=== PATIENT | male | born 1970 | race Caucasian/White ===

== ENCOUNTER → 2017-10-15 12:44 | Outpatient (CLI) | payer OTHER ==
[~2017-10-15 12:44] MED LIST: ASPIRIN81 MG PO; COREG 3.1253.125 MG PO; HYDROCODON-ACE1 EAC7 PO; NITROQUICK0.4 MG SL; PLAVIX75 MG PO
== END | disposition home or self-care (01) ==
LOC: D.US 12:30
DX: I80.292 Phlebitis and thrombophlebitis of other deep vessels of left lower extremity (principal); R60.0 Localized edema

== ENCOUNTER 2018-01-04 22:19 | Outpatient (CLI) | payer OTHER ==
--- NOTE | ~2018-01-04 | CN ---
PATIENT NAME:KRISTA MENEZES JR MEDICAL RECORD: [id number] : 66 LOCATION:[facility] ADMIT DATE: 01/05/18 ACCOUNT: [id number] CONSULTING PHYSICIAN: DUC MARTELL MD REFERRING PHYSICIAN: DUC MARTELL MD DATE OF CONSULTATION: 01/05/2018 Cardiology Consult DIAGNOSES: 1. Unstable angina. 2. Coronary artery disease. 3. Previous percutaneous transluminal coronary angioplasty stent multivessel. 4. Hypertension. HISTORY OF PRESENT ILLNESS: This is a gentleman known to us, previous multivessel PTCA stent, last being in October. He did well until 2 days ago. He began having increasing episodes of chest pain, chest discomfort just like that of his previous angina. It had totally resolved after the intervention in October. REVIEW OF SYSTEMS: The patient reports easy bruising but reports no swollen glands. The patient reports no fever, no night sweats, no significant weight gain, no significant weight loss. No significant exercise tolerance. The patient reports no dry eyes, no irritation, no vision change. Patient reports no difficulty hearing and no ear pain. Patient reports no frequent nose bleeds or nose and sinus problems. Patient reports on arm pain on exertion. No shortness of breath while lying down. No history of heart murmur. Patient reports no cough, no wheezing or coughing up blood. Patient reports no abdominal pain, no vomiting. Normal appetite. No diarrhea and not vomiting blood. No nausea and no constipation. Patient reports no incontinence. No difficulty urinating. No hematuria. No increased frequency. Patient reports no muscle aches. No weakness, no arthralgias, no back pain. No swelling of the extremities. Patient reports no abnormal mole, no jaundice, no rashes. Reports no loss of consciousness. No weakness and no numbness. No seizures, dizziness, or headaches. The patient reports no depression, no sleep disturbance, feeling safe in a relationship and no alcohol abuse. Patient reports on fatigue. Reports no runny nose or sinus pressure. No itching, no hives, and no frequent sneezing. PHYSICAL EXAMINATION: GENERAL APPEARANCE: Well-nourished, well-developed, appears stated age. Level of distress, comfortable. PSYCHIATRIC: Mental status, alert, normal affect. Orientation, oriented to time, place and person. EYES: Lids and conjunctiva, noninjected. No discharge, no pallor. ENT: Lips, teeth, gums, normal dentition. Oropharynx, no cyanosis, no pallor. NECK: Carotid arteries, bilateral normal upstroke, no bruits, no thrills. JUGULAR VEINS: No jugular venous pressure or distention. CERVICAL LYMPH NODES: Nontender, nonenlarged. THYROID: Not enlarged. Nontender. No nodules. LUNGS: Respiratory effort, unlabored. CHEST: Normal curvature. No thoracic deformity. No chest wall tenderness. Percussion, resonant. Auscultation, clear. No wheezes, no rales, no rhonchi. CARDIOVASCULAR: Precordial exam, nondisplaced. No heaves or pericardial CONSULT REPORT [id number] RIRI TORO,KRISTA EDDY thrills. Rate and rhythm, regular. Heart sounds, normal S1, normal S2. No S3, no gallop, no rub. Systolic murmur, not heard. Diastolic murmur, not heard. EXTREMITIES: No cyanosis, no edema. Peripheral pulses, full and equal in all extremities, except as noted. No bruits appreciated. ABDOMEN: Soft, nondistended. Normal aorta. No bruit. Nontender. No masses. Liver, nontender, no hepatomegaly. Spleen, nontender, no splenomegaly. MUSCULOSKELETAL: No joint tenderness. No joint swelling. No erythema. NEUROLOGICAL: Normal gait, normal strength, normal tone. SKIN: Warm and dry. OVERALL IMPRESSION: Angina increasing unstable fashion. We will proceed with coronary angiography. Further care depends upon the findings of the angiography. TRANSINT:[id number] Voice Confirmation ID: [id number] DOCUMENT ID: [id number] DUC MARTELL MD at 1630 CC: [id number] DICTATION DATE: 01/05/18 1029 CLOUD ADMINISTRATOR: 01/05/18 1143 ADM IN [facility] [address] [place] [address]
--- NOTE | ~2018-01-04 | OP ---
PATIENT NAME: KRISTA MENEZES JR MEDICAL RECORD: [id number] :66 LOCATION:[facility] ADMISSION DATE:01/05/18 SURGEON: DUC MARTELL MD DATE OF OPERATION: 01/05/2018 PROCEDURES: 1. PTCA stent left circumflex. 2. Intravascular ultrasound of the LAD. 3. Left heart catheterization. 4. Selective coronary angiography. 5. Left ventriculogram. INDICATION: Angina and coronary artery disease. PROCEDURE IN DETAIL: After informed consent was obtained and after a detailed description of risks, benefits as well as alternative therapies, the patient elected to proceed with angiogram and angioplasty. The right femoral area was prepped and draped in normal sterile fashion. Right femoral artery was cannulated via modified Seldinger technique with placement of 6-Yoruba sheath. All catheters exchanged through this sheath. FINDINGS: The left ventriculogram was performed in standard 30-degree GONSALEZ view reveals preserved cardiac wall motion, ejection fraction estimated at 50%. SELECTIVE CORONARY ANGIOGRAPHY: 1. Left main showed no significant angiographic disease. 2. Left anterior descending has previously placed stents, these are widely patent. Intravascular ultrasound reveals there is nothing greater than 50% stenosis proximal to these, definitely no flow-limiting stenosis. 3. The left circumflex has previously placed stents, these are patent; however, there is 75% stenosis at the ostium of the first obtuse marginal. 4. The right coronary artery has previously placed stents. These are widely patent with no significant restenosis. No disease elsewise at the RCA or its branches. PTCA STENT OF THE LEFT CIRCUMFLEX: The stent used was a 2.5 x 12 mm Esvin. Result was 0% residual stenosis. OVERALL IMPRESSION: Successful percutaneous transluminal coronary angioplasty stent of the left circumflex going from 75% initial stenosis to 0% residual stenosis. TRANSINT:[id number] Voice Confirmation ID: [id number] DOCUMENT ID: [id number] DUC MARTELL MD at 1630 CC: [id number] DICTATION DATE: 01/05/18 1100 TRANSMISSION SPECIALIST: 01/05/18 1206 ADM IN [place] [address] [place] [address]
--- NOTE | ~2018-01-04 | HEMODYNAMI ---
PATIENT:KRISTA MENEZES JR MEDICAL RECORD: [id number] : 66 [facility] ADMISSION DATE: 01/05/18 Generatedon:01/05/201811:04 Patient name: KRISTA MENEZES Patient #: [id number] SSN: DO B: 1970 Date of study: 01/05/2018 Page: Of Hemodynamic Procedure Report Patient Data Patient Demographics Procedure consent was obtained First Name: KRISTA Gender: Male Last Name: RIRI Suffix: Jr Rojo Initial: NUNU : 1970 Patient #: [id number] Age: 47 year(s) Race: Additional ID: [id number] Contact details [address]: [address] [place] [address] State: [place] City: [place] Zip code: [address] Past Medical History Allergies: No known allergies Admission Admission Data Admission Date: 01/05/2018 Admission Time: 0:02 Room #: D.E15 Procedure Procedure Types Cath Procedure Diagnostic Procedure [facility] w/Coronaries FFR/IVUS Intra-Coronary IVUS Initial PCI Procedure Coronary Stent Coronary Stent Initial Procedure Description Procedure Date Procedure Date: 01/05/2018 Procedure Start Time: 10:37 Procedure End Time: 11:02 Procedure Staff Name Function Khoa Yi MD Performing Physician Karl Jordan RT Monitor Garrett Lemons RN Nurse Ayesha Weinberg RT Scrub Procedure Data Cath Procedure Fluoroscopy Diagnostic fluoroscopy Total fluoroscopy Time: 6.3 time: 6.3 min min Diagnostic fluoroscopy Total fluoroscopy dose: dose: 580.78 mGy 580.78 mGy Contrast Material Contrast Material Type Amount (ml) Isovue 300 103 Entry Location Entry Primary Successful Side Size Upsize Upsize Entry Closure Succes sful Closure Location (Fr) 1 (Fr) 2 (Fr) Remarks Device Remarks Femoral Right 6 Fr Exoseal artery Short Estimated blood loss: 20 ml Diagnostic catheters Device Type Used For End Catheter Placement MULTIPACK Pigtail 5 Fr Procedure catheter MULTIPACK JL 4.0 5Fr Procedure catheter MULTIPACK 3DRC 5Fr Procedure catheter Procedure Medications Medication Administration Route Dosage Oxygen etCO2 Nasal cannula 2 l/min Heparin Flush Bag added to field 2 bags (1000units/500ml NS) 0.9% NaCl I.V. 100 ml/hr Radial Cocktail added to field 1 syringe (Verapomil 2mg/Nitro 400mcg/Heparin 1500units) Fentanyl I.V. 50 mcg Versed I.V. 1 mg Fentanyl I.V. 50 mcg Versed I.V. 1 mg Heparin Bolus I.V. 4000 units Hemodynamics Rest Heart Rate: 66 (bpm) Pressure Samples Time Site Value (mmHg) Purpose Heart Use Rate(bpm) 10:41 LV 116/26,30 Snapshot 85 Snapshots Pre Cath Intra NCS Post Cath Vital Signs Time Heart Resp SPO2 etCO2 NIBP (mmHg) Rhythm Pain Sedation Rate (ipm) (%) (mmHg) Status Level (bpm) 10:29:18 71 17 95 38.3 121/83(96) NSR 0 (11) 10(A) , No pain 10:33:24 81 16 95 44.4 121/85(107) NSR 0 (11) 10(A) , No pain 10:37:32 78 17 94 36.8 109/78(92) NSR 0 (11) 9(A) , No pain 10:42:27 78 17 96 35.3 125/89(113) NSR 0 (11) 9(A) , No pain 10:47:20 86 16 96 37.6 151/82(95) NSR 0 (11) 9(A) , No pain 10:51:36 89 17 95 45.8 143/90(108) NSR 0 (11) 9(A) , No pain 10:55:42 91 16 94 40.6 133/92(108) NSR 0 (11) 9(A) , No pain 10:59:43 95 17 87 42.1 139/88(107) NSR 0 (11) 9(A) , No pain 11:04:01 89 14 90 45.1 136/72(104) NSR 0 (11) 9(A) , No pain Medications Time Medication Route Dose Verified Delivered Reason Not es Effectiveness by by 10:24:25 Oxygen etCO2 2 l/min Khoa Tucker Per physician Nasal Kd Lemons RN cannula 10:24:33 Heparin Flush added 2 bags Khoa Tucker used for Bag to Kd Lemons RN procedure (1000units/500ml field NS) 10:24:43 0.9% NaCl I.V. 100 Khoa Tucker Per physician ml/hr Kd Lemons RN 10:24:51 Radial Cocktail added 1 Khoa Tucker used for (Verapomil to syringe Kd Lemons RN procedure 2mg/Nitro field 400mcg/Heparin 1500units) 10:34:11 Fentanyl I.V. 50 mcg Khoa Tucker for sedation Kd Lemons RN 10:34:17 Versed I.V. 1 mg Khoa Tucker for sedation Kd Lemons RN 10:38:34 Fentanyl I.V. 50 mcg Khoa Tucker for sedation Kd Lemons RN 10:38:38 Versed I.V. 1 mg Khoa Tucker for sedation Kd Lemons RN 10:45:53 Heparin Bolus I.V. 4000 Khoa Tucker for units Kd Lemons RN anticoagulation Procedure Log Time Note 10:03:21 Diagnostic Cath Status : Elective 10:04:09 Karl Jordan RT(R) (CV) sent for patient. Start room use. 10:04:10 Time tracking: Regular hours (M-F 7:00 - 5:00) 10:04:15 Plan of Care:Hemodynamics will remain stable., Cardiac rhythm will remain stable., Comfort level will be maintained., Respiratory function will remain adequate., Patient/ family verbilizes understanding of procedure., Procedure tolerated without complication., Recovers from procedure without complications.. 10:21:37 Patient received from ED to CCL 3 Alert and oriented. Tansferred to table in Supine position. 10:21:38 Warm blankets applied, and lynette hugger turned on for patient comfort. 10:21:38 Correct patient and procedure confirmed by team. 10:21:40 Signed procedure consent form obtained from patient. 10:21:41 ECG and BP/O2 sat monitors applied to patient. 10:23:53 Vital chart was started 10:24:25 Oxygen 2 l/min etCO2 Nasal cannula was administered by Garrett Lemons RN; Per physician; 10:24:33 Heparin Flush Bag (1000units/500ml NS) 2 bags added to field was administered by Garrett Lemons RN; used for procedure; 10:24:43 0.9% NaCl 100 ml/hr I.V. was administered by Garrett Lemons RN; Per physician; 10:24:51 Radial Cocktail (Verapomil 2mg/Nitro 400mcg/Heparin 1500units) 1 syringe added to field was administered by Garrett Lemons RN; used for procedure; 10:25:03 Baseline sample Acquired. 10:25:06 Rhythm: sinus rhythm 10:25:08 Full Disclosure recording started 10:25:11 H&P Date Dictated: 01/05/2018 New H&P dictated by physician.. 10:25:12 Pre-procedure instructions explained to patient. 10:25:13 Pre-op teaching completed and patient verbalized understanding. 10:25:18 Family unavailable. 10:25:19 Patient NPO since Midnight. 10:25:21 Is the patient allergic to Iodine/contrast media? No. 10:25:22 Was the patient premedicated? No 10:25:23 Is patient on blood thinner?Yes 10:25:25 ACC The patient was administered the following blood thiners within the last 24 hours: ACCPlavix 10:25:28 Patient diabetic? No. 10:25:31 Previous problem with sedation/anesthesia? No ? 10:25:32 Snore? Yes 10:25:33 Sleep apnea? Yes 10:25:34 Deviated septum? No 10:25:35 Opens mouth fully? Yes 10:25:36 Sticks out tongue? Yes 10:25:39 Airway obstruction? Yes copd 10:25:43 Dentures? Yes out 10:25:48 Pre procedure: right dorsailis pedis pulse 2+ Normal; easily identifiable; not easily obliterated 10:25:50 Pre procedure: left dorsailis pedis pulse 2+ Normal; easily identifiable; not easily obliterated 10:25:52 Patient pain scale 7/10 ?. 10:26:04 IV patent on arrival in left forearm with 0.9% NaCl at [facility]. 10:26:07 Lab results completed and on chart. 10:26:11 Right groin area was prepped with chlora-prep and draped in sterile fashion 10:26:12 Alarms reviewed by R. N. 10:26:12 Sharps counted by scrub and verified by R.N. 10:28:01 Vital chart was stopped 10:28:02 Vital chart was started 10:30:00 Use device set Radial Dx or PCI 10:30:02 ACIST Syringe (53700) opened to sterile field. 10:30:03 Medline Cath Pack ([id number]) opened to sterile field. 10:30:04 Bag Decanter (2002S) opened to sterile field. 10:30:04 DIAGNOSTIC WIRE .035 260cm J wire (161580) opened to sterile field. 10:30:05 ACIST Hand Control (94298) opened to sterile field. 10:30:06 ACIST Manifold (98290) opened to sterile field. 10:30:06 Tegaderm 4 x 4 (1626W) opened to sterile field. 10:30:27 SHEATH 6Fr Prelude ([id number]) opened to sterile field. 10:30:49 Use device set Femoral Dx 10:31:01 DIAGNOSTIC Multipack 5Fr catheter set (NA5895) opened to sterile field. 10:33:23 Physician arrived 10:33:24 --------ALL STOP TIME OUT------ 10:33:24 Final Timeout: patient, procedure, and site verified with staff and physician. All members of the team are in agreement. 10:33:26 Right groin site verified by team. 10:33:29 Physical assessment completed. ASA score P 2 - A patient with mild systemic disease as per Khoa Yi MD. 10:33:33 Sedation plan: IV Moderate Sedation Medication:Versed, Fentanyl 10:34:11 Fentanyl 50 mcg I.V. was administered by Garrett Lemons RN; for sedation; 10:34:17 Versed 1 mg I.V. was administered by Garrett Lemons RN; for sedation; 10:36:14 Zero performed for pressure channel P1 10:36:43 Zero performed for pressure channel P1 10:37:34 Zero performed for pressure channel P1 10:37:36 Zero performed for pressure channel P1 10:37:38 Zero performed for pressure channel P1 10:37:54 Procedure started. 10:37:58 Local anesthetic to right femoral artery with Lidocaine 2% by Khoa Yi MD.INITIAL ACCESS ONLY 10:38:34 Fentanyl 50 mcg I.V. was administered by Garrett Lemons RN; for sedation; 10:38:38 Versed 1 mg I.V. was administered by Garrett Lemons RN; for sedation; 10:40:19 A 6 Fr Short sheath was inserted into the Right Femoral artery 10:40:35 A MULTIPACK Pigtail 5 Fr catheter was advanced over the wire and used for Procedure. 10:41:29 LV hemodynamics recorded. 10:41:31 LV gram done using GONSALEZ 10:41:36 EF : 50 % 10:41:39 Catheter removed. 10:42:05 A MULTIPACK JL 4.0 5Fr catheter was advanced over the wire and used for Procedure. 10:42:25 LCA angiography performed. 10:43:27 Catheter removed. 10:43:36 A MULTIPACK 3DRC 5Fr catheter was advanced over the wire and used for Procedure. 10:44:16 RCA angiography performed. 10:44:34 Catheter removed. 10:44:36 Proceeding to intervention. 10:44:50 CHOICE PT Extra Support 182cm wire ([id number]) opened to sterile field. 10:44:51 INFLATOR Merit BasixCompak (BE8048) opened to sterile field. 10:44:59 GUIDE 6FR XBLAD 3.5 catheter ([id number]) opened to sterile field. 10:45:17 Grenola [employer] IVUS Catheter (89587W) opened to sterile field. 10:45:30 6 Fr XBLAD 3.5 guide catheter was inserted over the wire 10:45:53 Heparin Bolus 4000 units I.V. was administered by Garrett Lemons RN; for anticoagulation; 10:50:25 CHOICE wire advanced. 10:50:27 Wire advanced across lesion. 10:50:30 FFR/IVUS 10:50:31 IVUS catheter advanced over wire. 10:50:35 IVUS pass to LAD lesion performed. 10:50:37 IVUS catheter removed over wire. 10:50:52 IVUS 53% 10:51:03 Wire redirected to CIRC. 10:53:09 Inflate balloon Inflation number: 1 A EUPHORA 2.5 x 12 Balloon ([id number]) was prepped and advanced across the 1st Ob Mine, then inflated to 13 TIFFANY for 0:10 (min:sec). 10:53:26 Inflation number: 2 The EUPHORA 2.5 x 12 Balloon ([id number]) was reinflated across the 1st Ob Mine, to 17 TIFFANY for 0:12 (min:sec). 10:53:43 Inflation number: 3 The EUPHORA 2.5 x 12 Balloon ([id number]) was reinflated across the 1st Ob Mine, to 19 TIFFANY for 0:10 (min:sec). 10:53:58 Balloon removed over the wire. 10:56:04 Place stent Inflation Number: 4 A MERCEDEZ RX 2.5 x 12 stent ([id number]) was prepped and advanced across the 1st Ob Mine. The stent was deployed at 19 TIFFANY for 0:10 (min:sec). 10:56:30 Stent catheter was removed intact over wire. 10:56:32 Wire removed. 10:56:33 Guide catheter removed. 10:56:42 EXOSEAL 6Fr (EX600) opened to sterile field. 10:57:22 Procedure type changed to Cath procedure, Diagnostic procedure, LHC, LHC w/Coronaries, FFR/IVUS, Intra-Coronary IVUS Initial, PCI procedure, Coronary Stent, Coronary Stent Initial 10:58:22 Sheath removed intact; hemostasis achieved with Exoseal to the Right Femoral artery. 10:58:28 Procedure ended.(Physican Out) 10:58:42 Fluoroscopy time 06.30 minutes. 10:58:51 Flurop Dose total: 580.78 10:58:51 Fluoroscopy dose: 580.78 mGy 10:58:56 Contrast amount:Isovue 300 103ml. 10:59:03 Sharps counted by scrub and verified by R.N. 10:59:10 Insertion/operative site no bleeding no hematoma. 10:59:20 Post-procedure physical assessment completed. ASA score P 2 - A patient with mild systemic disease as per Khoa Yi MD. 10:59:25 Post procedure rhythm: sinus rhythm 10:59:28 Estimated blood loss: 20 ml 10:59:30 Post procedure instruction explained to patient.Patient verbalizes understanding. 10:59:31 Patient needs reinforcement of post procedure teaching. 10:59:32 Procedure and supply charges have been captured, reviewed, submitted and are correct. 11:02:18 Post-op/insertion site Right Femoral artery dressed using a 4 x 4 and Tegaderm. 11:02:35 Post right femoral artery:stable 11:02:41 See physician's report for complete and final results. 11:02:43 Report given to Pre/Post Procedure Room. 11:02:49 Patient transfered to Pre/Post Procedure Room with Stretcher. 11:02:53 Procedure ended. 11:02:53 Full Disclosure recording stopped 11:02:58 End room use (Document Last) 11:04:39 Vital chart was stopped Intervention Summary Intervention Notes Time ActionType Lesion and Equipment Used Action# Pressure Duration Attributes 10:53:09 Inflate 1st Ob Mine EUPHORA 2.5 x 1 13 00:10 balloon 12 Balloon ([id number]) 10:53:26 Reinflate 1st Ob Mine EUPHORA 2.5 x 2 17 00:12 balloon 12 Balloon ([id number]) 10:53:43 Reinflate 1st Ob Mine EUPHORA 2.5 x 3 19 00:10 balloon 12 Balloon ([id number]) 10:56:04 Place stent 1st Ob Mine MERCEDEZ RX 2.5 x 4 19 00:10 12 stent ([id number]) Device Usage Item Name Manufacture Quantity Catalog Number Hospital Part Current M inimal Lot# / Charge Number Stock Stock Serial# Code ACIST Syringe Acist 1 32900 105875 916899 534469 2 0 (13526) Medical Systems Inc Medline Cath Cardinal 1 [id number] 804735 39089 298538 5 Pack Health ([id number]) Bag Decanter Microtek 1 2001S 106455 29615 549589 5 () Medical Inc. DIAGNOSTIC St [place] 1 079524 218002 499582 822359 3 0 WIRE .035 260cm J wire (676479) ACIST Hand Acist 1 64857 897101 857414 974569 5 Control Medical (43811) Systems Inc ACIST Manifold Acist 1 90540 153596 053980 443185 5 (83240) Medical Systems Inc Tegaderm 4 x 4 3M 1 1626W 329310 632744 019107 5 (1626W) SHEATH 6Fr Merit 1 [id number] 877699 303270 538234 5 Prelude Medical ([id number]) DIAGNOSTIC Cardinal 1 AV3788 937649 77448 474317 3 0 Multipack 5Fr Health catheter set (AP9927) MULTIPACK Cardinal 1 924135 5 Pigtail 5 Fr Health catheter MULTIPACK JL Cardinal 1 594505 5 4.0 5Fr Health catheter MULTIPACK 3DRC Cardinal 1 902335 5 5Fr catheter Health CHOICE PT [place] 1 [id number] 055090 042242 760081 5 Extra Support Scientific 182cm wire ([id number]) INFLATOR Merit Merit 1 AG6724 260013 235984 082114 1 5 CanatuarSimparel (CK9562) GUIDE 6FR Cardinal 1 14004537 270236 884014 862807 1 0 XBLAD 3.5 Health catheter ([id number]) Grenola Grenola 1 08153O 462209 228064 378228 8 [employer] IVUS Catheter (49714L) EUPHORA 2.5 x Medtronic 1 [id number] 295008 519289 386200 5 12 Balloon ([id number]) MERCEDEZ RX 2.5 x Medtronic 1 [id number] 625313 7203878 402726 5 [id number] 12 stent ([id number]) EXOSEAL 6Fr Cardinal 1 EX600 725686 509095 608258 1 0 (EX600) Health Signature Audit [place] Stage Time Signature Unsigned Intra-Procedure 01/05/2018 Karl Jordan 11:04:35 AM RT(R) (CV) Signatures Monitor : Karl Jordan RT Signature : Date : Time : [facility] [address] [facility] [place] [address]
[2018-01-04 23:16] LABS: BASOPHILS 0.5 % (0-2); EOSINOPHILS 4.5 % (0-7); HEMATOCRIT 45.5 % (42.0-54.0); HEMOGLOBIN 15.9 g/dL (13.5-17.5); IMMATURE GRANULOCYTES 0.2 % (0-5); MCH 31.7 pg (26.0-34.0); MCHC 34.9 g/dL (31.0-37.0); MCV 90.6 fL (80.0-100.0); MONOCYTES 7.6 % (2-11); NEUTROPHILS 61.2 % (40-80); PLATELET COUNT 199 10x3/uL (130-400); RBC 5.02 10x6/uL (4.20-6.10); RDW 13.5 % (11.5-14.5); WBC 8.6 10x3/uL (4.8-10.8)
[2018-01-04 23:28] LABS: ALBUMIN 3.5 g/dL (3.4-5.0); ALKALINE PHOSPHATASE 73 U/L (46-116); ALT (SGPT) 30 U/L (10-68); CALC OSMOLALITY 279 mosm/kg (275-300); CALCIUM 9.4 mg/dL (8.5-10.1); CARBON DIOXIDE 24.8 mmol/L (21.0-32.0); CHLORIDE - SERUM 104 mmol/L (98-107); CREATININE - SERUM 1.1 mg/dL (0.6-1.3); GLUCOSE 115 mg/dL (74-106); POTASSIUM - SERUM 3.6 mmol/L (3.5-5.1); PROTEIN - SERUM 6.4 g/dL (6.4-8.2); SODIUM 140 mmol/L (136-145); UREA NITROGEN 12 mg/dL (7-18); eGFR NON AFRICAN AMERICAN 75 mL/min (90-120)
[2018-01-04 23:39] LABS: CHOL - HDL RATIO 8.6 ratio (2.3-4.9); CHOLESTEROL, TOTAL 223 mg/dL (0-200); CKMB 1.1 U/L (0.0-3.6); CREATINE KINASE 233 UL (21-232); HDL CHOLESTEROL 26 mg/dL (32-96); LDL CHOLESTEROL 123 mg/dL (0-100); LDL-HDL RATIO 4.7 ratio (1.5-3.5); PRO BNP 109 pg/mL (0-125); TRIGLYCERIDE 374 mg/dL (30-200); TROPONIN-I < 0.017 ng/mL (0.000-0.060)
[2018-01-05 08:50] LABS: BASOPHILS 0.3 % (0-2); HEMATOCRIT 44.6 % (42.0-54.0); IMMATURE GRANULOCYTES 0.2 % (0-5); LYMPHOCYTES 13.5 % (15-50); MCH 30.8 pg (26.0-34.0); MCHC 33.6 g/dL (31.0-37.0); MCV 91.6 fL (80.0-100.0); MEAN PLATELET VOLUME 10.8 fL (7.4-10.4); MONOCYTES 7.4 % (2-11); NEUTROPHILS 75.6 % (40-80); PLATELET COUNT 183 10x3/uL (130-400); RBC 4.87 10x6/uL (4.20-6.10); RDW 13.7 % (11.5-14.5)
[2018-01-05 08:55] LABS: CALC OSMOLALITY 283 mosm/kg (275-300); CALCIUM 8.9 mg/dL (8.5-10.1); CARBON DIOXIDE 29.1 mmol/L (21.0-32.0); CHLORIDE - SERUM 106 mmol/L (98-107); GLUCOSE 99 mg/dL (74-106); POTASSIUM - SERUM 4.1 mmol/L (3.5-5.1); SODIUM 142 mmol/L (136-145); UREA NITROGEN 14 mg/dL (7-18); eGFR NON AFRICAN AMERICAN 84 mL/min (90-120)
== END 2018-01-05 15:15 | disposition home or self-care (01) ==
LOC: OBSVTIME → D.ER 22:19 → D.OPS 22:19 → D.EDHOLD 01-05 00:02 → OBSVTIME 01-05 00:02 → D.EDHOLD 01-05 00:02 → D.ER 01-05 00:02 → EDSTATUS 01-05 10:00 → D.CLR 01-05 11:07 → D.EDHOLD 01-05 11:07 → D.CLR 01-05 15:15 → D.OPS 01-05 15:15 → D.CLR 01-05 15:15
PROVIDERS: Family Medicine; Internal Medicine Cardiovascular Disease
DX: I25.110 Atherosclerotic heart disease of native coronary artery with unstable angina pectoris (principal); Z95.5 Presence of coronary angioplasty implant and graft; I10 Essential (primary) hypertension

== ENCOUNTER 2018-03-09 21:44 | Observation (INO) | payer OTHER ==
[~2018-03-09] VITALS: Ht 185.4 cm; Wt 97.7 kg
--- NOTE | ~2018-03-09 | HEMODYNAMI ---
PATIENT:KRISTA MENEZES JR MEDICAL RECORD: [id number] : 66 [facility] ADMISSION DATE: 03/09/18 Generatedon:03/10/201815:01 Patient name: KRISTA MENEZES Patient #: [id number] SSN: DO B: 1970 Date of study: 03/10/2018 Page: Of Hemodynamic Procedure Report Patient Data Patient Demographics Procedure consent was obtained First Name: KRISTA Gender: Male Last Name: RIRI Suffix: Jr Rojo Initial: NUNU : 1970 Patient #: [id number] Age: 47 year(s) Race: Additional ID: [id number] Contact details [address]: [address] [place] [address] State: [place] City: [place] Zip code: [address] Past Medical History Allergies: No known allergies Admission Admission Data Admission Date: 03/09/2018 Admission Time: 22:48 Room #: D.CL02 Procedure Procedure Types Cath Procedure Diagnostic Procedure LHC LH w/Coronaries Sedation Charges Moderate Sedation up to 15 minutes Procedure Description Procedure Date Procedure Date: 03/10/2018 Procedure Start Time: 14:28 Procedure End Time: 14:55 Procedure Staff Name Function Damaso Larios MD Performing Physician Ayesha Weinberg RT Monitor Edward Edmondson RT Scrub Garrett Lemons RN Nurse Procedure Data Cath Procedure Fluoroscopy Diagnostic fluoroscopy Total fluoroscopy Time: 4.9 time: 4.9 min min Diagnostic fluoroscopy Total fluoroscopy dose: dose: 1209 mGy 1209 mGy Contrast Material Contrast Material Type Amount (ml) Isovue 300 117 Entry Location Entry Primary Successful Side Size Upsize Upsize Entry Closure Álvarez ccessful Closure Location (Fr) 1 (Fr) 2 (Fr) Remarks Device Remarks Radial Right 6 Fr Mechanical artery Short Compression Estimated blood loss: 5 ml Diagnostic catheters Device Type Used For End Catheter Placement DIAGNOSTIC Abdiel 110cm Multi-vessel 5Fr catheter ([id number]) Angiography DIAGNOSTIC Storden 110cm 5 Multi-vessel Fr catheter ([id number]) Angiography DIAGNOSTIC Storden 4.5 5Fr Left Coronary catheter (870479) Angiography Procedure Complications No complications Procedure Medications Medication Administration Route Dosage Oxygen etCO2 Nasal cannula 2 l/min Heparin Flush Bag added to field 2 bags (1000units/500ml NS) 0.9% NaCl I.V. 100 ml/hr Fentanyl I.V. 50 mcg Versed I.V. 1 mg Fentanyl I.V. 50 mcg Versed I.V. 1 mg Radial Cocktail added to field 1 syringe (Verapomil 2mg/Nitro 400mcg/Heparin 1500units) Radial Cocktail I.A. 1 syringe (Verapomil 2mg/Nitro 400mcg/Heparin 1500units) Plavix P.O. 75 mg Hemodynamics Rest Heart Rate: 67 (bpm) Pressure Samples Time Site Value (mmHg) Purpose Heart Use Rate(bpm) 14:31 LV 157/20,37 Snapshot 91 14:31 AO 126/86(100) Pullback 103 14:31 LV 169/0,57 Pullback 103 Gradients Valve Time Site 1 Site 2 Mean SEP/DFP Peak To Heart Use (mmHg) (sec/min) Peak Rate (mmHg) (bpm) Aortic 14:31 LV AO 15 8 43 103 169/0,57 126/86(100) Calculations Valve P-P Mean Valve Index Valve Source Name Gradient Area Flow (cm2) Aortic 43 15 43 15 Snapshots Pre Cath Intra NCS Post Cath Vital Signs Time Heart Resp SPO2 etCO2 NIBP (mmHg) Rhythm Pain Sedation Rate (ipm) (%) (mmHg) Status Level (bpm) 14:13:26 63 18 96 41.9 127/86(113) NSR 0 (11) 10(A) , No pain 14:17:36 73 17 92 24.7 120/79(96) NSR 0 (11) 10(A) , No pain 14:21:40 72 17 91 41.1 135/86(120) NSR 0 (11) 10(A) , No pain 14:25:47 80 17 88 18.7 137/103(123) NSR 0 (11) 10(A) , No pain 14:29:55 79 17 88 27.7 136/105(129) NSR 0 (11) 9(A) , No pain 14:33:55 85 16 85 37.4 132/94(125) NSR 0 (11) 9(A) , No pain 14:38:52 92 16 86 31.4 121/95(116) NSR 0 (11) 9(A) , No pain 14:43:00 89 16 88 32.9 135/83(115) NSR 0 (11) 9(A) , No pain 14:47:08 87 16 88 35.9 126/87(106) NSR 0 (11) 9(A) , No pain 14:51:15 83 16 89 34.4 126/83(110) NSR 0 (11) 10(A) , No pain 14:55:27 81 17 90 38.9 136/72(115) NSR 0 (11) 10(A) , No pain Medications Time Medication Route Dose Verified Delivered Reason Notes Effectiveness by by 14:12:42 Oxygen etCO2 2 l/min Damaso Garrett Per Nasal Ric Lemons RN physician cannula 14:12:51 Heparin Flush added 2 bags Damaso Garrett used for Bag to Ric Lemons RN procedure (1000units/500ml field NS) 14:13:01 0.9% NaCl I.V. 100 Damaso Garrett Per ml/hr Ric Lemons RN physician 14:22:36 Fentanyl I.V. 50 mcg Damaso Garrett for sedation Ric Lemons RN 14:22:42 Versed I.V. 1 mg Damaso Garrett for sedation Ric Lemons RN 14:28:07 Fentanyl I.V. 50 mcg Damaso Garrett for sedation Ric Lemons RN 14:28:10 Versed I.V. 1 mg Damaso Garrett for sedation Ric Lemons RN 14:28:24 Radial Cocktail added 1 Damaso Garrett used for (Verapomil to syringe Ric Lemons machine cementer and folder 2mg/Nitro field 400mcg/Heparin 1500units) 14:29:24 Radial Cocktail I.A. 1 Damaso Damaso for (Verapomil syringe Ric Larios MD vasodilation 2mg/Nitro 400mcg/Heparin 1500units) 14:59:04 Plavix P.O. 75 mg Damaso Damaso for Ric Larios MD antiplatelet therapy Procedure Log Time Note 13:50:26 Garrett Lemons RN sent for patient. Start room use. 13:55:27 Time tracking: Regular hours (M-F 7:00 - 5:00) 13:55:30 Plan of Care:Hemodynamics will remain stable., Cardiac rhythm will remain stable., Comfort level will be maintained., Respiratory function will remain adequate., Patient/ family verbilizes understanding of procedure., Procedure tolerated without complication., Recovers from procedure without complications.. 14:02:11 Patient received from ED to CCL 2 Alert and oriented. Tansferred to table in Supine position. 14:02:12 Warm blankets applied, and lynette hugger turned on for patient comfort. 14:02:12 Correct patient and procedure confirmed by team. 14:02:13 Signed procedure consent form obtained from patient. 14:02:14 ECG and BP/O2 sat monitors applied to patient. 14:12:21 Vital chart was started 14:12:42 Oxygen 2 l/min etCO2 Nasal cannula was administered by Garrett Lemons RN; Per physician; 14:12:51 Heparin Flush Bag (1000units/500ml NS) 2 bags added to field was administered by Garrett Lemons RN; used for procedure; 14:13:01 0.9% NaCl 100 ml/hr I.V. was administered by Garrett Lemons RN; Per physician; 14:13:19 Baseline sample Acquired. 14:13:26 Rhythm: sinus rhythm 14:13:27 Full Disclosure recording started 14:13:31 H&P Date Dictated: 03/10/2018 Within 30 days and on chart., H&P Addendum completed by physician on day of procedure. (MUST COMPLETE FOR ALL OUTPATIENTS). 14:13:32 Pre-procedure instructions explained to patient. 14:13:33 Pre-op teaching completed and patient verbalized understanding. 14:13:34 Family in waiting room. 14:13:35 Patient NPO since Midnight. 14:13:37 Is the patient allergic to Iodine/contrast media? No. 14:13:38 Was the patient premedicated? No 14:13:39 Is patient on blood thinner?Yes 14:13:41 ACC The patient was administered the following blood thiners within the last 24 hours: ACCPlavix 14:13:44 Patient diabetic? No. 14:13:47 Previous problem with sedation/anesthesia? No ? 14:13:52 Snore? Yes 14:13:53 Sleep apnea? No 14:13:55 Deviated septum? No 14:13:56 Opens mouth fully? Yes 14:13:56 Sticks out tongue? Yes 14:13:58 Airway obstruction? No ? 14:14:04 Dentures? Yes out 14:14:08 Pre procedure: right dorsailis pedis pulse 1+ Palpable, but thready & weak; easily obliterated 14:14:09 Pre procedure: left dorsailis pedis pulse 1+ Palpable, but thready & weak; easily obliterated 14:14:12 Patient pain scale 5/10 ?. 14:14:17 IV patent on arrival in left forearm with 0.9% NaCl at [facility]. 14:14:20 Lab results completed and on chart. 14:14:27 Right Radial & Right Groin area was prepped with chlora-prep and draped in sterile fashion 14:14:29 Alarms reviewed by R. N. 14:14:30 Sharps counted by scrub and verified by R.N. 14:14:43 Physician arrived 14:14:43 --------ALL STOP TIME OUT------ 14:14:43 Final Timeout: patient, procedure, and site verified with staff and physician. All members of the team are in agreement. 14:14:47 Right Radial & Right Groin site verified by team. 14:14:50 Physical assessment completed. ASA score P 2 - A patient with mild systemic disease as per Damaso Larios MD. 14:14:54 Sedation plan: IV Moderate Sedation Medication:Versed, Fentanyl 14:16:32 Use device set Radial Dx or PCI 14:16:33 ACIST Syringe (27425) opened to sterile field. 14:16:34 Medline Cath Pack ([id number]) opened to sterile field. 14:16:34 Bag Decanter () opened to sterile field. 14:16:35 DIAGNOSTIC WIRE .035 260cm J wire (575670) opened to sterile field. 14:16:35 ACIST Hand Control (64081) opened to sterile field. 14:16:36 ACIST Manifold (96074) opened to sterile field. 14:16:36 Tegaderm 4 x 4 (1626W) opened to sterile field. 14:16:37 MBrace Wrist Support ([id number]) opened to sterile field. 14:16:38 SHEATH 6Fr Prelude Radial ([id number]) opened to sterile field. 14:22:36 Fentanyl 50 mcg I.V. was administered by Garrett Lemons RN; for sedation; 14:22:42 Versed 1 mg I.V. was administered by Garrett Lemons RN; for sedation; 14:28:00 Procedure started. 14:28:07 Fentanyl 50 mcg I.V. was administered by Garrett Lemons RN; for sedation; 14:28:10 Versed 1 mg I.V. was administered by Garrett Lemons RN; for sedation; 14:28:11 Zero performed for pressure channel P1 14:28:24 Radial Cocktail (Verapomil 2mg/Nitro 400mcg/Heparin 1500units) 1 syringe added to field was administered by Garrett Lemons RN; used for procedure; 14:28:27 Local anesthetic to right radial artery with Lidocaine 2% by Damaso Larios MD.INITIAL ACCESS ONLY 14:28:37 A 6 Fr Short sheath was inserted into the Right Radial artery 14:29:24 Radial Cocktail (Verapomil 2mg/Nitro 400mcg/Heparin 1500units) 1 syringe I.A. was administered by Damaso Larios MD; for vasodilation; 14:29:59 A DIAGNOSTIC Abdiel 110cm 5Fr catheter (267216) was advanced over the wire and used for Multi-vessel Angiography. 14:31:15 LV hemodynamics recorded. 14:31:16 LV gram done using GONSALEZ 14:31:19 Injector settings: Ml/sec: 5, Volume: 15, 14:31:55 EF : 60 % 14:32:11 RCA angiography performed. 14:32:13 Injector settings: Ml/sec: 3, Volume: 6, 14:33:29 Catheter removed. 14:33:35 A DIAGNOSTIC Storden 110cm 5 Fr catheter (004383) was advanced over the wire and used for Multi-vessel Angiography. 14:36:33 LCA angiography performed. 14:36:36 Injector settings: Ml/sec: 3, Volume: 6, 14:41:04 Catheter removed. 14:41:17 A DIAGNOSTIC Storden 4.5 5Fr catheter (976250) was advanced over the wire and used for Left Coronary Angiography. 14:49:31 LCA angiography performed. 14:49:35 Injector settings: Ml/sec: 3, Volume: 6, 14:53:32 Catheter removed. 14:53:37 TR BAND Standard ([id number]) opened to sterile field. 14:53:55 Sheath removed intact; hemostasis achieved with Mechanical Compression to the Right Radial artery. 14:54:13 Procedure ended.(Physican Out) 14:54:16 Fluoroscopy time 04.90 minutes. 14:54:21 Flurop Dose total: 1209 14:54:21 Fluoroscopy dose: 1209 mGy 14:54:25 Contrast amount:Isovue 300 117ml. 14:54:27 Sharps counted by scrub and verified by R.N. 14:54:50 TR band inflated with 11cc of air. 14:54:52 Insertion/operative site no bleeding no hematoma. 14:54:56 Post right radial artery:stable 14:54:57 Post Procedure Pulses reassessed and unchanged 14:55:00 Post procedure rhythm: unchanged. 14:55:03 Estimated blood loss: 5 ml 14:55:04 Post procedure instruction explained to patient.Patient verbalizes understanding. 14:55:05 Patient needs reinforcement of post procedure teaching. 14:55:29 Procedure type changed to Cath procedure, Diagnostic procedure, LHC, LHC w/Coronaries, Sedation Charges, Moderate Sedation up to 15 minutes 14:55:30 Procedure and supply charges have been captured, reviewed, submitted and are correct. 14:55:35 Procedure Complication : No complications 14:55:44 Vital chart was stopped 14:55:44 See physician's report for complete and final results. 14:55:53 Report given to Pre/Post Procedure Room. 14:55:56 Patient transfered to Pre/Post Procedure Room with Stretcher. 14:55:58 Procedure ended. 14:55:58 Full Disclosure recording stopped 14:56:15 End room use (Document Last) 14:59:04 Plavix 75 mg P.O. was administered by Damaso Larios MD; for antiplatelet therapy; Device Usage Item Name Manufacture Quantity Catalog Number Hospital Part Current M inimal Lot# / Charge Number Stock Stock Serial# Code ACIST Syringe Acist 1 63657 842809 431483 857099 2 0 (94924) Autrement (HotelHotel) Medline Cath Cardinal 1 [id number] 083949 44542 784072 5 Pack [facility] ([id number]) Bag Decanter Microtek 1 2001S 052138 17155 759600 5 (2001S) [employer]. DIAGNOSTIC WIRE [facility] 1 511106 740273 982782 076049 3 0 .035 260cm J wire (027573) ACIST Hand Acist 1 43645 233378 897676 186520 5 Control (44807) Medical Systems Inc ACIST Manifold Acist 1 80295 291787 409226 427596 5 (09497) Medical Systems Inc Tegaderm 4 x 4 3M 1 1626W 364333 828753 872528 5 (1626W) MBrace Wrist Advanced 1 140-0250-00 752320 21408 095908 5 Support Vascular ([id number]) Dynamics SHEATH 6Fr Merit 1 [id number] 659370 913668 127923 5 Prelude Radial Medical ([id number]) DIAGNOSTIC Terumo 1 40-5023 356341 477869 985257 5 Abdiel 110cm 5Fr catheter (675721) DIAGNOSTIC Terumo 1 40-5013 067275 846799 583720 5 Storden 110cm 5 Fr catheter (231777) DIAGNOSTIC Terumo 1 40-5012 483643 334781 989104 5 Storden 4.5 5Fr catheter (484607) TR BAND Terumo 1 [id number] 224988 858338 696302 4 0 Standard ([id number]) Signature Audit [place] Stage Time Signature Unsigned Intra-Procedure 03/10/2018 Ayesha Weinberg 3:00:47 PM RT(R) Signatures Monitor : Ayesha Weinberg RT Signature : Date : Time : [facility] [address] [place] [address]
[~2018-03-09 21:44] MED LIST changes: -NITROQUICK0.4 MG SL
[2018-03-09] MEDS ORDERED: RANEXA500 MG PO (22:02)
[2018-03-09 23:30] VITALS: BP 121/79
[2018-03-09 23:37] LABS: HEMATOCRIT 46.3 % (42.0-54.0); HEMOGLOBIN 16.1 g/dL (13.5-17.5); MCH 31.4 pg (26.0-34.0); MCHC 34.8 g/dL (31.0-37.0); MCV 90.4 fL (80.0-100.0); MEAN PLATELET VOLUME 11.7 fL (7.4-10.4); NEUTROPHILS 76.1 % (40-80); PLATELET COUNT 201 10x3/uL (130-400); RBC 5.12 10x6/uL (4.20-6.10); WBC 10.3 10x3/uL (4.8-10.8)
[2018-03-10] VITALS (9 sets, daily range): BP systolic 115–143; BP diastolic 74–92; Ht 185.4 cm; Wt 97.7 kg
[2018-03-10 00:14] LABS: ALBUMIN 3.5 g/dL (3.4-5.0); ALKALINE PHOSPHATASE 66 U/L (46-116); ALT (SGPT) 36 U/L (10-68); BILIRUBIN - TOTAL 0.28 mg/dL (0.2-1.3); CALC OSMOLALITY 276 mosm/kg (275-300); CALCIUM 8.8 mg/dL (8.5-10.1); CHLORIDE - SERUM 105 mmol/L (98-107); CREATINE KINASE 119 UL (21-232); GLUCOSE 92 mg/dL (74-106); POTASSIUM - SERUM 3.7 mmol/L (3.5-5.1); PROTEIN - SERUM 6.6 g/dL (6.4-8.2); SODIUM 138 mmol/L (136-145); UREA NITROGEN 14 mg/dL (7-18); eGFR NON AFRICAN AMERICAN 84 mL/min (90-120)
[2018-03-10 00:17] LABS: TROPONIN-I < 0.017 ng/mL (0.000-0.060)
[2018-03-10 09:15] LABS: BASOPHILS 0.3 % (0-2); EOSINOPHILS 2.4 % (0-7); HEMATOCRIT 47.2 % (42.0-54.0); HEMOGLOBIN 16.2 g/dL (13.5-17.5); IMMATURE GRANULOCYTES 0.4 % (0-5); MCH 31.6 pg (26.0-34.0); MCHC 34.3 g/dL (31.0-37.0); MEAN PLATELET VOLUME 10.6 fL (7.4-10.4); MONOCYTES 8.3 % (2-11); NEUTROPHILS 71.6 % (40-80); PLATELET COUNT 189 10x3/uL (130-400); RBC 5.13 10x6/uL (4.20-6.10); WBC 10.5 10x3/uL (4.8-10.8)
[2018-03-10 09:24] LABS: CALC OSMOLALITY 275 mosm/kg (275-300); CALCIUM 8.8 mg/dL (8.5-10.1); CARBON DIOXIDE 29.7 mmol/L (21.0-32.0); CHLORIDE - SERUM 106 mmol/L (98-107); CREATININE - SERUM 0.8 mg/dL (0.6-1.3); GLUCOSE 90 mg/dL (74-106); POTASSIUM - SERUM 4.2 mmol/L (3.5-5.1); SODIUM 138 mmol/L (136-145); UREA NITROGEN 13 mg/dL (7-18); eGFR NON AFRICAN AMERICAN > 90 mL/min (90-120)
== END 2018-03-10 17:40 | disposition home or self-care (01) ==
LOC: D.ER 21:44 → D.EDHOLD 22:48 → OBSVTIME 22:48 → D.EDHOLD 22:48 → D.CLR 22:48
PROVIDERS: Emergency Medicine; Internal Medicine Cardiovascular Disease
DX: I25.10 Atherosclerotic heart disease of native coronary artery without angina pectoris (principal); Z95.5 Presence of coronary angioplasty implant and graft; I10 Essential (primary) hypertension; Z72.0 Tobacco use

== ENCOUNTER 2018-03-19 07:50 | Outpatient (CLI) | payer OTHER ==
[~2018-03-19] VITALS: Ht 185.4 cm; Wt 100.0 kg
--- NOTE | ~2018-03-19 | OP ---
PATIENT NAME: KRISTA MENEZES JR MEDICAL RECORD: [id number] :66 LOCATION:D.CAT ADMISSION DATE: SURGEON: DUC MARTELL MD DATE OF OPERATION: 03/19/2018 PROCEDURES: 1. PTCA stent left circumflex. 2. Intravascular ultrasound. 3. Left heart catheterization. 4. Selective coronary angiography. 5. Left ventriculogram. INDICATION: Angina and coronary artery disease. PROCEDURE IN DETAIL: After informed consent was obtained and after a detailed description of risks, benefits as well as alternative therapies, the patient elected to proceed with angiogram and angioplasty. The right femoral area was prepped and draped in normal sterile fashion. Right femoral artery was cannulated via modified Seldinger technique with placement of 6-Albanian sheath. All catheters exchanged through this sheath. FINDINGS: Left ventriculogram was performed in standard 30-degree GONSALEZ view, reveals good cardiac wall motion throughout all segments. Overall ejection fraction estimated 60%. SELECTIVE CORONARY ANGIOGRAPHY: 1. Left main is with no significant angiographic disease. 2. Left anterior descending had intravascular ultrasound performed of the proximal vessel. There is no greater than 60% stenosis throughout the proximal vessel. No flow-limiting stenosis. 3. The left circumflex has 80% stenosis in the first obtuse marginal. 4. Right coronary artery has moderate irregularities, but no flow-limiting stenosis. PTCA STENT OF THE LEFT CIRCUMFLEX: The stent used was a 2.5 x 15 mm Esvin. Result was 0% residual stenosis. OVERALL IMPRESSION: Successful percutaneous transluminal coronary angioplasty stent of the left circumflex going from 80% initial stenosis to 0% residual. TRANSINT:[id number] Voice Confirmation ID: [id number] DOCUMENT ID: [id number] DUC MARTELL MD at 1325 CC: [id number] DICTATION DATE: 03/19/18 1049 MANAGER RFID: 03/19/18 [id number] DEP CLI 03/19/[address] [address]
--- NOTE | ~2018-03-19 | HEMODYNAMI ---
PATIENT:KRISTA MENEZES JR MEDICAL RECORD: [id number] : 66 LOCATION:D.CAT ADMISSION DATE: 03/19/18 Generatedon:03/19/201810:53 Patient name: KRISTA MENEZES Patient #: [id number] SSN: DO B: 1970 Date of study: 03/19/2018 Page: Of Hemodynamic Procedure Report Patient Data Patient Demographics Procedure consent was obtained First Name: KRISTA Gender: Male Last Name: RIRI Suffix: [facility] Initial: Ruth : 1970 Patient #: [id number] Age: 47 year(s) Race: Additional ID: [id number] Contact details Address: [address] [place] [address] State: [facility] Zip code: [address] Past Medical History Allergies: No known allergies Admission Admission Data Admission Date: 03/19/2018 Admission Time: 7:50 Lab Results Lab Result Date: 03/19/2018 Lab Result Time: 0:00 Biochemistry Name Units Result Min Max BUN mg/dl 13 --(--*-)-- 7 18 Creatinine mg/dl 0.9 --(-*--)-- 0.6 1.3 CBC Name Units Result Min Max Hemoglobin g/dl 16 --(--*-)-- 13.5 17.5 Procedure Procedure Types Cath Procedure Diagnostic Procedure [facility] w/Coronaries FFR/IVUS Intra-Coronary IVUS Initial PCI Procedure Coronary Stent Coronary Stent Initial Procedure Description Procedure Date Procedure Date: 03/19/2018 Procedure Start Time: 10:26 Procedure End Time: 10:52 Procedure Staff Name Function Khoa Yi MD Performing Physician Nati Kyle RN Nurse Nathan Brink RT Scrub Karl Jordan RT Monitor Procedure Data Cath Procedure Fluoroscopy Diagnostic fluoroscopy Total fluoroscopy Time: 2.7 time: 2.7 min min Diagnostic fluoroscopy Total fluoroscopy dose: dose: 185.08 mGy 185.08 mGy Contrast Material Contrast Material Type Amount (ml) Isovue 300 89 Entry Location Entry Primary Successful Side Size Upsize Upsize Entry Closure Succes sful Closure Location (Fr) 1 (Fr) 2 (Fr) Remarks Device Remarks Femoral Right 6 Fr Exoseal artery Short Estimated blood loss: 20 ml Diagnostic catheters Device Type Used For End Catheter Placement MULTIPACK Pigtail 5 Fr Procedure catheter DIAGNOSTIC AR 1 MOD 5Fr Procedure catheter ([id number]) Procedure Medications Medication Administration Route Dosage Oxygen NC 2 l/min Lidocaine 2% added to field 20 0.9% NaCl I.V. 100 ml/hr Heparin Flush Bag added to field 2 bags (1000units/500ml NS) Versed 1 mg Fentanyl I.V. 50 mcg Versed 1 mg Fentanyl I.V. 50 mcg Versed I.V. 1 mg Fentanyl I.V. 50 mcg Versed I.V. 1 mg Fentanyl I.V. 50 mcg Heparin Bolus I.V. 4000 units Hemodynamics Rest HGB: 16 (g/dl) Heart Rate: 75 (bpm) Pressure Samples Time Site Value (mmHg) Purpose Heart Use Rate(bpm) 10:33 LV 117/32,41 Snapshot 82 Snapshots Pre Cath Intra NCS Post Cath Vital Signs Time Heart Resp SPO2 etCO2 NIBP (mmHg) Rhythm Pain Sedation Rate (ipm) (%) (mmHg) Status Level (bpm) 10:08:33 73 14 97 0 119/85(100) NSR 0 (11) 10(A) , No pain 10:12:47 79 15 97 35.1 121/86(100) NSR 0 (11) 10(A) , No pain 10:17:03 80 14 94 33.6 121/80(100) NSR 0 (11) 10(A) , No pain 10:21:17 78 16 9089 41.1 119/75(92) NSR 0 (11) 9(A) , No pain 10:25:35 74 15 90 40.3 120/73(94) NSR 0 (11) 9(A) , No pain 10:29:51 79 13 91 54.5 125/80(92) NSR 0 (11) 9(A) , No pain 10:34:09 77 13 89 49.3 110/82(107) NSR 0 (11) 9(A) , No pain 10:38:21 76 14 90 0 131/81(113) NSR 0 (11) 9(A) , No pain 10:42:33 70 13 90 0 123/79(102) NSR 0 (11) 9(A) , No pain 10:46:45 86 19 91 35.1 107/63(82) NSR 0 (11) 10(A) , No pain 10:50:59 83 19 92 13.4 113/71(94) NSR 0 (11) 10(A) , No pain Medications Time Medication Route Dose Verified Delivered Reason Notes E ffectiveness by by 10:06:49 Oxygen NC 2 Nati Nati used for l/min Saroj Saroj ammonia box tender RN 10:06:58 Lidocaine 2% added 20ml Nati Nati for local to vial Saroj Saroj anesthetic field RN RN 10:07:10 0.9% NaCl I.V. 100 Nati Nati used for ml/hr Saroj Saroj ammonia box tender RN 10:07:20 Heparin Flush added 2 Nati Nati used for Bag to bags Saroj Saroj procedure (1000units/500ml field RN RN NS) 10:19:11 Versed 1 mg Nati Nati for Saroj Saroj sedation RN RN 10:19:18 Fentanyl I.V. 50 Nati Nati for mcg Saroj Saroj sedation RN RN 10:24:44 Versed 1 mg Nati Nati for Saroj Saroj sedation RN RN 10:24:49 Fentanyl I.V. 50 Nati Nati for mcg Saroj Saroj sedation RN RN 10:29:00 Versed I.V. 1 mg Nati Nati for Saroj Saroj sedation RN RN 10:29:07 Fentanyl I.V. 50 Nati Nati for mcg Saroj Saroj sedation RN RN 10:34:34 Versed I.V. 1 mg Nati Nati for Saroj Saroj sedation RN RN 10:34:38 Fentanyl I.V. 50 Nati Nati for mcg Saroj Saroj sedation RN RN 10:39:53 Heparin Bolus I.V. 4000 Khoa Nati Per verified units Kd BOTELLO Saroj physician with dr. MARYAN yi Procedure Log Time Note 9:50:04 Nathan Brink RT(R) sent for patient. Start room use. 9:53:05 Time tracking: Regular hours (M-F 7:00 - 5:00) 9:53:09 Plan of Care:Hemodynamics will remain stable., Cardiac rhythm will remain stable., Comfort level will be maintained., Respiratory function will remain adequate., Patient/ family verbilizes understanding of procedure., Procedure tolerated without complication., Recovers from procedure without complications.. 9:56:36 H&P Date Dictated: 03/15/2018 Within 30 days and on chart., H&P Addendum completed by physician on day of procedure. (MUST COMPLETE FOR ALL OUTPATIENTS). 9:59:39 Patient received from Pre/Post Procedure Room to CCL 3 Alert and oriented. Tansferred to table in Supine position. 10:00:20 Warm blankets applied, and lynette hugger turned on for patient comfort. 10:00:20 Correct patient and procedure confirmed by team. 10:00:22 Signed procedure consent form obtained from patient. 10:00:24 ECG and BP/O2 sat monitors applied to patient. 10:00:30 Pre-procedure instructions explained to patient. 10:00:31 Pre-op teaching completed and patient verbalized understanding. 10:00:33 Family unavailable. 10:00:48 Patient NPO since Midnight. 10:00:57 Patient allergic to No known allergies 10:01:00 Is the patient allergic to Iodine/contrast media? No. 10:01:03 Is patient on blood thinner?Yes 10:01:13 ACC The patient was administered the following blood thiners within the last 24 hours: ACCPlavix 10:01:15 Patient diabetic? No. 10:01:18 ----Pre-sedation anethsthesia assessment.---- 10:01:23 Previous problem with sedation/anesthesia? No ? 10:01:25 Snore? Yes 10:01:26 Sleep apnea? Yes 10:01:30 Deviated septum? No 10:01:32 Opens mouth fully? Yes 10:01:33 Sticks out tongue? Yes 10:01:46 Airway obstruction? Yes ASTHMA 10:01:52 Dentures? Yes IN TIGHT 10:02:10 Pre procedure: right dorsailis pedis pulse 2+ Normal; easily identifiable; not easily obliterated 10:06:49 Oxygen 2 l/min NC was administered by Nati Kyle RN; used for procedure; 10:06:58 Lidocaine 2% 20ml vial added to field was administered by Nati Kyle RN; for local anesthetic; 10:07:10 0.9% NaCl 100 ml/hr I.V. was administered by Nati Kyle RN; used for procedure; 10:07:20 Heparin Flush Bag (1000units/500ml NS) 2 bags added to field was administered by Nati Kyle RN; used for procedure; 10:07:22 Vital chart was started 10:08:34 Baseline sample Acquired. 10:08:38 Rhythm: sinus rhythm 10:08:39 Full Disclosure recording started 10:10:11 IV patent on arrival in left antecubital with 0.9% NaCl at [facility]. 10:12:17 Lab Result : BUN 13 mg/dl 10:12:17 Lab Result : Hemoglobin 16 g/dl 10:12:17 Lab Result : Creatinine 0.9 mg/dl 10:12:21 Lab results completed and on chart. 10:12:26 Right Radial & Right Groin area was prepped with chlora-prep and draped in sterile fashion 10:12:27 Alarms reviewed by R. N. 10:12:28 Sharps counted by scrub and verified by R.N. 10:14:39 Use device set Radial Dx or PCI 10:14:41 ACIST Syringe (99935) opened to sterile field. 10:14:42 Medline Cath Pack ([id number]) opened to sterile field. 10:14:43 Bag Decanter () opened to sterile field. 10:14:45 DIAGNOSTIC WIRE .035 260cm J wire (501407) opened to sterile field. 10:14:45 ACIST Hand Control (18059) opened to sterile field. 10:14:46 ACIST Manifold (70540) opened to sterile field. 10:14:47 Tegaderm 4 x 4 (1626W) opened to sterile field. 10:14:48 MBrace Wrist Support ([id number]) opened to sterile field. 10:14:50 SHEATH 6Fr Prelude Radial ([id number]) opened to sterile field. 10:15:11 CHOICE PT Extra Support 182cm wire ([id number]) opened to sterile field. 10:15:14 INFLATOR Merit BasixCompak (EQ3226) opened to sterile field. 10:18:51 Physician arrived 10:18:52 --------ALL STOP TIME OUT------ 10:18:52 Final Timeout: patient, procedure, and site verified with staff and physician. All members of the team are in agreement. 10:18:55 Right Radial & Right Groin site verified by team. 10:18:59 Physical assessment completed. ASA score P 2 - A patient with mild systemic disease as per Khoa Yi MD. 10:19:03 Sedation plan: IV Moderate Sedation Medication:Versed, Fentanyl 10:19:11 Versed 1 mg was administered by Nati Kyle RN; for sedation; 10::18 Fentanyl 50 mcg I.V. was administered by Nati Kyle RN; for sedation; 10:23:01 Zero performed for pressure channel P1 10:23:26 Zero performed for pressure channel P1 10:24:44 Versed 1 mg was administered by Nati Kyle RN; for sedation; 10:24:49 Fentanyl 50 mcg I.V. was administered by Nati Kyle RN; for sedation; 10:26:24 Procedure started. 10:26:28 Local anesthetic to right femoral artery with Lidocaine 2% by Khoa Yi MD.INITIAL ACCESS ONLY 10:27:42 [place] IVUS Catheter (60379Z) opened to sterile field. 10:27:44 GUIDE 6FR XBLAD 3.5 catheter ([id number]) opened to sterile field. 10:29:00 Versed 1 mg I.V. was administered by Nati Kyle RN; for sedation; 10:29:07 Fentanyl 50 mcg I.V. was administered by Nati Kyle RN; for sedation; 10:30:27 SHEATH Prelude 6Fr 0.035 ([id number]-[id number]-[id number]) opened to sterile field. 10:31:24 UNABLE TO GAIN RADIAL ACCESS 10:31:29 Local anesthetic to right femoral artery with Lidocaine 2% by Khoa Yi MD.ADDITIONAL ACCESS 10:32:17 Procedure type changed to Cath procedure, Diagnostic procedure, LHC, LHC w/Coronaries, FFR/IVUS, Intra-Coronary IVUS Initial, PCI procedure, Coronary Stent, Coronary Stent Initial 10:32:30 Use device set Multipack Set 10:32:51 A 6 Fr Short sheath was inserted into the Right Femoral artery 10:33:21 DIAGNOSTIC Multipack 5Fr catheter set ([id number]) opened to sterile field. 10:33:27 A MULTIPACK Pigtail 5 Fr catheter was advanced over the wire and used for Procedure. 10:33:40 LV hemodynamics recorded. 10:33:46 EF : 55 % 10:33:49 LV gram done using GONSALEZ 10:33:53 Catheter removed. 10:34:14 A DIAGNOSTIC AR 1 MOD 5Fr catheter ([id number]) was advanced over the wire and used for Procedure. 10:34:25 RCA angiography performed. 10:34:34 Versed 1 mg I.V. was administered by Nati Kyle RN; for sedation; 10:34:38 Fentanyl 50 mcg I.V. was administered by Nati Kyle RN; for sedation; 10:34:42 Catheter removed. 10:34:57 6 Fr XBLAD 3.5 guide catheter was inserted over the wire 10:35:38 CHOICE wire advanced. 10:35:44 LAD 10:38:39 FFR/IVUS 10:38:39 IVUS catheter advanced over wire. 10:38:41 IVUS pass to LAD lesion performed. 10:38:42 IVUS catheter removed over wire. 10:39:53 Heparin Bolus 4000 units I.V. was administered by Nati Kyle RN; Per physician; verified with dr. yi 10:40:08 62.6% 10:40:28 Wire redirected to CIRCUMFLEX. 10:41:26 OM 10:42:52 Place stent Inflation Number: 1 A MERCEDEZ RX 2.5 x 15 stent ([id number]) was prepped and advanced across the 1st Ob Mine. The stent was deployed at 11 TIFFANY for 0:10 (min:sec). 10:43:07 Stent catheter was removed intact over wire. 10:43:08 Wire removed. 10:43:09 Guide catheter removed. 10:44:12 EXOSEAL 6Fr (EX600) opened to sterile field. 10:45:56 Sheath removed intact; hemostasis achieved with Exoseal to the Right Femoral artery. 10:46:00 Procedure ended.(Physican Out) 10:46:14 Fluoroscopy time 02.70 minutes. 10:46:21 Flurop Dose total: 185.08 10:46:21 Fluoroscopy dose: 185.08 mGy 10:46:27 Contrast amount:Isovue 300 89ml. 10:46:30 Sharps counted by scrub and verified by R.N. 10:46:50 Insertion/operative site no bleeding no hematoma. 10:46:53 Post-op/insertion site Right Femoral artery dressed using a 4 x 4 and Tegaderm. 10:46:58 Post right femoral artery:stable 10:47:10 Post Procedure Pulses reassessed and unchanged 10:47:18 Post-procedure physical assessment completed. ASA score P 2 - A patient with mild systemic disease as per Khoa Yi MD. 10:47:22 Post procedure rhythm: sinus rhythm 10:47:25 Estimated blood loss: 20 ml 10:47:27 Post procedure instruction explained to patient.Patient verbalizes understanding. 10:47:28 Patient needs reinforcement of post procedure teaching. 10:48:06 Procedure and supply charges have been captured, reviewed, submitted and are correct. 10:52:18 Vital chart was stopped 10:52:20 See physician's report for complete and final results. 10:52:22 Report given to Pre/Post Procedure Room. 10:52:26 Patient transfered to Pre/Post Procedure Room with Stretcher. 10:52:29 Procedure ended. 10:52:29 Full Disclosure recording stopped 10:52:33 End room use (Document Last) Intervention Summary Intervention Notes Time ActionType Lesion and Equipment Used Action# Pressure Duration Attributes 10:42:52 Place stent 1st Ob Mine MERCEDEZ RX 2.5 x 1 11 00:10 15 stent ([id number]) Device Usage Item Name Manufacture Quantity Catalog Number Hospital Part Current Minimal Lot# / Charge Number Stock Stock Serial# Code ACIST Syringe Acist 1 69578 415920 649981 256398 20 (32056) Medical Systems Inc Medline Cath Cardinal 1 [id number] 252618 56734 137122 5 Pack Health ([id number]) Bag Decanter Microtek 1 730469 46312 426385 5 () Medical Inc. DIAGNOSTIC WIRE [place] 1 552383 717435 403572 196421 30 .035 260cm J wire (212977) ACIST Hand Acist 1 01924 769691 809504 748770 5 Control (12037) [employer] Inc ACIST Manifold Acist 1 05972 445629 231090 720382 5 (36885) [employer] Systems Inc Tegaderm 4 x 4 3M 1 1626W 529921 859016 662785 5 (1626W) MBrace Wrist Advanced 1 140-0250-00 158938 41273 391477 5 Support Vascular ([id number]) Dynamics SHEATH 6Fr Merit 1 [id number] 084690 988371 134745 5 Prelude Radial Medical ([id number]) CHOICE PT Extra Claude 1 [id number] 296980 419649 583219 5 Support 182cm Scientific wire ([id number]) INFLATOR Merit Merit 1 CQ2580 228649 977952 532154 15 BasixLiv[employer] Medical (PK4052) [place] 1 25179H 718028 519108 708364 8 [place] IVUS Catheter (27849I) GUIDE 6FR XBLAD Cardinal 1 [id number] 392854 030135 161248 10 3.5 catheter Health (44751154) SHEATH Prelude Merit 1 [id number] 063207 4110638 010391 5 6Fr 0.035 Medical (ZII-3H-58-035) DIAGNOSTIC Cardinal 1 HC3057 214583 35824 972696 30 Multipack 5Fr Health catheter set ([id number]) MULTIPACK Cardinal 1 457748 5 Pigtail 5 Fr Health catheter DIAGNOSTIC [place] 1 Cardinal 1 [id number] 260383 547313 732014 15 MOD 5Fr Health catheter (207731Y) MERCEDEZ RX 2.5 x Medtronic 1 [id number] 258607 2393877 642341 5 [id number] 15 stent ([id number]) EXOSEAL 6Fr Cardinal 1 EX600 054092 759580 338815 10 (EX600) Health Signature Audit [place] Stage Time Signature Unsigned Intra-Procedure 03/19/2018 Karl Jordan 10:52:56 AM RT(R) (CV) Signatures Monitor : Karl Jordan RT Signature : Date : Time : [place] [address] [place] [address]
[~2018-03-19 07:50] MED LIST changes: +RANEXA500 MG PO
[2018-03-19] MEDS ORDERED: BREO ELLIPTA 11 EACH INH (08:11)
[2018-03-19] MEDS ORDERED: SPIRIVA RESPIMAT4 G1 INH (08:12)
[2018-03-19] MEDS ORDERED: LEXAPRO10 MG PO (08:14)
[2018-03-19] MEDS ORDERED: NITROQUICK0.4 MG SL (08:14)
[2018-03-19 08:20] VITALS: BP 121/78; Ht 185.4 cm; Wt 100.0 kg
[2018-03-19 08:27] LABS: BASOPHILS 0.5 % (0-2); EOSINOPHILS 3.1 % (0-7); HEMATOCRIT 46.4 % (42.0-54.0); LYMPHOCYTES 17.2 % (15-50); MCH 31.5 pg (26.0-34.0); MCHC 34.5 g/dL (31.0-37.0); MCV 91.3 fL (80.0-100.0); MEAN PLATELET VOLUME 10.6 fL (7.4-10.4); MONOCYTES 8.1 % (2-11); NEUTROPHILS 71.1 % (40-80); PLATELET COUNT 199 10x3/uL (130-400); RBC 5.08 10x6/uL (4.20-6.10); RDW 13.8 % (11.5-14.5); WBC 7.4 10x3/uL (4.8-10.8)
[2018-03-19 08:44] LABS: CALC OSMOLALITY 280 mosm/kg (275-300); CARBON DIOXIDE 27.8 mmol/L (21.0-32.0); CHLORIDE - SERUM 106 mmol/L (98-107); CREATININE - SERUM 0.9 mg/dL (0.6-1.3); GLUCOSE 99 mg/dL (74-106); POTASSIUM - SERUM 4.2 mmol/L (3.5-5.1); SODIUM 141 mmol/L (136-145); UREA NITROGEN 13 mg/dL (7-18); eGFR NON AFRICAN AMERICAN > 90 mL/min (90-120)
== END 2018-03-19 15:00 | disposition home or self-care (01) ==
LOC: D.CATH 07:50
PROVIDERS: Internal Medicine Interventional Cardiology
DX: I25.119 Atherosclerotic heart disease of native coronary artery with unspecified angina pectoris (principal); Z72.0 Tobacco use

== ENCOUNTER 2018-05-06 10:05 | Outpatient (CLI) | payer OTHER ==
[~2018-05-06] VITALS: Ht 185.4 cm; Wt 100.0 kg
--- NOTE | ~2018-05-06 | HEMODYNAMI ---
PATIENT:KRISTA MENEZES JR MEDICAL RECORD: [id number] : 66 LOC[id number] ADMISSION DATE: 05/06/18 Generatedon:05/06/201817:31 Patient name: KRISTA MENEZES Patient #: [id number] SSN: DO B: 1970 Date of study: 05/06/2018 Page: Of Hemodynamic Procedure Report Patient Data Patient Demographics Procedure consent was obtained First Name: KRISTA Gender: Male Last Name: RIRI Suffix: Jr Rojo Initial: Ruth : 1970 Patient #: [id number] Age: 48 year(s) Race: Additional ID: [id number] Contact details Address: [address] [place] [address] State: [place] City: [place] Zip code: [address] Past Medical History Allergies: No known allergies Admission Admission Data Admission Date: 05/06/2018 Admission Time: 10:05 Room #: 2128 Procedure Procedure Types Cath Procedure Diagnostic Procedure C [facility] w/Coronaries Sedation Charges Moderate Sedation up to 15 minutes PCI Procedure PTCA PTCA Initial Procedure Description Procedure Date Procedure Date: 05/06/2018 Procedure Start Time: 17:04 Procedure End Time: 17:30 Procedure Staff Name Function Khoa Yi MD Performing Physician Chelsea Wolf RT Monitor Piper Parikh RN Nurse Federica Cortez RT Scrub Nathan Brink RT Thinner Sprayer Procedure Data Cath Procedure Fluoroscopy Diagnostic fluoroscopy Total fluoroscopy Time: 2.7 time: 2.7 min min Diagnostic fluoroscopy Total fluoroscopy dose: 967 dose: 967 mGy mGy Contrast Material Contrast Material Type Amount (ml) Isovue 300 97 Entry Location Entry Primary Successful Side Size Upsize Upsize Entry Closure Álvarez ccessful Closure Location (Fr) 1 (Fr) 2 (Fr) Remarks Device Remarks Radial Right 6 Fr Unsuccessful artery Short puncture. Femoral Right 5 Fr 6 Fr Exoseal artery Short Estimated blood loss: 10 ml Diagnostic catheters Device Type Used For End Catheter Placement MULTIPACK Pigtail 5 Fr LV Angiography catheter MULTIPACK JL 4.0 5Fr Left Coronary catheter Angiography MULTIPACK 3DRC 5Fr Right Coronary catheter Angiography Procedure Complications No complications Procedure Medications Medication Administration Route Dosage Oxygen etCO2 Nasal cannula 2 l/min Lidocaine 2% added to field 20 Heparin Flush Bag added to field 2 bags (1000units/500ml NS) 0.9% NaCl I.V. 100 ml/hr Radial Cocktail I.A. 1 syringe (Verapomil 2mg/Nitro 400mcg/Heparin 1500units) Versed I.V. 2 mg Fentanyl I.V. 100 mcg Versed I.V. 1 mg Fentanyl I.V. 50 mcg Versed I.V. 1 mg Fentanyl I.V. 50 mcg Heparin Bolus I.V. 4000 units Hemodynamics Rest Heart Rate: 64 (bpm) Snapshots Pre Cath Intra NCS Post Cath Vital Signs Time Heart Resp SPO2 etCO2 NIBP (mmHg) Rhythm Pain Sedation Rate (ipm) (%) (mmHg) Status Level (bpm) 16:53:38 53 13 97 38.9 120/83(102) NSR 0 (11) 10(A) , No pain 16:58:18 69 13 98 32.9 117/70(94) NSR 0 (11) 10(A) , No pain 17:02:59 66 11 94 40.4 113/81(102) NSR 0 (11) 10(A) , No pain 17:07:37 73 12 94 29.9 120/83(103) NSR 0 (11) 9(A) , No pain 17:12:16 76 11 93 16.4 126/97(117) NSR 0 (11) 9(A) , No pain 17:16:58 76 11 94 25.4 137/84(110) NSR 0 (11) 9(A) , No pain 17:21:43 84 11 92 28.4 135/76(103) NSR 0 (11) 9(A) , No pain 17:26:30 87 11 88 17.9 125/83(102) NSR 0 (11) 9(A) , No pain Medications Time Medication Route Dose Verified Delivered Reason Not es Effectiveness by by 16:55:46 Oxygen etCO2 2 l/min Khoa Saldaña used for Nasal Kd Parikh commercial credit officer cannula 16:55:53 Lidocaine 2% added 20ml Khoa Couch for local to vial Kd Yi MD anesthetic field 16:56:00 Heparin Flush added 2 bags Khoa Couch used for Bag to Kd Yi MD procedure (1000units/500ml field NS) 16:56:09 0.9% NaCl I.V. 100 Khoa Saldaña Per physician ml/hr Kd Parikh RN 17:01:10 Radial Cocktail I.A. 1 Khoa Couch for was walter, (Verapomil syringe Kd Yi MD vasodilation unable 2mg/Nitro to 400mcg/Heparin obtain 1500units) radial access. 17:01:16 Versed I.V. 2 mg Khoa Buffie for sedation Kd Parikh RN 17:01:22 Fentanyl I.V. 100 mcg Khoa Buffie for sedation Kd Parikh RN 17:05:32 Versed I.V. 1 mg Khoa Buffie for sedation Kd Parikh RN 17:05:35 Fentanyl I.V. 50 mcg Khoa Buffie for sedation Kd Parikh RN 17:13:59 Versed I.V. 1 mg Khoa Buffie for sedation Kd Parikh RN 17:14:03 Fentanyl I.V. 50 mcg Khoa Buffie for sedation Kd Parikh RN 17:20:36 Heparin Bolus I.V. 4000 Khoa Buffie for issac ified units Kd Parikh RN anticoagulation with dr yi Procedure Log Time Note 16:36:47 Time tracking: Regular hours (M-F 7:00 - 5:00) 16:36:50 Plan of Care:Hemodynamics will remain stable., Cardiac rhythm will remain stable., Comfort level will be maintained., Respiratory function will remain adequate., Patient/ family verbilizes understanding of procedure., Procedure tolerated without complication., Recovers from procedure without complications.. 16:37:10 Federica Cortez RT(R) sent for patient. Start room use. 16:40:09 Patient received from PCU to CCL 1 Alert and oriented. Tansferred to table in Supine position. 16:40:15 Warm blankets applied, and lynette hugger turned on for patient comfort. 16:40:15 Correct patient and procedure confirmed by team. 16:40:19 Signed procedure consent form obtained from patient. 16:40:21 ECG and BP/O2 sat monitors applied to patient. 16:40:21 Full Disclosure recording started 16:52:47 Vital chart was started 16:52:49 Rhythm: sinus bradycardia 16:53:04 H&P Date Dictated: 05/06/2018 Within 30 days and on chart., ER History on chart.. 16:53:05 Pre-procedure instructions explained to patient. 16:53:06 Pre-op teaching completed and patient verbalized understanding. 16:53:09 Family unavailable. 16:53:11 Patient NPO since Midnight. 16:53:34 Is the patient allergic to Iodine/contrast media? No. 16:53:35 Is patient on blood thinner?Yes 16:53:39 ACC The patient was administered the following blood thiners within the last 24 hours: ACCPlavix 16:53:41 Patient diabetic? No. 16:54:14 Previous problem with sedation/anesthesia? No ? 16:54:15 Snore? Yes 16:54:15 Sleep apnea? Yes 16:54:17 Deviated septum? No 16:54:17 Opens mouth fully? Yes 16:54:18 Sticks out tongue? Yes 16:54:22 Airway obstruction? Yes Asthma 16:54:32 Dentures? Yes REMOVED IN DIABETES SOLUTIONS SPECIALIST 16:54:37 Pre procedure: right dorsailis pedis pulse 2+ Normal; easily identifiable; not easily obliterated 16:54:40 Modified Usama's test Ulnar < 7 seconds 16:54:43 Patient pain scale 0/10 ?. 16:54:51 IV patent on arrival in left forearm with 0.9% NaCl at [facility]. 16:54:54 Lab results completed and on chart. 16:54:58 Right Radial & Right Groin area was prepped with chlora-prep and draped in sterile fashion 16:54:59 Alarms reviewed by R. N. 16:54:59 Sharps counted by scrub and verified by R.N. 16:55:03 Zero performed for pressure channel P1 16:55:03 Zero performed for pressure channel P1 16:55:08 Zero performed for pressure channel P1 16:55:12 Zero performed for pressure channel P1 16:55:21 ACIST Syringe (11493) opened to sterile field. 16:55:21 Medline Cath Pack ([id number]) opened to sterile field. 16:55:22 Bag Decanter (2002S) opened to sterile field. 16:55:23 DIAGNOSTIC WIRE .035 260cm J wire (351314) opened to sterile field. 16:55:23 ACIST Hand Control (76705) opened to sterile field. 16:55:24 ACIST Manifold (77843) opened to sterile field. 16:55:24 Tegaderm 4 x 4 (1626W) opened to sterile field. 16:55:25 MBrace Wrist Support ([id number]) opened to sterile field. 16:55:26 SHEATH 6Fr Prelude Radial ([id number]) opened to sterile field. 16:55:31 Baseline sample Acquired. 16:55:46 Oxygen 2 l/min etCO2 Nasal cannula was administered by Piper Parikh RN; used for procedure; 16:55:53 Lidocaine 2% 20ml vial added to field was administered by Khoa Yi MD; for local anesthetic; 16:56:00 Heparin Flush Bag (1000units/500ml NS) 2 bags added to field was administered by Khoa Yi MD; used for procedure; 16:56:09 0.9% NaCl 100 ml/hr I.V. was administered by Piper Parikh RN; Per physician; 16:57:55 Final Timeout: patient, procedure, and site verified with staff and physician. All members of the team are in agreement. 16:57:58 Right Radial & Right Groin site verified by team. 16:58:01 Physical assessment completed. ASA score P 2 - A patient with mild systemic disease as per Khoa Yi MD. 16:58:03 Sedation plan: IV Moderate Sedation Medication:Versed, Fentanyl 16:58:57 IV Extension Set opened to sterile field. 17:01:10 Radial Cocktail (Verapomil 2mg/Nitro 400mcg/Heparin 1500units) 1 syringe I.A. was administered by Khoa Yi MD; for vasodilation; wasted, unable to obtain radial access. 17:01:16 Versed 2 mg I.V. was administered by Piper Parikh RN; for sedation; 17:01:22 Fentanyl 100 mcg I.V. was administered by Piper Parikh RN; for sedation; 17:04:22 Procedure started. 17:04:53 Local anesthetic to right radial artery with Lidocaine 2% by Khoa Yi MD.INITIAL ACCESS ONLY 17:05:32 Versed 1 mg I.V. was administered by Piper Parikh RN; for sedation; 17:05:35 Fentanyl 50 mcg I.V. was administered by Piper Parikh RN; for sedation; 17:12:26 A 6 Fr Short sheath was inserted into the Right Radial artery Unsuccessful puncture. 17:12:39 Use device set Multipack Set 17:12:41 DIAGNOSTIC Multipack 5Fr catheter set ([id number]) opened to sterile field. 17:13:44 Local anesthetic to right femoral artery with Lidocaine 2% by Khoa Yi MD.ADDITIONAL ACCESS 17:13:59 Versed 1 mg I.V. was administered by Piper Parikh RN; for sedation; 17:14:03 Fentanyl 50 mcg I.V. was administered by Piper Parikh RN; for sedation; 17:15:03 A 5 Fr sheath was inserted into the Right Femoral artery 17:16:00 A MULTIPACK Pigtail 5 Fr catheter was advanced over the wire and used for LV Angiography. 17:16:28 LV gram done using GONSALEZ 17:16:32 Injector settings: Ml/sec: 10, Volume: 20, 17:16:36 Catheter removed. 17:17:06 A MULTIPACK JL 4.0 5Fr catheter was advanced over the wire and used for Left Coronary Angiography. 17:18:31 Use device set KD PCI 17:18:34 SHEATH Prelude 6Fr 0.035 (TFQ-1G-27-035) opened to sterile field. 17:18:39 INFLATOR Merit BasixCompak ([id number]) opened to sterile field. 17:18:47 CHOICE PT Extra Support 182cm wire ([id number]) opened to sterile field. 17:19:09 A MULTIPACK 3DRC 5Fr catheter was advanced over the wire and used for Right Coronary Angiography. 17:20:09 Catheter removed. 17:20:17 Sheath upsized to a 6 Fr Short. 17:20:36 Heparin Bolus 4000 units I.V. was administered by Piper Parikh RN; for anticoagulation; verified with dr yi 17:21:14 6 Fr ? guide catheter was inserted over the wire 17:21:32 Guide Catheter removed. unable to cannulate vessel. 17:22:10 6 Fr XB 4 guide catheter was inserted over the wire 17:22:26 GUIDE 6FR XB 4.0 catheter ([id number]) opened to sterile field. 17:22:43 CHOICE PT ES wire advanced. 17:24:24 Inflate balloon Inflation number: 1 A EUPHORA 2.5 x 20 Balloon ([id number]) was prepped and advanced across the Mid CX, then inflated to 21 TIFFANY for 0:10 (min:sec). 17:24:32 Inflation number: 2 The EUPHORA 2.5 x 20 Balloon ([id number]) was reinflated across the Mid CX, to 21 TIFFANY for 0:04 (min:sec). 17:24:44 Inflation number: 3 The EUPHORA 2.5 x 20 Balloon ([id number]) was reinflated across the Mid CX, to 21 TIFFANY for 0:04 (min:sec). 17:25:10 EXOSEAL 6Fr (EX600) opened to sterile field. 17:25:21 Balloon removed over the wire. 17:25:22 Wire removed. 17:25:22 Guide catheter removed. 17:25:33 Sheath removed intact; hemostasis achieved with Exoseal to the Right Femoral artery. 17:25:34 Procedure ended.(Physican Out) 17:25:44 Fluoroscopy time 02.70 minutes. 17:25:48 Fluoroscopy dose: 967 mGy 17:25:48 Flurop Dose total: 967 17:25:58 Contrast amount:Isovue 300 97ml. 17:26:00 Sharps counted by scrub and verified by R.N. 17:26:02 Insertion/operative site no bleeding no hematoma. 17:26:05 Post-op/insertion site Right Femoral artery dressed using a 4 x 4 and Tegaderm. 17:26:08 Post right femoral artery:stable, clean and dry 17:26:09 Post Procedure Pulses reassessed and unchanged 17:26:11 Post-procedure physical assessment completed. ASA score P 2 - A patient with mild systemic disease as per Khoa Yi MD. 17:26:13 Post procedure rhythm: unchanged. 17:26:16 Estimated blood loss: 10 ml 17:26:17 Post procedure instruction explained to patient.Patient verbalizes understanding. 17:26:17 Patient needs reinforcement of post procedure teaching. 17:26:35 Procedure type changed to Cath procedure, Diagnostic procedure, LHC, LHC w/Coronaries, Sedation Charges, Moderate Sedation up to 15 minutes, PCI procedure, PTCA, PTCA Initial 17:26:40 Procedure Complication : No complications 17:26:43 See physician's report for complete and final results. 17:28:17 SHEATH Prelude 5Fr 0.035 (OSY-2G-97-035) opened to sterile field. 17:29:02 GUIDE 6FR EBU 3.5 catheter ([id number]) opened to sterile field. 17:29:20 Procedure and supply charges have been captured, reviewed, submitted and are correct. 17:29:24 Report given to PCU. 17:29:28 Patient transfered to PCU with Bed. 17:30:46 Vital chart was stopped 17:30:48 Procedure ended. 17:30:48 Full Disclosure recording stopped 17:30:52 End room use (Document Last) Intervention Summary Intervention Notes Time ActionType Lesion and Equipment Action# Pressure Duration Attributes Used 17:24:24 Inflate Mid CX EUPHORA 1 21 00:10 balloon 2.5 x 20 Balloon ([id number]) 17:24:32 Reinflate Mid CX EUPHORA 2 21 00:04 balloon 2.5 x 20 Balloon ([id number]) 17:24:44 Reinflate Mid CX EUPHORA 3 21 00:04 balloon 2.5 x 20 Balloon ([id number]) Device Usage Item Name Manufacture Quantity Catalog Number Hospital Part Current Minimal Lot# / Charge Number Stock Stock Serial# Code ACIST Syringe Acist 1 70905 797341 921942 158980 20 (56336) Medical Systems Inc Medline Cath Cardinal 1 [id number] 576857 65771 178350 5 Pack [facility] ([id number]) Bag Decanter Microtek 1 793792 20394 092511 5 () Medical Inc. DIAGNOSTIC WIRE [facility] 1 909374 400629 437767 129101 30 .035 260cm J wire (492381) ACIST Hand Acist 1 59369 363637 077218 691882 5 Control (05836) [employer] Inc ACIST Manifold Acist 1 12603 625261 428266 431323 5 (24733) Medical Systems Inc Tegaderm 4 x 4 3M 1 1626W 895163 510310 159625 5 (1626W) MBrace Wrist Advanced 1 140-0250-00 346627 23048 421151 5 Support Vascular ([id number]) Dynamics SHEATH 6Fr Merit 1 [id number] 311127 830559 052120 5 Prelude Radial Medical ([id number]) IV Extension Hospira 1 95409-55 964814 62720 047781 5 Set DIAGNOSTIC Cardinal 1 [id number] 445239 30149 995352 30 Multipack 5Fr Health catheter set (SV1192) MULTIPACK Cardinal 1 054208 5 Pigtail 5 Fr Health catheter MULTIPACK JL Cardinal 1 945148 5 4.0 5Fr Health catheter SHEATH Prelude Merit 1 KRV-2L-99-35 580282 3421680 952873 5 6Fr 0.035 Medical (SAG-3W-09-035) INFLATOR Merit Merit 1 CM1954 688999 891470 489191 15 ADR Software Medical (KX8259) CHOICE PT Extra [place]wood 1 [id number] 665715 786817 585188 5 Support 182cm Scientific wire ([id number]) MULTIPACK 3DRC Cardinal 1 554170 5 5Fr catheter Health GUIDE 6FR XB Cardinal 1 [id number] 292368 635523 413405 2 4.0 catheter Health (28597147) EUPHORA 2.5 x Medtronic 1 [id number] 568528 297362 183047 5 [id number] 20 Balloon ([id number]) EXOSEAL 6Fr Cardinal 1 EX600 113968 738436 748404 10 (EX600) Health SHEATH Prelude Merit 1 IUD-2G-87-035 930768 269600 277858 5 5Fr 0.035 Medical (WOV-6C-42-035) GUIDE 6FR EBU Medtronic 1 [id number] 448649 65292 382264 3 3.5 catheter (VB0PXH77) Signature Audit Olla Stage Time Signature Unsigned Intra-Procedure 05/06/2018 Chelsea 5:31:11 PM Counts RT(R) Signatures Monitor : Chelsea Signature : Counts RT Date : Time : [id number] [place] [address]
--- NOTE | ~2018-05-06 | OP ---
PATIENT NAME: KRISTA MENEZES JR MEDICAL RECORD: [id number] :66 LOCATION:D.M2 D.2128 ADMISSION DATE:05/06/18 SURGEON: DUC MARTELL MD DATE OF OPERATION: 05/06/2018 PROCEDURES: 1. High pressure PTCA left circumflex for in-stent restenosis. 2. Left heart catheterization. 3. Selective coronary angiography. 4. Left ventriculogram. INDICATION: Angina and coronary artery disease. PROCEDURE IN DETAIL: After informed consent was obtained and after a detailed description of the risks, benefits as well as alternative therapies, the patient elected to proceed with angiogram and angioplasty. The right femoral area was prepped and draped in normal sterile fashion. Right femoral artery was cannulated via modified Seldinger technique with placement of 6-Swedish sheath. All catheters exchanged through this sheath. FINDINGS: The left ventriculogram was performed in a standard 30-degree GONSALEZ view, reveals good cardiac wall motion throughout all segments. Overall ejection fraction estimated 60%. SELECTIVE CORONARY ANGIOGRAPHY: 1. Left main is with no significant angiographic disease. 2. Left anterior descending has previously placed stents, these are widely patent with no significant restenosis. No disease elsewise. 3. The left circumflex has previously placed stents, these have up to 80% in-stent restenosis. 4. The right coronary has previously placed stents, these are widely patent with no significant restenosis. No disease elsewise. PTCA STENT OF THE LEFT CIRCUMFLEX: The balloon used was a 2.5 x 20 mm balloon. Multiple inflations were made at high pressure up to 21 atmospheres. Result was 0% residual stenosis. OVERALL IMPRESSION: Successful percutaneous transluminal coronary angioplasty for in-stent restenosis of the left circumflex going from 80% initial stenosis times 2 to 0% residual. TRANSINT:[id number] Voice Confirmation ID: [id number] DOCUMENT ID: [id number] DUC MARTELL MD at 1950 CC: [id number] DICTATION DATE: 05/06/18 [address] [employer] M[employer]: 05/06/18 1754 DIS IN 05/07/18 [address] [place] [address]
--- NOTE | ~2018-05-06 | HP ---
PATIENT: KRISTA TITUS JR MEDICAL RECORD: [id number] ACCOUNT: [id number] LOCATION:[address] : 66 ADMISSION DATE: 05/06/18 PCP: ARCENIO ALVARENGA HISTORY AND PHYSICAL EXAMINATION DIAGNOSES: 1. Unstable angina. 2. Coronary artery disease. 3. Previous multivessel PTCA stent. 4. Hypertension. 5. COPD. 6. Smoking history. HISTORY OF PRESENT ILLNESS: Mr. Titus presents with unstable anginal symptomatology at greater than 8 nitro overnight. He was set for cardiac catheterization tomorrow. His EKG is with nonspecific ST-T abnormalities, but no acute ST-T abnormalities. CURRENT MEDICATIONS: Ranexa, Imdur, Coreg. PHYSICAL EXAMINATION: GENERAL APPEARANCE: Well-nourished, well-developed, appears stated age. Level of distress, comfortable. PSYCHIATRIC: Mental status, alert, normal affect. Orientation, oriented to time, place and person. EYES: Lids and conjunctiva, noninjected. No discharge, no pallor. ENT: Lips, teeth, gums, normal dentition. Oropharynx, no cyanosis, no pallor. NECK: Carotid arteries, bilateral normal upstroke, no bruits, no thrills. JUGULAR VEINS: No jugular venous pressure or distention. CERVICAL LYMPH NODES: Nontender, nonenlarged. THYROID: Not enlarged. Nontender. No nodules. LUNGS: Respiratory effort, unlabored. CHEST: Normal curvature. No thoracic deformity. No chest wall tenderness. Percussion, resonant. Auscultation, clear. No wheezes, no rales, no rhonchi. CARDIOVASCULAR: Precordial exam, nondisplaced. No heaves or pericardial thrills. Rate and rhythm, regular. Heart sounds, normal S1, normal S2. No S3, no gallop, no rub. Systolic murmur, not heard. Diastolic murmur, not heard. EXTREMITIES: No cyanosis, no edema. Peripheral pulses, full and equal in all extremities, except as noted. No bruits appreciated. ABDOMEN: Soft, nondistended. Normal aorta. No bruit. Nontender. No masses. Liver, nontender, no hepatomegaly. Spleen, nontender, no splenomegaly. MUSCULOSKELETAL: No joint tenderness. No joint swelling. No erythema. NEUROLOGICAL: Normal gait, normal strength, normal tone. SKIN: Warm and dry. OVERALL IMPRESSION: Unstable angina. We will admit proceed with coronary angiography today. Further care depends upon findings of the angiography. TRANSINT:[id number] Voice Confirmation ID: [id number] DOCUMENT ID: [id number] HISTORY AND PHYSICAL [id number] KRISTA TITUS JR, JEFFREY MD at 1733 CC: [id number] DICTATION DATE: 05/06/18 1033 SENIOR ORACLE APPLICATIONS DEVELOPER: 05/06/[address] [facility] [address] [id number]
--- NOTE | ~2018-05-06 | DS ---
PATIENT:KRISTA TITUS JR :66 MEDICAL RECORD: [id number] DISCHARGE SUMMARY ADMISSION DATE: 05/06/18 DISCHARGE DATE: 05/07/18 DIAGNOSES: 1. Angina. 2. Coronary artery disease. 3. PTCA of the left circumflex this admission. HOSPITAL COURSE: Mr. Titus presents with anginal symptomatology, found to have significant disease of circumflex. Underwent successful PTCA for in-stent restenosis of circumflex. Discharged home with no change in his medications as he is already on aspirin and Plavix. Follow up with [facility] in 1 month. TRANSINT:[id number] Voice Confirmation ID: [id number] DOCUMENT ID: [id number] DUC MARTELL MD at 1729 CC: [id number] DICTATION DATE: 05/07/1836 TANK FILLER: 05/07/18 0922 DEP CLI 05/07/[address] [address]
[2018-05-06 08:37] LABS: BASOPHILS 0.5 % (0-2); EOSINOPHILS 3.9 % (0-7); HEMATOCRIT 46.5 % (42.0-54.0); HEMOGLOBIN 16.2 g/dL (13.5-17.5); IMMATURE GRANULOCYTES 0.3 % (0-5); LYMPHOCYTES 21.6 % (15-50); MCH 32.1 pg (26.0-34.0); MCHC 34.8 g/dL (31.0-37.0); MCV 92.1 fL (80.0-100.0); MEAN PLATELET VOLUME 10.9 fL (7.4-10.4); MONOCYTES 9.4 % (2-11); NEUTROPHILS 64.3 % (40-80); PLATELET COUNT 187 10x3/uL (130-400); RBC 5.05 10x6/uL (4.20-6.10); RDW 13.7 % (11.5-14.5); WBC 7.7 10x3/uL (4.8-10.8)
[2018-05-06 09:00] VITALS: BP 132/94
[2018-05-06 09:07] LABS: ALBUMIN 3.5 g/dL (3.4-5.0); ALKALINE PHOSPHATASE 61 U/L (46-116); ALT (SGPT) 30 U/L (10-68); BILIRUBIN - TOTAL 0.34 mg/dL (0.2-1.3); CALC OSMOLALITY 275 mosm/kg (275-300); CALCIUM 8.5 mg/dL (8.5-10.1); CARBON DIOXIDE 28.1 mmol/L (21.0-32.0); CHLORIDE - SERUM 107 mmol/L (98-107); GLUCOSE 113 mg/dL (74-106); POTASSIUM - SERUM 4.1 mmol/L (3.5-5.1); PROTEIN - SERUM 6.4 g/dL (6.4-8.2); SODIUM 138 mmol/L (136-145); UREA NITROGEN 9 mg/dL (7-18); eGFR NON AFRICAN AMERICAN 84 mL/min (90-120)
[2018-05-06 09:10] LABS: CKMB 1.1 U/L (0.0-3.6); CREATINE KINASE 92 UL (21-232); PRO BNP 133 pg/mL (0-125); TROPONIN-I < 0.017 ng/mL (0.000-0.060)
[2018-05-06 10:00] VITALS: BP 137/87
[~2018-05-06 10:05] MED LIST changes: +BREO ELLIPTA 11 EACH INH; +LEXAPRO10 MG PO; +NITROQUICK0.4 MG SL; +SPIRIVA RESPIMAT4 G1 INH
[2018-05-06 11:00] VITALS: BP 114/71
[2018-05-06 12:00] VITALS: BP 103/70
[2018-05-06 13:28] VITALS: Ht 185.4 cm; Wt 100.0 kg
[2018-05-06 14:12] LABS: APPEARANCE CLEAR (CLEAR); BILIRUBIN NEGATIVE (NEGATIVE); COLOR YELLOW (YELLOW); GLUCOSE NEGATIVE (NEGATIVE); KETONE NEGATIVE (NEGATIVE); NITRITE NEGATIVE (NEGATIVE); PROTEIN NEGATIVE (NEGATIVE); UROBILINOGEN NORMAL (NORMAL)
[2018-05-06 15:13] VITALS: BP 121/80
[2018-05-06 16:44] LABS: CKMB 1.2 U/L (0.0-3.6); CREATINE KINASE 74 UL (21-232)
[2018-05-06 16:57] LABS: TROPONIN-I < 0.017 ng/mL (0.000-0.060)
[2018-05-06 20:41] VITALS: BP 111/71
[2018-05-07 03:24] LABS: CKMB 1.1 U/L (0.0-3.6); CREATINE KINASE 78 UL (21-232)
[2018-05-07 03:25] LABS: TROPONIN-I < 0.017 ng/mL (0.000-0.060)
[2018-05-07 04:54] VITALS: BP 117/65
[2018-05-07 09:23] VITALS: BP 99/68
== END 2018-05-07 10:25 | disposition home or self-care (01) ==
LOC: OBSVTIME → D.ER 10:05 → D.M2 10:05 → D.CATH 10:05 → D.EDHOLD 10:05 → OBSVTIME 10:05 → D.M2 12:55 → D.EDHOLD 12:55 → EDSTATUS 16:10 → D.CATH 05-07 10:25 → D.M2 05-07 10:25
PROVIDERS: Family Medicine
DX: T82.855A Stenosis of coronary artery stent, initial encounter (principal); Y84.0 Cardiac catheterization as the cause of abnormal reaction of the patient, or of later complication, without mention of misadventure at the time of the procedure; I25.110 Atherosclerotic heart disease of native coronary artery with unstable angina pectoris; I10 Essential (primary) hypertension; J44.9 Chronic obstructive pulmonary disease, unspecified; Z87.891 Personal history of nicotine dependence

== ENCOUNTER 2018-06-18 07:30 | Outpatient (CLI) | payer OTHER ==
[~2018-06-18] VITALS: Ht 182.9 cm; Wt 101.8 kg
--- NOTE | ~2018-06-18 | OP ---
PATIENT NAME: KRISTA MENEZES JR MEDICAL RECORD: [id number] :66 LOCATION:D.CAT ADMISSION DATE: SURGEON: DUC MARTELL MD DATE OF OPERATION: 06/18/2018 PROCEDURES: 1. PTCA stent RCA. 2. Left heart catheterization. 3. Selective coronary angiography. 4. Left ventriculogram. INDICATION: Unstable angina and coronary artery disease. PROCEDURE IN DETAIL: After informed consent was obtained and after detailed description of risks, benefits as well as alternative therapies, the patient elected to proceed with angiogram and angioplasty. The right femoral area was prepped and draped in normal sterile fashion. Right femoral artery was cannulated via modified Seldinger technique with placement of 6-Maltese sheath. All catheters exchanged through this sheath. FINDINGS: The left ventriculogram was performed in standard 30-degree GONSALEZ view, reveals good cardiac wall motion throughout all segments. Overall ejection fraction estimated 60%. SELECTIVE CORONARY ANGIOGRAPHY: 1. Left main is with no significant angiographic disease. 2. Left anterior descending has previously placed stents, these are widely patent with no significant restenosis. No disease elsewise throughout the LAD or its branches. 3. Left circumflex has previously placed stents, these are widely patent with no significant restenosis. No disease elsewise throughout the LAD or its branches. 4. The right coronary has previously placed stents. In the PDA, there is 90% to 95% in-stent restenosis. PTCA OF THE RCA PDA. We used a 2.0 balloon up to 17 atmospheres. Result was 0% residual stenosis. OVERALL IMPRESSION: Successful PTCA for in-stent restenosis of the RCA PDA going from 90% to 95% initial stenosis to 0% residual. TRANSINT:[id number] Voice Confirmation ID: [id number] DOCUMENT ID: [id number] DUC MARTELL MD at 1913 CC: [id number] DICTATION DATE: 06/18/18 1021 BAND SPLICER: 06/18/18 1045 DEP CLI 06/18/18 [facility] [address] [place] [address]
--- NOTE | ~2018-06-18 | HEMODYNAMI ---
PATIENT:KRISTA MENEZES JR MEDICAL RECORD: [id number] : 66 LOCATION:[facility] ADMISSION DATE: 06/18/18 Generatedon:06/18/201810:20 Patient name: KRISTA MENEZES Patient #: [id number] SSN: DO B: 1970 Date of study: 06/18/2018 Page: Of Hemodynamic Procedure Report Patient Data Patient Demographics Procedure consent was obtained First Name: KRISTA Gender: Male Last Name: RIRI Suffix: [facility] Initial: Ruth : 1970 Patient #: [id number] Age: 48 year(s) Race: Additional ID: [id number] Contact details Address: [address] [place] [address] State: [facility] Zip code: [address] Past Medical History Allergies: No known allergies Admission Admission Data Admission Date: 06/18/2018 Admission Time: 7:30 Lab Results Lab Result Date: 06/18/2018 Lab Result Time: 8:00 Biochemistry Name Units Result Min Max BUN mg/dl 10 --(-*--)-- 7 18 Creatinine mg/dl 0.8 --(-*--)-- 0.6 1.3 CBC Name Units Result Min Max Hematocrit % 45.8 --(-*--)-- 42 54 Hemoglobin g/dl 15.8 --(--*-)-- 13.5 17.5 Procedure Procedure Types Cath Procedure Diagnostic Procedure C [facility] w/Coronaries Sedation Charges Moderate Sedation up to 15 minutes PCI Procedure PTCA PTCA Initial Procedure Description Procedure Date Procedure Date: 06/18/2018 Procedure Start Time: 10:05 Procedure End Time: 10:19 Procedure Staff Name Function Khoa Yi MD Performing Physician Garrett Lemons RN Nurse Chelsea Wolf RT Scrub Edward Edmondson RT Monitor Procedure Data Cath Procedure Fluoroscopy Diagnostic fluoroscopy Total fluoroscopy Time: 2.6 time: 2.6 min min Diagnostic fluoroscopy Total fluoroscopy dose: dose: 456.72 mGy 456.72 mGy Contrast Material Contrast Material Type Amount (ml) Isovue 300 95 Entry Location Entry Primary Successful Side Size Upsize Upsize Entry Closure Succes sful Closure Location (Fr) 1 (Fr) 2 (Fr) Remarks Device Remarks Femoral Right 5 Fr 6 Fr Exoseal artery Short Estimated blood loss: 10 ml Diagnostic catheters Device Type Used For End Catheter Placement MULTIPACK Pigtail 5 Fr Procedure catheter MULTIPACK JL 4.0 5Fr Procedure catheter MULTIPACK 3DRC 5Fr Procedure catheter Procedure Complications No complications Procedure Medications Medication Administration Route Dosage Oxygen etCO2 Nasal cannula 2 l/min Heparin Flush Bag added to field 2 bags (1000units/500ml NS) 0.9% NaCl I.V. 100 ml/hr Fentanyl I.V. 100 mcg Versed I.V. 2 mg Fentanyl I.V. 100 mcg Versed I.V. 2 mg Heparin Bolus I.V. 4000 units Hemodynamics Rest HGB: 15.8 (g/dl) Heart Rate: 70 (bpm) Snapshots Pre Cath Intra NCS Post Cath Vital Signs Time Heart Resp SPO2 etCO2 NIBP (mmHg) Rhythm Pain Sedation Rate (ipm) (%) (mmHg) Status Level (bpm) 9:35:16 71 16 97 0 134/91(103) NSR 0 (11) 10(A) , No pain 9:39:32 66 16 98 36.3 139/95(115) NSR 0 (11) 10(A) , No pain 9:43:46 66 17 99 39.3 139/93(110) NSR 0 (11) 10(A) , No pain 9:48:04 72 16 99 40.8 120/89(104) NSR 0 (11) 10(A) , No pain 9:52:16 78 16 97 38.5 132/87(99) NSR 0 (11) 10(A) , No pain 9:56:28 77 16 96 21.9 120/91(106) NSR 0 (11) 10(A) , No pain 10:00:42 76 16 96 37 129/85(98) NSR 0 (11) 10(A) , No pain 10:04:52 81 16 95 12.8 129/91(122) NSR 0 (11) 10(A) , No pain 10:09:57 78 16 96 9 152/110(129) NSR 0 (11) 10(A) , No pain 10:14:15 86 16 91 15.8 150/102(134) NSR 0 (11) 9(A) , No pain 10:18:33 89 17 91 21.1 138/105(124) NSR 0 (11) 9(A) , No pain Medications Time Medication Route Dose Verified Delivered Reason Notes Effectiveness by by 9:39:20 Oxygen etCO2 2 Khoa Tucker Per physician Nasal l/min Kd Lemons RN cannula 9:39:28 Heparin Flush added 2 Khoa Tucker used for Bag to bags Kd Lemons RN procedure (1000units/500ml field NS) 9:39:38 0.9% NaCl I.V. 100 Khoa Tucker Per physician ml/hr Kd Lemons RN 10:01:18 Fentanyl I.V. 100 Khoa Tucker for sedation mcg Kd Lemons RN 10:01:25 Versed I.V. 2 mg Khoa Tucker for sedation Kd Lemons RN 10:13:54 Fentanyl I.V. 100 Khoa Tucker for sedation mcg Kd Lemons RN 10:13:59 Versed I.V. 2 mg Khoa Tucker for sedation Kd Lemons RN 10:14:12 Heparin Bolus I.V. 4000 Khoa Tucker for units Kd Lemons RN anticoagulation Procedure Log Time Note 9:15:12 Garrett Lemons RN sent for patient. Start room use. 9:31:18 Time tracking: Regular hours (M-F 7:00 - 5:00) 9:31:21 Plan of Care:Hemodynamics will remain stable., Cardiac rhythm will remain stable., Comfort level will be maintained., Respiratory function will remain adequate., Patient/ family verbilizes understanding of procedure., Procedure tolerated without complication., Recovers from procedure without complications.. 9:31:25 Patient received from Pre/Post Procedure Room to CCL 3 Alert and oriented. Tansferred to table in Supine position. 9:31:26 Warm blankets applied, and lynette hugger turned on for patient comfort. 9:31:27 Correct patient and procedure confirmed by team. 9:31:28 Signed procedure consent form obtained from patient. 9:31:34 Full Disclosure recording started 9:34:10 ECG and BP/O2 sat monitors applied to patient. 9:34:12 Vital chart was started 9:34:18 Rhythm: sinus rhythm 9:39:20 Oxygen 2 l/min etCO2 Nasal cannula was administered by Garrett Lemons RN; Per physician; 9:39:28 Heparin Flush Bag (1000units/500ml NS) 2 bags added to field was administered by Garrett Lemons RN; used for procedure; 9:39:38 0.9% NaCl 100 ml/hr I.V. was administered by Garrett Lemons RN; Per physician; 9:40:42 Baseline sample Acquired. 9:40:55 H&P Date Dictated: 06/15/2018 Within 30 days and on chart., H&P Addendum completed by physician on day of procedure. (MUST COMPLETE FOR ALL OUTPATIENTS). 9:40:56 Pre-procedure instructions explained to patient. 9:40:56 Pre-op teaching completed and patient verbalized understanding. 9:40:58 Family unavailable. 9:40:59 Patient NPO since Midnight. 9:41:53 Patient allergic to No known allergies 9:41:55 Is the patient allergic to Iodine/contrast media? No. 9:41:56 Is patient on blood thinner?Yes 9:41:58 ACC The patient was administered the following blood thiners within the last 24 hours: ACCPlavix 9:42:03 Patient diabetic? No. 9:42:05 Previous problem with sedation/anesthesia? No ? 9:42:07 Snore? Yes 9:42:07 Sleep apnea? Yes 9:42:08 Deviated septum? No 9:42:09 Opens mouth fully? Yes 9:42:16 Sticks out tongue? Yes 9:42:21 Airway obstruction? Yes ASTHMA 9:42:24 Dentures? Yes OUT 9:42:34 Pre procedure: right dorsailis pedis pulse 2+ Normal; easily identifiable; not easily obliterated 9:42:36 Patient pain scale 0/10 ?. 9:42:40 IV patent on arrival in left forearm with 0.9% NaCl at O. 9:44:38 Lab Result : BUN 10 mg/dl :44:38 Lab Result : Creatinine 0.8 mg/dl :44:38 Lab Result : Hemoglobin 15.8 g/dl :44:38 Lab Result : Hematocrit 45.8 % 9:44:41 Lab results completed and on chart. 9:44:44 Right groin area was prepped with chlora-prep and draped in sterile fashion 9:44:45 Alarms reviewed by R. N. 9:44:45 Sharps counted by scrub and verified by R.N. 9:44:48 Use device set Femoral Dx 9:44:48 ACIST Syringe (72586) opened to sterile field. 9:44:49 Bag Decanter (2002S) opened to sterile field. 9:44:49 Medline Cath Pack ([id number]) opened to sterile field. 9:44:50 ACIST Hand Control (52755) opened to sterile field. 9:44:51 ACIST Manifold (78550) opened to sterile field. 9:44:51 Tegaderm 4 x 4 (1626W) opened to sterile field. 9:44:53 SHEATH Prelude 5Fr 0.035 (BRB-2F-17-035) opened to sterile field. 9:44:54 DIAGNOSTIC WIRE .035 260cm J wire (271938) opened to sterile field. 9:44:56 DIAGNOSTIC Multipack 5Fr catheter set ([id number]) opened to sterile field. 9:47:03 Zero performed for pressure channel P1 9:57:08 Physician paged 10:00:38 Physician arrived 10:00:38 --------ALL STOP TIME OUT------ 10:00:39 Final Timeout: patient, procedure, and site verified with staff and physician. All members of the team are in agreement. 10:00:40 Right groin site verified by team. 10:00:43 Physical assessment completed. ASA score P 2 - A patient with mild systemic disease as per Khoa Yi MD. 10:00:45 Sedation plan: IV Moderate Sedation Medication:Versed, Fentanyl 10:01:18 Fentanyl 100 mcg I.V. was administered by Garrett Lemons RN; for sedation; 10:01:25 Versed 2 mg I.V. was administered by Garrett Lemons RN; for sedation; 10:05:29 Procedure started. 10:05:31 Local anesthetic to right femoral artery with Lidocaine 2% by Khoa Yi MD.INITIAL ACCESS ONLY 10:05:41 A 5 Fr sheath was inserted into the Right Femoral artery 10:07:40 A MULTIPACK Pigtail 5 Fr catheter was advanced over the wire and used for Procedure. 10:07:52 LV angiography performed. 10:07:54 LV gram done using GONSALEZ 10:07:56 Injector settings: Ml/sec: 10, Volume: 20, 10:08:05 EF : 60 % 10:08:08 Catheter exchanged over wire. 10:08:11 A MULTIPACK JL 4.0 5Fr catheter was advanced over the wire and used for Procedure. 10:08:31 LCA angiography performed. 10:09:58 Catheter exchanged over wire. 10:10:02 A MULTIPACK 3DRC 5Fr catheter was advanced over the wire and used for Procedure. 10:10:39 RCA angiography performed. 10:10:44 Catheter removed. 10:11:47 SHEATH Prelude 6Fr 0.035 (VQV-7A-64-035) opened to sterile field. 10:11:47 CHOICE PT Extra Support 182cm wire ([id number]) opened to sterile field. 10:11:48 INFLATOR Merit BasixCompak (RK6142) opened to sterile field. 10:13:11 GUIDE 6FR AR 2.0 catheter ([id number]) opened to sterile field. 10:13:18 Sheath upsized to a 6 Fr Short. 10:13:25 6 Fr AR 2 guide catheter was inserted over the wire 10:13:29 CHOICE PT ES wire advanced. 10:13:30 Wire advanced across lesion. 10:13:54 Fentanyl 100 mcg I.V. was administered by Garrett Lemons RN; for sedation; 10:13:59 Versed 2 mg I.V. was administered by Garrett Lemons RN; for sedation; 10:14:12 Heparin Bolus 4000 units I.V. was administered by Garrett Lemons RN; for anticoagulation; 10:15:19 Inflate balloon Inflation number: 1 A EUPHORA 2.5 x 12 Balloon ([id number]) was prepped and advanced across the R PDA, then inflated to 15 TIFFANY for 0:10 (min:sec). 10:15:40 Inflation number: 2 The EUPHORA 2.5 x 12 Balloon ([id number]) was reinflated across the R PDA, to 13 TIFFANY for 0:10 (min:sec). 10:15:59 Inflation number: 3 The EUPHORA 2.5 x 12 Balloon ([id number]) was reinflated across the R PDA, to 15 TIFFANY for 0:10 (min:sec). 10:16:21 Balloon removed over the wire. 10:16:22 Wire removed. 10:16:23 Guide catheter removed. 10:16:29 EXOSEAL 6Fr (EX600) opened to sterile field. 10:16:40 Sheath removed intact; hemostasis achieved with Exoseal to the Right Femoral artery. 10:16:41 Procedure ended.(Physican Out) 10:16:51 Fluoroscopy time 02.60 minutes. 10:16:58 Fluoroscopy dose: 456.72 mGy 10:16:58 Flurop Dose total: 456.72 10:17:55 Contrast amount:Isovue 300 95ml. 10:17:56 Sharps counted by scrub and verified by R.N. 10:17:58 Insertion/operative site no bleeding no hematoma. 10:18:00 Post-op/insertion site Right Femoral artery dressed using a 4 x 4 and Tegaderm. 10:18:02 Post right femoral artery:stable, soft, clean and dry 10:18:04 Post Procedure Pulses reassessed and unchanged 10:18:06 Post-procedure physical assessment completed. ASA score P 2 - A patient with mild systemic disease as per Khoa Yi MD. 10:18:08 Post procedure rhythm: unchanged. 10:18:10 Estimated blood loss: 10 ml 10:18:11 Post procedure instruction explained to patient.Patient verbalizes understanding. 10:18:12 Patient needs reinforcement of post procedure teaching. 10:18:31 Procedure type changed to Cath procedure, Diagnostic procedure, LHC, LHC w/Coronaries, Sedation Charges, Moderate Sedation up to 15 minutes, PCI procedure, PTCA, PTCA Initial 10:19:36 Procedure and supply charges have been captured, reviewed, submitted and are correct. 10:19:39 Procedure Complication : No complications 10:19:41 Vital chart was stopped 10:19:41 See physician's report for complete and final results. 10:19:43 Report given to Pre/Post Procedure Room. 10:19:45 Patient transfered to Pre/Post Procedure Room with Stretcher. 10:19:47 Procedure ended. 10:19:47 Full Disclosure recording stopped 10:19:51 End room use (Document Last) Intervention Summary Intervention Notes Time ActionType Lesion and Equipment Action# Pressure Duration Attributes Used 10:15:19 Inflate R PDA EUPHORA 1 15 00:10 balloon 2.5 x 12 Balloon ([id number]) 10:15:40 Reinflate R PDA EUPHORA 2 13 00:10 balloon 2.5 x 12 Balloon ([id number]) 10:15:59 Reinflate R PDA EUPHORA 3 15 00:10 balloon 2.5 x 12 Balloon ([id number]) Device Usage Item Name Manufacture Quantity Catalog Number Hospital Part Current Minimal Lot# / Charge Number Stock Stock Serial# Code ACIST Syringe Acist 1 57746 444135 [id number] 20 (66868) Medical Systems Ykone Bag Decanter Microtek 1 2001S 034980 50985 283250 5 () Medical Inc. Medline Cath Medline 1 [id number] 550384 14152 620728 5 Pack ([id number]) ACIST Hand Acist 1 29124 603391 777595 984852 5 Control (82349) Medical Systems Inc ACIST Manifold Acist 1 34313 382097 981001 623537 5 (75355) Medical Systems Inc Tegaderm 4 x 4 3M 1 1626W 246141 580328 791233 5 (1626W) SHEATH Prelude Merit 1 BSA-3R-09-035 132951 926001 593109 5 5Fr 0.035 Medical (OKL-1N-40-035) DIAGNOSTIC WIRE [facility] 1 845407 298591 268328 481303 30 .035 260cm J wire (882621) DIAGNOSTIC Cardinal 1 EQ0775 413432 43369 713870 30 Multipack 5Fr Health catheter set ([id number]) MULTIPACK Cardinal 1 647302 5 Pigtail 5 Fr Health catheter MULTIPACK JL Cardinal 1 399180 5 4.0 5Fr Health catheter MULTIPACK 3DRC Cardinal 1 [id number] 5 5Fr catheter Health SHEATH Prelude Merit 1 SZW-2H-05-35 976888 6233826 351824 5 6Fr 0.035 Medical (ITL-6P-59-035) CHOICE PT Extra [place] 1 [id number] 766921 681248 059335 5 Support 182cm Scientific wire ([id number]) INFLATOR Merit Merit 1 HH0624 761308 774286 308894 15 ESP Systems[employer]Stylus Media (MZ4232) GUIDE 6FR AR Medtronic 1 [id number] 907399 91142 847979 1 2.0 catheter ([id number]) EUPHORA 2.5 x Medtronic 1 [id number] 044102 313758 060513 5 [id number] 12 Balloon ([id number]) EXOSEAL 6Fr Cardinal 1 EX600 324345 816562 500461 10 (EX600) Health Signature Audit [place] Stage Time Signature Unsigned Intra-Procedure 06/18/2018 Edward Edmondson 10:20:35 AM RT(R) Signatures Monitor : Edward Edmondson RT Signature : Date : Time : [id number] [place] [address]
[2018-06-18 08:01] VITALS: Ht 182.9 cm; Wt 101.8 kg
[2018-06-18 08:13] LABS: BASOPHILS 0.6 % (0-2); EOSINOPHILS 3.3 % (0-7); HEMATOCRIT 45.8 % (42.0-54.0); HEMOGLOBIN 15.8 g/dL (13.5-17.5); IMMATURE GRANULOCYTES 0.3 % (0-5); LYMPHOCYTES 18.8 % (15-50); MCH 32.1 pg (26.0-34.0); MCHC 34.5 g/dL (31.0-37.0); MCV 93.1 fL (80.0-100.0); MEAN PLATELET VOLUME 10.9 fL (7.4-10.4); MONOCYTES 8.4 % (2-11); NEUTROPHILS 68.6 % (40-80); PLATELET COUNT 201 10x3/uL (130-400); RBC 4.92 10x6/uL (4.20-6.10); RDW 13.5 % (11.5-14.5); WBC 6.6 10x3/uL (4.8-10.8)
[2018-06-18 08:34] LABS: CALC OSMOLALITY 279 mosm/kg (275-300); CALCIUM 9.1 mg/dL (8.5-10.1); CARBON DIOXIDE 28.2 mmol/L (21.0-32.0); CHLORIDE - SERUM 107 mmol/L (98-107); CREATININE - SERUM 0.8 mg/dL (0.6-1.3); GLUCOSE 105 mg/dL (74-106); POTASSIUM - SERUM 4.3 mmol/L (3.5-5.1); SODIUM 141 mmol/L (136-145); UREA NITROGEN 10 mg/dL (7-18); eGFR NON AFRICAN AMERICAN > 90 mL/min (90-120)
== END 2018-06-18 14:50 | disposition home or self-care (01) ==
LOC: D.CATH 07:30
PROVIDERS: Internal Medicine Interventional Cardiology
DX: I25.110 Atherosclerotic heart disease of native coronary artery with unstable angina pectoris (principal); T82.855A Stenosis of coronary artery stent, initial encounter

== ENCOUNTER 2018-08-27 20:15 | Observation (INO) | payer OTHER ==
[~2018-08-27] VITALS: Ht 182.9 cm; Wt 103.2 kg
--- NOTE | ~2018-08-27 | HEMODYNAMI ---
PATIENT:KRISTA MENEZES JR MEDICAL RECORD: [id number] : 66 LOCATION:[address] [facility]# [id number] ADMISSION DATE: 08/28/18 Generatedon:08/28/201813:09 Patient name: KRISTA MENEZES Patient #: [id number] SSN: DO B: 1970 Date of study: 08/28/2018 Page: Of Hemodynamic Procedure Report Patient Data Patient Demographics Procedure consent was obtained First Name: KRISTA Gender: Male Last Name: RIRI Suffix: Jr Rojo Initial: Ruth : 1970 Patient #: [id number] Age: 48 year(s) Race: Additional ID: [id number] Contact details Address: [address] [place] [address] State: [place] City: [place] Zip code: [address] Past Medical History Allergies: No known allergies Admission Admission Data Admission Date: 08/28/2018 Admission Time: 0:42 Room #: D.2124 Lab Results Lab Result Date: 08/28/2018 Lab Result Time: 0:00 Biochemistry Name Units Result Min Max BUN mg/dl 12 --(-*--)-- 7 18 Creatinine mg/dl 1 --(--*-)-- 0.6 1.3 CBC Name Units Result Min Max Hemoglobin g/dl 15.9 --(--*-)-- 13.5 17.5 Procedure Procedure Types Cath Procedure Diagnostic Procedure [facility] w/Coronaries FFR/IVUS Intra-Coronary IVUS Initial Sedation Charges Moderate Sedation up to 15 minutes PCI Procedure Coronary Stent Coronary Stent Initial Procedure Description Procedure Date Procedure Date: 08/28/2018 Procedure Start Time: 12:48 Procedure End Time: 13:04 Procedure Staff Name Function Khoa Yi MD Performing Physician Federica Cortez RT Monitor Piper Parikh RN Nurse Nathan Brink RT Scrub Procedure Data Cath Procedure Fluoroscopy Diagnostic fluoroscopy Total fluoroscopy Time: 3.5 time: 3.5 min min Diagnostic fluoroscopy Total fluoroscopy dose: dose: 1091 mGy 1091 mGy Contrast Material Contrast Material Type Amount (ml) Isovue 300 117 Entry Location Entry Primary Successful Side Size Upsize Upsize Entry Closure Succes sful Closure Location (Fr) 1 (Fr) 2 (Fr) Remarks Device Remarks Femoral Right 6 Fr Exoseal artery Short Estimated blood loss: 10 ml Diagnostic catheters Device Type Used For End Catheter Placement MULTIPACK Pigtail 5 Fr Procedure catheter MULTIPACK JL 4.0 5Fr Procedure catheter MULTIPACK 3DRC 5Fr Procedure catheter Procedure Complications No complications Procedure Medications Medication Administration Route Dosage Oxygen etCO2 Nasal cannula 2 l/min Lidocaine 2% added to field 20 Heparin Flush Bag added to field 2 bags (1000units/500ml NS) 0.9% NaCl I.V. 100 ml/hr Fentanyl I.V. 100 mcg Versed I.V. 2 mg Versed I.V. 1 mg Fentanyl I.V. 50 mcg Heparin Bolus I.V. 4000 units Lopressor I.V. 5 mg Hemodynamics Rest HGB: 15.9 (g/dl) Heart Rate: 62 (bpm) Snapshots Pre Cath Intra NCS Post Cath Vital Signs Time Heart Resp SPO2 etCO2 NIBP (mmHg) Rhythm Pain Sedation Rate (ipm) (%) (mmHg) Status Level (bpm) 12:38:36 67 18 95 0 137/79(111) NSR 0 (11) 10(A) , No pain 12:42:50 76 17 94 27.2 132/82(88) NSR 0 (11) 10(A) , No pain 12:47:02 81 26 94 20.4 138/101(117) NSR 0 (11) 10(A) , No pain 12:51:16 82 16 94 33.2 148/108(121) NSR 0 (11) 9(A) , No pain 12:55:26 92 14 95 21.9 135/100(119) NSR 0 (11) 9(A) , No pain 12:59:40 84 14 94 37.7 146/104(125) NSR 0 (11) 9(A) , No pain 13:03:54 96 14 94 16.6 132/95(112) NSR 0 (11) 9(A) , No pain 13:06:54 95 25 93 18.9 135/98(117) NSR 0 (11) 10(A) , No pain Medications Time Medication Route Dose Verified Delivered Reason Notes Effectiveness by by 12:42:11 Oxygen etCO2 2 Khoa Schaeferie used for Nasal l/min Kd Parikh RN procedure cannula 12:42:17 Lidocaine 2% added 20ml Khoa Khoa for local to vial Kd Yi MD anesthetic field 12:42:24 Heparin Flush added 2 Khoa Khoa used for Bag to bags Kd Yi MD procedure (1000units/500ml field NS) 12:42:27 Versed I.V. 2 mg Khoa Schaeferie for sedation Kd Parikh RN 12:42:33 0.9% NaCl I.V. 100 Khoatimmy Schaeferie Per physician ml/hr Kd Parikh RN 12:42:56 Fentanyl I.V. 100 Khoa Buffie for sedation mcg Kd Parikh RN 12:49:41 Versed I.V. 1 mg Khoa Buffie for sedation Kd Parikh RN 12:49:46 Fentanyl I.V. 50 Khoa Oliveie for sedation mcg Kd Parikh RN 12:53:27 Heparin Bolus I.V. 4000 Khoatimmy Schaeferie for verif ied units Kd Parikh RN anticoagulation with dr yi 13:00:59 Lopressor I.V. 5 mg Khoa Schaeferie Per physician Kd Parikh RN Procedure Log Time Note 12:07:28 Nathan Brink RT(R) sent for patient. Start room use. 12:07:30 Time tracking: Call back (After hours or weekends) 12:07:34 Plan of Care:Hemodynamics will remain stable., Cardiac rhythm will remain stable., Comfort level will be maintained., Respiratory function will remain adequate., Patient/ family verbilizes understanding of procedure., Procedure tolerated without complication., Recovers from procedure without complications.. 12:17:10 Signed procedure consent form obtained from patient. 12:17:12 Diagnostic Cath status Elective 12:17:30 Patient allergic to No known allergies 12:18:04 Lab Result : BUN 12 mg/dl 12:18:04 Lab Result : Creatinine 1 mg/dl 12:18:04 Lab Result : Hemoglobin 15.9 g/dl 12:29:54 Patient received from Med II to CCL 1 Alert and oriented. Tansferred to table in Supine position. 12:29:55 Warm blankets applied, and lynette hugger turned on for patient comfort. 12:29:56 Correct patient and procedure confirmed by team. 12:29:57 ECG and BP/O2 sat monitors applied to patient. 12:37:28 Vital chart was started 12:38:27 Baseline sample Acquired. 12:38:33 Rhythm: sinus rhythm 12:38:34 Full Disclosure recording started 12:38:35 Pre-procedure instructions explained to patient. 12:38:38 Pre-op teaching completed and patient verbalized understanding. 12:38:41 Family in patients room. 12:38:44 Patient NPO since Midnight. 12:38:46 Is patient on blood thinner?Yes 12:38:49 ACC The patient was administered the following blood thiners within the last 24 hours: ACCPlavix 12:38:54 Patient diabetic? No. 12:38:56 Previous problem with sedation/anesthesia? No ? 12:38:57 Snore? Yes 12:38:58 Sleep apnea? No 12:39:01 Deviated septum? No 12:39:02 Opens mouth fully? Yes 12:39:07 Airway obstruction? Yes COPD 12:39:10 Dentures? Yes OUT 12:39:13 Pre procedure: right dorsailis pedis pulse 2+ Normal; easily identifiable; not easily obliterated 12:39:16 Patient pain scale 6/10 ?. 12:39:20 IV patent on arrival in right antecubital with 0.9% NaCl at O. 12:39:22 Lab results completed and on chart. 12:39:29 Right Radial area was prepped with chlora-prep and draped in sterile fashion 12:39:30 Alarms reviewed by R. N. 12:39:30 Sharps counted by scrub and verified by R.N. 12:39:32 --------ALL STOP TIME OUT------ 12:39:32 Final Timeout: patient, procedure, and site verified with staff and physician. All members of the team are in agreement. 12:39:35 Right groin site verified by team. 12:39:38 Physical assessment completed. ASA score P 2 - A patient with mild systemic disease as per Khoa Yi MD. 12:39:41 Sedation plan: IV Moderate Sedation Medication:Versed, Fentanyl 12:39:45 Use device set Femoral Dx 12:39:46 ACIST Syringe (89253) opened to sterile field. 12:39:46 Bag Decanter (2001S) opened to sterile field. 12:39:47 ACIST Hand Control (20452) opened to sterile field. 12:39:47 ACIST Manifold (27045) opened to sterile field. 12:39:48 Tegaderm 4 x 4 (1626W) opened to sterile field. 12:39:50 Medline Cath Pack ([id number]) opened to sterile field. 12:39:50 DIAGNOSTIC WIRE .035 260cm J wire (264819) opened to sterile field. 12:39:51 DIAGNOSTIC Multipack 5Fr catheter set (VN2237) opened to sterile field. 12:40:15 CHOICE PT Extra Support 182cm wire ([id number]) opened to sterile field. 12:40:16 INFLATOR Merit BasixCompak (KT4948) opened to sterile field. 12:40:16 SHEATH 6FR Clinton (TSE861) opened to sterile field. 12:42:11 Oxygen 2 l/min etCO2 Nasal cannula was administered by Piper Parikh RN; used for procedure; 12:42:17 Lidocaine 2% 20ml vial added to field was administered by Khoa Yi MD; for local anesthetic; 12:42:24 Heparin Flush Bag (1000units/500ml NS) 2 bags added to field was administered by Khoa Yi MD; used for procedure; 12:42:27 Versed 2 mg I.V. was administered by Piper Parikh RN; for sedation; 12:42:33 0.9% NaCl 100 ml/hr I.V. was administered by Piper Parikh RN; Per physician; 12:42:56 Fentanyl 100 mcg I.V. was administered by Piper Parikh RN; for sedation; 12:47:59 Zero performed for pressure channel P1 12:48:04 Procedure started. 12:48:17 Zero performed for pressure channel P1 12:48:20 Local anesthetic to right femoral artery with Lidocaine 2% by Khoa Yi MD.INITIAL ACCESS ONLY 12:48:52 A 6 Fr Short sheath was inserted into the Right Femoral artery 12:49:01 A MULTIPACK Pigtail 5 Fr catheter was advanced over the wire and used for Procedure. 12:49:15 LV gram done using GONSALEZ 12:49:18 Injector settings: Ml/sec: 10, Volume: 20, 12:49:41 Versed 1 mg I.V. was administered by Piper Parikh RN; for sedation; 12:49:44 EF : 50 % 12:49:46 Fentanyl 50 mcg I.V. was administered by Piper Parikh RN; for sedation; 12:49:47 Catheter removed. 12:49:52 A MULTIPACK JL 4.0 5Fr catheter was advanced over the wire and used for Procedure. 12:51:10 LCA angiography performed. 12:51:14 Catheter removed. 12:51:21 [place] IVUS Catheter (46082O) opened to sterile field. 12:51:25 GUIDE 6FR XBLAD 4.0 catheter ([id number]) opened to sterile field. 12:51:31 A MULTIPACK 3DRC 5Fr catheter was advanced over the wire and used for Procedure. 12:51:56 RCA angiography performed. 12:51:58 Catheter removed. 12:52:40 6 Fr XBLAD 4 guide catheter was inserted over the wire 12:53:18 CHOICE ES 182 wire advanced. 12:53:27 Heparin Bolus 4000 units I.V. was administered by Piper Parikh RN; for anticoagulation; verified with dr yi 12:53:40 Wire advanced across lesion. 12:55:13 IVUS catheter advanced over wire. 12:55:14 IVUS pass to LAD lesion performed. 12:55:15 IVUS catheter removed over wire. 12:55:28 Wire redirected to CIRC. 12:56:43 Wire advanced across lesion. 12:59:59 Place stent Inflation Number: 1 A MERCEDEZ RX 2.75 x 34 stent ([id number]) was prepped and advanced across the Mid CX. The stent was deployed at 13 TIFFANY for 0:10 (min:sec). 13:00:09 Inflation number: 2 The stent balloon was then re-inflated across the Mid CX to 19 TIFFANY for 0:10 (min:sec). 13:00:33 Stent catheter was removed intact over wire. 13:00:34 Wire removed. 13:00:35 Guide catheter removed. 13:00:41 EXOSEAL 6Fr (EX600) opened to sterile field. 13:00:59 Lopressor 5 mg I.V. was administered by Piper Parikh RN; Per physician; 13:01:24 Sheath removed intact; hemostasis achieved with Exoseal to the Right Femoral artery. 13:01:57 Procedure ended.(Physican Out) 13:03:18 Fluoroscopy time 03.50 minutes. 13:03:22 Fluoroscopy dose: 1091 mGy 13:03:22 Flurop Dose total: 1091 13:03:26 Contrast amount:Isovue 300 117ml. 13:03:28 Sharps counted by scrub and verified by R.N. 13:03:31 Post-op/insertion site Right Femoral artery dressed using a 4 x 4 and Tegaderm. 13:03:35 Post right femoral artery:stable, soft, clean and dry 13:03:37 Post-procedure physical assessment completed. ASA score P 2 - A patient with mild systemic disease as per Khoa Yi MD. 13:03:41 Post procedure rhythm: sinus rhythm 13:03:44 Estimated blood loss: 10 ml 13:03:45 Post procedure instruction explained to patient.Patient verbalizes understanding. 13:03:46 Patient needs reinforcement of post procedure teaching. 13:04:15 Procedure type changed to Cath procedure, Diagnostic procedure, LHC, LHC w/Coronaries, FFR/IVUS, Intra-Coronary IVUS Initial, Sedation Charges, Moderate Sedation up to 15 minutes, PCI procedure, Coronary Stent, Coronary Stent Initial 13:04:44 Procedure and supply charges have been captured, reviewed, submitted and are correct. 13:04:47 Procedure Complication : No complications 13:04:49 Vital chart was stopped 13:04:49 See physician's report for complete and final results. 13:04:51 Report given to PCU. 13:04:53 Patient transfered to PCU with Bed. 13:04:55 Procedure ended. 13:04:55 Full Disclosure recording stopped 13:04:59 End room use (Document Last) Intervention Summary Intervention Notes Time ActionType Lesion and Equipment Used Action# Pressure Duration Attributes 12:59:59 Place stent Mid CX MERCEDEZ RX 2.75 x 1 13 00:10 34 stent ([id number]) 13:00:09 Reinflate Mid CX MERCEDEZ RX 2.75 x 2 19 00:10 stent 34 stent balloon ([id number]) Device Usage Item Name Manufacture Quantity Catalog Number Hospital Part Current M inimal Lot# / Charge Number Stock Stock Serial# Code ACIST Syringe Acist 1 09253 181232 969705 831443 2 0 (78259) Medical Systems Inc Bag Decanter Microtek 1 2001S 415047 14230 546299 5 (2001S) Medical Inc. ACIST Hand Acist 1 74865 217971 175288 656069 5 Control Medical (11054) Systems Inc ACIST Manifold Acist 1 85405 503441 860671 663124 5 (05196) Medical Systems Inc Tegaderm 4 x 4 3M 1 1626W 879424 142203 546860 5 (1626W) Medline Cath Medline 1 [id number] 689979 95928 649847 5 Pack ([id number]) DIAGNOSTIC [facility] [place] 1 551348 444383 224597 373938 3 0 WIRE .035 260cm J wire (086485) DIAGNOSTIC Cardinal 1 UK6044 793905 41974 490350 3 0 Multipack 5Fr Health catheter set (UL5833) CHOICE PT [place] 1 [id number] 792549 426225 274148 5 Extra Support Scientific 182cm wire ([id number]) INFLATOR Merit Merit 1 PQ4194 678917 702898 878938 1 5 CourseWeaver Medical (XZ9309) SHEATH 6FR Terumo 1 GRD097 901898 560868 355897 4 0 Clinton (DKO295) MULTIPACK Cardinal 1 700154 5 Pigtail 5 Fr Health catheter MULTIPACK JL Cardinal 1 897246 5 4.0 5Fr Health catheter Sontag Sontag 1 85743G 962078 748932 448186 8 [place]ag[place] IVUS Catheter (37446L) GUIDE 6FR Cardinal 1 [id number] 729899 221103 771449 3 XBLAD 4.0 Health catheter ([id number]) MULTIPACK 3DRC Cardinal 1 764801 5 5Fr catheter Health MERCEDEZ RX 2.75 x Medtronic 1 [id number] 967564 7342315 769407 5 [id number] 34 stent ([id number]) EXOSEAL 6Fr Cardinal 1 EX600 026211 022754 712253 1 0 (EX600) Health Signature Audit [place] Stage Time Signature Unsigned Intra-Procedure 08/28/2018 Federica Cortez 1:09:12 PM RT(R) Signatures Monitor : Federica Cortez Signature : RT Date : Time : [address] [place] [address]
[2018-08-27 20:49] LABS: BASOPHILS 0.4 % (0-2); EOSINOPHILS 5.7 % (0-7); HEMATOCRIT 46.1 % (42.0-54.0); HEMOGLOBIN 15.9 g/dL (13.5-17.5); IMMATURE GRANULOCYTES 0.2 % (0-5); LYMPHOCYTES 21.3 % (15-50); MCH 31.4 pg (26.0-34.0); MCHC 34.5 g/dL (31.0-37.0); MCV 90.9 fL (80.0-100.0); MEAN PLATELET VOLUME 10.9 fL (7.4-10.4); MONOCYTES 9.3 % (2-11); NEUTROPHILS 63.1 % (40-80); PLATELET COUNT 196 10x3/uL (130-400); RBC 5.07 10x6/uL (4.20-6.10); RDW 13.6 % (11.5-14.5); WBC 8.1 10x3/uL (4.8-10.8)
[2018-08-27] MEDS ORDERED: ISOSORBIDE MONO30 M1 PO (20:50)
[2018-08-27 20:54] VITALS: BP 118/85
[2018-08-27 21:01] LABS: INR 0.94 (0.85-1.17); PROTIME 12.1 SECONDS (11.6-15.0)
[2018-08-27 21:02] LABS: APTT 29.4 SECONDS (22.8-39.4)
[2018-08-27 21:09] LABS: ALBUMIN 3.3 g/dL (3.4-5.0); ALKALINE PHOSPHATASE 66 U/L (46-116); ALT (SGPT) 32 U/L (10-68); BILIRUBIN - TOTAL 0.24 mg/dL (0.2-1.3); CALC OSMOLALITY 279 mosm/kg (275-300); CARBON DIOXIDE 26.1 mmol/L (21.0-32.0); CHLORIDE - SERUM 106 mmol/L (98-107); GLUCOSE 134 mg/dL (74-106); POTASSIUM - SERUM 3.7 mmol/L (3.5-5.1); PROTEIN - SERUM 6.1 g/dL (6.4-8.2); SODIUM 139 mmol/L (136-145); UREA NITROGEN 12 mg/dL (7-18); eGFR NON AFRICAN AMERICAN 84 mL/min (90-120)
[2018-08-27 21:20] LABS: CKMB 1.2 U/L (0.0-3.6); CREATINE KINASE 111 UL (21-232); MAGNESIUM - SERUM 2.1 mg/dL (1.8-2.4)
[2018-08-27 21:21] LABS: TROPONIN-I < 0.017 ng/mL (0.000-0.060)
[2018-08-27 22:14] VITALS: BP 105/70
[2018-08-27 22:26] VITALS: BP 120/71
[2018-08-27 22:29] VITALS: BP 115/65
[2018-08-27 23:30] VITALS: BP 124/78
[2018-08-28 00:41] VITALS: BP 108/68
[2018-08-28 01:19] LABS: CKMB 0.8 U/L (0.0-3.6); CREATINE KINASE 106 UL (21-232)
[2018-08-28 01:21] LABS: TROPONIN-I < 0.017 ng/mL (0.000-0.060)
[2018-08-28 02:24] VITALS: BP 111/67; Ht 182.9 cm; Wt 103.2 kg
[2018-08-28] MEDS ORDERED: CATAPRES0.1 MG PO (02:59)
[2018-08-28] MEDS ORDERED: BREO ELLIPTA 21 EACH (03:00)
[2018-08-28] MEDS ORDERED: REMERON30 MG (03:01)
[2018-08-28] MEDS ORDERED: BUSPAR 15 MG TA15 MG PO (03:01)
[2018-08-28 06:14] VITALS: BP 112/64
[2018-08-28 08:21] VITALS: BP 111/72
[2018-08-28 08:50] LABS: CKMB 1.3 U/L (0.0-3.6); CREATINE KINASE 106 UL (21-232); TROPONIN-I < 0.017 ng/mL (0.000-0.060)
[2018-08-28 12:41] VITALS: BP 105/56
[2018-08-28 16:51] VITALS: BP 111/82
--- NOTE | 2018-08-30 10:47 | MORECARE ---
CASE MANAGEMENT DISCHARGE SUMMARY PATIENT: KRISTA MENEZES JR UNIT: [id number] ADM DATE: 08/28/18 AGE: 48 : [birth year] SEX: M ROOM/BED: D.2124 AUTHOR: DOMINIQUE CARPIO PHYSICIAN: REFERRING PHYSICIAN: DUC MARTELL MD DATE OF SERVICE: 08/30/18 Discharge Plan Patient Name: KRISTA [facility]ENEZES [facility] [facility] 1970 Planned Disposition: Home Anticipated Discharge Date: 08/28/18 Discharge Date: 08/28/2018 Expected LOS: 1 Initial Reviewer: [email or web address] Initial Review Date: 08/30/2018 Generated: 08/30/18 11:47 am Patient Name: KRISTA MENEZES Page [id number] at 1047 All edits/amendments must be made on the electronic document DICTATION DATE: 08/30/18 1047 SUPERVISOR GATE SERVICES: LEANNE 08/30/18 1047 RPT#: [id number] DC DATE:08/28/18 STATUS: DIS IN [facility] [address] [place] [address] END OF REPORT
--- NOTE | 2018-08-30 14:36 | HP ---
PATIENT: KRISTA TITUS JR MEDICAL RECORD: [id number] ACCOUNT: [id number] LOCATION:[address] : [birth year] ADMISSION DATE: 08/28/18 PCP: ARCENIO ALVARENGA HISTORY AND PHYSICAL EXAMINATION DIAGNOSES: 1. Unstable angina. 2. Coronary artery disease. 3. Previous multivessel percutaneous transluminal coronary angioplasty and stent. 4. Hypertension. 5. Hyperlipidemia. 6. Chronic obstructive pulmonary disease. 7. Smoking history. HISTORY OF PRESENT ILLNESS: Mr. Titus presents with unstable angina. His last cardiac intervention was a number of months ago. He did well until yesterday, it hit him yesterday with multiple episodes of chest pain, has continued to have multiple episodes of chest pain today, it is just like that of his previous angina. PHYSICAL EXAMINATION: GENERAL APPEARANCE: Well nourished, well developed, appears stated age. Level of distress, comfortable. PSYCHIATRIC: Mental status, alert, normal affect. Orientation, oriented to time, place and person. EYES: Lids and conjunctivae noninjected. No discharge, no pallor. ENT: Lips, teeth, gums, normal dentition. Oropharynx, no cyanosis, no pallor. NECK: Carotid arteries, bilateral normal upstroke, no bruits, no thrills. JUGULAR VEINS: No jugular venous pressure or distention. CERVICAL LYMPH NODES: Nontender, nonenlarged. THYROID: Not enlarged. Nontender. No nodules. LUNGS: Respiratory effort, unlabored. CHEST: Normal curvature. No thoracic deformity. No chest wall tenderness. Percussion, resonant. Auscultation, clear. No wheezes, no rales, no rhonchi. CARDIOVASCULAR: Precordial exam, nondisplaced. No heaves or pericardial thrills. Rate and rhythm, regular. Heart sounds, normal S1, normal S2. No S3, no gallop, no rub. Systolic murmur, not heard. Diastolic murmur, not heard. EXTREMITIES: No cyanosis, no edema. Peripheral pulses, full and equal in all extremities, except as noted. No bruits appreciated. ABDOMEN: Soft, nondistended. Normal aorta. No bruit. Nontender. No masses. Liver, nontender, no hepatomegaly. Spleen, nontender, no splenomegaly. MUSCULOSKELETAL: No joint tenderness. No joint swelling. No erythema. NEUROLOGICAL: Normal gait, normal strength, normal tone. SKIN: Warm and dry. OVERALL IMPRESSION: Unstable angina with a past history of multivessel percutaneous transluminal coronary angioplasty and stent. We will proceed with coronary angiography. Further care depends upon findings of the angiography. TRANSINT:[id number] Voice Confirmation ID: [id number] DOCUMENT ID: [id number] HISTORY AND PHYSICAL [id number] KRISTA TITUS JR, JEFFREY MD at 1436 CC: [id number] DICTATION DATE: 08/28/18 1032 SMALL LOT OPERATOR: 08/28/18 1123 DIS IN 08/28/18 [facility] [address] [place] [address]
--- NOTE | 2018-08-30 14:36 | OP ---
PATIENT NAME: KRISTA MENEZES JR MEDICAL RECORD: [id number] :66 LOCATION:D.M2 D.2124 ADMISSION DATE:08/28/18 SURGEON: DUC MARTELL MD DATE OF OPERATION: 08/28/2018 PROCEDURES: 1. PTCA and stent to the left circumflex. 2. Left heart catheterization. 3. Selective coronary angiography. 4. Left ventriculogram. 5. Intravascular ultrasound of the LAD. INDICATIONS: Unstable angina and coronary artery disease. PROCEDURE IN DETAIL: After informed consent was obtained and after a detailed description of the risks, benefits as well as alternative therapies, the patient elected to proceed with angiogram and angioplasty. The right femoral area was prepped and draped in normal sterile fashion. Right femoral artery was cannulated via modified Seldinger technique with placement of 6-Ukrainian sheath. All catheters exchanged through this sheath. FINDINGS: Left ventriculogram was performed in standard 30-degree GONSALEZ view, reveals good cardiac wall motion throughout all segments. Overall ejection fraction estimated at 50%. SELECTIVE CORONARY ANGIOGRAPHY: 1. Left main is with no significant angiographic disease. 2. Left anterior descending has previously placed stents. There is a questionable area of stenosis; however, intravascular ultrasound reveals that this is no greater than 50%. 3. The left circumflex has previously placed stents. There is greater than 80% in-stent restenosis in the mid vessel. 4. The right coronary has previously placed stents, these are widely patent with no significant restenosis. No disease elsewise throughout the RCA or its branches. PTCA STENT OF THE LEFT CIRCUMFLEX: The in-stent restenosis was addressed with Esvin stent 2.75 x 34. Result was 0% residual stenosis. OVERALL IMPRESSION: Successful percutaneous transluminal coronary angioplasty and stent of the left circumflex going from 80% in-stent restenosis to 0% residual stenosis. TRANSINT:[id number] Voice Confirmation ID: [id number] DOCUMENT ID: [id number] DUC MARTELL MD at 1436 CC: [id number] DICTATION DATE: 08/28/18 1306 LOGISTICS SERVICE REPRESENTATIVE: 08/28/18 1939 DIS IN 08/28/18 [facility] [address] [place] [address]
== END 2018-08-28 17:10 | disposition home or self-care (01) ==
LOC: D.ER 20:15 → OBSVTIME 08-28 00:42 → D.M2 08-28 00:42
PROVIDERS: Family Medicine; ADMIT Internal Medicine Interventional Cardiology
DX: I25.110 Atherosclerotic heart disease of native coronary artery with unstable angina pectoris (principal); T82.855A Stenosis of coronary artery stent, initial encounter; Y83.8 Other surgical procedures as the cause of abnormal reaction of the patient, or of later complication, without mention of misadventure at the time of the procedure; I10 Essential (primary) hypertension; E78.5 Hyperlipidemia, unspecified; J44.9 Chronic obstructive pulmonary disease, unspecified

== ENCOUNTER → 2018-10-12 14:04 | Outpatient (CLI) | payer OTHER ==
[2018-08-28 02:24] VITALS: BMI 30.8
[~2018-10-12 14:04] MED LIST changes: +BREO ELLIPTA 21 EACH; +BUSPAR 15 MG TA15 MG PO; +CATAPRES0.1 MG PO; +EFFIENT10 MG PO; +ISOSORBIDE MONO30 M1 PO; +LEXAPRO20 MG PO; +RANEXA1000 MG PO; +REMERON30 MG
[2018-10-12 15:01] LABS: PLT FUNCT.(P2Y12) PLAVIX 212 PRU (194-418)
== END | disposition home or self-care (01) ==
LOC: D.LAB 14:04
PROVIDERS: Internal Medicine Cardiovascular Disease
DX: Z51.81 Encounter for therapeutic drug level monitoring (principal); Z79.899 Other long term (current) drug therapy

== ENCOUNTER 2018-10-20 07:50 | Outpatient (CLI) | payer OTHER ==
[~2018-10-20] VITALS: Ht 182.9 cm; Wt 103.6 kg
--- NOTE | ~2018-10-20 | HEMODYNAMI ---
PATIENT:KRISTA MENEZES JR MEDICAL RECORD: [id number] : 66 LOCATION:[facility] ADMISSION DATE: 10/20/18 Generatedon:10/20/20189:24 Patient name: KRISTA MENEZES Patient #: [id number] SSN: DO B: 1970 Date of study: 10/20/2018 Page: Of Hemodynamic Procedure Report Patient Data Patient Demographics Procedure consent was obtained First Name: KRISTA Gender: Male Last Name: RIRI Suffix: [facility] Initial: Ruth : 1970 Patient #: [id number] Age: 48 year(s) Race: Additional ID: [id number] Contact details Address: [address] [place] [address] State: [facility] Zip code: [address] Past Medical History Allergies Allergen Reaction Date Comments Reported Other allergy 10/20/2018 Plavix non responder Admission Admission Data Admission Date: 10/20/2018 Admission Time: 7:50 Lab Results Lab Result Date: 10/20/2018 Lab Result Time: 0:00 Biochemistry Name Units Result Min Max BUN mg/dl 13 --(--*-)-- 7 18 Creatinine mg/dl 1.1 --(--*-)-- 0.6 1.3 CBC Name Units Result Min Max Hematocrit % 47.9 --(-*--)-- 42 54 Hemoglobin g/dl 16.8 --(---*)-- 13.5 17.5 Procedure Procedure Types Cath Procedure Diagnostic Procedure [facility] w/Coronaries Sedation Charges Moderate Sedation up to 15 minutes PCI Procedure Coronary Stent Coronary Stent Initial Peripheral Cath Diagnostic Procedure Transportation Supervisor Peripheral Procedures Four Vessel Arteriogram Procedure Description Procedure Date Procedure Date: 10/20/2018 Procedure Start Time: 9:08 Procedure End Time: 9:21 Procedure Staff Name Function Khoa Yi MD Performing Physician Edward Edmondson RT Monitor Piper Parikh RN Nurse Nathan Brink RT Scrub Garrett Lemons RN Chief Dispatcher Service Procedure Data Cath Procedure Fluoroscopy Diagnostic fluoroscopy Total fluoroscopy Time: 2.8 time: 2.8 min min Diagnostic fluoroscopy Total fluoroscopy dose: 731 dose: 731 mGy mGy Contrast Material Contrast Material Type Amount (ml) Isovue 300 134 Entry Location Entry Primary Successful Side Size Upsize Upsize Entry Closure Succes sful Closure Location (Fr) 1 (Fr) 2 (Fr) Remarks Device Remarks Femoral Right 5 Fr 6 Fr Exoseal artery Short Estimated blood loss: 10 ml Diagnostic catheters Device Type Used For End Catheter Placement MULTIPACK JL 4.0 5Fr Procedure catheter MULTIPACK Pigtail 5 Fr catheter MULTIPACK 3DRC 5Fr Procedure catheter Procedure Complications No complications Procedure Medications Medication Administration Route Dosage Oxygen etCO2 Nasal cannula 2 l/min Lidocaine 2% added to field 20 Heparin Flush Bag added to field 2 bags (1000units/500ml NS) 0.9% NaCl I.V. 100 ml/hr Versed I.V. 2 mg Fentanyl I.V. 100 mcg Heparin Bolus I.V. 4000 units Versed I.V. 2 mg Fentanyl I.V. 100 mcg Versed I.V. 0.5 mg Fentanyl I.V. 25 mcg Hemodynamics Rest HGB: 16.8 (g/dl) Heart Rate: 78 (bpm) Snapshots Pre Cath Intra NCS Post Cath Vital Signs Time Heart Resp SPO2 etCO2 NIBP (mmHg) Rhythm Pain Sedation Rate (ipm) (%) (mmHg) Status Level (bpm) 8:50:23 70 10 98 38.8 139/95(107) NSR 0 (11) 10(A) , No pain 8:54:33 81 18 98 32.8 143/98(115) NSR 0 (11) 10(A) , No pain 8:58:51 80 16 96 44.1 123/85(98) NSR 0 (11) 10(A) , No pain 9:03:03 79 17 96 33.6 126/83(106) NSR 0 (11) 10(A) , No pain 9:07:15 78 20 93 31.3 130/88(108) NSR 0 (11) 10(A) , No pain 9:11:23 76 23 92 30.6 140/100(119) NSR 0 (11) 9(A) , No pain 9:15:38 84 18 92 26.9 132/106(129) NSR 0 (11) 9(A) , No pain 9:19:51 85 14 95 34.3 146/103(128) NSR 0 (11) 9(A) , No pain 9:23:44 87 18 94 31 135/77(102) NSR 0 (11) 10(A) , No pain Medications Time Medication Route Dose Verified Delivered Reason Notes Effectiveness by by 8:53:45 Oxygen etCO2 2 Khoa Saldaña used for Nasal l/min Kd Parikh RN procedure cannula 8:53:52 Lidocaine 2% added 20ml Khoa Khoa for local to vial Kd Yi MD anesthetic field 8:53:57 Heparin Flush added 2 Khoa Khoa used for Bag to bags Kd Yi MD procedure (1000units/500ml field NS) 8:54:10 0.9% NaCl I.V. 100 Khoa Buffie Per physician ml/hr Kd Parikh RN 9:04:02 Versed I.V. 2 mg Khoa Saldaña for sedation Kd Parikh RN 9:04:08 Fentanyl I.V. 100 Khoa Buffie for sedation mcg Kd Parikh RN 9:09:24 Versed I.V. 2 mg Khoa Buffie for sedation Kd Parikh RN 9:09:28 Fentanyl I.V. 100 Khoa Buffie for sedation mcg Kd Parikh RN 9:12:51 Versed I.V. 0.5 Khoa Buffie for sedation mg Kd Parikh RN 9:12:57 Fentanyl I.V. 25 Khoa Buffie for sedation mcg Kd Parkih RN 9:16:21 Heparin Bolus I.V. 4000 Khoa Buffie for verifi ed units Kd Parikh RN anticoagulation with dr yi Procedure Log Time Note 8:35:30 Garrett Lemons RN sent for patient. Start room use. 8:35:31 Time tracking: Regular hours (M-F 7:00 - 5:00) 8:35:35 Plan of Care:Hemodynamics will remain stable., Cardiac rhythm will remain stable., Comfort level will be maintained., Respiratory function will remain adequate., Patient/ family verbilizes understanding of procedure., Procedure tolerated without complication., Recovers from procedure without complications.. 8:45:17 Patient received from Pre/Post Procedure Room to CCL 1 Alert and oriented. Tansferred to table in Supine position. 8:45:18 Warm blankets applied, and lynette hugger turned on for patient comfort. 8:45:19 Correct patient and procedure confirmed by team. 8:45:20 Signed procedure consent form obtained from patient. 8:45:25 ECG and BP/O2 sat monitors applied to patient. 8:45:33 H&P Date Dictated: 10/13/2018 Within 30 days and on chart., H&P Addendum completed by physician on day of procedure. (MUST COMPLETE FOR ALL OUTPATIENTS). 8:45:34 Pre-procedure instructions explained to patient. 8:45:34 Pre-op teaching completed and patient verbalized understanding. 8:52:21 Baseline sample Acquired. 8:52:25 Rhythm: sinus rhythm 8:52:27 Full Disclosure recording started 8:52:31 Family in waiting room. 8:52:32 Patient NPO since Midnight. 8:52:50 Patient allergic to Other allergyPlavix non responder 8:52:51 Is the patient allergic to Iodine/contrast media? No. 8:52:53 Is patient on blood thinner?Yes 8:52:55 ACC The patient was administered the following blood thiners within the last 24 hours: ACCEffient 8:52:57 Patient diabetic? No. 8:53:00 Previous problem with sedation/anesthesia? No ? 8:53:01 Snore? Yes 8:53:01 Sleep apnea? Yes 8:53:02 Deviated septum? No 8:53:03 Opens mouth fully? Yes 8:53:04 Sticks out tongue? Yes 8:53:07 Airway obstruction? Yes copd 8:53:10 Dentures? Yes in tight 8:53:14 Pre procedure: right posterior tibial pulse 2+ Normal; easily identifiable; not easily obliterated 8:53:19 Patient pain scale 3/10 chest pain. 8:53:25 IV patent on arrival in left forearm with 0.9% NaCl at [facility]. 8:53:45 Oxygen 2 l/min etCO2 Nasal cannula was administered by Piper Parikh RN; used for procedure; 8:53:52 Lidocaine 2% 20ml vial added to field was administered by Khoa Yi MD; for local anesthetic; 8:53:57 Heparin Flush Bag (1000units/500ml NS) 2 bags added to field was administered by Khoa Yi MD; used for procedure; 8:54:10 0.9% NaCl 100 ml/hr I.V. was administered by Piper Parikh RN; Per physician; 8:58:22 Lab Result : BUN 13 mg/dl 8:58:22 Lab Result : Creatinine 1.1 mg/dl 8:58:22 Lab Result : Hemoglobin 16.8 g/dl 8:58:22 Lab Result : Hematocrit 47.9 % 8:58:26 Lab results completed and on chart. 8:58:32 Right groin area was prepped with chlora-prep and draped in sterile fashion 8:58:33 Alarms reviewed by R. N. 8:58:33 Sharps counted by scrub and verified by R.N. 8:58:35 Use device set Femoral Dx 8:58:36 ACIST Syringe (21872) opened to sterile field. 8:58:36 Bag Decanter (2002S) opened to sterile field. 8:58:36 Medline Cath Pack ([id number]) opened to sterile field. 8:58:37 ACIST Hand Control (94544) opened to sterile field. 8:58:38 ACIST Manifold (03526) opened to sterile field. 8:58:38 DIAGNOSTIC Multipack 5Fr catheter set (AP4408) opened to sterile field. 8:58:39 Tegaderm 4 x 4 (1626W) opened to sterile field. 8:58:40 SHEATH 5FR [place] (IGX939) opened to sterile field. 8:58:41 DIAGNOSTIC WIRE .035 260cm J wire (351996) opened to sterile field. 9:03:12 Physician arrived 9:03:13 --------ALL STOP TIME OUT------ 9:03:13 Final Timeout: patient, procedure, and site verified with staff and physician. All members of the team are in agreement. 9:03:17 Right groin site verified by team. 9:03:20 Fire Safety Assessment: A--An alcohol-based skin anteseptic being used preoperatively., C--Open oxygen or nitrous oxide is being used., D--An ESU, laser, or fiber-optic light is being used. 9:03:24 Physical assessment completed. ASA score P 2 - A patient with mild systemic disease as per Khoa Yi MD. 9:03:26 Sedation plan: IV Moderate Sedation Medication:Versed, Fentanyl 9:04:02 Versed 2 mg I.V. was administered by Piper Parikh RN; for sedation; 9:04:08 Fentanyl 100 mcg I.V. was administered by Piper Parikh RN; for sedation; 9:05:23 Zero performed for pressure channel P1 9:08:53 Procedure started. 9:08:57 Local anesthetic to right femoral artery with Lidocaine 2% by Khoa Yi MD.INITIAL ACCESS ONLY 9::23 A 5 Fr sheath was inserted into the Right Femoral artery 9::24 Versed 2 mg I.V. was administered by Piper Parikh RN; for sedation; 9::28 Fentanyl 100 mcg I.V. was administered by Piper Parikh RN; for sedation; 9:10:20 A MULTIPACK Pigtail 5 Fr catheter was advanced over the wire and used for . 9:10:34 LV gram done using GONSALEZ 9:10:39 Injector settings: Ml/sec: 10, Volume: 20, 9:10:58 LV hemodynamics recorded. 9:11:03 EF : 60 % 9:11:09 Catheter exchanged over wire. 9:11:32 A MULTIPACK JL 4.0 5Fr catheter was advanced over the wire and used for Procedure. 9:11:37 LCA angiography performed. 9:12:06 Catheter exchanged over wire. 9:12:10 A MULTIPACK 3DRC 5Fr catheter was advanced over the wire and used for Procedure. 9:12:51 Versed 0.5 mg I.V. was administered by Piper Parikh RN; for sedation; 9:12:57 Fentanyl 25 mcg I.V. was administered by Piper Parikh RN; for sedation; 9:13:16 RCA angiography performed. 9:13:56 Left carotid angiography performed. 9:14:09 Right subclavian angiography performed 9:14:10 Right carotid angiography performed. 9:14:49 Catheter removed. 9:14:56 SHEATH 6FR [place] (BUI028) opened to sterile field. 9:15:08 INFLATOR Merit BasixCompak (UM4970) opened to sterile field. 9:15:20 GUIDE 6FR XBLAD 3.5 catheter ([id number]) opened to sterile field. 9:15:31 CHOICE PT Extra Support 182cm wire ([id number]) opened to sterile field. 9:15:36 EXOSEAL 6Fr (EX600) opened to sterile field. 9:16:13 Sheath upsized to a 6 Fr Short. 9:16:19 6 Fr xblad 3.5 guide catheter was inserted over the wire 9:16:21 Heparin Bolus 4000 units I.V. was administered by Piper Parikh RN; for anticoagulation; verified with dr yi 9:16:38 choice pt es wire advanced. 9:16:43 Wire advanced across lesion. 9:17:52 Place stent Inflation Number: 1 A MERCEDEZ RX 2.5 x 12 stent ([id number]) was prepped and advanced across the 1st Ob Mine. The stent was deployed at 11 TIFFANY for 0:10 (min:sec). 9:18:11 Inflation number: 2 The stent balloon was then re-inflated across the 1st Ob Mine to 15 TIFFANY for 0:10 (min:sec). 9:18:36 Stent catheter was removed intact over wire. 9:18:37 Wire removed. 9:18:38 Guide catheter removed. 9:18:45 Sheath removed intact; hemostasis achieved with Exoseal to the Right Femoral artery. 9:18:46 Procedure ended.(Physican Out) 9:19:47 Fluoroscopy time 02.80 minutes. 9:19:50 Flurop Dose total: 731 9:19:50 Fluoroscopy dose: 731 mGy 9:19:55 Contrast amount:Isovue 300 134ml. 9:19:57 Sharps counted by scrub and verified by R.N. 9:20:08 Insertion/operative site no bleeding no hematoma. 9:20:12 Post-op/insertion site Right Femoral artery dressed using a 4 x 4 and Tegaderm. 9:20:15 Post right femoral artery:stable, soft, clean and dry 9:20:16 Post Procedure Pulses reassessed and unchanged 9:20:19 Post-procedure physical assessment completed. ASA score P 2 - A patient with mild systemic disease as per Khoa Yi MD. 9:20:21 Post procedure rhythm: unchanged. 9:20:23 Estimated blood loss: 10 ml 9:20:24 Post procedure instruction explained to patient.Patient verbalizes understanding. 9:20:25 Patient needs reinforcement of post procedure teaching. 9:21:01 Procedure type changed to Cath procedure, Diagnostic procedure, LHC, LHC w/Coronaries, Sedation Charges, Moderate Sedation up to 15 minutes, PCI procedure, Coronary Stent, Coronary Stent Initial, Peripheral Cath Diagnostic Procedure, Transportation Supervisor Peripheral Procedures, Four Vessel Arteriogram 9:21:01 Procedure and supply charges have been captured, reviewed, submitted and are correct. 9:21:03 Procedure Complication : No complications 9:21:05 Vital chart was stopped 9:21:06 See physician's report for complete and final results. 9:21:07 Report given to Pre/Post Procedure Room. 9:21:10 Patient transfered to Pre/Post Procedure Room with Stretcher. 9:21:13 Procedure ended. 9:21:13 Full Disclosure recording stopped 9:21:18 End room use (Document Last) Intervention Summary Intervention Notes Time ActionType Lesion and Equipment Used Action# Pressure Duration Attributes 9:17:52 Place stent 1st Ob Mine MERCEDEZ RX 2.5 x 1 11 00:10 12 stent ([id number]) 9:18:11 Reinflate 1st Ob Mine MERCEDEZ RX 2.5 x 2 15 00:10 stent 12 stent balloon ([id number]) Device Usage Item Name Manufacture Quantity Catalog Number Hospital Part Current M inimal Lot# / Charge Number Stock Stock Serial# Code ACIST Syringe Acist 1 88860 751037 423177 237641 2 0 (10818) Medical Systems Inc Bag Decanter Microtek 1 2001S 664181 11629 116775 5 () Medical Inc. Medline Cath Medline 1 [id number] 667553 52133 435996 5 Pack ([id number]) ACIST Hand Acist 1 54045 706269 392710 913287 5 Control Medical (58704) Systems Inc ACIST Manifold Acist 1 26781 835035 128117 480041 5 (18311) Medical Systems Inc DIAGNOSTIC Cardinal 1 ZY0148 666641 65945 809074 3 0 Multipack 5Fr Health catheter set (LY5999) Tegaderm 4 x 4 3M 1 1626W 667697 992071 204143 5 (1626W) SHEATH 5FR Terumo 1 VPH573 458583 425511 724557 5 [place] (EPL460) DIAGNOSTIC [place] 1 464266 818544 458625 792698 3 0 WIRE .035 260cm J wire (109943) MULTIPACK JL Cardinal 1 719224 5 4.0 5Fr Health catheter MULTIPACK Cardinal 1 787418 5 Pigtail 5 Fr Health catheter MULTIPACK 3DRC Cardinal 1 804122 5 5Fr catheter Health SHEATH 6FR Terumo 1 ZNI644 850469 953613 044954 4 0 [place] (WJS464) INFLATOR Merit Merit 1 XG9936 878275 199221 323250 1 5 [facility] (IX0637) GUIDE 6FR Cardinal 1 [id number] 732841 098594 419855 1 0 XBLAD 3.5 Health catheter ([id number]) CHOICE PT [place] 1 [id number] 076153 616932 590364 5 Extra Support Scientific 182cm wire ([id number]) EXOSEAL 6Fr Cardinal 1 EX600 958325 855564 219417 1 0 (EX600) Health MERCEDEZ RX 2.5 x Medtronic 1 [id number] 025190 9260008 495135 5 [id number] 12 stent ([id number]) Signature Audit [place] Stage Time Signature Unsigned Intra-Procedure 10/20/2018 Edward Edmondson 9:24:43 AM RT(R) Signatures Monitor : Edward Edmondson RT Signature : Date : Time : [place] [id number] [place] [address]
[~2018-10-20 07:50] MED LIST changes: -EFFIENT10 MG PO; -LEXAPRO20 MG PO; -RANEXA1000 MG PO
[2018-10-20] MEDS ORDERED: EFFIENT10 MG PO (08:22)
[2018-10-20 08:27] VITALS: BP 126/87; Ht 182.9 cm; Wt 103.6 kg
[2018-10-20 08:35] LABS: BASOPHILS 0.4 % (0-2); EOSINOPHILS 4.1 % (0-7); HEMATOCRIT 47.9 % (42.0-54.0); HEMOGLOBIN 16.8 g/dL (13.5-17.5); IMMATURE GRANULOCYTES 0.1 % (0-5); LYMPHOCYTES 21.4 % (15-50); MCHC 35.1 g/dL (31.0-37.0); MCV 91.2 fL (80.0-100.0); MEAN PLATELET VOLUME 10.7 fL (7.4-10.4); MONOCYTES 7.9 % (2-11); NEUTROPHILS 66.1 % (40-80); PLATELET COUNT 215 10x3/uL (130-400); RBC 5.25 10x6/uL (4.20-6.10); RDW 13.5 % (11.5-14.5); WBC 6.8 10x3/uL (4.8-10.8)
[2018-10-20 08:42] LABS: CALC OSMOLALITY 282 mosm/kg (275-300); CARBON DIOXIDE 29.1 mmol/L (21.0-32.0); CHLORIDE - SERUM 107 mmol/L (98-107); CREATININE - SERUM 1.1 mg/dL (0.6-1.3); GLUCOSE 98 mg/dL (74-106); POTASSIUM - SERUM 4.1 mmol/L (3.5-5.1); SODIUM 142 mmol/L (136-145); UREA NITROGEN 13 mg/dL (7-18); eGFR NON AFRICAN AMERICAN 75 mL/min (90-120)
--- NOTE | 2018-10-20 09:45 | NUR ---
2L NC, NO RESP DISTRESS. RIGHT GROIN 6F EXOSEAL CDI, NO BLEEDING OR HEMATOMA NOTED. NO C/O PAIN OR NAUSEA. VSS. FAMILY AT BEDSIDE, CALL LIGHT WITHIN REACH.
--- NOTE | 2018-10-20 10:15 | NUR ---
RESTING QUIETLY WITH EYES CLOSED. RIGHT GROIN 6F EXOSEAL CDI, NO BLEEDING OR HEMATOMA NOTED. DENIES ANY NEEDS. VSS. WILL CONTINUE TO MONITOR.
--- NOTE | 2018-10-20 10:30 | NUR ---
CONTINUES TO REST QUIETLY WITH NO C/O. RIGHT GROIN 6F EXOSEAL CDI, NO BLEEDING OR HEMATOMA NOTED. NO NEEDS VOICED. VSS. CALL LIGHT WITHIN REACH.
--- NOTE | 2018-10-20 11:30 | NUR ---
RIGHT GROIN 6F EXOSEAL CDI, NO BLEEDING OR HEMATOMA NOTED. NO C/O PAIN OR NAUSEA. VSS. CALL LIGHT WITHIN REACH.
--- NOTE | 2018-10-20 12:20 | NUR ---
HOB ELEVATED 30 DEGREES. RIGHT GROIN 6F EXOSEAL CDI, NO BLEEDING OR HEMATOMA NOTED. SIPING ON DRINK AND EATING SANDWICH WITH NO C/O NAUSEA. VSS. WILL CONTINUE TO MONITOR CLOSELY.
--- NOTE | 2018-10-20 13:00 | NUR ---
LEFT PIV D/C'D WITH CATHETER INTACT, BAND AID TO SITE. UP TO BEDSIDE TO GET DRESSED. AMBULATED TO RESTROOM.
--- NOTE | 2018-10-20 13:05 | NUR ---
DISCHARGE INSTRUCTIONS GIVEN, VERBALIZED UNDERSTANDING.
--- NOTE | 2018-10-20 13:15 | NUR ---
TAKEN OUT VIA WHEELCHAIR BY CATH ADJUSTER [employer]LECT[employer] CONTACTS. LEFT FACILITY WITH FAMILY AND ALL PERSONAL BELONGINGS.
[2018-10-21] MEDS ORDERED: LEXAPRO20 MG PO (19:30)
[2018-10-21] MEDS ORDERED: RANEXA1000 MG PO (19:31)
--- NOTE | 2018-10-22 09:18 | OP ---
PATIENT NAME: KRISTA MENEZES JR MEDICAL RECORD: [id number] :66 LOCATION:D.CAT ADMISSION DATE: SURGEON: DUC MARTELL MD DATE OF OPERATION: 10/20/2018 PROCEDURES: 1. PTCA stent left circumflex. 2. Left heart catheterization. 3. Selective coronary angiography. 4. Left ventriculogram. 5. Four-vessel carotid and vertebral angiography. INDICATION: Dizziness, angina, and coronary artery disease. PROCEDURE PERFORMED: After informed consent was obtained and after detailed description of risks, benefits as well as alternative therapies, the patient elected to proceed with angiogram and angioplasty. The right femoral area was prepped and draped in normal sterile fashion. Right femoral artery was cannulated via modified Seldinger technique with placement of 6-Hebrew sheath. All catheters exchanged through this sheath. FINDINGS: There was subselection of each subclavian as well as the left carotid. RIGHT SIDE: Common internal and external carotids have mild plaquing, none greater than 10% to 20%, no flow-limiting stenosis. Vertebral artery has no significant disease. LEFT SYSTEM: The common internal and external carotids have mild plaquing, none greater than 10% to 20%. No flow-limiting stenosis. Vertebral artery has no significant disease. Left ventriculogram was performed in standard 30-degree GONSALEZ view, reveals good cardiac wall motion throughout all segments. Overall ejection fraction is 60%. SELECTIVE CORONARY ANGIOGRAPHY: 1. Left main is with no significant angiographic disease. 2. Left anterior descending has previously placed stents in the LAD and diagonal. These are widely patent with no significant restenosis. No disease elsewise throughout the LAD or its branches. 3. The left circumflex has previously placed stents, these are widely patent. There is 70% stenosis after the previously placed stents in the first obtuse marginal. 4. The right coronary has previously placed stents, these are widely patent with no significant restenosis. No disease elsewise throughout the RCA or its branches. PTCA STENT OF THE LEFT CIRCUMFLEX FIRST OBTUSE MARGINAL: The stent used was a 2.5 x 12 mm [place]. Result was 0% residual stenosis. OVERALL IMPRESSION: Successful PTCA stent of the left circumflex going from 70% initial stenosis to 0% residual. TRANSINT:[id number] Voice Confirmation ID: [id number] DOCUMENT ID: [id number] OPERATIVE REPORT [id number] KRISTA MENEZES JR, JEFFREY MD at 0918 CC: [id number] DICTATION DATE: 10/20/18921 PERSONNEL ADMINISTRATOR: 10/20/18 0934 DEP CLI 10/20/18 [address] [place] [address]
== END 2018-10-20 13:15 | disposition home or self-care (01) ==
LOC: D.CATH 07:50
PROVIDERS: Internal Medicine Interventional Cardiology
DX: I25.119 Atherosclerotic heart disease of native coronary artery with unspecified angina pectoris (principal); R42 Dizziness and giddiness; Z01.812 Encounter for preprocedural laboratory examination

== ENCOUNTER 2018-10-21 16:13 | Observation (INO) | payer OTHER ==
[~2018-10-21] VITALS: Ht 182.9 cm; Wt 105.5 kg
--- NOTE | ~2018-10-21 | HEMODYNAMI ---
PATIENT:KRISTA MENEZES JR MEDICAL RECORD: [id number] : 66 [address] [id number] ADMISSION DATE: 10/21/18 Generatedon:10/22/20189:17 Patient name: KRISTA MENEZES Patient #: [id number] SSN: DO B: 1970 Date of study: 10/22/2018 Page: Of Hemodynamic Procedure Report Patient Data Patient Demographics Procedure consent was obtained First Name: KRISTA Gender: Male Last Name: RIRI Suffix: Jr Rojo Initial: Ruth : 1970 Patient #: [id number] Age: 48 year(s) Race: Additional ID: [id number] Contact details Address: [address] [place] [address] State: [place] City: [place] Zip code: [address] Past Medical History Allergies Allergen Reaction Date Comments Reported Other allergy 10/20/2018 Plavix non responder Admission Admission Data Admission Date: 10/21/2018 Admission Time: 18:15 Room #: D.2120 Lab Results Lab Result Date: 10/20/2018 Lab Result Time: 0:00 Biochemistry Name Units Result Min Max BUN mg/dl 13 --(--*-)-- 7 18 Creatinine mg/dl 1.1 --(--*-)-- 0.6 1.3 CBC Name Units Result Min Max Hematocrit % 47.9 --(-*--)-- 42 54 Hemoglobin g/dl 16.8 --(---*)-- 13.5 17.5 Procedure Procedure Types Cath Procedure Diagnostic Procedure LHC LHC w/Coronaries Sedation Charges Moderate Sedation up to 15 minutes PCI Procedure Coronary Stent Coronary Stent Initial Procedure Description Procedure Date Procedure Date: 10/22/2018 Procedure Start Time: 8:54 Procedure End Time: 9:13 Procedure Staff Name Function Khoa Yi MD Performing Physician Chelsea Wolf RT Monitor Ayesha Weinberg RT Scrub Randi Hayes RT Scrub Luis Self RN Nurse Procedure Data Cath Procedure Fluoroscopy Diagnostic fluoroscopy Total fluoroscopy Time: 6 time: 6 min min Diagnostic fluoroscopy Total fluoroscopy dose: dose: 1065 mGy 1065 mGy Contrast Material Contrast Material Type Amount (ml) Isovue 300 76 Entry Location Entry Primary Successful Side Size Upsize Upsize Entry Closure Succes sful Closure Location (Fr) 1 (Fr) 2 (Fr) Remarks Device Remarks Femoral Right 6 Fr Exoseal artery Short Estimated blood loss: 10 ml Diagnostic catheters Device Type Used For End Catheter Placement MULTIPACK Pigtail 5 Fr LV Angiography catheter MULTIPACK JL 4.0 5Fr Left Coronary catheter Angiography MULTIPACK 3DRC 5Fr Right Coronary catheter Angiography Procedure Complications No complications Procedure Medications Medication Administration Route Dosage 0.9% NaCl I.V. 100 ml/hr Oxygen etCO2 Nasal cannula 2 l/min Heparin Flush Bag added to field 2 bags (1000units/500ml NS) Lidocaine 2% added to field 20 Benadryl I.V. 50 mg Versed I.V. 2 mg Fentanyl I.V. 100 mcg Heparin Bolus I.V. 5000 units Integrilin (Bolus I.V. 9.5 ml 2mg/ml) Integrilin (Bolus wasted 0.5 ml 2mg/ml) Effient P.O. 10 mg Hemodynamics Rest HGB: 16.8 (g/dl) Heart Rate: 88 (bpm) Snapshots Pre Cath Intra NCS Post Cath Vital Signs Time Heart Resp SPO2 etCO2 NIBP (mmHg) Rhythm Pain Status Sedation Rate (ipm) (%) (mmHg) Level (bpm) 8:27:29 83 19 94 0 142/97(114) NSR 5 (11) , 10(A) Very distressing 8:31:35 82 15 86 0 152/112(129) NSR 5 (11) , 10(A) Very distressing 8:35:44 81 19 92 0 145/100(120) NSR 5 (11) , 10(A) Very distressing 8:39:53 81 14 94 0 161/110(125) NSR 5 (11) , 10(A) Very distressing 8:44:06 84 14 94 18.1 143/104(121) NSR 5 (11) , 10(A) Very distressing 8:48:14 85 11 95 22.6 150/106(133) NSR 5 (11) , 10(A) Very distressing 8:52:24 88 11 93 17.3 146/105(126) NSR 0 (11) , No 9(A) pain 8:56:28 88 14 92 34.6 146/99(125) NSR 0 (11) , No 9(A) pain 9:00:25 93 16 92 36.1 133/111(126) NSR 0 (11) , No 9(A) pain 9:04:31 92 10 92 38.3 151/105(126) NSR 0 (11) , No 9(A) pain 9:08:41 83 15 93 30.1 142/105(132) NSR 0 (11) , No 10(A) pain 9:13:30 92 16 96 40.6 141/96(127) NSR 0 (11) , No 10(A) pain Medications Time Medication Route Dose Verified Delivered Reason Notes Effectiveness by by 8:33:32 0.9% NaCl I.V. 100 Luis Luis Per physician ml/hr Aramis Self RN RN 8:33:41 Oxygen etCO2 2 Luis Luis for low 02 sats Nasal l/min Aramis Self cannula RN RN 8:33:54 Heparin Flush added 2 Luis Luis used for Bag to bags Aramis Self procedure (1000units/500ml RN RN NS) 8:34:06 Lidocaine 2% added 20ml Luis Luis for local to vial Aramis Self anesthetic RN RN 8:34:21 Benadryl I.V. 50 mg Luis Luis Per physician Aramis Self RN RN 8:49:13 Versed I.V. 2 mg Luis Luis for sedation Aramis Self RN RN 8:49:21 Fentanyl I.V. 100 Luis Luis for sedation mcg Aramis Self RN RN 9:00:54 Heparin Bolus I.V. 5000 Luis Luis for units Aramis Self anticoagulation RN RN 9:01:58 Integrilin I.V. 9.5 Luis Luis for (Bolus 2mg/ml) ml Aramis Self antiplatelet RN RN therapy 9:02:10 Integrilin wasted 0.5 Luis Luis to sharp's (Bolus 2mg/ml) ml Aramis Self RN RN 9:14:28 Effient P.O. 10 mg Luis Luis for Loralisha Self antiplatelet RN RN therapy Procedure Log Time Note 8:11:05 Diagnostic Cath Status : Elective 8:12:52 Luis Self RN sent for patient. Start room use. 8:12:53 Time tracking: Regular hours (M-F 7:00 - 5:00) 8:12:57 Plan of Care:Hemodynamics will remain stable., Cardiac rhythm will remain stable., Comfort level will be maintained., Respiratory function will remain adequate., Patient/ family verbilizes understanding of procedure., Procedure tolerated without complication., Recovers from procedure without complications.. 8:22:57 Patient received from PCU to CCL 2 Alert and oriented. Tansferred to table in Supine position. 8:22:59 Warm blankets applied, and lynette hugger turned on for patient comfort. 8:22:59 Correct patient and procedure confirmed by team. 8:23:00 Signed procedure consent form obtained from patient. 8:23:01 ECG and BP/O2 sat monitors applied to patient. 8:23:02 Full Disclosure recording started 8:26:31 Vital chart was started 8:26:36 Rhythm: sinus rhythm 8:26:46 H&P Date Dictated: 10/21/2018 Within 30 days and on chart.. 8:26:47 Pre-procedure instructions explained to patient. 8:26:47 Pre-op teaching completed and patient verbalized understanding. 8:26:49 Family unavailable. 8:26:50 Patient NPO since Midnight. 8:28:37 Is the patient allergic to Iodine/contrast media? No. 8:28:39 Is patient on blood thinner?Yes 8:28:41 ACC The patient was administered the following blood thiners within the last 24 hours: ACCEffient 8:28:43 Patient diabetic? No. 8:29:18 Previous problem with sedation/anesthesia? No ? 8:29:18 Snore? Yes 8:29:19 Sleep apnea? Yes 8:29:20 Deviated septum? No 8:29:21 Opens mouth fully? Yes 8:29:22 Sticks out tongue? Yes 8:29:27 Airway obstruction? Yes COPD 8:29:33 Dentures? Yes IN 8:29:37 Pre procedure: right dorsailis pedis pulse 2+ Normal; easily identifiable; not easily obliterated 8:29:40 Patient pain scale 0/10 ?. 8:29:56 IV patent on arrival in left forearm with 0.9% NaCl at [facility]. 8:29:58 Lab results completed and on chart. 8:30:04 Right groin area was prepped with chlora-prep and draped in sterile fashion 8:30:05 Alarms reviewed by R. N. 8:30:05 Sharps counted by scrub and verified by R.N. 8:30:08 Use device set Femoral Dx 8:30:09 ACIST Syringe (45584) opened to sterile field. 8:30:10 Bag Decanter (2002S) opened to sterile field. 8:30:10 Medline Cath Pack ([id number]) opened to sterile field. 8:30:11 DIAGNOSTIC WIRE .035 260cm J wire (663802) opened to sterile field. 8:30:12 ACIST Hand Control (53465) opened to sterile field. 8:30:12 ACIST Manifold (42136) opened to sterile field. 8:30:13 DIAGNOSTIC Multipack 5Fr catheter set (FC1436) opened to sterile field. 8:30:14 Tegaderm 4 x 4 (1626W) opened to sterile field. 8:33:23 Baseline sample Acquired. 8:33:32 0.9% NaCl 100 ml/hr I.V. was administered by Luis Self RN; Per physician; 8:33:41 Oxygen 2 l/min etCO2 Nasal cannula was administered by Luis Self RN; for low 02 sats; 8:33:54 Heparin Flush Bag (1000units/500ml NS) 2 bags added to field was administered by Luis Self RN; used for procedure; 8:34:06 Lidocaine 2% 20ml vial added to field was administered by Luis Self RN; for local anesthetic; 8:34:21 Benadryl 50 mg I.V. was administered by Luis Self RN; Per physician; 8:44:20 Physician paged 8:45:56 Zero performed for pressure channel P1 8:48:39 Final Timeout: patient, procedure, and site verified with staff and physician. All members of the team are in agreement. 8:48:41 Right groin site verified by team. 8:48:44 Fire Safety Assessment: A--An alcohol-based skin anteseptic being used preoperatively., C--Open oxygen or nitrous oxide is being used., D--An ESU, laser, or fiber-optic light is being used. 8:48:48 Physical assessment completed. ASA score P 2 - A patient with mild systemic disease as per Khoa Yi MD. 8:48:51 Sedation plan: IV Moderate Sedation Medication:Versed, Fentanyl 8:49:13 Versed 2 mg I.V. was administered by Luis Self RN; for sedation; 8:49:21 Fentanyl 100 mcg I.V. was administered by Luis Self RN; for sedation; 8:54:16 Procedure started. 8:54:19 Local anesthetic to right femoral artery with Lidocaine 2% by Khoa Yi MD.INITIAL ACCESS ONLY 8:54:50 A 6 Fr Short sheath was inserted into the Right Femoral artery 8:55:01 Use device set PillPack PCI 8:55:02 SHEATH 6FR [place] (MTG379) opened to sterile field. 8:55:10 CHOICE PT Extra Support 182cm wire ([id number]) opened to sterile field. 8:55:13 INFLATOR Merit BasixCompak (DJ1808) opened to sterile field. 8:55:28 A MULTIPACK Pigtail 5 Fr catheter was advanced over the wire and used for LV Angiography. 8:55:46 LV gram done using GONSALEZ 8:55:51 EF : 60 % 8:55:56 Injector settings: Ml/sec: 10, Volume: 20, 8:55:57 Catheter removed. 8:56:04 A MULTIPACK JL 4.0 5Fr catheter was advanced over the wire and used for Left Coronary Angiography. 8:57:12 Catheter removed. 8:57:28 GUIDE 6FR XB 4.0 catheter ([id number]) opened to sterile field. 8:57:42 A MULTIPACK 3DRC 5Fr catheter was advanced over the wire and used for Right Coronary Angiography. 8:58:15 Catheter removed. 8:58:40 6 Fr XB 4.0 guide catheter was inserted over the wire 8:59:16 CHOICE PT ES wire advanced. 9:00:54 Heparin Bolus 5000 units I.V. was administered by Luis Self RN; for anticoagulation; 9:01:03 Wire removed. damaged. 9:01:32 GRAPHIX wire advanced. 9:01:43 GRAPHIX 182cm guide wire ([id number]) opened to sterile field. 9:01:58 Integrilin (Bolus 2mg/ml) 9.5 ml I.V. was administered by Luis Self RN; for antiplatelet therapy; 9:02:10 Integrilin (Bolus 2mg/ml) 0.5 ml wasted was administered by Luis Self RN; to sharp's; 9:04:12 Inflate balloon Inflation number: 1 A EUPHORA 2.5 x 15 Balloon ([id number]) was prepped and advanced across the 1st Ob Mine, then inflated to 9 TIFFANY for 0:04 (min:sec). 9:04:24 Inflation number: 2 The EUPHORA 2.5 x 15 Balloon ([id number]) was reinflated across the 1st Ob Mine, to 9 TIFFANY for 0:07 (min:sec). 9:04:36 Inflation number: 3 The EUPHORA 2.5 x 15 Balloon ([id number]) was reinflated across the 1st Ob Mine, to 9 TIFFANY for 0:06 (min:sec). 9:05:09 Inflation number: 4 The EUPHORA 2.5 x 15 Balloon ([id number]) was reinflated across the 1st Ob Mine, to 15 TIFFANY for 0:06 (min:sec). 9:05:24 Inflation number: 5 The EUPHORA 2.5 x 15 Balloon ([id number]) was reinflated across the 1st Ob Mine, to 15 TIFFANY for 0:10 (min:sec). 9:06:21 Balloon removed over the wire. 9:08:13 Place stent Inflation Number: 6 A INTEGRITY RX 2.75 x 18 stent ([id number]) was prepped and advanced across the 1st Ob Mine. The stent was deployed at 13 TIFFANY for 0:07 (min:sec). 9:08:28 Inflation number: 7 The stent balloon was then re-inflated across the 1st Ob Mine to 17 TIFFANY for 0:10 (min:sec). 9:08:45 Stent catheter was removed intact over wire. 9:08:46 Wire removed. 9:08:46 Guide catheter removed. 9:08:54 Sheath removed intact; hemostasis achieved with Exoseal to the Right Femoral artery. 9:08:56 Procedure ended.(Physican Out) 9:09:05 EXOSEAL 6Fr (EX600) opened to sterile field. 9:09:12 Fluoroscopy time 06.00 minutes. 9:09:17 Flurop Dose total: 1065 9::17 Fluoroscopy dose: 1065 mGy 9:09:24 Contrast amount:Isovue 300 76ml. 9:09:25 Sharps counted by scrub and verified by R.N. 9:09:27 Insertion/operative site no bleeding no hematoma. 9:09:34 Post-op/insertion site Right Femoral artery dressed using a 4 x 4 and Tegaderm. 9:09:38 Post right femoral artery:stable, clean and dry 9::39 Post Procedure Pulses reassessed and unchanged 9::42 Post-procedure physical assessment completed. ASA score P 2 - A patient with mild systemic disease as per Khoa Yi MD. 9:09:44 Post procedure rhythm: unchanged. 9:09:56 Estimated blood loss: 10 ml 9::58 Post procedure instruction explained to patient.Patient verbalizes understanding. 9::58 Patient needs reinforcement of post procedure teaching. 9:10:06 Procedure type changed to Cath procedure, Diagnostic procedure, LHC, LHC w/Coronaries, Sedation Charges, Moderate Sedation up to 15 minutes, PCI procedure, Coronary Stent, Coronary Stent Initial 9:10:32 Procedure Complication : No complications 9:10:34 See physician's report for complete and final results. 9:11:52 Procedure and supply charges have been captured, reviewed, submitted and are correct. 9:13:32 Vital chart was stopped 9:13:34 Report given to Pre/Post Procedure Room. 9:13:38 Patient transfered to Pre/Post Procedure Room with Stretcher. 9:13:45 Procedure ended. 9:13:45 Full Disclosure recording stopped 9:13:49 End room use (Document Last) 9:14:28 Effient 10 mg P.O. was administered by Luis Self RN; for antiplatelet therapy; Intervention Summary Intervention Notes Time ActionType Lesion and Equipment Action# Pressure Duration Attributes Used 9:04:12 Inflate 1st Ob Mine EUPHORA 2.5 1 9 00:04 balloon x 15 Balloon ([id number]) 9:04:24 Reinflate 1st Ob Mine EUPHORA 2.5 2 9 00:07 balloon x 15 Balloon ([id number]) 9:04:36 Reinflate 1st Ob Mine EUPHORA 2.5 3 9 00:06 balloon x 15 Balloon ([id number]) 9:05:09 Reinflate 1st Ob Mine EUPHORA 2.5 4 15 00:06 balloon x 15 Balloon ([id number]) 9:05:24 Reinflate 1st Ob Mine EUPHORA 2.5 5 15 00:10 balloon x 15 Balloon ([id number]) 9:08:13 Place stent 1st Ob Mine INTEGRITY RX 6 13 00:07 2.75 x 18 stent ([id number]) 9:08:28 Reinflate 1st Ob Mine INTEGRITY RX 7 17 00:10 stent 2.75 x 18 balloon stent ([id number]) Device Usage Item Name Manufacture Quantity Catalog Number Hospital Part Current Mini mal Lot# / Charge Number Stock Stock Serial# Code ACIST Acist 1 71733 124549 196688 354339 20 Syringe Medical (94313) Systems Inc Bag Decanter Microtek 1 172639 61082 197656 5 () Medical Inc. Medline Cath Medline 1 [id number] 452883 75610 913056 5 Pack ([id number]) DIAGNOSTIC St Luiz 1 009064 904705 112940 067614 30 WIRE .035 260cm J wire (525244) ACIST Hand Acist 1 33350 833491 604113 435270 5 Control Medical (60344) Systems Inc ACIST Acist 1 01065 806671 313879 790295 5 Manifold Medical (20975) Systems Inc DIAGNOSTIC Cardinal 1 HA0663 432744 33447 745560 30 MultipForward Talent 5Fr catheter set (GU1846) Tegaderm 4 x 3M 1 1626W 413553 849800 742169 5 4 (1626W) SHEATH 6FR Terumo 1 ZXD855 021379 103762 341916 40 Tunbridge (YQB007) CHOICE PT Marine 1 [id number] 377247 788430 410348 5 Extra Scientific Support 182cm wire ([id number]) INFLATOR Merit 1 TP3870 752636 080202 240918 15 [facility] Medical BasixCompak (OX3728) MULTIPACK Cardinal 1 385067 5 Pigtail 5 Fr Health catheter MULTIPACK JL Cardinal 1 204963 5 4.0 5Fr Health catheter GUIDE 6FR XB Cardinal 1 [id number] 554625 109323 777999 2 4.0 catheter Health ([id number]) MULTIPACK Cardinal 1 371795 5 3DRC 5Fr Health catheter GRAPHIX Marine 1 [id number] 048276 622210 806206 5 182cm guide Scientific wire ([id number]) EUPHORA 2.5 Medtronic 1 [id number] 805227 984420 128100 5 [id number] x 15 Balloon ([id number]) INTEGRITY RX Medtronic 1 [id number] 004332 321360 733813 5 [id number] 2.75 x 18 stent ([id number]) EXOSEAL 6Fr Cardinal 1 EX600 186443 051775 826068 10 (EX600) Health Signature Audit Dixie Stage Time Signature Unsigned Intra-Procedure 10/22/2018 Chelsea 9:16:59 AM Counts RT(R) Signatures Monitor : Chelsea Signature : Counts RT Date : Time : [address] [id number] [place] [address]
[~2018-10-21 16:13] MED LIST changes: +EFFIENT10 MG PO
[2018-10-21 17:02] LABS: BASOPHILS 0.5 % (0-2); EOSINOPHILS 4.8 % (0-7); HEMATOCRIT 46.1 % (42.0-54.0); IMMATURE GRANULOCYTES 0.2 % (0-5); LYMPHOCYTES 34.4 % (15-50); MCH 31.8 pg (26.0-34.0); MCHC 34.7 g/dL (31.0-37.0); MCV 91.7 fL (80.0-100.0); MEAN PLATELET VOLUME 11.5 fL (7.4-10.4); NEUTROPHILS 50.1 % (40-80); PLATELET COUNT 234 10x3/uL (130-400); RBC 5.03 10x6/uL (4.20-6.10); RDW 13.3 % (11.5-14.5)
[2018-10-21 17:05] LABS: WBC 9.5 10x3/uL (4.8-10.8)
[2018-10-21 17:37] LABS: ALBUMIN 3.6 g/dL (3.4-5.0); ALKALINE PHOSPHATASE 76 U/L (46-116); ALT (SGPT) 22 U/L (10-68); BILIRUBIN - TOTAL 0.25 mg/dL (0.2-1.3); CALC OSMOLALITY 282 mosm/kg (275-300); CALCIUM 8.8 mg/dL (8.5-10.1); CARBON DIOXIDE 27.7 mmol/L (21.0-32.0); CHLORIDE - SERUM 103 mmol/L (98-107); CKMB 2.6 U/L (0.0-3.6); CREATINE KINASE 104 UL (21-232); CREATININE - SERUM 1.2 mg/dL (0.6-1.3); GLUCOSE 125 mg/dL (74-106); POTASSIUM - SERUM 3.8 mmol/L (3.5-5.1); PROTEIN - SERUM 6.9 g/dL (6.4-8.2); SODIUM 141 mmol/L (136-145); UREA NITROGEN 14 mg/dL (7-18); eGFR NON AFRICAN AMERICAN 68 mL/min (90-120)
[2018-10-21 17:39] LABS: TROPONIN-I 0.239 ng/mL (0.000-0.060)
[2018-10-21] MEDS ORDERED: LEXAPRO20 MG PO (19:30)
[2018-10-21] MEDS ORDERED: RANEXA1000 MG PO (19:31)
[2018-10-21 20:00] VITALS: BP 101/65
--- NOTE | 2018-10-21 20:04 | NUR ---
PATIENT ARRIVED VIA WHEELCHAIR FROM ER. PATIENT IS ALERT AND ORIENTED. RESPIRATIONS ARE EVEN AND UNLABORED. NO S/S OF DISTRESS. PATIENT PAIN LEVEL AT THIS TIME IS 8.5. PATIENT DECLINED PAIN MEDS, BUT ASKED FOR ZOFRAN WHICH WAS ADMINISTERED. ALL NEEDS MET. CALL LIGHT WITHIN REACH. WILL CPOC.
--- NOTE | 2018-10-21 22:00 | NUR ---
PATIENT REQUESTING PAIN MEDICATION FOR CHEST PAIN. PATIENT STATED THE CHEST HASN'T GONE AWAY. PATIENT GIVEN MORPHINE. EKG COMPLETED AND IN CHART. PATIENT REFUSED NITRO. PATIENT REMAINS ON 2L O2. PATIENT IS ALERT AND ORIENTED. RESPIRATIONS ARE EVEN AND UNLABORED.
[2018-10-21 22:20] VITALS: BP 101/65; Ht 182.9 cm; Wt 105.5 kg
[2018-10-21 23:17] LABS: CKMB 30.1 U/L (0.0-3.6); CREATINE KINASE 233 UL (21-232)
[2018-10-21 23:18] LABS: TROPONIN-I 1.247 ng/mL (0.000-0.060)
[2018-10-22 00:50] VITALS: BP 128/77
--- NOTE | 2018-10-22 01:15 | NUR ---
PATIENT REQUESTING PAIN AND NAUSEA MEDICATION. PATIENT STATED THAT HE WAS CONTINUING TO HAVE CHEST PAIN. PATIENT CONTINUES TO REFUSE NITRO. PATIENT GIVEN MORPHINE AND ZOFRAN. PATIENT REMAINS ON 2L O2. PATIENT IS ALERT AND ORIENTED. RESPIRATIONS ARE EVEN AND UNLABORED. I ASKED PATIENT IF THE PAIN HAS STAYED THE SAME OR CHANGED SINCE LEAVING THE ER. PATIENT STATED THAT IT IS STILL THE SAME.
[2018-10-22 05:35] VITALS: BP 119/67
[2018-10-22 05:52] LABS: CKMB 62.4 U/L (0.0-3.6)
[2018-10-22 05:53] LABS: CREATINE KINASE 568 UL (21-232); TROPONIN-I 3.659 ng/mL (0.000-0.060)
--- NOTE | 2018-10-22 06:36 | NUR ---
SPOKE WITH ANDREA STEINBERG ABOUT PATIENT ARRIVAL AND TROPONIN LEVELS.
[2018-10-22 08:17] VITALS: BP 119/71
--- NOTE | 2018-10-22 08:30 | NUR ---
LEAVING FOR NETSUITE DEVELOPER BY BED. WILL CONT. PLAN OF CARE.
[2018-10-22 08:49] LABS: BASOPHILS 0.3 % (0-2); CALC OSMOLALITY 284 mosm/kg (275-300); CALCIUM 8.6 mg/dL (8.5-10.1); CARBON DIOXIDE 27.7 mmol/L (21.0-32.0); CHLORIDE - SERUM 106 mmol/L (98-107); GLUCOSE 113 mg/dL (74-106); HEMATOCRIT 47.4 % (42.0-54.0); HEMOGLOBIN 15.9 g/dL (13.5-17.5); IMMATURE GRANULOCYTES 0.2 % (0-5); LYMPHOCYTES 10.6 % (15-50); MCHC 33.5 g/dL (31.0-37.0); MCV 92.4 fL (80.0-100.0); MEAN PLATELET VOLUME 11.3 fL (7.4-10.4); MONOCYTES 6.4 % (2-11); NEUTROPHILS 81.5 % (40-80); PLATELET COUNT 215 10x3/uL (130-400); RBC 5.13 10x6/uL (4.20-6.10); RDW 13.4 % (11.5-14.5); SODIUM 142 mmol/L (136-145); UREA NITROGEN 14 mg/dL (7-18); WBC 9.3 10x3/uL (4.8-10.8); eGFR NON AFRICAN AMERICAN 84 mL/min (90-120)
[2018-10-22 08:52] LABS: POTASSIUM - SERUM 4.7 mmol/L (3.5-5.1)
--- NOTE | 2018-10-22 09:45 | NUR ---
PATIENT RESTING, VSS ON 2L NC. PRESENT AT BEDSIDE. RIGHT GROIN DRESSING IS CDI, NO S/S OF BLEEDING OR HEMATOMA. NO C/O PAIN, NUMBNESS, OR TINGLING.
--- NOTE | 2018-10-22 10:00 | NUR ---
PATIENT RESTING, AT BEDSIDE. VSS ON 2L NC. RIGHT GROIN DRESSING IS CDI, NO S/S OF BLEEDING OR HEMATOMA. NO N/V.
--- NOTE | 2018-10-22 10:15 | NUR ---
PATIENT RESTING, VSS ON 2L NC. RIGHT GROIN DRESSING IS CDI, NO S/S OF BLEEDING OR HEMATOMA.
--- NOTE | 2018-10-22 10:45 | NUR ---
PATIENT RESTING, NO C/O PAIN, NUMBNESS, OR TINGLING. VSS ON 2L NC. RIGHT GROIN DRESSING IS CDI, NO S/S OF BLEEDING OR HEMATOMA.
--- NOTE | 2018-10-22 11:15 | NUR ---
PATIENT RESTING, VSS ON 2L NC. RIGHT GROIN DRESSING IS CDI, NO S/S OF BLEEDING OR HEMATOMA. NO C/O PAIN, NUMNBESS, OR TINGLING. NO N/V.
--- NOTE | 2018-10-22 11:45 | NUR ---
PATIENT RESTING, VSS ON 2L NC. RIGHT GROIN DRESSING IS CDI, NO S/S OF BLEEDING OR HEMATOMA.
--- NOTE | 2018-10-22 12:15 | NUR ---
PATIENT AWAKE, HEAD OF BED ELEVATED TO 30 DEGREES. RIGHT GROIN DRESSING IS CDI, NO S/S OF BLEEDING OR HEMATOMA. PATIENT EATING TURKEY SANDWICH, NO N/V. PHYSICIAN AT BEDSIDE TO UPDATE PATIENT AND SPOUSE.
--- NOTE | 2018-10-22 12:45 | NUR ---
PATIENT TRANSPORTED VIA WHEELCHAIR TO BATHROOM, VOIDED WITHOUT DIFFICULTY. TRANSPORTED TO CAR WITH SPOUSE DRIVING, ALL BELONGINGS WITH PATIENT.
--- NOTE | 2018-10-26 11:18 | OP ---
PATIENT NAME: KRISTA MENEZES JR MEDICAL RECORD: [id number] :66 [facility]ATION:[facility] ADMISSION DATE:10/21/18 SURGEON: DUC MARTELL MD DATE OF OPERATION: 10/22/2018 PROCEDURES: 1. PTCA stent left circumflex. 2. Left heart catheterization. 3. Selective coronary angiography. 4. Left ventriculogram. INDICATION: Unstable angina, acute coronary syndrome, coronary artery disease. PROCEDURE IN DETAIL: After informed consent was obtained and after detailed description of risks, benefits as well as alternative therapies, the patient elected to proceed with angiogram and angioplasty. The right femoral area was prepped and draped in normal sterile fashion. Right femoral artery was cannulated via modified Seldinger technique with placement of 6-Djiboutian sheath. All catheters exchanged through this sheath. FINDINGS: The left ventriculogram was performed in a standard 30-degree GONSALEZ view, reveals good cardiac wall motion, ejection fraction is 60%. SELECTIVE CORONARY ANGIOGRAPHY: 1. Left main is with no significant angiographic disease. 2. Left anterior descending has previously placed stents, these are widely patent with no significant restenosis, no thrombosis, no disease elsewise throughout the LAD or its branches. 3. The right coronary has previously placed stents, these are widely patent with no significant restenosis. No disease elsewise throughout the RCA or its branches. 4. The left circumflex has previously placed stents. There is a significant clot burden in the first obtuse marginal, where he was previously stented earlier in the week. PTCA STENT OF THE LEFT CIRCUMFLEX. We ballooned this with a 2.5 balloon and stented with a 2.75 x 18 mm Integrity stent. Result was 0% residual stenosis, MANDY 3 flow. OVERALL IMPRESSION: Successful PTCA stent of the left circumflex going from 100% initial stenosis with thrombosis to 0% residual. TRANSINT:[id number] Voice Confirmation ID: [id number] DOCUMENT ID: [id number] DUC MARTELL MD at 1118 CC: [id number] DICTATION DATE: 10/22/18916 CATEGORY MANAGER: 10/22/1847 DIS IN 10/22/18 [place] [address]
--- NOTE | 2018-10-26 11:18 | DS ---
PATIENT:KRISTA TITUS JR :66 MEDICAL RECORD: [id number] DISCHARGE SUMMARY ADMISSION DATE: 10/21/18 DISCHARGE DATE: 10/22/18 DISCHARGE DIAGNOSES: 1. Percutaneous transluminal coronary angioplasty stent of left circumflex. 2. Acute stent thrombosis of left circumflex. 3. Coronary artery disease. 4. Hypertension. 5. Hyperlipidemia. HOSPITAL COURSE: Mr. Titus presents with acute thrombosis of the previously placed stent in the circumflex earlier in the week. He has a history of early acute thrombosis. He was previously on Plavix. He is now on Effient. He continues to be on Effient, underwent cardiac catheterization revealing thrombus burden in the previously placed stent of the circumflex, underwent PTCA stent of this with excellent result, MANDY 3 flow. No further thrombus. Discharged home to continue his Effient. Follow up in 1 month. TRANSINT:[id number] Voice Confirmation ID: [id number] DOCUMENT ID: [id number] DUC MARTELL MD at 1118 CC: [id number] DICTATION DATE: 10/22/18914 MILK BOTTLER: 10/22/18 2331 DIS IN 10/22/18 [facility] [address] [place] [address]
--- NOTE | 2018-10-26 11:18 | HP ---
PATIENT: KRISTA MENEZES JR MEDICAL RECORD: [id number] ACCOUNT: [id number] LOCATION:[facility] : 66 ADMISSION DATE: 10/21/18 PCP: ARCENIO ALVARENGA HISTORY AND PHYSICAL EXAMINATION DIAGNOSES: 1. Unstable angina. 2. Coronary artery disease. 3. Hypertension. 4. Hyperlipidemia. 5. Status post previous multivessel PTCA stent. HISTORY OF PRESENT ILLNESS: Mr. Menezes underwent PTCA stent of his left circumflex this week, had acute onset of chest discomfort. Troponin is mildly elevated. He has had a history of early stent thrombosis. PHYSICAL EXAMINATION: GENERAL APPEARANCE: Well-nourished, well-developed, appears stated age. Level of distress, comfortable. PSYCHIATRIC: Mental status, alert, normal affect. Orientation, oriented to time, place and person. EYES: Lids and conjunctiva, noninjected. No discharge, no pallor. ENT: Lips, teeth, gums, normal dentition. Oropharynx, no cyanosis, no pallor. NECK: Carotid arteries, bilateral normal upstroke, no bruits, no thrills. JUGULAR VEINS: No jugular venous pressure or distention. CERVICAL LYMPH NODES: Nontender, nonenlarged. THYROID: Not enlarged. Nontender. No nodules. LUNGS: Respiratory effort, unlabored. CHEST: Normal curvature. No thoracic deformity. No chest wall tenderness. Percussion, resonant. Auscultation, clear. No wheezes, no rales, no rhonchi. CARDIOVASCULAR: Precordial exam, nondisplaced. No heaves or pericardial thrills. Rate and rhythm, regular. Heart sounds, normal S1, normal S2. No S3, no gallop, no rub. Systolic murmur, not heard. Diastolic murmur, not heard. EXTREMITIES: No cyanosis, no edema. Peripheral pulses, full and equal in all extremities, except as noted. No bruits appreciated. ABDOMEN: Soft, nondistended. Normal aorta. No bruit. Nontender. No masses. Liver, nontender, no hepatomegaly. Spleen, nontender, no splenomegaly. MUSCULOSKELETAL: No joint tenderness. No joint swelling. No erythema. NEUROLOGICAL: Normal gait, normal strength, normal tone. SKIN: Warm and dry. OVERALL IMPRESSION: Chest pain and no EKG changes, but with his history of early stent thrombosis. We will proceed with coronary angiography. Further care depends upon findings of the angiography. TRANSINT:[id number] Voice Confirmation ID: [id number] DOCUMENT ID: [id number] HISTORY AND PHYSICAL [id number] KRISTA MENEZES JR, JEFFREY MD at 1118 CC: [id number] DICTATION DATE: 10/22/18913 CONTRACT ADMINISTRATION COORDINATOR: 10/22/1839 DIS IN 10/22/18 [place] [id number]
== END 2018-10-22 12:45 | disposition home or self-care (01) ==
LOC: D.ER 16:13 → D.M2 18:15 → D.EDHOLD 18:15 → D.M2 18:15 → D.CLR 18:15 → OBSVTIME 18:16 → D.M2 18:32 → D.CLR 10-22 09:30
PROVIDERS: Emergency Medicine; ADMIT Internal Medicine Interventional Cardiology
DX: T82.855A Stenosis of coronary artery stent, initial encounter (principal); Y83.8 Other surgical procedures as the cause of abnormal reaction of the patient, or of later complication, without mention of misadventure at the time of the procedure; I25.110 Atherosclerotic heart disease of native coronary artery with unstable angina pectoris; I10 Essential (primary) hypertension; E78.5 Hyperlipidemia, unspecified

== ENCOUNTER 2018-11-26 08:15 | Outpatient (CLI) | payer OTHER ==
[~2018-11-26] VITALS: Ht 182.9 cm; Wt 103.6 kg
--- NOTE | ~2018-11-26 | HEMODYNAMI ---
PATIENT:KRISTA MENEZES JR MEDICAL RECORD: [id number] : 66 LOCATION:[facility]UEL ADMISSION DATE: 11/26/18 Generatedon:11/26/201811:17 Patient name: KRISTA MENEZES Patient #: [id number] SSN: DO B: 1970 Date of study: 11/26/2018 Page: Of Hemodynamic Procedure Report Patient Data Patient Demographics Procedure consent was obtained First Name: KRISTA Gender: Male Last Name: RIRI Suffix: [facility] Initial: Ruth : 1970 Patient #: [id number] Age: 48 year(s) Race: Additional ID: [id number] Contact details Address: [address] [place] [address] State: [facility] Zip code: [address] Past Medical History Allergies Allergen Reaction Date Comments Reported Other allergy 10/20/2018 Plavix non responder Admission Admission Data Admission Date: 11/26/2018 Admission Time: 8:15 Weight (lbs.): 229.28 Weight (kg.): 104 Lab Results Lab Result Date: 11/26/2018 Lab Result Time: 0:00 Biochemistry Name Units Result Min Max BUN mg/dl 13 --(--*-)-- 7 18 Creatinine mg/dl 0.9 --(-*--)-- 0.6 1.3 CBC Name Units Result Min Max Hemoglobin g/dl 16.2 --(--*-)-- 13.5 17.5 Procedure Procedure Types Cath Procedure Diagnostic Procedure C [facility] w/Coronaries PCI Procedure Coronary Stent Coronary Stent Initial Procedure Description Procedure Date Procedure Date: 11/26/2018 Procedure Start Time: 11:01 Procedure End Time: 11:15 Procedure Staff Name Function Khoa Yi MD Performing Physician Nathan Brink RT Monitor Garrett Lemons RN Nurse Ayesha Weinberg RT Scrub Procedure Data Cath Procedure Fluoroscopy Diagnostic fluoroscopy Total fluoroscopy Time: 2.4 time: 2.4 min min Diagnostic fluoroscopy Total fluoroscopy dose: 294 dose: 294 mGy mGy Contrast Material Contrast Material Type Amount (ml) Isovue 300 69 Entry Location Entry Primary Successful Side Size Upsize Upsize Entry Closure Succes sful Closure Location (Fr) 1 (Fr) 2 (Fr) Remarks Device Remarks Femoral Right 5 Fr 6 Fr Exoseal artery Short Estimated blood loss: 10 ml Diagnostic catheters Device Type Used For End Catheter Placement MULTIPACK Pigtail 5 Fr Procedure catheter MULTIPACK JL 4.0 5Fr Procedure catheter MULTIPACK 3DRC 5Fr Procedure catheter Procedure Complications No complications Procedure Medications Medication Administration Route Dosage Oxygen NRB 2 l/min Heparin Flush Bag added to field 2 bags (1000units/500ml NS) 0.9% NaCl I.V. 100 ml/hr Lidocaine 2% added to field 20 Fentanyl I.V. 50 mcg Versed I.V. 1 mg Fentanyl I.V. 50 mcg Versed I.V. 1 mg Fentanyl I.V. 50 mcg Versed I.V. 1 mg Fentanyl I.V. 50 mcg Heparin Bolus I.V. 4000 units Hemodynamics Rest HGB: 16.2 (g/dl) Heart Rate: 78 (bpm) Snapshots Pre Cath Intra NCS Post Cath Vital Signs Time Heart Resp SPO2 etCO2 NIBP (mmHg) Rhythm Pain Sedation Rate (ipm) (%) (mmHg) Status Level (bpm) 10:55:02 71 18 95 0 119/76(98) NSR 0 (11) 10(A) , No pain 10:58:48 70 17 96 0 117/75(104) NSR 0 (11) 10(A) , No pain 11:03:02 73 18 96 0 116/70(90) NSR 0 (11) 10(A) , No pain 11:07:13 74 16 94 0 129/73(91) NSR 0 (11) 9(A) , No pain 11:11:27 73 17 95 0 144/85(108) NSR 0 (11) 9(A) , No pain 11:14:32 80 17 94 0 135/88(123) NSR 0 (11) 9(A) , No pain Medications Time Medication Route Dose Verified Delivered Reason Notes Effectiveness by by 10:58:08 Oxygen NRB 2 Khoa Tucker Per physician l/min Kd Lemons RN 10:58:18 Heparin Flush added 2 Khoa Tucker used for Bag to bags Kd Lemons RN procedure (1000units/500ml field NS) 10:58:26 0.9% NaCl I.V. 100 Khoa Garrett Per physician ml/hr Kd Lemons RN 10:58:37 Lidocaine 2% added 20ml Khoa Garrett used for to vial Kd Lemons RN procedure field 10:59:33 Fentanyl I.V. 50 Khoa Garrett for sedation mcg Kd Lemons RN 10:59:39 Versed I.V. 1 mg Khoa Garrett for sedation Kd Lemons RN 11:01:28 Fentanyl I.V. 50 Khoa Garrett for sedation mcg Kd Lemons RN 11:01:33 Versed I.V. 1 mg Khoa Garrett for sedation Kd Lemons RN 11:03:22 Fentanyl I.V. 50 Khoa Garrett for sedation mcg Kd Lemons RN 11:03:28 Versed I.V. 1 mg Khoa Garrett for sedation Kd Lemons RN 11:06:04 Fentanyl I.V. 50 Khoa Garrett for sedation mcg Kd Lemons RN 11:10:48 Heparin Bolus I.V. 4000 Khoa Garrett for units Kd Lemons RN anticoagulation Procedure Log Time Note 10:25:24 Ayesha Weinberg RT(R) sent for patient. Start room use. 10:46:31 Time tracking: Regular hours (M-F 7:00 - 5:00) 10:46:35 Plan of Care:Hemodynamics will remain stable., Cardiac rhythm will remain stable., Comfort level will be maintained., Respiratory function will remain adequate., Patient/ family verbilizes understanding of procedure., Procedure tolerated without complication., Recovers from procedure without complications.. 10:47:10 Patient received from Pre/Post Procedure Room to CCL 3 Alert and oriented. Tansferred to table in Supine position. 10:47:11 Warm blankets applied, and lynette hugger turned on for patient comfort. 10:47:11 Correct patient and procedure confirmed by team. 10:47:12 Signed procedure consent form obtained from patient. 10:47:13 ECG and BP/O2 sat monitors applied to patient. 10:53:58 Vital chart was started 10:53:59 Baseline sample Acquired. 10:54:04 Rhythm: sinus rhythm 10:54:05 Full Disclosure recording started 10:54:12 H&P Date Dictated: 11/26/2018 New H&P dictated by physician.. 10:54:13 Pre-procedure instructions explained to patient. 10:54:14 Pre-op teaching completed and patient verbalized understanding. 10:54:17 Family in patients room. 10:54:18 Patient NPO since Midnight. 10:54:20 Is the patient allergic to Iodine/contrast media? No. 10:54:22 Is patient on blood thinner?Yes 10:54:25 ACC The patient was administered the following blood thiners within the last 24 hours: ACCEffient 10:54:30 Patient diabetic? No. 10:54:34 Previous problem with sedation/anesthesia? No ? 10:54:36 Snore? Yes 10:54:38 Sleep apnea? Yes 10:54:39 Deviated septum? No 10:54:40 Opens mouth fully? Yes 10:54:41 Sticks out tongue? Yes 10:54:51 Airway obstruction? Yes COPD, Asthma 10:55:25 Dentures? Yes OUT 10:55:28 Pre procedure: right dorsailis pedis pulse 1+ Palpable, but thready & weak; easily obliterated 10:55:30 Patient pain scale 0/10 ?. 10:55:36 IV patent on arrival in left forearm with 0.9% NaCl at [facility]. 10:55:39 Lab results completed and on chart. 10:55:42 Right groin area was prepped with chlora-prep and draped in sterile fashion 10:55:44 Alarms reviewed by R. N. 10:55:45 Sharps counted by scrub and verified by R.N. 10:55:50 Use device set Femoral Dx 10:55:52 Tegaderm 4 x 4 (1626W) opened to sterile field. 10:55:53 ACIST Manifold (56422) opened to sterile field. 10:55:54 ACIST Hand Control (07628) opened to sterile field. 10:55:55 ACIST Syringe (00837) opened to sterile field. 10:55:55 Bag Decanter (2002S) opened to sterile field. 10:55:56 Medline Cath Pack ([id number]) opened to sterile field. 10:55:56 DIAGNOSTIC WIRE .035 260cm J wire (293928) opened to sterile field. 10:55:57 DIAGNOSTIC Multipack 5Fr catheter set (GA3840) opened to sterile field. 10:55:58 SHEATH 5FR [place] (KGL611) opened to sterile field. 10:56:36 --------ALL STOP TIME OUT------ 10:56:36 Final Timeout: patient, procedure, and site verified with staff and physician. All members of the team are in agreement. 10:56:39 Right groin site verified by team. 10:56:46 Maximum allowable Isovue 300 dose 300ml. Physician notified. (300ml for normal creatinines. For patients with creatinine of 1.7 or higher multiply weight(kg) x 5 divided by creatinine.) 10:56:50 Fire Safety Assessment: A--An alcohol-based skin anteseptic being used preoperatively., C--Open oxygen or nitrous oxide is being used., D--An ESU, laser, or fiber-optic light is being used. 10:56:54 Physical assessment completed. ASA score P 2 - A patient with mild systemic disease as per Khoa Yi MD. 10:56:57 Sedation plan: IV Moderate Sedation Medication:Versed, Fentanyl 10:58:08 Oxygen 2 l/min NRB was administered by Garrett Lemons RN; Per physician; 10:58:18 Heparin Flush Bag (1000units/500ml NS) 2 bags added to field was administered by Garrett Lemons RN; used for procedure; 10:58:26 0.9% NaCl 100 ml/hr I.V. was administered by Garrett Lemons RN; Per physician; 10:58:37 Lidocaine 2% 20ml vial added to field was administered by Garrett Lemons RN; used for procedure; 10:59:33 Fentanyl 50 mcg I.V. was administered by Garrett Lemons RN; for sedation; 10:59:39 Versed 1 mg I.V. was administered by Garrett Lemons RN; for sedation; 11:01:28 Fentanyl 50 mcg I.V. was administered by Garrett Lemons RN; for sedation; 11:01:33 Versed 1 mg I.V. was administered by Garrett Lemons RN; for sedation; 11:01:51 Procedure started. 11:01:54 Local anesthetic to right femoral artery with Lidocaine 2% by Khoa Yi MD.INITIAL ACCESS ONLY 11:: Lab Result : BUN 13 mg/dl : Lab Result : Hemoglobin 16.2 g/dl : Lab Result : Creatinine 0.9 mg/dl 11:: Fentanyl 50 mcg I.V. was administered by Garrett Lemons RN; for sedation; ::25 Patient Weight : 229.28 lbs 11:: Versed 1 mg I.V. was administered by Garrett Lemons RN; for sedation; : A 5 Fr sheath was inserted into the Right Femoral artery 11::37 A MULTIPACK Pigtail 5 Fr catheter was advanced over the wire and used for Procedure. 11:06:04 Fentanyl 50 mcg I.V. was administered by Garrett Lemons RN; for sedation; 11:: LV angiography performed. 11:06:09 LV gram done using GONSALEZ 11::16 EF : 30 % 11::21 Injector settings: Ml/sec: 7, Volume: 15, 11::22 Catheter removed. 11:06:27 A MULTIPACK JL 4.0 5Fr catheter was advanced over the wire and used for Procedure. 11:06:48 LCA angiography performed. 11:07:32 Catheter removed. 11:08:12 A MULTIPACK 3DRC 5Fr catheter was advanced over the wire and used for Procedure. 11:09:45 RCA angiography performed. 11:09:47 Catheter removed. 11:09:50 Use device set [facility] PCI 11:09:52 SHEATH 6FR [place] (KWZ125) opened to sterile field. 11:10:01 GUIDE 6FR EBU 3.5 catheter ([id number]) opened to sterile field. 11:10:03 CHOICE PT Extra Support 182cm wire ([id number]) opened to sterile field. 11:10:06 INFLATOR Merit BasixCompak (BZ1619) opened to sterile field. 11:10:19 Sheath upsized to a 6 Fr Short. 11:10:27 6 Fr EBU 3.5 guide catheter was inserted over the wire 11:10:48 Heparin Bolus 4000 units I.V. was administered by Garrett Lemons RN; for anticoagulation; 11:10:54 CPTXS wire advanced. 11:11:07 Wire advanced across lesion. 11:11:32 Place stent Inflation Number: 1 A MERCEDEZ RX 2.0 x 8 stent ([id number]) was prepped and advanced across the Dist CX. The stent was deployed at 21 TIFFANY for 0:10 (min:sec). 11:12:45 Stent catheter was removed intact over wire. 11:12:46 Wire removed. 11:12:47 Guide catheter removed. 11:12:50 EXOSEAL 6Fr (EX600) opened to sterile field. 11:12:58 Sheath removed intact; hemostasis achieved with Exoseal to the Right Femoral artery. 11:13:00 Procedure ended.(Physican Out) 11:13:12 Fluoroscopy time 02.40 minutes. 11:13:17 Fluoroscopy dose: 294 mGy 11:13:17 Flurop Dose total: 294 11:13:21 Contrast amount:Isovue 300 69ml. 11:14:25 Sharps counted by scrub and verified by R.N. 11:14:39 Insertion/operative site no bleeding no hematoma. 11:14:44 Post-op/insertion site Right Femoral artery dressed using a 4 x 4 and Tegaderm. 11:14:45 Post Procedure Pulses reassessed and unchanged 11:14:48 Post-procedure physical assessment completed. ASA score P 2 - A patient with mild systemic disease as per Khoa Yi MD. 11:14:50 Post procedure rhythm: unchanged. 11:14:53 Estimated blood loss: 10 ml 11:14:54 Post procedure instruction explained to patient.Patient verbalizes understanding. 11:14:54 Patient needs reinforcement of post procedure teaching. 11:14:58 Procedure type changed to Cath procedure, Diagnostic procedure, LHC, LHC w/Coronaries, PCI procedure, Coronary Stent, Coronary Stent Initial 11:14:59 Procedure and supply charges have been captured, reviewed, submitted and are correct. 11:15:01 Procedure Complication : No complications 11:15:29 Vital chart was stopped 11:15:30 See physician's report for complete and final results. 11:15:33 Report given to Pre/Post Procedure Room. 11:15:36 Patient transfered to Pre/Post Procedure Room with Stretcher. 11:15:38 Procedure ended. 11:15:38 Full Disclosure recording stopped 11:17:15 End room use (Document Last) Intervention Summary Intervention Notes Time ActionType Lesion and Equipment Used Action# Pressure Duration Attributes 11:11:32 Place stent Dist CX MERCEDEZ RX 2.0 x 1 21 00:10 8 stent ([id number]) Device Usage Item Name Manufacture Quantity Catalog Number Hospital Part Current M inimal Lot# / Charge Number Stock Stock Serial# Code Tegaderm 4 x 4 3M 1 [id number] 399283 224616 5 (1626W) ACIST Manifold Acist 1 58681 086236 724032 349826 5 (26787) Medical Systems Inc ACIST Hand Acist 1 22444 479042 938477 293207 5 Control Medical (25434) Systems Inc ACIST Syringe Acist 1 36873 816004 126063 703544 2 0 (49486) Medical Systems Inc Bag Decanter Microtek 1 2001S 658287 85707 248983 5 (2001S) Medical Inc. Medline Cath Medline 1 [id number] 072168 33378 153210 5 Pack ([id number]) DIAGNOSTIC [facility] Luiz 1 493583 711429 397906 382365 3 0 WIRE .035 260cm J wire (834510) DIAGNOSTIC Cardinal 1 JS6870 483176 73001 700589 3 0 Multipack 5Fr Health catheter set (IH1224) SHEATH 5FR Terumo 1 PBS580 542803 803067 619150 5 [place] (HBI362) MULTIPACK Cardinal 1 529828 5 Pigtail 5 Fr Health catheter MULTIPACK JL Cardinal 1 705505 5 4.0 5Fr Health catheter MULTIPACK 3DRC Cardinal 1 330395 5 5Fr catheter Health SHEATH 6FR Terumo 1 TYQ277 935381 213033 620355 4 0 [place] (KXN054) GUIDE 6FR EBU Medtronic 1 [id number] 249354 80054 603219 3 3.5 catheter ([id number]) CHOICE PT [place] 1 [id number] 645182 695109 305068 5 Extra Support Scientific 182cm wire ([id number]) INFLATOR Merit Merit 1 ME5651 305271 914888 197167 1 5 Business Insider ([id number]) MERCEDEZ RX 2.0 x Medtronic 1 [id number] 987258 1662744 941058 5 [id number] 8 stent ([id number]) EXOSEAL 6Fr Cardinal 1 EX600 935828 197442 555671 1 0 (EX600) Health Signature Audit [place] Stage Time Signature Unsigned Intra-Procedure 11/26/2018 Nathan Brink 11:17:29 AM RT(R) Signatures Monitor : Nathan Brink RT Signature : Date : Time : [place] [id number] [place] [address]
[~2018-11-26 08:15] MED LIST changes: +LEXAPRO20 MG PO; +RANEXA1000 MG PO
[2018-11-26] MEDS ORDERED: LIPITOR40 MG PO (08:37)
[2018-11-26] MEDS ORDERED: ISOSORBIDE MONO30 M1 PO (08:37)
[2018-11-26 08:41] VITALS: BP 105/69; Ht 182.9 cm; Wt 103.6 kg
[2018-11-26 08:59] LABS: CALC OSMOLALITY 280 mosm/kg (275-300); CALCIUM 8.9 mg/dL (8.5-10.1); CARBON DIOXIDE 26.7 mmol/L (21.0-32.0); CHLORIDE - SERUM 106 mmol/L (98-107); CREATININE - SERUM 0.9 mg/dL (0.6-1.3); GLUCOSE 103 mg/dL (74-106); POTASSIUM - SERUM 4.4 mmol/L (3.5-5.1); SODIUM 141 mmol/L (136-145); UREA NITROGEN 13 mg/dL (7-18); eGFR NON AFRICAN AMERICAN > 90 mL/min (90-120)
[2018-11-26 10:25] LABS: BASOPHILS 0.5 % (0-2); EOSINOPHILS 4.6 % (0-7); HEMATOCRIT 47.3 % (42.0-54.0); HEMOGLOBIN 16.2 g/dL (13.5-17.5); IMMATURE GRANULOCYTES 0.3 % (0-5); LYMPHOCYTES 20.4 % (15-50); MCH 31.3 pg (26.0-34.0); MCHC 34.2 g/dL (31.0-37.0); MCV 91.3 fL (80.0-100.0); MEAN PLATELET VOLUME 11.3 fL (7.4-10.4); MONOCYTES 7.4 % (2-11); NEUTROPHILS 66.8 % (40-80); PLATELET COUNT 216 10x3/uL (130-400); RBC 5.18 10x6/uL (4.20-6.10); RDW 13.6 % (11.5-14.5); WBC 7.4 10x3/uL (4.8-10.8)
--- NOTE | 2018-11-26 11:33 | NUR ---
RECIEVED TO ROOM VIA STRETCHER FROM PIN FEATHER MACHINE OPERATOR WITH 6 FR EXOSEAL R/GROIN IS CDI NO BLEEDING OR HEMATOMA NOTED. PATIENT CONNECTED TO MONITOR FOR OBSERVATION WITH HR 81 BP 107/71 CHEST PAIN IS DENIED.
--- NOTE | 2018-11-26 11:44 | NUR ---
PATIENT RESTING QUIETLY WITH NO DISTRESS. 6 FR EXOSEAL R/GROIN IS CDI AND FAMILY IS AT BEDSIDE
--- NOTE | 2018-11-26 12:11 | NUR ---
6 FR EXOSEAL R/GROIN IS CDI NO BLEEDING OR HEMATOMA. R/FOOT IS WARM TO TOUCH WITH CAP REFILL BRISK. CHEST PAIN IS DENIED
--- NOTE | 2018-11-26 12:47 | NUR ---
6 FR EXOSEAL TO R/GROIN IS CDI WITH AREA SOFT TO TOUCH. R/FOOT IS WARM WITH PULSES PALPABLE. FAMILY AT BEDSIDE
--- NOTE | 2018-11-26 13:04 | NUR ---
6 FR EXOSEAL R/GROIN IS CDI NO BLEEDING WITH AREA SOFT TO TOUCH. SANDWICH AND SODA TO BEDSIDE WITH NAUSEA DENIED.
--- NOTE | 2018-11-26 13:28 | NUR ---
VERBAL AND WRITTEN DISCHARGE GONE OVER WITH PATIENT AND BOTH VERBALIZED UNDERSTANDING. 6 FR EXOSEAL R/GROIN IS CDI PATIENT DENIED CHEST PAIN
--- NOTE | 2018-11-26 14:35 | NUR ---
1400 REPORT AND CARE FROM BHARATHI DUTTON RN. PT IS ALERT AND DENIES ANY C/O. VSS. DRESSING CDI TO RIGHT GROIN ,PEDAL PULSES PALPABLE. HOB IS FLAT, CALL LIGHT IN REACH. PT HAS TRUMAN SANDWICH AND PO FLUIDS WITH NO C/O NAUSEA.
--- NOTE | 2018-11-26 14:36 | NUR ---
1415 HOB ELEVATED 30 DEGREES, DRESSING CDI TO RIGHT GROIN. 1430 DRESSING CDI TO RIGHT GROIN, HOB FULLY ELEVATED. PEDAL PULSES PALPABLE. PT ALERT AND DENIES NEEDS AT THIS TIME.
--- NOTE | 2018-11-26 14:57 | NUR ---
IV DC'D WIT CATH INTACT AND PT DRESSING FOR DC TO HOME WITH ASSIST.
--- NOTE | 2018-11-26 15:03 | NUR ---
PT HAS DRESSED FOR DC TO [place], IS ALERT AND DENIES ANY C/O. DRESSING REMAINS CDI TO RIGHT GROIN. PT ESCORTED TO PRIVATE AUTO VIA WC BY NURSE WITH DRIVING HIM HOME. PT HAS ALL PERSONAL BELONGINGS AND DC INSTRUCTIONS AT TIME OF DISCHARGE.
--- NOTE | 2018-11-26 15:03 | OP ---
PATIENT NAME: KRISTA MENEZES JR MEDICAL RECORD: [id number] :66 LOCATION:D.CAT ADMISSION DATE: SURGEON: DUC MARTELL MD DATE OF OPERATION: 11/26/2018 PROCEDURES: 1. PTCA stent left circumflex. 2. Left heart catheterization. 3. Selective coronary angiography. 4. Left ventriculogram. INDICATION: Angina and coronary artery disease. PROCEDURE IN DETAIL: After informed consent was obtained and after a detailed description of the risks, benefits as well as alternative therapies, the patient elected to proceed with angiogram and angioplasty. The right femoral area was prepped and draped in normal sterile fashion. Right femoral artery was cannulated via modified Seldinger technique with placement of 6-Montserratian sheath. All catheters exchanged through this sheath. FINDINGS: The left ventriculogram was performed in standard 30-degree GONSALEZ view, reveals an ejection fraction in the 30% to 35% range. SELECTIVE CORONARY ANGIOGRAPHY: 1. Left main is with no significant angiographic disease. 2. Left anterior descending has previously placed stents, these are widely patent with no significant restenosis. No disease elsewise throughout the LAD or its branches. 3. The left circumflex has previously placed stents, these are patent. The obtuse marginal is totally occluded. This is a chronic total occlusion at this point. After the previously placed stents in the circumflex, there is 90% stenosis. 5. The right coronary artery has previously placed stents, these are widely patent with no significant restenosis. No disease elsewise throughout the RCA or its branches. PTCA STENT OF THE LEFT CIRCUMFLEX: The stent used was a 2.0 x 8 mm Esvin taken to 21 atmospheres. Result was 0% residual stenosis. OVERALL IMPRESSION: Successful percutaneous transluminal angioplasty stent of the circumflex going from 90% initial stenosis to 0% residual. TRANSINT:[id number] Voice Confirmation ID: [id number] DOCUMENT ID: [id number] DUC MARTELL MD at 1503 CC: [id number] DICTATION DATE: 11/26/18 1117 EMBEDDED SOFTWARE ARCHITECT: 11/26/18 1214 REG [facility] [address] [place] [address]
--- NOTE | 2018-11-26 15:03 | HP ---
PATIENT: KRISTA MENEZES JR MEDICAL RECORD: [id number] ACCOUNT: [id number] LOCATION:[facility] : 66 ADMISSION DATE: 11/26/18 PCP: ARCENIO ALVARENGA HISTORY AND PHYSICAL EXAMINATION ADMITTING DIAGNOSES: 1. Angina. 2. Coronary artery disease. 3. Status post multivessel percutaneous transluminal coronary angioplasty stent in the past. 4. Chronic obstructive pulmonary disease. 5. Smoking history. 6. Hyperlipidemia. 7. Hypertension. HISTORY OF PRESENT ILLNESS: Mr. Menezes presents with continued anginal symptomatology. Last cardiac catheterization, he was referred to Dr. Robles for bypass surgery. He was turned down secondary to poor targets. He continues to have anginal symptomatology. PHYSICAL EXAMINATION: GENERAL APPEARANCE: Well-nourished, well-developed, appears stated age. Level of distress, comfortable. PSYCHIATRIC: Mental status, alert, normal affect. Orientation, oriented to time, place and person. EYES: Lids and conjunctiva, noninjected. No discharge, no pallor. ENT: Lips, teeth, gums, normal dentition. Oropharynx, no cyanosis, no pallor. NECK: Carotid arteries, bilateral normal upstroke, no bruits, no thrills. JUGULAR VEINS: No jugular venous pressure or distention. CERVICAL LYMPH NODES: Nontender, nonenlarged. THYROID: Not enlarged. Nontender. No nodules. LUNGS: Respiratory effort, unlabored. CHEST: Normal curvature. No thoracic deformity. No chest wall tenderness. Percussion, resonant. Auscultation, clear. No wheezes, no rales, no rhonchi. CARDIOVASCULAR: Precordial exam, nondisplaced. No heaves or pericardial thrills. Rate and rhythm, regular. Heart sounds, normal S1, normal S2. No S3, no gallop, no rub. Systolic murmur, not heard. Diastolic murmur, not heard. EXTREMITIES: No cyanosis, no edema. Peripheral pulses, full and equal in all extremities, except as noted. No bruits appreciated. ABDOMEN: Soft, nondistended. Normal aorta. No bruit. Nontender. No masses. Liver, nontender, no hepatomegaly. Spleen, nontender, no splenomegaly. MUSCULOSKELETAL: No joint tenderness. No joint swelling. No erythema. NEUROLOGICAL: Normal gait, normal strength, normal tone. SKIN: Warm and dry. OVERALL IMPRESSION: Anginal symptomatology. Bypass surgery was a poor option secondary to extremely diffusely diseased distal vessels and poor targets. We will proceed with coronary angiography in hopes of transcatheter revascularization. TRANSINT:[id number] Voice Confirmation ID: [id number] DOCUMENT ID: [id number] HISTORY AND PHYSICAL [id number] KRISTA MENEZES JR, JEFFREY MD at 1503 CC: [id number] DICTATION DATE: 11/26/18 1057 FIELD CROP FARM WORKER: 11/26/18 1111 REG [facility] [address] [place] [address]
== END 2018-11-26 15:00 | disposition home or self-care (01) ==
LOC: D.CATH 08:15
PROVIDERS: ATTEND Internal Medicine Interventional Cardiology
DX: I25.119 Atherosclerotic heart disease of native coronary artery with unspecified angina pectoris (principal); Z01.812 Encounter for preprocedural laboratory examination

== ENCOUNTER 2018-12-02 10:15 | Outpatient (CLI) | payer OTHER ==
[~2018-12-02] VITALS: Ht 185.4 cm; Wt 102.7 kg
--- NOTE | ~2018-12-02 | HEMODYNAMI ---
PATIENT:KRISTA MENEZES JR MEDICAL RECORD: [id number] : 66 LOCATION:[facility] ADMISSION DATE: 12/02/18 Generatedon:12/02/201812:36 Patient name: KRISTA MENEZES Patient #: [id number] SSN: DO B: 1970 Date of study: 12/02/2018 Page: Of Hemodynamic Procedure Report Patient Data Patient Demographics Procedure consent was obtained First Name: KRISTA Gender: Male Last Name: RIRI Suffix: [facility] Initial: Ruth : 1970 Patient #: [id number] Age: 48 year(s) Race: Additional ID: [id number] Contact details [address]: [address] [place] [address] State: [facility] Zip code: [address] Past Medical History Allergies Allergen Reaction Date Comments Reported Other allergy 10/20/2018 Plavix non responder Admission Admission Data Admission Date: 12/02/2018 Admission Time: 10:15 Lab Results Lab Result Date: 11/26/2018 Lab Result Time: 0:00 Biochemistry Name Units Result Min Max BUN mg/dl 13 --(--*-)-- 7 18 Creatinine mg/dl 0.9 --(-*--)-- 0.6 1.3 CBC Name Units Result Min Max Hemoglobin g/dl 16.2 --(--*-)-- 13.5 17.5 Procedure Procedure Types Cath Procedure Diagnostic Procedure [facility] w/Coronaries FFR/IVUS Intra-Coronary IVUS Initial Sedation Charges Moderate Sedation up to 15 minutes PCI Procedure Coronary Stent Coronary Stent Initial x2 Procedure Description Procedure Date Procedure Date: 12/02/2018 Procedure Start Time: 12:13 Procedure End Time: 12:35 Procedure Staff Name Function Khoa Yi MD Performing Physician Chelsea Wolf RT Monitor Liana Vega RN Nurse Federica Cortez RT Scrub Procedure Data Cath Procedure Fluoroscopy Diagnostic fluoroscopy Total fluoroscopy Time: 4.5 time: 4.5 min min Diagnostic fluoroscopy Total fluoroscopy dose: 863 dose: 863 mGy mGy Contrast Material Contrast Material Type Amount (ml) Isovue 300 91 Entry Location Entry Primary Successful Side Size Upsize Upsize Entry Closure Succes sful Closure Location (Fr) 1 (Fr) 2 (Fr) Remarks Device Remarks Femoral Right 5 Fr 6 Fr Exoseal artery Short Estimated blood loss: 10 ml Diagnostic catheters Device Type Used For End Catheter Placement MULTIPACK Pigtail 5 Fr LV Angiography catheter MULTIPACK JL 4.0 5Fr Left Coronary catheter Angiography MULTIPACK 3DRC 5Fr Right Coronary catheter Angiography Procedure Complications No complications Procedure Medications Medication Administration Route Dosage 0.9% NaCl I.V. 100 ml/hr Oxygen etCO2 Nasal cannula 2 l/min Lidocaine 2% added to field 20 Heparin Flush Bag added to field 2 bags (1000units/500ml NS) Versed I.V. 2 mg Fentanyl I.V. 50 mcg Versed I.V. 2 mg Fentanyl I.V. 50 mcg Heparin Bolus I.V. 4000 units Versed I.V. 1 mg Fentanyl I.V. 50 mcg Hemodynamics Rest HGB: 16.2 (g/dl) Heart Rate: 70 (bpm) Snapshots Pre Cath Intra NCS Post Cath Vital Signs Time Heart Resp SPO2 etCO2 NIBP (mmHg) Rhythm Pain Sedation Rate (ipm) (%) (mmHg) Status Level (bpm) 11:54:37 70 10 100 36.7 134/97(112) NSR 0 (11) 10(A) , No pain 11:58:46 75 18 98 40.5 133/95(119) NSR 0 (11) 10(A) , No pain 12:02:58 77 19 96 33.7 132/91(107) NSR 0 (11) 10(A) , No pain 12:07:10 77 13 97 36.7 127/90(112) NSR 0 (11) 10(A) , No pain 12:11:24 69 17 98 41.2 134/78(106) NSR 0 (11) 10(A) , No pain 12:15:36 78 14 97 9.7 117/85(110) NSR 0 (11) 10(A) , No pain 12:19:48 76 16 97 22.4 124/72(120) NSR 0 (11) 10(A) , No pain 12:24:47 83 11 98 29.9 137/117(128) NSR 0 (11) 9(A) , No pain 12:28:59 77 15 97 39.7 124/82(113) NSR 0 (11) 10(A) , No pain 12:33:09 79 20 97 34.5 121/85(108) NSR 0 (11) 10(A) , No pain Medications Time Medication Route Dose Verified Delivered Reason Notes Effectiveness by by 11:56:48 0.9% NaCl I.V. 100 Khoa Liana used for ml/hr Kd Vega flat knitter 11:56:56 Oxygen etCO2 2 Khoa Liana used for Nasal l/min Kd Vega procedure cannula RN 11:57:03 Lidocaine 2% added 20ml Khoa Khoa for local to vial Kd Yi MD anesthetic field 11:57:08 Heparin Flush added 2 Khoa Khoa used for Bag to bags Kd Yi MD procedure (1000units/500ml field NS) 12:10:52 Fentanyl I.V. 50 Khoa Liana for sedation mcg Kd Vega RN 12:10:52 Versed I.V. 2 mg Khoa Liana for sedation Kd Vega RN 12:14:39 Versed I.V. 2 mg Khoa Liana for sedation Kd Vega RN 12:14:43 Fentanyl I.V. 50 Khoa Liana for sedation mcg Kd Vega RN 12:19:02 Fentanyl I.V. 50 Khoa Liana for sedation mcg Kd Vega RN 12:19:55 Versed I.V. 1 mg Khoa Liana for sedation Kd Vega RN 12:20:27 Heparin Bolus I.V. 4000 Khoa Liana for verif ied units Kd Vega anticoagulation with Dr. MARYAN Yi Procedure Log Time Note 11:35:59 Time tracking: Regular hours (M-F 7:00 - 5:00) 11:36:04 Plan of Care:Hemodynamics will remain stable., Cardiac rhythm will remain stable., Comfort level will be maintained., Respiratory function will remain adequate., Patient/ family verbilizes understanding of procedure., Procedure tolerated without complication., Recovers from procedure without complications.. 11:41:17 Liana Vega RN sent for patient. Start room use. 11:46:17 Patient received from Pre/Post Procedure Room to CCL 1 Alert and oriented. Tansferred to table in Supine position. 11:46:18 Warm blankets applied, and lynette hugger turned on for patient comfort. 11:46:18 Correct patient and procedure confirmed by team. 11:46:20 Signed procedure consent form obtained from patient. 11:46:21 ECG and BP/O2 sat monitors applied to patient. 11:46:22 Full Disclosure recording started 11:53:36 Vital chart was started 11:54:36 Baseline sample Acquired. 11:54:41 Rhythm: sinus rhythm 11:55:23 H&P Date Dictated: 12/01/2018 Within 30 days and on chart., H&P Addendum completed by physician on day of procedure. (MUST COMPLETE FOR ALL OUTPATIENTS). 11:55:25 Pre-procedure instructions explained to patient. 11:55:26 Pre-op teaching completed and patient verbalized understanding. 11:55:28 Family in patients room. 11:55:30 Patient NPO since Midnight. 11:55:47 Is the patient allergic to Iodine/contrast media? No. 11:55:49 Is patient on blood thinner?Yes 11:56:01 ACC The patient was administered the following blood thiners within the last 24 hours: ACCEffient 11:56:27 Patient diabetic? No. 11:56:48 0.9% NaCl 100 ml/hr I.V. was administered by Liana Vega RN; used for procedure; 11:56:53 Previous problem with sedation/anesthesia? No ? 11:56:54 Snore? Yes 11:56:55 Sleep apnea? Yes 11:56:56 Oxygen 2 l/min etCO2 Nasal cannula was administered by Liana Vega RN; used for procedure; 11:56:56 Deviated septum? No 11:56:56 Opens mouth fully? Yes 11:56:57 Sticks out tongue? Yes 11:57:01 Airway obstruction? Yes COPD 11:57:03 Lidocaine 2% 20ml vial added to field was administered by Khoa Yi MD; for local anesthetic; 11:57:08 Heparin Flush Bag (1000units/500ml NS) 2 bags added to field was administered by Khoa Yi MD; used for procedure; 11:57:57 Dentures? Yes in 11:58:01 Pre procedure: right dorsailis pedis pulse 2+ Normal; easily identifiable; not easily obliterated 11:58:03 Patient pain scale 0/10 ?. 11:58:13 IV patent on arrival in left forearm with 0.9% NaCl at [facility]. 11:58:22 Lab results completed and on chart. 11:58:26 Right groin area was prepped with chlora-prep and draped in sterile fashion 11:58:27 Alarms reviewed by R. N. 11:58:27 Sharps counted by scrub and verified by R.N. 11:58:34 Use device set Femoral Dx 11:58:35 ACIST Syringe (06808) opened to sterile field. 11:58:36 Bag Decanter (2002S) opened to sterile field. 11:58:36 Medline Cath Pack ([id number]) opened to sterile field. 11:58:37 DIAGNOSTIC WIRE .035 260cm J wire (711453) opened to sterile field. 11:58:38 ACIST Hand Control (42513) opened to sterile field. 11:58:38 ACIST Manifold (94734) opened to sterile field. 11:58:39 DIAGNOSTIC Multipack 5Fr catheter set (IS2839) opened to sterile field. 11:58:40 Tegaderm 4 x 4 (1626W) opened to sterile field. 11:58:41 SHEATH 5FR Iraan (BTW853) opened to sterile field. 12:03:07 Zero performed for pressure channel P1 12:04:11 Physician paged 12:09:47 Final Timeout: patient, procedure, and site verified with staff and physician. All members of the team are in agreement. 12:09:49 Right groin site verified by team. 12:09:52 Maximum allowable Isovue 300 dose 300ml. Physician notified. (300ml for normal creatinines. For patients with creatinine of 1.7 or higher multiply weight(kg) x 5 divided by creatinine.) 12:09:59 Fire Safety Assessment: A--An alcohol-based skin anteseptic being used preoperatively., C--Open oxygen or nitrous oxide is being used., D--An ESU, laser, or fiber-optic light is being used. 12:10:02 Physical assessment completed. ASA score P 2 - A patient with mild systemic disease as per Khoa Yi MD. 12:10:06 Sedation plan: IV Moderate Sedation Medication:Versed, Fentanyl 12::52 Versed 2 mg I.V. was administered by Liana Vega RN; for sedation; 12::52 Fentanyl 50 mcg I.V. was administered by Liana Vega RN; for sedation; 12:13:23 Procedure started. 12:13: Local anesthetic to right femoral artery with Lidocaine 2% by Khoa Yi MD.INITIAL ACCESS ONLY 12:13:44 A 5 Fr sheath was inserted into the Right Femoral artery 12:14:34 A MULTIPACK Pigtail 5 Fr catheter was advanced over the wire and used for LV Angiography. 12:14:39 Versed 2 mg I.V. was administered by Liana Vega RN; for sedation; 12:14:43 Fentanyl 50 mcg I.V. was administered by Liana Vega RN; for sedation; 12:15:08 LV gram done using GONSALEZ 12:15:13 EF : 40 % 12:15:20 Injector settings: Ml/sec: 10, Volume: 20, 12:15:21 Catheter removed. 12:15:45 A MULTIPACK JL 4.0 5Fr catheter was advanced over the wire and used for Left Coronary Angiography. 12:17:15 Catheter removed. 12:17:21 A MULTIPACK 3DRC 5Fr catheter was advanced over the wire and used for Right Coronary Angiography. 12:17:42 Catheter removed. 12:18:26 Sheath upsized to a 6 Fr Short. 12:18:50 Use device set TAU PCI 12:18:57 SHEATH 6FR Iraan (NFK455) opened to sterile field. 12:18:59 [place] Entriken Eagleye IVUS Catheter (63603O) opened to sterile field. 12:19:02 Fentanyl 50 mcg I.V. was administered by Liana Vega RN; for sedation; 12:19:10 INFLATOR Merit BasixCompak (QQ7945) opened to sterile field. 12:19:15 CHOICE PT Extra Support 182cm wire ([id number]) opened to sterile field. 12:19:19 GUIDE 6FR AR 2.0 catheter ([id number]) opened to sterile field. 12:19:55 Versed 1 mg I.V. was administered by Liana Gary RN; for sedation; 12::27 Heparin Bolus 4000 units I.V. was administered by Liana Vega RN; for anticoagulation; verified with Dr. Yi 12:23:04 6 Fr AR 2.0 guide catheter was inserted over the wire 12:23:36 CHOICE PT ES wire advanced. 12:24:07 IVUS catheter advanced over wire. 12:24:11 IVUS pass to RCA lesion performed. 12:26:15 IVUS catheter removed over wire. 12:28:07 Place stent Inflation Number: 1 A MERCEDEZ RX 4.0 x 15 stent ([id number]) was prepped and advanced across the Dist RCA. The stent was deployed at 13 TIFFANY for 0:10 (min:sec). 12:28:27 Stent catheter was removed intact over wire. 12::27 Wire removed. 12:28:29 Guide catheter removed. 12:29:50 6 Fr XBLAD 3.5 guide catheter was inserted over the wire 12:30:01 CHOICE PT ES wire advanced. 12:31:06 Place stent Inflation Number: 1 A MERCEDEZ RX 2.5 x 12 stent ([id number]) was prepped and advanced across the Mid LAD. The stent was deployed at 17 TIFFANY for 0:06 (min:sec). 12:31:22 Stent catheter was removed intact over wire. 12:31: Wire removed. 12:31:23 Guide catheter removed. 12:31:29 Sheath removed intact; hemostasis achieved with Exoseal to the Right Femoral artery. 12:31:32 Procedure ended.(Physican Out) 12:32:01 Fluoroscopy time 04.50 minutes. 12:32:05 Flurop Dose total: 863 12:32:05 Fluoroscopy dose: 863 mGy 12:32:09 Contrast amount:Isovue 300 91ml. 12:32:11 Sharps counted by scrub and verified by R.N. 12:32:12 Insertion/operative site no bleeding no hematoma. 12:32:15 Post-op/insertion site Right Femoral artery dressed using a 4 x 4 and Tegaderm. 12:32:18 Post right femoral artery:stable, clean and dry 12:32:20 Post Procedure Pulses reassessed and unchanged 12:32:22 Post-procedure physical assessment completed. ASA score P 2 - A patient with mild systemic disease as per Khoa Yi MD. 12:32:24 Post procedure rhythm: unchanged. 12:32:26 Estimated blood loss: 10 ml 12:32:28 Post procedure instruction explained to patient.Patient verbalizes understanding. 12:32:29 Patient needs reinforcement of post procedure teaching. 12:32:41 Procedure type changed to Cath procedure, Diagnostic procedure, LHC, LHC w/Coronaries, FFR/IVUS, Intra-Coronary IVUS Initial, Sedation Charges, Moderate Sedation up to 15 minutes, PCI procedure, Coronary Stent, Coronary Stent Initial x2 12:32:47 Procedure Complication : No complications 12:32:50 See physician's report for complete and final results. 12:35:22 EXOSEAL 6Fr (EX600) opened to sterile field. 12:35:33 Procedure and supply charges have been captured, reviewed, submitted and are correct. 12:35:34 Vital chart was stopped 12:35:36 Report given to Pre/Post Procedure Room. 12:35:38 Patient transfered to Pre/Post Procedure Room with Stretcher. 12:35:47 Procedure ended. 12:35:47 Full Disclosure recording stopped 12:35:50 End room use (Document Last) Intervention Summary Intervention Notes Time ActionType Lesion and Equipment Used Action# Pressure Duration Attributes 12:28:07 Place stent Dist RCA MERCEDEZ RX 4.0 x 1 13 00:10 15 stent ([id number]) 12:31:06 Place stent Mid LAD MERCEDEZ RX 2.5 x 1 17 00:06 12 stent ([id number]) Device Usage Item Name Manufacture Quantity Catalog Number Hospital Part Current M inimal Lot# / Charge Number Stock Stock Serial# Code ACIST Syringe Acist 1 82916 877981 430319 254119 2 0 (25939) Medical Systems Inc Bag Decanter Microtek 1 407005 65561 454321 5 () Medical Inc. Medline Cath Medline 1 [id number] 089977 41774 386579 5 Pack ([id number]) DIAGNOSTIC [place] 1 731142 260382 493433 172695 3 0 WIRE .035 260cm J wire (518420) ACIST Hand Acist 1 56157 241283 399725 812455 5 Control Medical (73416) Systems Inc ACIST Manifold Acist 1 26505 972844 154924 608080 5 (48970) Medical Systems Inc DIAGNOSTIC Cardinal 1 [id number] 898051 48067 107591 3 0 Multipack 5Fr Health catheter set (GC6603) Tegaderm 4 x 4 3M 1 1626W 712183 648236 354279 5 (1626W) SHEATH 5FR Terumo 1 CXV915 082957 788668 068515 5 Iraan (NYT350) MULTIPACK Cardinal 1 577851 5 Pigtail 5 Fr Health catheter MULTIPACK JL Cardinal 1 398134 5 4.0 5Fr Health catheter MULTIPACK 3DRC Cardinal 1 176964 5 5Fr catheter Health SHEATH 6FR Terumo 1 TGX808 165491 887315 122698 4 0 Iraan (BZH686) [place] 1 28243H 447417 909894 415895 8 Entriken Eagleye IVUS Catheter (74960E) INFLATOR Merit Merit 1 LT5270 085929 083396 284801 1 5 [facility] (ZU[facility] CHOICE PT [place] 1 [id number] 393523 916806 220489 5 Extra Support Scientific 182cm wire ([id number]) GUIDE 6FR AR Medtronic 1 [id number] 056003 31123 699696 1 2.0 catheter (AE2KK81) MERCEDEZ RX 4.0 x Medtronic 1 [id number] 907101 9736813 725793 5 [id number] 15 stent ([id number]) MERCEDEZ RX 2.5 x Medtronic 1 [id number] 736705 9704418 402606 5 [id number] 12 stent ([id number]) EXOSEAL 6Fr Cardinal 1 EX600 117247 513199 297290 1 0 (EX600) Health Signature Audit [place] Stage Time Signature Unsigned Intra-Procedure 12/02/2018 Chelsea 12:36:02 PM Counts RT(R) Signatures Monitor : Chelsea Signature : Counts RT Date : Time : [id number] [place] [address]
--- NOTE | ~2018-12-02 | OP ---
PATIENT NAME: KRISTA MENEZES JR MEDICAL RECORD: [id number] :66 LOCATION:D.CAT ADMISSION DATE: SURGEON: DUC MARTELL MD DATE OF OPERATION: 12/02/2018 DATE OF SERVICE: 12/02/2018 PROCEDURES: 1. PTCA stent RCA. 2. PTCA stent LAD. 3. Intravascular ultrasound. 4. Left heart catheterization. 5. Selective coronary angiography. 6. Left ventriculogram. INDICATION: Angina and coronary artery disease. PROCEDURE PERFORMED: After informed consent was obtained and after a detailed description of risks, benefits as well as alternative therapies, the patient elected to proceed with angiogram and angioplasty. The right femoral area was prepped and draped in normal sterile fashion. Right femoral artery was cannulated via modified Seldinger technique with placement of 6-Albanian sheath. All catheters exchanged through this sheath. FINDINGS: 1. The right coronary has previously placed stents, these are widely patent; however, there is 80% stenosis prior to the previously placed stents in the mid distal vessel confirmed by intravascular ultrasound. The left main has no significant angiographic disease. 2. Left anterior descending has previously placed stents with 80% in-stent restenosis in the mid vessel. 3. The left circumflex has moderate irregularities, but no flow-limiting stenosis. 4. The left ventriculogram was performed in standard 30-degree GONSALEZ view, reveals good cardiac wall motion throughout all segments. Overall ejection fraction estimated at 60%. PTCA STENT OF THE RCA: The stent used was a 4.0 x 15 mm Esvin. Result was 0% residual stenosis. PTCA STENT OF THE LAD: The stent used was a 2.5 x 12 mm Esvin. Result was 0% residual stenosis. OVERALL IMPRESSION: Successful percutaneous transluminal coronary angioplasty stent of the right coronary artery and left anterior descending, both going from 75% to 80% initial stenosis to 0% residual. TRANSINT:[id number] Voice Confirmation ID: [id number] DOCUMENT ID: [id number] OPERATIVE REPORT [id number] RIRIDUC OLIVAS JR, MD CC: [id number] DICTATION DATE: 12/02/18 1238 BLOCK CHOPPER HAND: 12/02/18 1320 REG [facility] [address] [place] [address]
[~2018-12-02 10:15] MED LIST changes: +LIPITOR40 MG PO
[2018-12-02 10:32] VITALS: BP 130/82; Ht 185.4 cm; Wt 102.7 kg
[2018-12-02 10:51] LABS: BASOPHILS 0.6 % (0-2); EOSINOPHILS 3.9 % (0-7); HEMATOCRIT 46.9 % (42.0-54.0); HEMOGLOBIN 16.3 g/dL (13.5-17.5); IMMATURE GRANULOCYTES 0.1 % (0-5); LYMPHOCYTES 21.9 % (15-50); MCH 31.6 pg (26.0-34.0); MCHC 34.8 g/dL (31.0-37.0); MCV 90.9 fL (80.0-100.0); MEAN PLATELET VOLUME 11.1 fL (7.4-10.4); MONOCYTES 6.7 % (2-11); NEUTROPHILS 66.8 % (40-80); PLATELET COUNT 209 10x3/uL (130-400); RBC 5.16 10x6/uL (4.20-6.10); RDW 13.5 % (11.5-14.5); WBC 6.7 10x3/uL (4.8-10.8)
[2018-12-02 10:58] LABS: CALC OSMOLALITY 284 mosm/kg (275-300); CALCIUM 8.8 mg/dL (8.5-10.1); CARBON DIOXIDE 30.6 mmol/L (21.0-32.0); CHLORIDE - SERUM 106 mmol/L (98-107); GLUCOSE 97 mg/dL (74-106); SODIUM 143 mmol/L (136-145); UREA NITROGEN 12 mg/dL (7-18); eGFR NON AFRICAN AMERICAN 84 mL/min (90-120)
--- NOTE | 2018-12-02 12:45 | NUR ---
PT RECEIVED VIA STRETCHER FROM VAT PACKER FOR RECOVERY. PT DROWSY BUT AWAKE. 6 FR EXOCELE TO R GROIN, DRESSING CDI NO BLEEDING OR HEMATOMA NOTED. R LEG WARM AND PINK, PEDAL PULSES PALPABLE. PT INSTRUCTED TO KEEP HEAD ON PILLOW AND R LEG STRAIGHT, HE VERBALIZED UNDERSTANDING. HR NSR, RATE 83, BP 124/92, O2 SAT 96 ON 2L.NC. PT DENIES PAIN OR DISCOMFORT. SIPS OF COLA GIVEN PER REQUEST. CALL LIGHT IN REACH.
--- NOTE | 2018-12-02 13:00 | NUR ---
PT RESTING COMFORTABLY, R GROIN SOFT, DRESSING CDI NO BLEEDING OR HEMATOMA NOTED. PEDAL PULSES PALPABLE. PT DENIES PAIN OR NEEDS. CALL LIGHT IN REACH
--- NOTE | 2018-12-02 13:30 | NUR ---
PT SLEEPING, VSS. GROIN SOFT, NO BLEEDING OR SWELLING NOTED. PEDAL PULSES PALPABLE. CALL LIGHT IN REACH.
--- NOTE | 2018-12-02 13:44 | NUR ---
PT RESTING COMFORTABLY, GROIN REMAINS SOFT NO BLEEDING OR SWELLING NOTED. PEDAL PULSES PALPABLE. CALL LIGHT IN REACH
--- NOTE | 2018-12-02 14:00 | NUR ---
PT RESTING QUIETLY, R GROIN DRESSING REMAINS CDI NO BLEEDING OR SWELLING NOTED. PEDAL PULSES REMAIN PALPABLE. PT REQUEST URINAL, GIVEN. CALL LIGHT IN REACH. DENIES PAIN OR ANY OTHER NEEDS AT THIS TIME.
--- NOTE | 2018-12-02 14:32 | NUR ---
PT AWAKE, GROIN DRESSING CDI NO BLEEDING OR HEMATOMA NOTED. AT BEDSIDE. PT DENIES PAIN OR NEEDS AT THIS TIME. CALL LIGHT IN REACH
--- NOTE | 2018-12-02 15:00 | NUR ---
PT CONTINUES TO REST COMFORTABLY. 300 CC CLEAR YELLOW URINE IN URINAL. R GROIN REMAINS SOFT, NO BLEEDING OR HEMATOMA NOTED. 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 PT DENIES PAIN OR NEEDS AT THIS TIME.
--- NOTE | 2018-12-02 15:39 | NUR ---
GROIN DRESSING REMAINS CDI NO BLEEDING OR SWELLING NOTED. HOB ELEVATED SLIGHTLY. SANDWICH GIVEN. VSS, DENIES OTHER NEEDS AT THIS TIME. AT BEDSIDE, CALL LIGHT IN REACH
--- NOTE | 2018-12-02 15:59 | NUR ---
PT SITTING UP IN BED, TOLERATED SANDWICH W/O NAUSEA. R GROIN REMAINS SOFT, DRESSING CDI NO BLEEDING OR SWELLING NOTED. CALL LIGHT IN REACH.
--- NOTE | 2018-12-02 16:10 | NUR ---
DISCHARGE INSTRUCTIONS REVIEWED W PT AND , BOTH VERBALIZED UNDERSTANDING. IV REMOVED W CATH INTACT, MONITORS REMOVED. PT UP TO DRESS FOR DISCHARGE.
--- NOTE | 2018-12-02 16:34 | NUR ---
PT DISCHARGED VIA WC TO PRIVATE VEHICLE
== END 2018-12-02 16:30 | disposition home or self-care (01) ==
LOC: D.CATH 10:15
PROVIDERS: ATTEND Internal Medicine Interventional Cardiology
DX: I25.119 Atherosclerotic heart disease of native coronary artery with unspecified angina pectoris (principal); T82.855A Stenosis of coronary artery stent, initial encounter; Z01.812 Encounter for preprocedural laboratory examination

== ENCOUNTER 2018-12-04 14:26 | Observation (INO) | payer OTHER ==
[~2018-12-04] VITALS: Ht 185.4 cm; Wt 102.7 kg
--- NOTE | ~2018-12-04 | HEMODYNAMI ---
PATIENT:KRISTA MENEZES JR MEDICAL RECORD: [id number] : 66 [facility] [id number] ADMISSION DATE: 12/04/18 Generatedon:12/05/201812:02 Patient name: KRISTA MENEZES Patient #: [id number] SSN: DO B: 1970 Date of study: 12/05/2018 Page: Of Hemodynamic Procedure Report Patient Data Patient Demographics Procedure consent was obtained First Name: KRISTA Gender: Male Last Name: RIRI Suffix: Jr Rojo Initial: Ruth : 1970 Patient #: [id number] Age: 48 year(s) Race: Additional ID: [id number] Contact details Address: [address] [place] [address] State: [place] City: [place] Zip code: [address] Past Medical History Allergies Allergen Reaction Date Comments Reported Other allergy 10/20/2018 Plavix non responder Other allergy 12/05/2018 PLAVIX Admission Admission Data Admission Date: 12/04/2018 Admission Time: 17:43 Room #: D.2116 Height (in.): 73 BSA: 2.27 (m2) Height (cm.): 185.42 BMI: 29.88 (kg/m2) Weight (lbs.): 226.46 Weight (kg.): 102.72 Lab Results Lab Result Date: 12/05/2018 Lab Result Time: 0:00 Biochemistry Name Units Result Min Max BUN mg/dl 10 --(-*--)-- 7 18 Creatinine mg/dl 1 --(--*-)-- 0.6 1.3 CBC Name Units Result Min Max Hematocrit % 47 --(-*--)-- 42 54 Hemoglobin g/dl 16.1 --(--*-)-- 13.5 17.5 Procedure Procedure Types Cath Procedure Diagnostic Procedure LHC LHC w/Coronaries Procedure Description Procedure Date Procedure Date: 12/05/2018 Procedure Start Time: 11:50 Procedure End Time: 12:00 Procedure Staff Name Function Matheus Edwards MD Performing Physician Federica Cortez RT Monitor Luis Self RN Nurse Chelsea Wolf RT Scrub Procedure Data Cath Procedure Fluoroscopy Diagnostic fluoroscopy Total fluoroscopy Time: 1 time: 1 min min Diagnostic fluoroscopy Total fluoroscopy dose: 352 dose: 352 mGy mGy Contrast Material Contrast Material Type Amount (ml) Isovue 300 47 Entry Location Entry Primary Successful Side Size Upsize Upsize Entry Closure Succes sful Closure Location (Fr) 1 (Fr) 2 (Fr) Remarks Device Remarks Femoral Left 5 Fr Exoseal artery Estimated blood loss: 10 ml Diagnostic catheters Device Type Used For End Catheter Placement MULTIPACK JL 4.0 5Fr Procedure catheter MULTIPACK 3DRC 5Fr Procedure catheter MULTIPACK Pigtail 5 Fr Procedure catheter Procedure Complications No complications Procedure Medications Medication Administration Route Dosage 0.9% NaCl I.V. 100 ml/hr Oxygen etCO2 Nasal cannula 2 l/min Heparin Flush Bag added to field 2 bags (1000units/500ml NS) Lidocaine 2% added to field 20 Versed I.V. 1 mg Fentanyl I.V. 50 mcg Versed I.V. 1 mg Fentanyl I.V. 50 mcg Hemodynamics Rest BSA: 2.27 (m2) HGB: 16.1 (g/dl) O2 Consumption: Estimated: 285.13 (ml/min) O2 Co nsumption indexed: Estimated:125.61 (ml/min/m) Heart Rate: 86 (bpm) Pressure Samples Time Site Value (mmHg) Purpose Heart Use Rate(bpm) 11:56 LV 139/10,31 EDP 90 11:56 AO 118/64(94) Pullback 90 11:56 LV 86/4,15 Pullback 90 Gradients Valve Time Site 1 Site 2 Mean SEP/DFP Peak To Heart Use (mmHg) (sec/min) Peak Rate (mmHg) (bpm) Aortic 11:56 LV AO 0 6 0 90 86/4,15 118/64(94) Calculations Valve P-P Mean Valve Index Valve Source Name Gradient Area Flow (cm2) Aortic 0 0 0 0 Snapshots Pre Cath Intra NCS Post Cath Vital Signs Time Heart Resp SPO2 etCO2 NIBP (mmHg) Rhythm Pain Sedation Rate (ipm) (%) (mmHg) Status Level (bpm) 11:40:23 77 12 95 0 137/88(108) NSR 0 (11) 10(A) , No pain 11:44:33 86 19 94 38.9 136/102(115) NSR 0 (11) 10(A) , No pain 11:48:46 81 18 93 35.9 129/89(104) NSR 0 (11) 10(A) , No pain 11:52:54 76 18 92 45.7 133/99(123) NSR 0 (11) 10(A) , No pain 11:56:58 87 17 92 48 122/96(118) NSR 0 (11) 9(A) , No pain Medications Time Medication Route Dose Verified Delivered Reason Notes Eff ectiveness by by 11:45:00 0.9% NaCl I.V. 100 Luis Luis Per ml/hr Aramis Self physician RN RN 11:45:09 Oxygen etCO2 2 Luis Luis for low 02 Nasal l/min Lorigan Lorigan sats cannula RN RN 11:45:20 Heparin Flush added 2 Luis Luis used for Bag to bags Lorigan Lorigan procedure (1000units/500ml field RN RN NS) 11:45:30 Lidocaine 2% added 20ml Luis Luis for local to vial Lorigan Lorigan anesthetic field RN RN 11:51:22 Versed I.V. 1 mg Luis Luis for Lorigan Lorigan sedation RN RN 11:51:30 Fentanyl I.V. 50 Luis Luis for mcg Lorigan Lorigan sedation RN RN 11:54:09 Versed I.V. 1 mg Luis Luis for Lorigan Lorigan sedation RN RN 11:54:15 Fentanyl I.V. 50 Luis Luis for mcg Lorigan Lorigan sedation RN saw superintendent Log Time Note 11:20:47 Luis Self RN sent for patient. Start room use. 11:26:54 Time tracking: Call back (After hours or weekends) 11:26:58 Signed procedure consent form obtained from patient. 11:27:03 Plan of Care:Hemodynamics will remain stable., Cardiac rhythm will remain stable., Comfort level will be maintained., Respiratory function will remain adequate., Patient/ family verbilizes understanding of procedure., Procedure tolerated without complication., Recovers from procedure without complications.. 11:32:50 Patient allergic to Other allergyPLAVIX 11:32:58 Patient Weight : 226.46 lbs 11:33:07 Patient Height : 73 inches 11:33:38 Lab Result : BUN 10 mg/dl 11:33:38 Lab Result : Hemoglobin 16.1 g/dl 11:33:38 Lab Result : Creatinine 1 mg/dl 11:33:38 Lab Result : Hematocrit 47 % 11:33:56 Patient received from Med II to CCL 1 Alert and oriented. Tansferred to table in Supine position. 11:33:57 Warm blankets applied, and lynette hugger turned on for patient comfort. 11:33:57 Correct patient and procedure confirmed by team. 11:33:58 ECG and BP/O2 sat monitors applied to patient. 11:39:22 Vital chart was started 11:39:22 Full Disclosure recording started 11:40:43 Rhythm: sinus rhythm 11:40:47 Baseline sample Acquired. 11:40:50 Pre-procedure instructions explained to patient. 11:40:51 Pre-op teaching completed and patient verbalized understanding. 11:40:53 Family in patients room. 11:40:54 Patient NPO since Midnight. 11:40:56 Is patient on blood thinner?Yes 11:40:59 ACC The patient was administered the following blood thiners within the last 24 hours: ACCEffient 11:41:00 Patient diabetic? No. 11:41:04 Previous problem with sedation/anesthesia? No ? 11:41:04 Snore? Yes 11:41:05 Sleep apnea? Yes 11:41:07 Deviated septum? No 11:41:08 Opens mouth fully? Yes 11:41:10 Sticks out tongue? Yes 11:41:16 Airway obstruction? Yes COPD, EMPHYSEMA 11:41:22 Dentures? Yes DENTURES OUT 11:41:25 Pre procedure: right dorsailis pedis pulse 1+ Palpable, but thready & weak; easily obliterated 11:41:29 Patient pain scale 6/10 ?. 11:41:37 IV patent on arrival in left antecubital with 0.9% NaCl at O. 11:41:39 Lab results completed and on chart. 11:41:41 Right groin area was prepped with chlora-prep and draped in sterile fashion 11:41:43 Alarms reviewed by R. N. 11:41:43 Sharps counted by scrub and verified by R.N. 11:41:45 Use device set Femoral Dx 11:41:46 ACIST Syringe (09955) opened to sterile field. 11:41:47 Bag Decanter (2002S) opened to sterile field. 11:41:47 ACIST Hand Control (03829) opened to sterile field. 11:41:48 ACIST Manifold (53410) opened to sterile field. 11:41:49 Tegaderm 4 x 4 (1626W) opened to sterile field. 11:41:51 Medline Cath Pack ([id number]) opened to sterile field. 11:41:51 DIAGNOSTIC WIRE .035 260cm J wire (880556) opened to sterile field. 11:41:52 DIAGNOSTIC Multipack 5Fr catheter set (EP2329) opened to sterile field. 11:41:53 SHEATH 5FR [place] (MOH962) opened to sterile field. 11:45:00 0.9% NaCl 100 ml/hr I.V. was administered by Luis Self RN; Per physician; 11:45:09 Oxygen 2 l/min etCO2 Nasal cannula was administered by Luis Self RN; for low 02 sats; 11:45:20 Heparin Flush Bag (1000units/500ml NS) 2 bags added to field was administered by Luis Self RN; used for procedure; 11:45:30 Lidocaine 2% 20ml vial added to field was administered by Luis Sefl RN; for local anesthetic; 11:46:41 --------ALL STOP TIME OUT------ 11:46:41 Final Timeout: patient, procedure, and site verified with staff and physician. All members of the team are in agreement. 11:46:44 Right groin site verified by team. 11:46:47 Maximum allowable Isovue 300 dose 300ml. Physician notified. (300ml for normal creatinines. For patients with creatinine of 1.7 or higher multiply weight(kg) x 5 divided by creatinine.) 11:46:50 Fire Safety Assessment: A--An alcohol-based skin anteseptic being used preoperatively., C--Open oxygen or nitrous oxide is being used., D--An ESU, laser, or fiber-optic light is being used. 11:46:54 Physical assessment completed. ASA score P 2 - A patient with mild systemic disease as per Matheus Edwards MD. 11:46:57 Sedation plan: IV Moderate Sedation Medication:Versed, Fentanyl 11:50:17 Procedure started. 11:50:19 Zero performed for pressure channel P1 11:50:32 Zero performed for pressure channel P1 11:50:38 Zero performed for pressure channel P1 11:50:44 Local anesthetic to right femoral artery with Lidocaine 2% by Matheus Edwards MD.INITIAL ACCESS ONLY 11:51:22 Versed 1 mg I.V. was administered by Luis Self RN; for sedation; 11:51:30 Fentanyl 50 mcg I.V. was administered by Luis Self RN; for sedation; 11:51:52 A 5 Fr sheath was inserted into the Left Femoral artery 11:52:19 A MULTIPACK JL 4.0 5Fr catheter was advanced over the wire and used for Procedure. 11:53:11 LCA angiography performed. 11:53:25 Catheter removed. 11:53:46 A MULTIPACK 3DRC 5Fr catheter was advanced over the wire and used for Procedure. 11:54:09 Versed 1 mg I.V. was administered by Luis Self RN; for sedation; 11:54:15 Fentanyl 50 mcg I.V. was administered by Luis Self RN; for sedation; 11:54:57 RCA angiography performed. 11:54:58 Catheter removed. 11:55:22 A MULTIPACK Pigtail 5 Fr catheter was advanced over the wire and used for Procedure. 11:55:27 LV gram done using GONSALEZ 11:55:58 Injector settings: Ml/sec: 10, Volume: 20, 11:56:10 LV hemodynamics recorded. 11:56:21 EF : 50 % 11:56:23 Catheter removed. 11:57:12 EXOSEAL 5Fr (EX500) opened to sterile field. 11:57:21 Sheath removed intact; hemostasis achieved with Exoseal to the Left Femoral artery. 11:57:23 Procedure ended.(Physican Out) 11:58:45 Fluoroscopy time 01.00 minutes. 11:58:49 Fluoroscopy dose: 352 mGy 11:58:49 Flurop Dose total: 352 11:59:03 Contrast amount:Isovue 300 47ml. 11:59:04 Sharps counted by scrub and verified by R.N. 11:59:07 Post-op/insertion site Left Femoral artery dressed using a 4 x 4 and Tegaderm. 11:59:20 Post-procedure physical assessment completed. ASA score P 2 - A patient with mild systemic disease as per Matheus Edwards MD. 11:59:23 Post procedure rhythm: sinus rhythm 11:59:26 Estimated blood loss: 10 ml 11:59:28 Post procedure instruction explained to patient.Patient verbalizes understanding. 11:59:28 Patient needs reinforcement of post procedure teaching. 12:00:12 Procedure and supply charges have been captured, reviewed, submitted and are correct. 12:00:14 Procedure Complication : No complications 12:00:15 Vital chart was stopped 12:00:16 See physician's report for complete and final results. 12:00:18 Report given to PCU. 12:00:21 Patient transfered to PCU with Bed. 12:00:23 Procedure ended. 12:00:23 Full Disclosure recording stopped 12:00:28 End room use (Document Last) Device Usage Item Name Manufacture Quantity Catalog Hospital Part Current Minimal L ot# / Number Charge Number Stock Stock Serial# Code ACIST Acist 1 34984 253860 735282 037898 20 Syringe Medical (77194) Systems Inc Bag Microtek 1 2001S 020774 78653 699361 5 Decanter Medical Inc. () ACIST Hand Acist 1 60953 283059 093324 824142 5 Control Medical (70121) Systems Inc ACIST Acist 1 23037 100103 910674 374479 5 Manifold Medical (82624) Systems Inc Tegaderm 4 3M 1 1626W 408080 659481 590448 5 x 4 (1626W) Medline Medline 1 [id number] 183877 41536 874242 5 Cath Pack ([id number]) DIAGNOSTIC [facility] Luiz 1 663587 900550 586210 815237 30 WIRE .035 260cm J wire (727174) DIAGNOSTIC Cardinal 1 PN1025 924167 44193 743841 30 Multipack Health 5Fr catheter set (KN9050) SHEATH 5FR Terumo 1 HQV275 396317 268329 824535 5 [place] (NDM814) MULTIPACK Cardinal 1 120288 5 JL 4.0 5Fr Health catheter MULTIPACK Cardinal 1 098061 5 3DRC 5Fr Health catheter MULTIPACK Cardinal 1 185339 5 Pigtail 5 Health Fr catheter EXOSEAL 5Fr Cardinal 1 EX500 847821 637611 021270 10 (EX500) Health Signature Audit [place] Stage Time Signature Unsigned Intra-Procedure 12/05/2018 Federica Cortez 12:02:22 PM RT(R) Signatures Monitor : Federica Cortez Signature : RT Date : Time : [address] [place] [address]
[2018-12-04 14:39] VITALS: BP 139/92
[2018-12-04 15:20] LABS: BASOPHILS 0.5 % (0-2); EOSINOPHILS 5.2 % (0-7); HEMATOCRIT 48.5 % (42.0-54.0); HEMOGLOBIN 16.8 g/dL (13.5-17.5); IMMATURE GRANULOCYTES 0.4 % (0-5); LYMPHOCYTES 23.4 % (15-50); MCH 31.6 pg (26.0-34.0); MCHC 34.6 g/dL (31.0-37.0); MCV 91.2 fL (80.0-100.0); MEAN PLATELET VOLUME 11.1 fL (7.4-10.4); MONOCYTES 10.3 % (2-11); NEUTROPHILS 60.2 % (40-80); PLATELET COUNT 212 10x3/uL (130-400); RBC 5.32 10x6/uL (4.20-6.10); RDW 13.5 % (11.5-14.5); WBC 8.1 10x3/uL (4.8-10.8)
[2018-12-04 15:43] LABS: ALBUMIN 3.7 g/dL (3.4-5.0); ALKALINE PHOSPHATASE 64 U/L (46-116); ALT (SGPT) 29 U/L (10-68); BILIRUBIN - TOTAL 0.24 mg/dL (0.2-1.3); CALC OSMOLALITY 277 mosm/kg (275-300); CALCIUM 9.4 mg/dL (8.5-10.1); CARBON DIOXIDE 31.5 mmol/L (21.0-32.0); CHLORIDE - SERUM 103 mmol/L (98-107); CREATININE - SERUM 0.9 mg/dL (0.6-1.3); GLUCOSE 95 mg/dL (74-106); POTASSIUM - SERUM 4.6 mmol/L (3.5-5.1); SODIUM 140 mmol/L (136-145); UREA NITROGEN 11 mg/dL (7-18); eGFR NON AFRICAN AMERICAN > 90 mL/min (90-120)
[2018-12-04 15:51] LABS: CKMB 1.5 U/L (0.0-3.6); CREATINE KINASE 74 UL (21-232); MAGNESIUM - SERUM 2.2 mg/dL (1.8-2.4); PRO BNP 385 pg/mL (0-125)
[2018-12-04 16:08] LABS: TROPONIN-I 0.093 ng/mL (0.000-0.060)
--- NOTE | 2018-12-04 16:09 | NUR ---
ERP INFORMED OF ELEVATED TROP 0.093
[2018-12-04 18:05] VITALS: BP 140/87
--- NOTE | 2018-12-04 20:08 | NUR ---
INITIAL ROUNDS COMPLETED. PT RESTING IN BED. ADMISSION HISTORY AND ASSESSMENT UPDATED/COMPLETED. PIV TO LEFT A/C. PT C/O BEING HUNGRY. WILL BRING HIM A SANDWICH TRAY. PT C/O MORPHINE NOT BEING STRONG ENOUGH DOSE FOR HIS PAIN. REVIEWED CURRENT ORDER FOR 6MG SIVP EVERY 4 HOURS AND HE SAID THAT THE DAY NURSE MUST HAVE SPOKE WITH DR BANG BECAUSE THAT WAS MORE THAN HE HAD RECIEVED IN ER. WILL PROVIDE A DOSE FOR HIS PAIN 06/09.
--- NOTE | 2018-12-04 20:44 | NUR ---
MORPHINE 6MG GIVEN FOR CHEST PRESSURE/PAIN 06/09. PT STATES NO RELIEF FROM ANY MEDS RECIEVED IN ER. PROVIDED SANDWICH TRAY. INSTRUCTED NPO AFTER MIDNIGHT UNTIL SEEN BY AUTOMATIC SILK SCREEN PRINTER IN AM. PT VOICED UNDERSTANDING. SIGN ON DOOR. OTHER PM MEDS DUE HAVE TO BE OBTAINED BY DOG HAIR CLIPPER. CALL LIGHT IN REACH.
--- NOTE | 2018-12-04 21:28 | NUR ---
REMAINING BEDTIME MEDS PULLED BY COMMUNITY LIAISON OFFICER AND GIVEN AT THIS TIME.
[2018-12-04 22:15] VITALS: BP 134/95; Ht 185.4 cm; Wt 102.7 kg
[2018-12-05 00:29] VITALS: BP 134/95
--- NOTE | 2018-12-05 00:45 | NUR ---
PT C/O CHEST PAIN 06/09. REQUESTED MORPHINE 6MG SIVP GIVEN. 88/SR PER TELEMETRY. MONITOR AND CPOC.
--- NOTE | 2018-12-05 01:52 | NUR ---
PT NOW RESTING WITH NO FURTHER C/O PAIN. MONITOR AND CPOC.
[2018-12-05 03:34] LABS: BASOPHILS 0.1 % (0-2); EOSINOPHILS 0 % (0-7); HEMATOCRIT 47.3 % (42.0-54.0); HEMOGLOBIN 16.1 g/dL (13.5-17.5); IMMATURE GRANULOCYTES 0.4 % (0-5); LYMPHOCYTES 8.6 % (15-50); MCH 30.9 pg (26.0-34.0); MCV 90.8 fL (80.0-100.0); MEAN PLATELET VOLUME 11.1 fL (7.4-10.4); MONOCYTES 0.8 % (2-11); NEUTROPHILS 90.1 % (40-80); PLATELET COUNT 192 10x3/uL (130-400); RBC 5.21 10x6/uL (4.20-6.10); WBC 8.4 10x3/uL (4.8-10.8)
[2018-12-05 04:07] LABS: CALCIUM 9.1 mg/dL (8.5-10.1); CARBON DIOXIDE 28.4 mmol/L (21.0-32.0); CHLORIDE - SERUM 103 mmol/L (98-107); CREATININE - SERUM 0.9 mg/dL (0.6-1.3); SODIUM 137 mmol/L (136-145); UREA NITROGEN 13 mg/dL (7-18); eGFR NON AFRICAN AMERICAN > 90 mL/min (90-120)
[2018-12-05 04:09] LABS: CALC OSMOLALITY 276 mosm/kg (275-300); GLUCOSE 146 mg/dL (74-106); POTASSIUM - SERUM 5.3 mmol/L (3.5-5.1); TROPONIN-I 0.073 ng/mL (0.000-0.060)
[2018-12-05 05:56] VITALS: BP 126/80
[2018-12-05 09:13] VITALS: BP 137/77
[2018-12-05 09:19] LABS: BASOPHILS 0 % (0-2); EOSINOPHILS 0 % (0-7); HEMOGLOBIN 16.1 g/dL (13.5-17.5); IMMATURE GRANULOCYTES 0.1 % (0-5); LYMPHOCYTES 8.6 % (15-50); MCH 31.6 pg (26.0-34.0); MCHC 34.3 g/dL (31.0-37.0); MCV 92.3 fL (80.0-100.0); MEAN PLATELET VOLUME 11.8 fL (7.4-10.4); NEUTROPHILS 90.3 % (40-80); PLATELET COUNT 192 10x3/uL (130-400); RBC 5.09 10x6/uL (4.20-6.10); RDW 13.3 % (11.5-14.5); WBC 8.3 10x3/uL (4.8-10.8)
[2018-12-05 09:36] LABS: CALC OSMOLALITY 278 mosm/kg (275-300); CALCIUM 9.3 mg/dL (8.5-10.1); CARBON DIOXIDE 24.2 mmol/L (21.0-32.0); CHLORIDE - SERUM 103 mmol/L (98-107); GLUCOSE 162 mg/dL (74-106); SODIUM 138 mmol/L (136-145); UREA NITROGEN 10 mg/dL (7-18); eGFR NON AFRICAN AMERICAN 84 mL/min (90-120)
[2018-12-05 09:37] LABS: POTASSIUM - SERUM 4.3 mmol/L (3.5-5.1)
--- NOTE | 2018-12-05 11:30 | HP ---
PATIENT: KRISTA MENEZES JR MEDICAL RECORD: [id number] ACCOUNT: [id number] LOCATION:[address] : [birth year] ADMISSION DATE: 12/04/18 PCP: ARCENIO ALVARENGA HISTORY AND PHYSICAL EXAMINATION DATE OF ADMISSION: 12/04/2018 CHIEF COMPLAINT: Chest pain. HISTORY OF PRESENT ILLNESS: A 48-year-old white male with a history of coronary artery disease and multiple stents. He started having acute onset of chest pain that he feels is atypical for him when he starts getting a clot inside one of his stents. His last stent was less than a week ago. In the Emergency Room, his blood work was fairly unremarkable, but troponin was elevated at 0.093. ProBNP was 385. PAST MEDICAL HISTORY: Coronary artery disease and multiple stents, asthma, hyperlipidemia, nicotine dependence, kidney stones, COPD, sleep apnea. PAST SURGICAL HISTORY: Back surgery, Ambreen fundoplication, ventral hernia repair plus multiple stent placements. ALLERGIES: No known drug allergies. HOME MEDICATIONS: Tatum 5/325 p.r.n. pain; Spiriva; Breo; nitroglycerin; isosorbide mononitrate 30 mg once a day; atorvastatin 40 mg once a day; Effient 10 mg once a day; Lexapro 20 mg once a day, Ranexa 1000 mg twice a day. HABITS: He continues to smoke. No alcohol or drugs. SOCIAL HISTORY: , works. FAMILY HISTORY: Father at 73 of lung cancer. He also had heart disease. Mother at 75. She had Alzheimer's dementia and heart disease. REVIEW OF SYSTEMS: GENERAL: No major weight changes. HEENT: No particular sinus or allergy problems. RESPIRATORY: He has history of COPD, on inhalers. CARDIAC: See above history for heart disease. GASTROINTESTINAL: He has had recurrent reflux and had a Ambreen fundoplication. GENITOURINARY: History of kidney stones. MUSCULOSKELETAL: He has chronic low back pain, has had back surgery. NEUROLOGIC: No migraines or seizures. PSYCHIATRIC: Denies depression or melancholia. PHYSICAL EXAMINATION: VITAL SIGNS: Temperature 97.3, pulse 75, respirations 14, blood pressure 140/87. GENERAL: He does not appear to be in acute distress. He is awake and alert. SKIN: Warm and dry. HEENT: Grossly within normal limits. NECK: Supple. No JVD or bruit. HEART: Regular rate and rhythm without murmur. LUNGS: Clear. HISTORY AND PHYSICAL [id number] RIRIKRISTA THOMAS JR ABDOMEN: Soft, flat, nontender. EXTREMITIES: No edema. LABORATORY DATA: CBC is normal. Basic metabolic panel is normal. D-dimer is normal. Liver functions are okay. Troponin is 0.093, proBNP 385. Chest x-ray shows no acute process. ASSESSMENT: Chest pain in a patient with known history of coronary artery disease and over 20 stents. PLAN: We will admit, get serial cardiac enzymes. Cardiology has been consulted. Other tests or procedures as warranted. TRANSINT:[id number] Voice Confirmation ID: [id number] DOCUMENT ID: [id number] MICHAELA SMALL MD at 1130 CC: [id number] DICTATION DATE: 12/05/18 0145 TAILER OUT: 12/05/18 0507 ADM IN [facility] [address] [place] [address]
--- NOTE | 2018-12-05 18:25 | NUR ---
REVIEWED DISCHARGE INSTRUCTIONS WITH PT AND STATES UNDERSTANDING COPY GIVEN DCD SALINE LOCK TO LAC WITH IV CATHETER INTACT SITE FREE OF REDNESS OR EDEMA PT DISCHARGED HOME LEFT UNIT IN STable condition with all personal belongings VIA W/C
[2018-12-05 18:29] VITALS: BP 101/57
--- NOTE | 2018-12-06 09:20 | MORECARE ---
CASE MANAGEMENT DISCHARGE SUMMARY PATIENT: KRISTA MENEZES JR UNIT: [id number] ADM DATE: 12/04/18 AGE: 48 : [birth year] SEX: M ROOM/BED: D.2116 AUTHOR: DOMINIQUE CARPIO PHYSICIAN: REFERRING PHYSICIAN: ARCENIO ALVARENGA MD DATE OF SERVICE: 12/06/18 Discharge Plan Patient Name: KRISTA MENEZES Facility: [facility]:[place] : 1970 Planned Disposition: Home Anticipated Discharge Date: 12/05/18 Discharge Date: 12/05/2018 Expected LOS: 1 Initial Reviewer: [email or web address] Initial Review Date: 12/06/2018 Generated: 12/06/18 10:20 am Patient Name: KRISTA MENEZES Page 82619 at 0920 All edits/amendments must be made on the electronic document DICTATION DATE: 12/06/18919 VIDEOGAME TESTER: LEANNE 12/06/18919 RPT#: [id number] DC DATE:12/05/18 STATUS: DIS IN [facility] [address] [place] [address] END OF REPORT
--- NOTE | 2018-12-07 13:13 | OP ---
PATIENT NAME: KRISTA MENEZES JR MEDICAL RECORD: [id number] :66 LOCATION:D.M2 D.2116 ADMISSION DATE:12/04/18 SURGEON: RUPINDER BANG MD DATE OF OPERATION: 12/05/2018 PROCEDURE: Left heart catheterization, selective coronary angiography, right femoral artery approach. CATHETERS: A 5-Georgian sheath, 5/4 left and right Gayla, 5/4 pig. The procedure was well tolerated. The patient was returned to ray. Sheath was removed. ExoSeal device was placed. FINDINGS: Left ventriculography in 30-degree GONSALEZ view: Mild inferior basilar hypokinesis. Overall LV function appears normal at 50%. CORONARY ANATOMY: LEFT MAIN: Left main is free of disease. LAD: Stents are widely patent. No evidence of subacute stent thrombosis or progression of [place] disease. There is a small diagonal branch pinched off inside one of the stents. CIRCUMFLEX: Circumflex itself appears widely patent. There is an OM previously stented with known occlusion with [id number] collaterals. RIGHT CORONARY ARTERY: Previously placed stent is widely patent. IMPRESSION: Certainly could have angina from either diagonal or OM; however, OM is getting very reasonable collaterals. Diagonal is too small for intervention. Medical management and risk factor modification. TRANSINT:[id number] Voice Confirmation ID: [id number] DOCUMENT ID: [id number] RUPINDER BANG MD at 1313 CC: [id number] DICTATION DATE: 12/05/18 1205 FAMILY SERVICE CASEWORKER: 12/05/181923 DIS IN 12/05/18 [facility] [address] [place] [address]
--- NOTE | 2018-12-07 13:13 | CN ---
PATIENT NAME:KRISTA MENEZES JR MEDICAL RECORD: [id number] : 66 LOCATION:[facility] [address].2116 ADMIT DATE: 12/04/18 ACCOUNT: [id number] CONSULTING PHYSICIAN: RUPINDER BANG MD REFERRING PHYSICIAN: ARCENIO ALVARENGA MD DATE OF CONSULTATION: 12/05/2018 HISTORY: A 48-year-old gentleman with multiple interventions in the past, presented after undergoing intervention last week, with typical chest pain. He also reports more constitutional symptomatology of fatigue and tiredness. No response to nitroglycerin. He feels certain this is his typical angina. Cardiac enzymes are elevated; however, difficult to discern given underlying recent intervention. We are asked to see him concerning his cardiovascular status. PAST MEDICAL HISTORY: Includes; 1. History of hypertension. 2. Hyperlipidemia. 3. Coronary artery disease as described above. 4. Gastroesophageal reflux disease. ALLERGIES: PLAVIX. MEDICATIONS: Include Breo Ellipta one puff b.i.d., Lexapro 20 at bedtime, aspirin 81 daily, atorvastatin 40 daily, Imdur 30 daily, Ranexa 1 gram b.i.d., and Effient 10 daily. SOCIAL HISTORY: Nonsmoker and nondrinker. He takes care of all his ADLs. No set exercise program. He reports staying quite active. REVIEW OF SYSTEMS: The patient reports easy bruising but reports no swollen glands. The patient reports no fever, no night sweats, no significant weight gain, no significant weight loss. No significant exercise tolerance. The patient reports no dry eyes, no irritation, no vision change. Patient reports no difficulty hearing and no ear pain. Patient reports no frequent nose bleeds or nose and sinus problems. Patient reports on arm pain on exertion. No shortness of breath while lying down. No history of heart murmur. Patient reports no cough, no wheezing or coughing up blood. Patient reports no abdominal pain, no vomiting. Normal appetite. No diarrhea and not vomiting blood. No nausea and no constipation. Patient reports no incontinence. No difficulty urinating. No hematuria. No increased frequency. Patient reports no muscle aches. No weakness, no arthralgias, no back pain. No swelling of the extremities. Patient reports no abnormal mole, no jaundice, no rashes. Reports no loss of consciousness. No weakness and no numbness. No seizures, dizziness, or headaches. The patient reports no depression, no sleep disturbance, feeling safe in a relationship and no alcohol abuse. Patient reports on fatigue. Reports no runny nose or sinus pressure. No itching, no hives, and no frequent sneezing. PHYSICAL EXAMINATION: GENERAL: Middle-aged gentleman, in no acute distress. VITAL SIGNS: Blood pressure 137/77. Pulse 80 and regular. HEENT: Normocephalic and atraumatic. NECK: No bruits noted. HEART: Regular. Questionable S4 gallop. CONSULT REPORT [id number] KRISTA MENEZES JR LUNGS: Good air excursion. ABDOMEN: Soft and nontender. EXTREMITIES: Pulses 2+. There is no edema. NEUROLOGIC: Grossly intact. DIAGNOSTIC DATA: ECG without acute change. PLAN: We will plan for angiography to visualize anatomy. TRANSINT:[id number] Voice Confirmation ID: [id number] DOCUMENT ID: [id number] RUPINDER BANG MD at 1313 CC: [id number] DICTATION DATE: 12/05/18 1051 APPLICATIONS COORDINATOR: 12/05/18 1737 DIS IN 12/05/18 [facility] [address] [place] [id number]
== END 2018-12-05 18:25 | disposition home or self-care (01) ==
LOC: D.ER 14:26 → D.EDHOLD 17:43 → OBSVTIME 17:43 → D.M2 18:25
PROVIDERS: Family Medicine; Internal Medicine Interventional Cardiology; ADMIT Family Medicine; ATTEND Family Medicine
DX: T82.847A Pain due to cardiac prosthetic devices, implants and grafts, initial encounter (principal); I25.110 Atherosclerotic heart disease of native coronary artery with unstable angina pectoris; J44.9 Chronic obstructive pulmonary disease, unspecified; I10 Essential (primary) hypertension

== ENCOUNTER 2018-12-17 07:43 | Outpatient (CLI) | payer OTHER ==
[~2018-12-17] VITALS: Ht 185.4 cm; Wt 101.4 kg
--- NOTE | ~2018-12-17 | OP ---
PATIENT NAME: KRISTA MENEZES JR MEDICAL RECORD: [id number] :66 LOCATION:D.CAT ADMISSION DATE: SURGEON: DUC MARTELL MD DATE OF OPERATION: 12/17/2018 PROCEDURES: 1. PTCA left circumflex. 2. Four-vessel carotid vertebral angiography. 3. Left heart catheterization. 4. Selective coronary angiography. 5. Left ventriculogram. INDICATION: Angina, syncope, coronary artery disease. PROCEDURE IN DETAIL: After informed consent was obtained and after a detailed description of risks, benefits as well as alternative therapies, the patient elected to proceed with angiogram and angioplasty. The right femoral area was prepped and draped in normal sterile fashion. Right femoral artery was cannulated via modified Seldinger technique with placement of 6-Sinhala sheath. All catheters exchanged through this sheath. FINDINGS: There was subselection of each subclavian as well as the left carotid. RIGHT SIDE: The common internal and external carotids have mild plaquing, no greater than 20%, no flow-limiting stenosis. Vertebral artery has no significant disease. LEFT SYSTEM: The common internal and external carotids have mild plaquing, none greater than 20%, no flow-limiting stenosis. Vertebral artery has no significant disease. Left ventriculogram was performed in standard 30-degree GONSALEZ view, reveals good cardiac wall motion throughout all segments. Overall ejection fraction estimated 60%. SELECTIVE CORONARY ANGIOGRAPHY: 1. Left main is with no significant angiographic disease. 2. Left anterior descending has previously placed stents, these are widely patent with no significant restenosis. No disease elsewise throughout the LAD or its branches. 3. The left circumflex has previously placed stents that are 70% in-stent restenosis in the mid vessel. The obtuse marginal was chronically totally occluded. This is unchanged from previous angiography. 4. The right coronary has previously placed stents, these are widely patent with no significant restenosis. No disease elsewise throughout the RCA or its branches. PTCA OF THE LEFT CIRCUMFLEX: The in-stent restenosis was addressed with a high pressure PTCA with a 3-0 balloon taken to 21 atmospheres. Result was 0% residual stenosis. OVERALL IMPRESSION: Successful PTCA for in-stent restenosis of the circumflex going from 70% initial stenosis to 0% residual. OPERATIVE REPORT [id number] KRISTA MENEZES JR TRANSINT:[id number] Voice Confirmation ID: [id number] DOCUMENT ID: [id number] DUC MARTELL MD CC: [id number] DICTATION DATE: 12/17/18 1114 CAFETERIA MANAGER: 12/17/18 1227 [address] [place] [id number] [place] [id number]
--- NOTE | ~2018-12-17 | HEMODYNAMI ---
PATIENT:KRISTA MENEZES JR MEDICAL RECORD: [id number] : 66 LOCATION:D.DEMETRIA ADMISSION DATE: 12/17/18 Generatedon:12/17/201811:12 Patient name: KRISTA MENEZES Patient #: [id number] SSN: DO B: 1970 Date of study: 12/17/2018 Page: Of Hemodynamic Procedure Report Patient Data Patient Demographics Procedure consent was obtained First Name: KRISTA Gender: Male Last Name: RIRI Suffix: [facility] Initial: Ruth : 1970 Patient #: [id number] Age: 48 year(s) Race: Additional ID: [id number] Contact details Address: [address] [place] [address] State: [facility] Zip code: [address] Past Medical History Allergies Allergen Reaction Date Comments Reported Other allergy 10/20/2018 Plavix non responder Other allergy 12/05/2018 PLAVIX Admission Admission Data Admission Date: 12/17/2018 Admission Time: 7:43 Weight (lbs.): 222.67 Weight (kg.): 101 Lab Results Lab Result Date: 12/17/2018 Lab Result Time: 0:00 Biochemistry Name Units Result Min Max BUN mg/dl 13 --(--*-)-- 7 18 Creatinine mg/dl 1 --(--*-)-- 0.6 1.3 CBC Name Units Result Min Max Hemoglobin g/dl 16.3 --(--*-)-- 13.5 17.5 Procedure Procedure Types Cath Procedure Diagnostic Procedure LHC LHC w/Coronaries PCI Procedure PTCA PTCA Initial Peripheral Cath Diagnostic 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 Four Vessel Arteriogram Procedure Description Procedure Date Procedure Date: 12/17/2018 Procedure Start Time: 10:58 Procedure End Time: 11:12 Procedure Staff Name Function Khoa Yi MD Performing Physician Nathan Brink RT Monitor Ayesha Weinberg RT Scrub Luis Self RN Nurse Procedure Data Cath Procedure Fluoroscopy Diagnostic fluoroscopy Total fluoroscopy Time: 1.9 time: 1.9 min min Diagnostic fluoroscopy Total fluoroscopy dose: 362 dose: 362 mGy mGy Contrast Material Contrast Material Type Amount (ml) Isovue 300 75 Entry Location Entry Primary Successful Side Size Upsize Upsize Entry Closure Succes sful Closure Location (Fr) 1 (Fr) 2 (Fr) Remarks Device Remarks Femoral Right 5 Fr 6 Fr Exoseal artery Short Estimated blood loss: 10 ml Diagnostic catheters Device Type Used For End Catheter Placement MULTIPACK Pigtail 5 Fr Procedure catheter MULTIPACK JL 4.0 5Fr Procedure catheter MULTIPACK 3DRC 5Fr Procedure catheter Procedure Complications No complications Procedure Medications Medication Administration Route Dosage 0.9% NaCl I.V. 100 ml/hr Oxygen etCO2 Nasal cannula 2 l/min Heparin Flush Bag added to field 2 bags (1000units/500ml NS) Lidocaine 2% added to field 20 Versed I.V. 2 mg Fentanyl I.V. 100 mcg Versed I.V. 2 mg Fentanyl I.V. 100 mcg Versed I.V. 1 mg Heparin Bolus I.V. 4000 units Hemodynamics Rest HGB: 16.3 (g/dl) Heart Rate: 78 (bpm) Snapshots Pre Cath Intra NCS Post Cath Vital Signs Time Heart Resp SPO2 etCO2 NIBP (mmHg) Rhythm Pain Sedation Rate (ipm) (%) (mmHg) Status Level (bpm) 10:21:16 78 12 98 43.3 128/97(113) NSR 0 (11) 10(A) , No pain 10:25:18 79 16 97 39.6 131/98(126) NSR 0 (11) 10(A) , No pain 10:29:24 80 19 97 37.3 129/86(104) NSR 0 (11) 10(A) , No pain 10:33:28 77 16 97 31.3 113/90(99) NSR 0 (11) 10(A) , No pain 10:38:22 78 17 96 44.1 128/77(104) NSR 0 (11) 10(A) , No pain 10:42:28 75 16 96 37.3 121/85(103) NSR 0 (11) 10(A) , No pain 10:46:30 74 17 96 28.4 118/85(95) NSR 0 (11) 10(A) , No pain 10:50:32 77 14 97 36.6 130/87(94) NSR 0 (11) 10(A) , No pain 10:54:35 75 18 96 29.8 121/89(98) NSR 0 (11) 10(A) , No pain 10:58:37 83 17 98 33.6 118/88(100) NSR 0 (11) 10(A) , No pain 11:02:37 80 16 96 29.1 126/92(107) NSR 0 (11) 10(A) , No pain 11:06:38 83 13 92 23.9 134/104(119) NSR 0 (11) 9(A) , No pain 11:10:42 86 14 93 39.6 129/99(121) NSR 0 (11) 9(A) , No pain Medications Time Medication Route Dose Verified Delivered Reason Notes Eff ectiveness by by 10:19:33 0.9% NaCl I.V. 100 Luis Luis Per ml/hr Aramis Self physician RN RN 10:19:45 Oxygen etCO2 2 Luis Luis for low 02 Nasal l/min Lorigan Lorigan sats cannula RN RN 10:19:56 Heparin Flush added 2 Luis Luis used for Bag to bags Lorigan Lorigan procedure (1000units/500ml field RN RN NS) 10:20:08 Lidocaine 2% added 20ml Luis Luis for local to vial Lorigan Lorigan anesthetic field RN RN 10:56:43 Versed I.V. 2 mg Luis Luis for Lorigan Lorigan sedation RN RN 10:57:43 Fentanyl I.V. 100 Luis Luis for mcg Lorigan Lorigan sedation RN RN 11:00:34 Versed I.V. 2 mg Luis Luis for Lorigan Lorigan sedation RN RN 11:00:40 Fentanyl I.V. 100 Luis Luis for mcg Lorigan Lorigan sedation RN RN 11:04:29 Versed I.V. 1 mg Luis Luis for Lorigan Lorigan sedation RN RN 11:06:31 Heparin Bolus I.V. 4000 Luis Luis for units Lorigan Lorigan sedation RN operations support professionals Log Time Note 9:56:05 Diagnostic Cath Status : Elective 9:56:28 Nathan Brink RT(R) sent for patient. Start room use. 9:56:29 Time tracking: Regular hours (M-F 7:00 - 5:00) 9:56:43 Plan of Care:Hemodynamics will remain stable., Cardiac rhythm will remain stable., Comfort level will be maintained., Respiratory function will remain adequate., Patient/ family verbilizes understanding of procedure., Procedure tolerated without complication., Recovers from procedure without complications.. 10:09:23 Patient received from Pre/Post Procedure Room to [facility] 2 Alert and oriented. Tansferred to table in Supine position. 10:09:24 Warm blankets applied, and lynette hugger turned on for patient comfort. 10:09:25 Correct patient and procedure confirmed by team. 10:09:27 Signed procedure consent form obtained from patient. 10:09:31 ECG and BP/O2 sat monitors applied to patient. 10:19:33 0.9% NaCl 100 ml/hr I.V. was administered by Luis Self RN; Per physician; 10:19:45 Oxygen 2 l/min etCO2 Nasal cannula was administered by Luis Self RN; for low 02 sats; 10:19:56 Heparin Flush Bag (1000units/500ml NS) 2 bags added to field was administered by Luis Self RN; used for procedure; 10:20:08 Lidocaine 2% 20ml vial added to field was administered by Luis Self RN; for local anesthetic; 10:20:14 Vital chart was started 10:36:17 Baseline sample Acquired. 10:36:39 Rhythm: sinus rhythm 10:36:40 Full Disclosure recording started 10:36:58 H&P Date Dictated: 12/16/2018 Within 30 days and on chart., H&P Addendum completed by physician on day of procedure. (MUST COMPLETE FOR ALL OUTPATIENTS). 10:36:59 Pre-procedure instructions explained to patient. 10:37:00 Pre-op teaching completed and patient verbalized understanding. 10:37:05 Family in patients room. 10:37:08 Patient NPO since Midnight. 10:37:09 Is the patient allergic to Iodine/contrast media? No. 10:37:16 Is patient on blood thinner?Yes 10:37:20 ACC The patient was administered the following blood thiners within the last 24 hours: ACCEffient 10:37:30 Patient diabetic? No. 10:37:33 Previous problem with sedation/anesthesia? No ? 10:37:36 Snore? Yes 10:37:52 Sleep apnea? Yes 10:37:55 Deviated septum? No 10:37:56 Opens mouth fully? Yes 10:37:57 Sticks out tongue? Yes 10:39:01 Airway obstruction? Yes COPD 10:39:12 Dentures? Yes IN 10:39:21 Pre procedure: right dorsailis pedis pulse 1+ Palpable, but thready & weak; easily obliterated 10:39:28 Patient pain scale 0/10 ?. 10:39:33 IV patent on arrival in left forearm with 0.9% NaCl at [facility]. 10:39:35 Lab results completed and on chart. 10:39:40 Right groin area was prepped with chlora-prep and draped in sterile fashion 10:39:41 Alarms reviewed by R. N. 10:39:41 Sharps counted by scrub and verified by R.N. 10:39:54 Use device set Femoral Dx 10:39:57 Tegaderm 4 x 4 (1626W) opened to sterile field. 10:39:58 ACIST Manifold (78485) opened to sterile field. 10:39:59 ACIST Hand Control (03331) opened to sterile field. 10:40:00 ACIST Syringe (46941) opened to sterile field. 10:40:00 Bag Decanter (2002S) opened to sterile field. 10:40:01 Medline Cath Pack ([id number]) opened to sterile field. 10:40:01 DIAGNOSTIC WIRE .035 260cm J wire (135803) opened to sterile field. 10:40:04 DIAGNOSTIC Multipack 5Fr catheter set ([id number]) opened to sterile field. 10:40:05 SHEATH 5FR Independence (SPV860) opened to sterile field. 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 All members of the team are in agreement. 10:55:58 Right groin site verified by team. 10:56:01 Maximum allowable Isovue 300 dose 300ml. Physician notified. (300ml for normal creatinines. For patients with creatinine of 1.7 or higher multiply weight(kg) x 5 divided by creatinine.) 10:56:05 Fire Safety Assessment: A--An alcohol-based skin anteseptic being used preoperatively., C--Open oxygen or nitrous oxide is being used., D--An ESU, laser, or fiber-optic light is being used. 10:56:08 Physical assessment completed. ASA score P 2 - A patient with mild systemic disease as per Khoa Yi MD. 10:56:11 Sedation plan: IV Moderate Sedation Medication:Versed, Fentanyl 10:56:43 Versed 2 mg I.V. was administered by Luis Self RN; for sedation; 10:57:43 Fentanyl 100 mcg I.V. was administered by Luis Self RN; for sedation; 10:58:46 Procedure started. 10:58:50 Local anesthetic to right femoral artery with Lidocaine 2% by Khoa Yi MD.INITIAL ACCESS ONLY 11:00:34 Versed 2 mg I.V. was administered by Luis Self RN; for sedation; 11:00:35 A 5 Fr sheath was inserted into the Right Femoral artery 11:00:40 Fentanyl 100 mcg I.V. was administered by Luis Self RN; for sedation; 11:00:54 A MULTIPACK Pigtail 5 Fr catheter was advanced over the wire and used for Procedure. 11:01:04 LV angiography performed. 11:01:09 LV gram done using GONSALEZ 11:01:14 EF : 35 % 11:01:19 Injector settings: Ml/sec: 10, Volume: 20, 11:01:22 Catheter removed. 11:01:28 A MULTIPACK JL 4.0 5Fr catheter was advanced over the wire and used for Procedure. 11:02:14 LCA angiography performed. 11:02:45 Catheter removed. 11:02:49 A MULTIPACK 3DRC 5Fr catheter was advanced over the wire and used for Procedure. 11:03:37 Left subclavian angiography performed 11:03:41 Left carotid angiography performed. 11:03:43 Right subclavian angiography performed 11:04:29 Versed 1 mg I.V. was administered by Luis Self RN; for sedation; 11:05:45 RCA angiography performed. 11:05:48 Catheter removed. 11:05:51 Use device set TAUTH PCI 11:05:53 SHEATH 6FR Independence (SOV731) opened to sterile field. 11:05:59 CHOICE PT Extra Support 182cm wire ([id number]) opened to sterile field. 11:06:01 INFLATOR Merit BasixCompak (SJ1354) opened to sterile field. 11:06:03 GUIDE 6FR XBLAD 3.5 catheter ([id number]) opened to sterile field. 11:06:19 Sheath upsized to a 6 Fr Short. 11:06:27 6 Fr XBLAD 3.5 guide catheter was inserted over the wire 11:06:31 Heparin Bolus 4000 units I.V. was administered by Luis Self RN; for sedation; 11:06:39 CPTXS wire advanced. 11:06:59 Wire advanced across lesion. 11:07:59 Inflate balloon Inflation number: 1 A EUPHORA 3.0 x 15 Balloon ([id number]) was prepped and advanced across the Mid LAD, then inflated to 21 TIFFANY for 0:10 (min:sec). 11:08:29 Balloon removed over the wire. 11:08:30 Wire removed. 11:08:30 Guide catheter removed. 11:08:36 EXOSEAL 6Fr (EX600) opened to sterile field. 11:08:47 Sheath removed intact; hemostasis achieved with Exoseal to the Right Femoral artery. 11:08:49 Procedure ended.(Physican Out) 11:09:00 Fluoroscopy time 01.90 minutes. 11::26 Flurop Dose total: 362 11:: Fluoroscopy dose: 362 mGy 11::33 Contrast amount:Isovue 300 75ml. 11:09:34 Sharps counted by scrub and verified by R.N. 11:09:36 Insertion/operative site no bleeding no hematoma. 11:09:39 Post-op/insertion site Right Femoral artery dressed using a 4 x 4 and Tegaderm. 11:09:40 Post Procedure Pulses reassessed and unchanged 11:09:43 Post-procedure physical assessment completed. ASA score P 2 - A patient with mild systemic disease as per Khoa Yi MD. 11:09:45 Post procedure rhythm: unchanged. 11:09:48 Estimated blood loss: 10 ml 11:09:49 Post procedure instruction explained to patient.Patient verbalizes understanding. 11:09:49 Patient needs reinforcement of post procedure teaching. 11:10:03 Procedure and supply charges have been captured, reviewed, submitted and are correct. 11:10:05 Procedure Complication : No complications 11:12:05 Vital chart was stopped 11:12:05 See physician's report for complete and final results. 11:12:09 Report given to Pre/Post Procedure Room. 11:12:12 Patient transfered to Pre/Post Procedure Room with Stretcher. 11:12:14 Procedure ended. 11:12:14 Full Disclosure recording stopped 11:12:31 End room use (Document Last) Intervention Summary Intervention Notes Time ActionType Lesion and Equipment Action# Pressure Duration Attributes Used 11:07:59 Inflate Mid LAD EUPHORA 1 21 00:10 balloon 3.0 x 15 Balloon ([id number]) Device Usage Item Name Manufacture Quantity Catalog Number Hospital Part Current Minim al Lot# / Charge Number Stock Stock Serial# Code Tegaderm 4 3M 1 1626W [id number] 368880 461438 5 x 4 (1626W) ACIST Acist 1 76872 754077 429187 988070 5 Manifold Medical (87894) Systems Inc ACIST Hand Acist 1 91993 301104 978671 368742 5 Control Medical (45499) Systems Inc ACIST Acist 1 68350 839665 701898 505592 20 Syringe Medical (63749) Systems Inc Bag Microtek 1 2001S 097577 95259 260015 5 Decanter Medical Inc. () Medline Medline 1 [id number] 783920 92153 086600 5 Cath Pack ([id number]) DIAGNOSTIC [facility] Luiz 1 276126 715979 575038 243017 30 WIRE .035 260cm J wire (229118) DIAGNOSTIC Cardinal 1 AY9185 142115 51125 475669 30 [facility] 5Fr catheter set (GZ7732) SHEATH 5FR Terumo 1 BAE813 272213 433633 340620 5 Independence (NBO380) MULTIPACK Cardinal 1 419934 5 Pigtail 5 Health Fr catheter MULTIPACK Cardinal 1 733083 5 JL 4.0 5Fr Health catheter MULTIPACK Cardinal 1 062483 5 3DRC 5Fr Health catheter SHEATH 6FR Terumo 1 CZR315 678343 677903 426241 40 Independence (AGF666) CHOICE PT [place] 1 [id number] 195467 900979 230091 5 Extra Scientific Support 182cm wire ([id number]) INFLATOR Merit 1 TL4422 520720 145980 118130 15 Intune Networks Medical BasixCompak (XQ5156) GUIDE 6FR Cardinal 1 [id number] 633613 450863 439568 10 XBLAD 3.5 Health catheter (38444416) EUPHORA 3.0 Medtronic 1 [id number] 106431 138002 256460 5 [id number] x 15 Balloon ([id number]) EXOSEAL 6Fr Cardinal 1 EX600 052424 247565 138179 10 (EX600) Health Signature Audit [place] Stage Time Signature Unsigned Intra-Procedure 12/17/2018 Nathan Brink 11:12:52 AM RT(R) Signatures Monitor : Nathan Brink RT Signature : Date : Time : [place] [id number] [place] [address]
[2018-12-17 07:56] VITALS: BP 134/70; Ht 185.4 cm; Wt 101.4 kg
[2018-12-17 08:13] LABS: BASOPHILS 0.4 % (0-2); CALC OSMOLALITY 284 mosm/kg (275-300); CALCIUM 9.1 mg/dL (8.5-10.1); CARBON DIOXIDE 29.2 mmol/L (21.0-32.0); CHLORIDE - SERUM 107 mmol/L (98-107); EOSINOPHILS 3.9 % (0-7); HEMATOCRIT 46.8 % (42.0-54.0); HEMOGLOBIN 16.3 g/dL (13.5-17.5); IMMATURE GRANULOCYTES 0.1 % (0-5); LYMPHOCYTES 16.6 % (15-50); MCH 31.7 pg (26.0-34.0); MCHC 34.8 g/dL (31.0-37.0); MCV 91.1 fL (80.0-100.0); MEAN PLATELET VOLUME 10.8 fL (7.4-10.4); MONOCYTES 7.2 % (2-11); NEUTROPHILS 71.8 % (40-80); PLATELET COUNT 213 10x3/uL (130-400); POTASSIUM - SERUM 4.2 mmol/L (3.5-5.1); RBC 5.14 10x6/uL (4.20-6.10); RDW 13.6 % (11.5-14.5); SODIUM 143 mmol/L (136-145); UREA NITROGEN 13 mg/dL (7-18); WBC 7.6 10x3/uL (4.8-10.8); eGFR NON AFRICAN AMERICAN 84 mL/min (90-120)
[2018-12-17 08:15] LABS: GLUCOSE 100 mg/dL (74-106)
--- NOTE | 2018-12-17 11:32 | NUR ---
RECEIVED PT FROM SCAFFOLD SETTER, PT SLEEPING, AWAKES EASILY TO VERBAL STIMULI AND DENIES ANY C/O. REQUESTS SODA AND THIS SERVED. HOB IS FLAT, DRESSING TO RIGHT GROIN IS CDI, AREA SOFT AND NONTENDER. PEDAL PULSES PALPABLE. AT BEDSIDE.
--- NOTE | 2018-12-17 11:46 | NUR ---
PT SLEEPING, AWAKENS EASILY TO VERBAL STIMULI. 6 FR EXOSEAL IS CDI TO RIGHT GROIN. PEDAL PULSES PALPABLE. PT TRUMAN PO FLUIDS WITH NO C/O NAUSEA. HOB IS FLAT. AT BEDSIDE, VSS.
--- NOTE | 2018-12-17 12:15 | NUR ---
6 FR EXOSEAL R/GROIN REMAINS CDI NO BLEEDING OR HEMATOMA. HR 77 BP 110/79 CHEST PAIN IS DENIED. FAMILY PRESENT AT BEDSIDE
--- NOTE | 2018-12-17 12:47 | NUR ---
PATIENT CONTINUES TO REST WITH EYES CLOSED RESPIRATIONS ARE EVEN AND UNLABORED. HR 75 WITH NO DISTRESS NOTED 6 FR EXOSEAL R/GROIN IS SOFT TO TOUCH WITH PULSES PALPABLE
--- NOTE | 2018-12-17 12:54 | NUR ---
DRESSING TO RIGHT GROIN IS CDI, PEDAL PULSES PALPABLE. HOB IS FLAT, VSS, CALL LIGHT IN REACH.
--- NOTE | 2018-12-17 13:25 | NUR ---
PT SLEEPING, RESP WITH EASE ON O2 AT 2LPM VIA NC, PT AWAKENS EASILY AND DENIES ANY C/O. VSS, DRESSING CDI, PEDAL PULSES PALPABLE.
--- NOTE | 2018-12-17 14:22 | NUR ---
1350 DRESSING CDI TO RIGHT GROIN, AREA IS SOFT AND NONTENDER. PEDAL PULSES PALPABLE. PT DENIES ANY C/O. VSS, AT BEDSIDE.
--- NOTE | 2018-12-17 14:40 | NUR ---
1430 HOB ELEVATED 30 DEGREES, DRESSING CDI TO RIGHT GROIN, SANDWICH AND PO FLUIDS SERVED. DRESSING CDI TO RIGHT GROIN, PEDAL PULSES PALPABLE. VSS.
--- NOTE | 2018-12-17 14:54 | NUR ---
HOB FULLY ELEVATED. DRESSING TO RIGHT GROIN IS CDI, PEDAL PULSES PALPABLE. VSS. PT DENIES ANY C/O. DC INSTRUCTIONS REVIEWED WITH PT AND WHO VERBALIZE UNDERSTANDING.
--- NOTE | 2018-12-17 15:05 | NUR ---
DRESSING CDI, PULSES PALPABLE. IV DC'D WITH CATH INTACT. PT DRESSING FOR DC WITH ASSIST.
--- NOTE | 2018-12-17 15:13 | NUR ---
PT HAS DRESSED FOR DC. VOIDED 600 CC CLEAR YELLOW URINE TO URINAL. PT ESCORTED TO PRIVATE AUTO VIA WC BY NURSE WITH DRIVING HIM HOME. PT IS ALERT AND DENIES ANY C/O AT CO.
== END 2018-12-17 15:10 | disposition home or self-care (01) ==
LOC: D.CATH 07:43
PROVIDERS: ATTEND Internal Medicine Interventional Cardiology
DX: I25.110 Atherosclerotic heart disease of native coronary artery with unstable angina pectoris (principal); R55 Syncope and collapse; I65.23 Occlusion and stenosis of bilateral carotid arteries

== ENCOUNTER → 2019-01-25 16:06 | Outpatient (CLI) | payer OTHER ==
[2018-12-17 07:56] VITALS: BMI 29.4
[2019-01-25 18:18] LABS: CHOL - HDL RATIO 7.2 ratio (2.3-4.9); LDL-HDL RATIO 4.4 ratio (1.5-3.5)
== END | disposition home or self-care (01) ==
LOC: D.LABREF 16:06
PROVIDERS: ATTEND Internal Medicine Interventional Cardiology
DX: E87.5 Hyperkalemia (principal)

== ENCOUNTER 2019-08-26 21:42 | Observation (INO) | payer OTHER ==
[~2019-08-26] VITALS: Ht 185.4 cm; Wt 103.6 kg
--- NOTE | ~2019-08-26 | HP ---
PATIENT: KRISTA MENEZES JR MEDICAL RECORD: [id number] ACCOUNT: [id number] LOCATION:[facility] [place].2118 : 66 ADMISSION DATE: 08/26/19 PCP: ARCENIO ALVARENGA HISTORY AND PHYSICAL EXAMINATION DIAGNOSES: 1. Unstable angina. 2. Coronary artery disease. 3. Previous PTCA and stent. 4. Hypertension. 5. Hyperlipidemia. 6. Smoking. 7. Chronic obstructive pulmonary disease. 8. Family history of premature coronary artery disease. HISTORY OF PRESENT ILLNESS: This is a gentleman with known coronary disease. Last cardiac intervention was earlier in the year. He has had 1 week of increasing chest pain just like that of his previous angina. It has progressed. It is now class IV rest pain. Last cardiac intervention was in November, it was in-stent restenosis of the circumflex. He as well has stents in the LAD and RCA. He is on optimal medical therapy with Imdur or Ranexa. Heart rates in the 60s. Systolic blood pressures in the 110-120 range, but he continues to have progression of pain despite this. PHYSICAL EXAMINATION: CONSTITUTIONAL/GENERAL APPEARANCE: Well nourished, well developed, appears stated age. EYES: Lids and conjunctivae noninjected. No discharge. No pallor. ENT: Lips within normal limit. No cyanosis. No pallor. NECK: Carotid arteries, bilateral normal upstroke. No bruits. No thrills. No jugular venous pressure or distention. CERVICAL LYMPH NODES: Nontender. Nonenlarged. THYROID: Not enlarged. No nodules. CARDIOVASCULAR: Precordial exam, nondisplaced. No heaves or pericardial thrills. Rate and rhythm, regular. Heart sounds, normal S1, normal S2. No S3, no gallop, no rub. Systolic murmur, not heard. Diastolic murmur, not heard. RESPIRATORY: Respiratory effort, unlabored. Normal curvature. No thoracic deformity. No chest wall tenderness. Percussion, resonant. Auscultation, clear. No wheezes, no rales, no rhonchi. ABDOMEN: Soft, nondistended, nontender. No abdominal pain, no vomiting and normal appetite. MUSCULOSKELETAL: No joint tenderness, normal gait, normal tone. SKIN: Warm and dry. OVERALL IMPRESSION: Unstable angina despite medical therapy. We will proceed with coronary angiography. Further care depends upon findings of the angiography. TRANSINT:[id number] Voice Confirmation ID: [id number] DOCUMENT ID: [id number] HISTORY AND PHYSICAL [id number] KRISTA MENEZES JR, JEFFREY MD CC: [id number] DICTATION DATE: 08/27/19 0857 DIRECTOR MEDICAL WRITING: 08/27/19 1023 ADM IN [facility] [address] [place] [address]
--- NOTE | ~2019-08-26 | HEMODYNAMI ---
PATIENT:KRISTA MENEZES JR MEDICAL RECORD: [id number] : 66 LOCATION:[facility] D.2118 ADMISSION DATE: 08/26/19 Generatedon:08/27/201910:24 Patient name: KRISTA MENEZES Patient #: [id number] SSN: DO B: 1970 Date of study: 08/27/2019 Page: Of Hemodynamic Procedure Report Patient Data Patient Demographics Procedure consent was obtained First Name: RKISTA Gender: Male Last Name: RIRI Suffix: Jr Rojo Initial: Ruth : 1970 Patient #: [id number] Age: 49 year(s) Race: Additional ID: [id number] Contact details [address]: [address] [place] [address] State: [place] City: [place] Zip code: [address] Past Medical History Allergies Allergen Reaction Date Comments Reported Other allergy 10/20/2018 Plavix non responder Other allergy 12/05/2018 PLAVIX Admission Admission Data Admission Date: 08/26/2019 Admission Time: 23:17 Room #: D.2118 Procedure Procedure Types Cath Procedure Diagnostic Procedure LHC [facility] w/Coronaries FFR/IVUS FFR Initial FFR Additional Sedation Charges Moderate Sedation up to 30 minutes PCI Procedure Coronary Stent Coronary Stent Initial x2 Procedure Description Procedure Date Procedure Date: 08/27/2019 Procedure Start Time: 9:46 Procedure End Time: 10:13 Procedure Staff Name Function Ayesha Weinberg RT Scrub Piper Parikh RN Nurse Khoa Yi MD Performing Physician Ayesha Crane RT Monitor Procedure Data Cath Procedure Fluoroscopy Diagnostic fluoroscopy Total fluoroscopy Time: 5.9 time: 5.9 min min Diagnostic fluoroscopy Total fluoroscopy dose: 773 dose: 773 mGy mGy Contrast Material Contrast Material Type Amount (ml) Isovue 300 89 Entry Location Entry Primary Successful Side Size Upsize Upsize Entry Closure Succes sful Closure Location (Fr) 1 (Fr) 2 (Fr) Remarks Device Remarks Femoral Right 5 Fr 6 Fr Exoseal artery Short Estimated blood loss: 5 ml Diagnostic catheters Device Type Used For End Catheter Placement MULTIPACK Pigtail 5 Fr LV Angiography catheter MULTIPACK JL 4.0 5Fr Left Coronary catheter Angiography MULTIPACK 3DRC 5Fr Right Coronary catheter Angiography Procedure Complications No complications Procedure Medications Medication Administration Route Dosage Oxygen etCO2 Nasal cannula 2 l/min Lidocaine 2% added to field 20 Heparin Flush Bag added to field 2 bags (1000units/500ml NS) 0.9% NaCl I.V. 100 ml/hr Benadryl I.V. 50 mg Versed I.V. 1 mg Versed I.V. 1 mg Fentanyl I.V. 50 mcg Fentanyl I.V. 50 mcg Heparin Bolus I.V. 4000 units Effient P.O. 10 mg Hemodynamics Rest Heart Rate: 72 (bpm) Pressure Samples Time Site Value (mmHg) Purpose Heart Use Rate(bpm) 9:47 LV 142/39,44 Snapshot 63 Snapshots Pre Cath Intra NCS Post Cath Vital Signs Time Heart Resp SPO2 etCO2 NIBP (mmHg) Rhythm Pain Sedation Rate (ipm) (%) (mmHg) Status Level (bpm) 9:30:29 66 19 97 41.9 137/93(105) NSR 0 (11) 10(A) , No pain 9:34:52 77 17 95 40.4 137/87(104) NSR 0 (11) 10(A) , No pain 9:39:08 74 12 93 50.8 129/84(109) NSR 0 (11) 10(A) , No pain 9:43:22 72 19 94 47.1 143/100(113) NSR 0 (11) 9(A) , No pain 9:47:42 66 10 91 0 155/110(124) NSR 0 (11) 9(A) , No pain 9:52:10 80 17 92 0 141/98(114) NSR 0 (11) 9(A) , No pain 9:56:32 77 14 92 0 157/98(113) NSR 0 (11) 9(A) , No pain 10:00:56 78 15 96 0 142/91(124) NSR 0 (11) 9(A) , No pain 10:05:17 83 15 95 0 143/85(111) NSR 0 (11) 9(A) , No pain 10:09:35 84 15 93 5.9 141/91(114) NSR 0 (11) 10(A) , No pain 10:13:57 85 19 94 0 145/101(107) NSR 0 (11) 10(A) , No pain Medications Time Medication Route Dose Verified Delivered Reason Notes Effectiveness by by 9:33:16 Oxygen etCO2 2 Khoa Buffie used for Nasal l/min Kd Parikh RN procedure cannula 9:33:23 Lidocaine 2% added 20ml Khoa Khoa for local to vial Kd Yi MD anesthetic field 9:33:31 Heparin Flush added 2 Khoa Khoa used for Bag to bags Kd Yi MD procedure (1000units/500ml field NS) 9:33:40 Benadryl I.V. 50 mg Khoa Schaeferie used for for Kd Parikh RN procedure preop. 9:33:40 0.9% NaCl I.V. 100 Khoa Buffie Per physician ml/hr Kd Parikh RN 9:37:12 Versed I.V. 1 mg Khoa Schaeferie for sedation Kd Parikh RN 9:37:20 Fentanyl I.V. 50 Khao Buffie for sedation mcg Kd Parikh RN 9:46:19 Versed I.V. 1 mg Khoa Buffie for sedation Kd Parikh RN 9:46:26 Fentanyl I.V. 50 Khoa Schaeferie for sedation mcg Kd Parikh RN 9:59:55 Heparin Bolus I.V. 4000 Khoa Buffie for units Kd Parikh RN anticoagulation 10:14:11 Effient P.O. 10 mg Khoa Schaeferie for Kd Parikh RN antiplatelet therapy Procedure Log Time Note 9:13:18 Ayesha Weinberg RT(R) sent for patient. Start room use. 9:22:58 Diagnostic Cath Status : Urgent 9:23:19 Time tracking: Regular hours (M-F 7:00 - 5:00) 9:23:23 Plan of Care:Hemodynamics will remain stable., Cardiac rhythm will remain stable., Comfort level will be maintained., Respiratory function will remain adequate., Patient/ family verbilizes understanding of procedure., Procedure tolerated without complication., Recovers from procedure without complications.. 9:23:37 Patient received from Med II to [facility] 2 Alert and oriented. Tansferred to table in Supine position. 9:29:12 Signed procedure consent form obtained from patient. 9:29:13 Correct patient and procedure confirmed by team. 9:29:13 Warm blankets applied, and lynette hugger turned on for patient comfort. 9:29:14 Vital chart was started 9::14 ECG and BP/O2 sat monitors applied to patient. 9:29:16 Baseline sample Acquired. 9:29:23 Rhythm: sinus rhythm 9:29:25 Full Disclosure recording started 9::29 H&P Date Dictated: 08/27/2019 New H&P dictated by physician.. 9:29:31 Pre-op teaching completed and patient verbalized understanding. 9:29:31 Pre-procedure instructions explained to patient. 9:29:36 Family in patients room. 9:29:37 Patient NPO since Midnight. 9:29:43 Is the patient allergic to Iodine/contrast media? No. 9:29:44 Was the patient premedicated? Yes 9:29:46 Is patient on blood thinner?Yes 9:29:50 ACC The patient was administered the following blood thiners within the last 24 hours: ACCEffient 9:29:52 Patient diabetic? No. 9:29:55 Previous problem with sedation/anesthesia? No ? 9:29:57 Snore? Yes 9:29:58 Sleep apnea? No 9:29:59 Deviated septum? No 9:30:04 Opens mouth fully? Yes 9:30:05 Sticks out tongue? Yes 9:30:20 Airway obstruction? Yes copd 9:30:24 Dentures? Yes in tight 9:30:35 Pre procedure: right dorsailis pedis pulse 2+ Normal; easily identifiable; not easily obliterated 9:30:37 Pre procedure: left dorsailis pedis pulse 2+ Normal; easily identifiable; not easily obliterated 9:30:40 Patient pain scale 7/10 ?. 9:30:45 IV patent on arrival in left forearm with 0.9% NaCl at KVO. 9:30:48 Lab results completed and on chart. 9:31:46 IV Extension Set opened to sterile field. 9:33:16 Oxygen 2 l/min etCO2 Nasal cannula was administered by Piper Parikh RN; used for procedure; Verbal order read back and verified. 9:33:23 Lidocaine 2% 20ml vial added to field was administered by Khoa Yi MD; for local anesthetic; Verbal order read back and verified. 9:33:31 Heparin Flush Bag (1000units/500ml NS) 2 bags added to field was administered by Khoa Yi MD; used for procedure; Verbal order read back and verified. 9:33:40 Benadryl 50 mg I.V. was administered by Piper Parikh RN; used for procedure; for preop. Verbal order read back and verified. 9:33:40 0.9% NaCl 100 ml/hr I.V. was administered by Piper Parikh RN; Per physician; Verbal order read back and verified. 9:35:43 Risk of Mortality: 2.0 9:35:47 Risk of blood transfusion: 0.8 9:35:51 Risk of CORAZON: 7.9 9:35:55 Right groin area was prepped with chlora-prep and draped in sterile fashion 9:35:58 Sharps counted by scrub and verified by R.N. 9:35:58 Alarms reviewed by R. N. 9:35:59 Physician arrived 9:36:00 --------ALL STOP TIME OUT------ 9:36:03 Final Timeout: patient, procedure, and site verified with staff and physician. All members of the team are in agreement. 9:36:05 Right groin site verified by team. 9:36:09 Fire Safety Assessment: A--An alcohol-based skin anteseptic being used preoperatively., C--Open oxygen or nitrous oxide is being used., D--An ESU, laser, or fiber-optic light is being used. 9:36:17 2) 60-89 Mildly reduced kidney function, and other findings (as for stage 1) point to kidney disease. 9:37:12 Versed 1 mg I.V. was administered by Piper Parikh RN; for sedation; Verbal order read back and verified. 9:37:20 Fentanyl 50 mcg I.V. was administered by Piper Parikh RN; for sedation; Verbal order read back and verified. 9:40:49 Maximum allowable contrast dose (3.7 X eGFR X 0.75)188 ml. 9:40:54 Sedation plan: IV Moderate Sedation Medication:Versed, Fentanyl 9:43:27 Use device set Femoral Dx 9:43:28 ACIST Syringe (26477) opened to sterile field. 9:43:29 Medline Cath Pack ([id number]) opened to sterile field. 9:43:29 Bag Decanter (2001S) opened to sterile field. 9:43:30 ACIST Hand Control (91927) opened to sterile field. 9:43:31 DIAGNOSTIC Multipack 5Fr catheter set (UM8514) opened to sterile field. 9:43:31 ACIST Manifold (10540) opened to sterile field. 9:43:32 Tegaderm 4 x 4 (1626W) opened to sterile field. 9:43:33 EMERALD Guide Wire (038-586) opened to sterile field. 9:43:33 SHEATH 5FR [place] (WJD542) opened to sterile field. 9:43:39 Procedure started. 9:46:13 Local anesthetic to right femoral artery with Lidocaine 2% by Khoa Yi MD.INITIAL ACCESS ONLY 9:46:19 Versed 1 mg I.V. was administered by Piper Parikh RN; for sedation; Verbal order read back and verified. 9:46:23 A 5 Fr sheath was inserted into the Right Femoral artery 9:46:26 Fentanyl 50 mcg I.V. was administered by Piper Parikh RN; for sedation; Verbal order read back and verified. 9:47:46 A MULTIPACK Pigtail 5 Fr catheter was advanced over the wire and used for LV Angiography. 9:47:58 LV hemodynamics recorded. 9:47:59 LV gram done using GONSALEZ 9:48:02 Injector settings: Ml/sec: 5, Volume: 15, 9:48:26 EF : 35 % 9:48:31 Catheter removed. 9:48:37 A MULTIPACK JL 4.0 5Fr catheter was advanced over the wire and used for Left Coronary Angiography. 9:51:11 LCA angiography performed. 9:51:13 Injector settings: Ml/sec: 3, Volume: 6, 9:51:15 Catheter removed. 9:51:21 A MULTIPACK 3DRC 5Fr catheter was advanced over the wire and used for Right Coronary Angiography. 9:51:24 RCA angiography performed. 9:51:27 Injector settings: Ml/sec: 3, Volume: 6, 9:51:29 ACCDominant side:Right 9:51:55 GUIDE 6FR XB 4.0 catheter ([id number]) opened to sterile field. 9:51:56 Webster Verrata Plus pressure wire (63648W) opened to sterile field. 9:51:57 INFLATOR Merit BasixCompak (TP8459) opened to sterile field. 9:51:58 SHEATH 6FR [place] (BBP123) opened to sterile field. 9:52:09 Catheter removed. 9:52:10 Proceeding to intervention. 9:52:18 ACC Pre-intervention MANDY Flow is 3. 9:53:45 Sheath upsized to a 6 Fr Short. 9:53:49 6 Fr xb 4 guide catheter was inserted over the wire 9:54:03 FFR/IFR wire advanced. 9:54:05 Baseline FFR 1. 9:54:10 Wire advanced across lesion. 9:54:32 mCirc lesion measured at 0.92 with IFR 9:55:03 Wire removed. 9:55:04 Guide catheter removed. 9:55:14 GUIDE 6FR HS I catheter (LA6HSI) opened to sterile field. 9:55:54 6 Fr hs 1 guide catheter was inserted over the wire 9:56:30 FFR/IFR wire advanced. 9:56:33 Baseline FFR 1. 9:56:48 Wire advanced across lesion. 9:58:24 mRCA lesion measured at 0.83 with IFR 9:59:55 Heparin Bolus 4000 units I.V. was administered by Piper Parikh RN; for anticoagulation; Verbal order read back and verified. 10:01:04 Place stent Inflation Number: 1 A MERCEDEZ RX 3.5 x 12 stent ([id number]) was prepped and advanced across the Mid RCA 70. The stent was deployed at 21 TIFFANY for 0:10 (min:sec) 0. 10:01:15 Stent catheter was removed intact over wire. 10:02:48 Wire removed. 10:02:49 Guide catheter removed. 10:03:06 6 Fr xb 4 guide catheter was inserted over the wire 10:03:47 FFR/IFR wire advanced. 10:03:49 Baseline FFR 1. 10:05:52 mLAD lesion measured at 0.85 with IFR 10:07:03 Pre PCI Site: [place] mLAD has 70% stenosis. 10:07:55 ACC Pre-intervention MANDY Flow is 3. 10:07:59 Place stent Inflation Number: 1 A MERCEDEZ RX 3.5 x 12 stent ([id number]) was prepped and advanced across the Prox LAD 70. The stent was deployed at 21 TIFFANY for 0:10 (min:sec) 0. 10:08:00 ACT drawn and resulted at 183 seconds. (normal therapeutic range 180-240 seconds). 10:09:30 Stent catheter was removed intact over wire. 10:09:39 FFR/IFR wire advanced. 10:09:42 Baseline FFR 1. 10:09:47 pLAD lesion measured at 1 with IFR 10:10:37 EXOSEAL 6Fr (EX600) opened to sterile field. 10:10:51 Wire removed. 10:10:52 Guide catheter removed. 10:11:01 Sheath removed intact; hemostasis achieved with Exoseal to the Right Femoral artery. 10:11:03 Procedure ended.(Physican Out) 10:11:12 Fluoroscopy time 05.90 minutes. 10:11:16 Fluoroscopy dose: 773 mGy 10:11:16 Flurop Dose total: 773 10:11:24 Dose Area Product 51287 mGy/cm. 10:11:29 Contrast amount:Isovue 300 89ml. 10:11:33 Maximum allowable dose exceeded? No. 10:11:35 Sharps counted by scrub and verified by R.N. 10:11:36 Insertion/operative site no bleeding no hematoma. 10:11:38 Post-op/insertion site Right Femoral artery dressed using a 4 x 4 and Tegaderm. 10:11:43 Post procedure rhythm: unchanged. 10:11:46 Estimated blood loss: 5 ml 10:11:47 Post procedure instruction explained to patient.Patient verbalizes understanding. 10:11:48 Patient needs reinforcement of post procedure teaching. 10:12:20 Procedure type changed to Cath procedure, Diagnostic procedure, LHC, [facility] w/Coronaries, FFR/IVUS, FFR Initial, FFR Additional, Sedation Charges, Moderate Sedation up to 30 minutes, PCI procedure, Coronary Stent, Coronary Stent Initial x2 10:12:21 Procedure and supply charges have been captured, reviewed, submitted and are correct. 10:12:30 Procedure Complication : No complications 10:13:32 Vital chart was stopped 10:13:34 [facility] Findings: MVD- PCI performed (see procedure note) 10:13:37 See physician's report for complete and final results. 10:13:37 Operative report dictated upon procedure completion. 10:13:39 Report given to [facility]. 10:13:41 Patient transfered to [facility] with Stretcher. 10:13:44 Full Disclosure recording stopped 10:13:44 Procedure ended. 10:13:51 ACC-PCI Only Patient was given prescriptions, or instructed by Khoa Yi MD to start/continue the following medications upon discharge: Effient 10:13:53 End room use (Document Last) 10:14:11 Effient 10 mg P.O. was administered by Piper Parikh RN; for antiplatelet therapy; Verbal order read back and verified. Intervention Summary Intervention Notes Time ActionType Lesion and Equipment Used Action# Pressure Duration Attributes 10:01:04 Place stent Mid RCA MERCEDEZ RX 3.5 x 1 21 00:10 12 stent ([id number]) 10:07:59 Place stent Prox LAD MERCEDEZ RX 3.5 x 1 21 00:10 12 stent ([id number]) Device Usage Item Name Manufacture Quantity Catalog Hospital Part Current Minimal Lot# / Number Charge Number Stock Stock Serial# Code IV Extension Hospira 1 18640-93 622259 57239 029382 5 Set ACIST Syringe Acist 1 74411 097171 260854 242792 20 (25522) Medical Systems Inc Bag Decanter Microtek 1 2002S 473933 48462 895105 5 (2002S) Medical Inc. Medline Cath Medline 1 [id number] 327261 12004 170217 5 Pack ([id number]) ACIST Hand Acist 1 99336 125048 660945 883781 5 Control Medical (99061) Systems Inc ACIST Manifold Acist 1 96510 332195 756181 742831 5 (50309) Medical Systems Inc DIAGNOSTIC Cardinal 1 VD4570 424737 79221 516532 30 Multipack 5Fr Health catheter set (XH2428) Tegaderm 4 x 4 3M 1 1626W 285914 235517 976192 5 (1626W) SHEATH 5FR Terumo 1 KZT390 392705 971197 443646 5 Wooster (XHR319) EMERALD Guide Cardinal 1 502-455 053551 995929 372325 5 Wire (502-455) Health MULTIPACK Cardinal 1 041332 5 Pigtail 5 Fr Health catheter MULTIPACK JL Cardinal 1 087832 5 4.0 5Fr Health catheter MULTIPACK 3DRC Cardinal 1 964224 5 5Fr catheter Health GUIDE 6FR XB Cardinal 1 [id number] 288724 706730 032937 2 4.0 catheter Health (11773157) Webster Webster 1 62732J 196426 219531420 071709 5 Verrata Plus pressure wire (09438N) INFLATOR Merit Merit 1 KO9230 066174 966551 907778 15 [employer] (AZ5299) SHEATH 6FR Terumo 1 NFL404 850302 867016 332535 40 Wooster (DBL181) GUIDE 6FR HS I Medtronic 1 LA6HSI 162483 88527 217969 1 catheter (LA6HSI) MERCEDEZ RX 3.5 x Medtronic 2 [id number] 677151 9028177 825831 5 [id number] 12 stent [id number] ([id number]) EXOSEAL 6Fr Cardinal 1 EX600 523162 268712 137256 10 (EX600) Health Signature Audit [place] Stage Time Signature Unsigned Intra-Procedure 08/27/2019 Ayesha Weinberg 10:22:47 AM RT(R) Intra-Procedure 08/27/2019 Piper Parikh RN 10:23:48 AM Intra-Procedure 08/27/2019 Khoa Yi 10:24:04 AM [place] [address] [place] [address]
--- NOTE | ~2019-08-26 | DS ---
PATIENT:KRISTA TITUS JR :66 MEDICAL RECORD: [id number] DISCHARGE SUMMARY ADMISSION DATE: 08/26/19 DISCHARGE DATE: 08/27/19 DATE OF DISCHARGE: 08/27/2019 DISCHARGE DIAGNOSES: 1. Unstable angina. 2. Coronary artery disease. 3. Percutaneous transluminal coronary angioplasty and stent of the left anterior descending and right coronary artery this admission. 4. Hypertension. 5. Hyperlipidemia. HOSPITAL COURSE: Mr. Titus presents with unstable anginal symptomatology, underwent cardiac catheterization revealing severe 2-vessel coronary artery disease, underwent successful PTCA and stent of both territories, was discharged home with no change in medications as he is already on Effient and aspirin. Will follow up with [facility] in 1 month. TRANSINT:[id number] Voice Confirmation ID: [id number] DOCUMENT ID: [id number] DUC MARTELL MD CC: [id number] DICTATION DATE: 08/27/19 1019 APPLIANCE TECHNICIAN: 08/27/19 1621 DIS IN 08/27/19 [place] [address] [place] [id number]
--- NOTE | ~2019-08-26 | OP ---
PATIENT NAME: KRISTA MENEZES JR MEDICAL RECORD: [id number] :66 LOCATION:D.M2 D.2118 ADMISSION DATE:08/26/19 SURGEON: DUC MARTELL MD DATE OF OPERATION: 08/27/2019 DATE OF SERVICE: 08/27/2019 PROCEDURES: 1. PTCA stent RCA. 2. PTCA stent LAD. 3. IFR RCA, left circumflex and LAD. 4. Left heart catheterization. 5. Selective coronary angiography. 6. Left ventriculogram. INDICATION: Unstable angina and coronary artery disease. PROCEDURE PERFORMED: After informed consent was obtained and after a detailed explanation of risks, benefits as well as alternative therapies, the patient elected to proceed with angiogram and angioplasty. The right femoral area was prepped and draped in normal sterile fashion. Right femoral artery was cannulated via modified Seldinger technique with placement of 6-Mohawk sheath. All catheters exchanged through this sheath. FINDINGS: Left ventriculogram was performed in standard 30-degree GONSALEZ view, reveals global hypokinesis, ejection fraction 30% to 35%. SELECTIVE CORONARY ANGIOGRAPHY: 1. Left main is with no significant angiographic disease. 2. Left anterior descending has a questionable 70% stenosis proximally. IFR is abnormal at 0.85. 3. Left circumflex has a totally occluded first obtuse marginal. This is unchanged from previous angiography. There is questionable stenosis in the mid vessel; however, IFR was normal at 0.92. 4. The right coronary has multiple previously placed stents. There was a questionable 70% stenosis in the mid vessel. IFR was abnormal at 0.83. PTCA STENT OF THE RCA: The stent used was a 3.5 x 12 mm Esvin. Result was 0% residual stenosis. The IFR normalized after the intervention to greater than 1.0. PTCA STENT OF THE LAD: The stent used was a 3.5 x 12 mm Aldie. Result was 0% residual stenosis. IFR normalized to 1.0 after the intervention. OVERALL IMPRESSION: Successful percutaneous transluminal coronary angioplasty stent of the right coronary artery and left anterior descending, both going from 70% initial stenosis with abnormal IFR pre-intervention to 0% residual stenosis with normalization of the IFR after intervention. TRANSINT:[id number] Voice Confirmation ID: [id number] DOCUMENT ID: [id number] OPERATIVE REPORT [id number] KRISTA MENEZES JR, JEFFREY MD CC: [id number] DICTATION DATE: 08/27/19 1018 UTILITY SPECIALIST: 08/27/19 1050 ADM IN [facility] [address] [place] [address]
[2019-08-26 22:25] LABS: BASOPHILS 0.5 % (0-2); EOSINOPHILS 3.1 % (0-7); HEMATOCRIT 49.5 % (42.0-54.0); HEMOGLOBIN 16.9 g/dL (13.5-17.5); IMMATURE GRANULOCYTES 0.3 % (0-5); LYMPHOCYTES 26.6 % (15-50); MCH 31.1 pg (26.0-34.0); MCHC 34.1 g/dL (31.0-37.0); MCV 91.2 fL (80.0-100.0); MEAN PLATELET VOLUME 10.5 fL (7.4-10.4); MONOCYTES 6.9 % (2-11); NEUTROPHILS 62.6 % (40-80); PLATELET COUNT 212 10x3/uL (130-400); RBC 5.43 10x6/uL (4.20-6.10); RDW 13.5 % (11.5-14.5); WBC 7.8 10x3/uL (4.8-10.8)
[2019-08-26 22:35] LABS: APTT 31.3 SECONDS (22.8-39.4); INR 0.96 (0.85-1.17); PROTIME 12.3 SECONDS (11.6-15.0)
[2019-08-26 22:38] LABS: CALC OSMOLALITY 278 mosm/kg (275-300); CALCIUM 9.4 mg/dL (8.5-10.1); CHLORIDE - SERUM 103 mmol/L (98-107); CREATININE - SERUM 1.2 mg/dL (0.6-1.3); GLUCOSE 143 mg/dL (74-106); POTASSIUM - SERUM 3.6 mmol/L (3.5-5.1); SODIUM 138 mmol/L (136-145); UREA NITROGEN 14 mg/dL (7-18); eGFR NON AFRICAN AMERICAN 68 mL/min (90-120)
[2019-08-26 22:52] LABS: ALBUMIN 3.7 g/dL (3.4-5.0); ALKALINE PHOSPHATASE 62 U/L (46-116); ALT (SGPT) 40 U/L (10-68); BILIRUBIN - TOTAL 0.39 mg/dL (0.2-1.3); CKMB 2.1 U/L (0.0-3.6); CREATINE KINASE 134 UL (21-232); PROTEIN - SERUM 6.9 g/dL (6.4-8.2); TROPONIN-I < 0.017 ng/mL (0.000-0.060)
[2019-08-27] MEDS ORDERED: ALBUTEROL SULF8.5 GM INH (00:10)
[2019-08-27 00:22] VITALS: BP 141/90; BMI 30.1
[2019-08-27 04:00] VITALS: BP 113/74
[2019-08-27 08:55] VITALS: Ht 185.4 cm; Wt 103.6 kg
[2019-08-27 09:05] VITALS: BP 120/85
--- NOTE | 2019-08-27 15:48 | NUR ---
REVIEWED DISCHARGE INSTRUCTIONS WITH PT STATES UNDERSTANDING COPY GIVEN DCD SALINE LOCK TO RAC WITH IV CATHETER INTACT SITE FREE OF REDNESS OR EDEMA PT DISCHARGED HOME LEFT UNIT VIA W/C IN STABLE CONDITION WITH ALL PERSONAL BELONGINGS
--- NOTE | 2019-08-29 09:48 | MORECARE ---
CASE MANAGEMENT DISCHARGE SUMMARY PATIENT: KRISTA MENEZES JR UNIT: [id number] ADM DATE: 08/26/19 AGE: 49 : 66 SEX: M ROOM/BED: D.2118 AUTHOR: DOMINIQUE CARPIO PHYSICIAN: REFERRING PHYSICIAN: DUC MARTELL MD DATE OF SERVICE: 08/29/19 Discharge Plan Patient Name: KRISTA [facility]ENEZES [facility] [facility] 1970 Planned Disposition: Home Anticipated Discharge Date: 08/27/19 Discharge Date: 08/27/2019 Expected LOS: 1 Initial Reviewer: [email or web address] Initial Review Date: 08/29/2019 Generated: 08/29/19 10:47 am Patient Name: KRISTA MENEZES Page [id number] at 0948 All edits/amendments must be made on the electronic document DICTATION DATE: 08/29/19946 SUBSTANCE ABUSE TECHNICIAN: LEANNE 08/29/19946 RPT#: [id number] DC DATE:08/27/19 STATUS: DIS IN [facility] [address] [facility] [place] [address] END OF REPORT
== END 2019-08-27 15:48 | disposition home or self-care (01) ==
LOC: D.ER 21:42 → D.M2 23:17 → OBSVTIME 23:17 → D.M2 08-27 15:48
PROVIDERS: Family Medicine; ADMIT Internal Medicine Interventional Cardiology; ATTEND Internal Medicine Interventional Cardiology
DX: I25.110 Atherosclerotic heart disease of native coronary artery with unstable angina pectoris (principal); I10 Essential (primary) hypertension; E78.5 Hyperlipidemia, unspecified; F17.200 Nicotine dependence, unspecified, uncomplicated; J44.9 Chronic obstructive pulmonary disease, unspecified

== ENCOUNTER 2019-09-20 19:22 | Observation (INO) | payer MEDICAID ==
[~2019-09-20] VITALS: Ht 185.4 cm; Wt 103.6 kg
--- NOTE | ~2019-09-20 | HEMODYNAMI ---
PATIENT:KRISTA MENEZES JR MEDICAL RECORD: [id number] : 66 LOCATION:[address]# [id number] ADMISSION DATE: 09/20/19 Generatedon:09/21/20199:03 Patient name: KRISTA MENEZES Patient #: [id number] SSN: [id number] : 1970 Date of study: 09/21/2019 Page: Of Hemodynamic Procedure Report Patient Data Patient Demographics Procedure consent was obtained First Name: KRISTA Gender: Male Last Name: RIRI Suffix: [facility] Initial: Ruth : 1970 Patient #: [id number] Age: 49 year(s) Race: SSN: [id number] Additional ID: [id number] Contact details [address]: [address] [place] [address] [facility] [place] [facility] Zip code: [address] Past Medical History History of disease Date Diagnosis Comments CAD Allergies Allergen Reaction Date Comments Reported Other allergy 10/20/2018 Plavix non responder Other allergy 12/05/2018 PLAVIX Other allergy 09/21/2019 PLAVIX Admission Admission Data Admission Date: 09/20/2019 Admission Time: 19:22 Room #: [facility] Height (in.): 72.83 BSA: 2.28 (m2) Height (cm.): 185 BMI: 30.39 (kg/m2) Weight (lbs.): 229.28 Weight (kg.): 104 Lab Results Lab Result Date: 09/21/2019 Lab Result Time: 0:00 Biochemistry Name Units Result Min Max BUN mg/dl 9 --(*---)-- 7 18 Creatinine mg/dl 1.1 --(--*-)-- 0.6 1.3 eGFR ml/min 75 *-(----)-- 90 120 NONAFRICAN CBC Name Units Result Min Max Hematocrit % 43.8 --(*---)-- 42 54 Hemoglobin g/dl 14.5 --(*---)-- 13.5 17.5 Procedure Procedure Types Cath Procedure Diagnostic Procedure [facility] w/Coronaries FFR/IVUS FFR Initial Sedation Charges Moderate Sedation up to 15 minutes Procedure Description Procedure Date Procedure Date: 09/21/2019 Procedure Start Time: 8:46 Procedure End Time: 8:57 Procedure Staff Name Function Khoa Yi MD Performing Physician Federica Cortez RT Monitor Cassie Quezada RT Scrub Piper Parikh RN Nurse Indication CAD Procedure Data Cath Procedure Fluoroscopy Diagnostic fluoroscopy Total fluoroscopy Time: 1.9 time: 1.9 min min Diagnostic fluoroscopy Total fluoroscopy dose: 495 dose: 495 mGy mGy Contrast Material Contrast Material Type Amount (ml) Isovue 300 67 Entry Location Entry Primary Successful Side Size Upsize Upsize Entry Closure Succes sful Closure Location (Fr) 1 (Fr) 2 (Fr) Remarks Device Remarks Femoral Right 5 Fr 6 Fr Exoseal artery Short Estimated blood loss: 10 ml Diagnostic catheters Device Type Used For End Catheter Placement MULTIPACK Pigtail 5 Fr Procedure catheter MULTIPACK JL 4.0 5Fr Procedure catheter MULTIPACK 3DRC 5Fr Procedure catheter Procedure Complications No complications Procedure Medications Medication Administration Route Dosage Oxygen etCO2 Nasal cannula 2 l/min Lidocaine 2% added to field 20 Heparin Flush Bag added to field 2 bags (1000units/500ml NS) 0.9% NaCl I.V. 100 ml/hr Effient P.O. 10 mg Versed I.V. 2 mg Fentanyl I.V. 50 mcg Versed I.V. 1 mg Hemodynamics Rest BSA: 2.28 (m2) HGB: 14.5 (g/dl) O2 Consumption: Estimated: 271.99 (ml/min) O2 Co nsumption indexed: Estimated:119.29 (ml/min/m) Heart Rate: 70 (bpm) Snapshots Pre Cath Intra NCS Post Cath Vital Signs Time Heart Resp SPO2 etCO2 NIBP (mmHg) Rhythm Pain Sedation Rate (ipm) (%) (mmHg) Status Level (bpm) 8:23:04 79 16 94 28.7 116/73(94) NSR 0 (11) 10(A) , No pain 8:27:10 80 17 92 42.3 110/73(83) NSR 0 (11) 10(A) , No pain 8:31:20 80 15 95 19.6 106/76(83) NSR 0 (11) 10(A) , No pain 8:35:30 77 15 95 20.4 118/69(95) NSR 0 (11) 10(A) , No pain 8:39:40 83 16 94 18.1 104/66(89) NSR 0 (11) 10(A) , No pain 8:43:47 84 25 94 35.5 114/68(104) NSR 0 (11) 9(A) , No pain 8:47:53 77 17 93 51.4 114/97(113) NSR 0 (11) 9(A) , No pain 8:52:05 97 31 94 58.9 132/73(100) NSR 0 (11) 9(A) , No pain 8:56:09 82 14 94 0 107/76(94) NSR 0 (11) 10(A) , No pain Medications Time Medication Route Dose Verified Delivered Reason Notes Ef fectiveness by by 8:25:59 Effient P.O. 10 mg Khoa Buffie for Kd Parikh RN antiplatelet therapy 8:28:37 Oxygen etCO2 2 Khoa Buffie used for Nasal l/min Kd Parikh RN procedure cannula 8:28:44 Lidocaine 2% added 20ml Khoa Khoa for local to vial Kd Yi MD anesthetic field 8:28:50 Heparin Flush added 2 Khoa Khoa used for Bag to bags Kd Yi MD procedure (1000units/500ml field NS) 8:29:01 0.9% NaCl I.V. 100 Khoa Khoa used for ml/hr Kd Yi MD procedure 8:40:53 Versed I.V. 2 mg Khoa Schaeferie for sedation Kd Parikh RN 8:40:59 Fentanyl I.V. 50 Khoa Buffie for sedation mcg Kd Parikh RN 8:47:20 Versed I.V. 1 mg Khoa Oliveie for sedation Kd Parikh RN Procedure Log Time Note 8:06:32 Informed consent obtained and on chart 8:07:19 Procedure Status Urgent Heart Cath (IP). 8:07:20 Time tracking: Regular hours (M-F 7:00 - 5:00) 8:07:23 Plan of Care:Hemodynamics will remain stable., Cardiac rhythm will remain stable., Comfort level will be maintained., Respiratory function will remain adequate., Patient/ family verbilizes understanding of procedure., Procedure tolerated without complication., Recovers from procedure without complications.. 8:07:35 Piper Parikh RN sent for patient. Start room use. 8:07:39 H&P Date Dictated: 09/21/2019 ER History on chart.. 8:12:18 Patient allergic to Other allergyPLAVIX 8:13:13 Patient Weight : 229.28 lbs 8:13:16 Patient Height : 72.83 inches 8:14:13 Patient received from Med II to CCL 1 Alert and oriented. Tansferred to table in Supine position. 8:14:14 Warm blankets applied, and lynette hugger turned on for patient comfort. 8:14:14 Correct patient and procedure confirmed by team. 8:14:15 ECG and BP/O2 sat monitors applied to patient. 8:21:58 Vital chart was started 8:21:59 Baseline sample Acquired. 8:22:02 Rhythm: sinus rhythm 8:22:03 Full Disclosure recording started 8:22:04 Pre-procedure instructions explained to patient. 8:22:04 Pre-op teaching completed and patient verbalized understanding. 8:22:06 Family in patients room. 8:22:08 Patient NPO since Midnight. 8:22:09 Is the patient allergic to Iodine/contrast media? No. 8:22:10 Is patient on blood thinner?Yes 8:22:13 ACC The patient was administered the following blood thiners within the last 24 hours: ACCEffient 8:22:15 Patient diabetic? No. 8:22:41 Previous problem with sedation/anesthesia? No ? 8:22:43 Snore? Yes 8:22:44 Sleep apnea? Yes 8:22:45 Deviated septum? No 8:22:46 Opens mouth fully? Yes 8:22:47 Sticks out tongue? Yes 8:22:50 Airway obstruction? Yes COPD 8:22:53 Dentures? Yes IN 8:22:56 Pre procedure: right dorsailis pedis pulse 1+ Palpable, but thready & weak; easily obliterated 8:23:00 Patient pain scale 5/10 ?. 8:23:07 IV patent on arrival in left forearm with 0.9% NaCl at [facility]. 8:23:36 Lab Result : BUN 9 mg/dl 8:23:36 Lab Result : Creatinine 1.1 mg/dl 8:23:36 Lab Result : eGFR NONAFRICAN 75 ml/min 8::36 Lab Result : Hemoglobin 14.5 g/dl 8::36 Lab Result : Hematocrit 43.8 % 8:23:40 Lab results completed and on chart. 8:23:50 Right groin area was prepped with chlora-prep and draped in sterile fashion 8:23:51 Alarms reviewed by R. N. 8:23:51 Sharps counted by scrub and verified by R.N. 8:23:57 Use device set Femoral Dx 8:23:58 ACIST Syringe (21002) opened to sterile field. 8:23:59 Bag Decanter (2002S) opened to sterile field. 8:24:01 ACIST Hand Control (24286) opened to sterile field. 8:24:01 ACIST Manifold (76293) opened to sterile field. 8:24:01 Tegaderm 4 x 4 (1626W) opened to sterile field. 8:24:02 Medline Cath Pack ([id number]) opened to sterile field. 8:24:03 DIAGNOSTIC Multipack 5Fr catheter set (DG9162) opened to sterile field. 8:24:04 SHEATH 5FR Monroe (GHB447) opened to sterile field. 8:24:04 EMERALD Guide Wire (677-483) opened to sterile field. 8:25:59 Effient 10 mg P.O. was administered by Piper Parikh RN; for antiplatelet therapy; Verbal order read back and verified. 8:27:41 Risk of Mortality: .1 8:27:44 Risk of blood transfusion: .1 8:27:57 Risk of CORAZON: .2 8:28:37 Oxygen 2 l/min etCO2 Nasal cannula was administered by Piper Parikh RN; used for procedure; Verbal order read back and verified. 8:28:44 Lidocaine 2% 20ml vial added to field was administered by Khoa Yi MD; for local anesthetic; Verbal order read back and verified. 8:28:50 Heparin Flush Bag (1000units/500ml NS) 2 bags added to field was administered by Khoa Yi MD; used for procedure; Verbal order read back and verified. 8:29:01 0.9% NaCl 100 ml/hr I.V. was administered by Khoa Yi MD; used for procedure; Verbal order read back and verified. 8:30:03 Indication : CAD 8:34:38 Zero performed for pressure channel P1 8:39:04 --------ALL STOP TIME OUT------ 8:39:05 Final Timeout: patient, procedure, and site verified with staff and physician. All members of the team are in agreement. 8:39:06 Right groin site verified by team. 8:39:10 Fire Safety Assessment: A--An alcohol-based skin anteseptic being used preoperatively., C--Open oxygen or nitrous oxide is being used., D--An ESU, laser, or fiber-optic light is being used. 8:39:15 Physical assessment completed. ASA score P 3 - A patient with severe systemic disease as per Khoa Yi MD. 8:39:18 2) 60-89 Mildly reduced kidney function, and other findings (as for stage 1) point to kidney disease. 8:39:22 Maximum allowable contrast dose (3.7 X eGFR X 0.75)208 ml. 8:39:25 Sedation plan: IV Moderate Sedation Medication:Versed, Fentanyl 8:40:53 Versed 2 mg I.V. was administered by Piper Parikh RN; for sedation; Verbal order read back and verified. 8:40:59 Fentanyl 50 mcg I.V. was administered by Piper Parikh RN; for sedation; Verbal order read back and verified. 8:46:13 Procedure started. 8:46:16 Local anesthetic to right femoral artery with Lidocaine 2% by Khoa Yi MD.INITIAL ACCESS ONLY 8:46:50 A 5 Fr sheath was inserted into the Right Femoral artery 8:47:09 A MULTIPACK Pigtail 5 Fr catheter was advanced over the wire and used for Procedure. 8:47:20 Versed 1 mg I.V. was administered by Piper Parikh RN; for sedation; Verbal order read back and verified. 8:47:27 LV gram done using GONSALEZ 8:47:31 Injector settings: Ml/sec: 10, Volume: 20, 8:47:58 EF : 50 % 8:48:00 Catheter removed. 8:48:07 A MULTIPACK JL 4.0 5Fr catheter was advanced over the wire and used for Procedure. 8:49:34 LCA angiography performed. 8:49:36 Catheter removed. 8:49:52 A MULTIPACK 3DRC 5Fr catheter was advanced over the wire and used for Procedure. 8:50:40 RCA angiography performed. 8:50:41 Catheter removed. 8:50:52 SHEATH 6FR Monroe (OFF885) opened to sterile field. 8:50:52 Moab Verrata Plus pressure wire (63505B) opened to sterile field. 8:51:09 GUIDE 6FR XBLAD 4.0 catheter ([id number]) opened to sterile field. 8:51:17 INFLATOR Merit BasixCompak (FY3044) opened to sterile field. 8:51:27 Sheath upsized to a 6 Fr Short. 8:51:49 6 Fr XBLAD 4 guide catheter was inserted over the wire 8:52:50 FFR/IFR wire advanced. 8:53:22 Wire advanced across lesion. 8:53:33 mLAD lesion measured at .96 with IFR 8:53:41 Wire removed. 8:53:41 Guide catheter removed. 8:53:53 EXOSEAL 6Fr (EX600) opened to sterile field. 8:54:32 Sheath removed intact; hemostasis achieved with Exoseal to the Right Femoral artery. 8:54:35 Procedure ended.(Physican Out) 8:55:02 Fluoroscopy time 01.90 minutes. 8:55:06 Fluoroscopy dose: 495 mGy 8:55:06 Flurop Dose total: 495 8:55:13 Dose Area Product 77063 mGy/cm. 8:55:22 Contrast amount:Isovue 300 67ml. 8:55:24 Maximum allowable dose exceeded? No. 8:55:24 Sharps counted by scrub and verified by R.N. 8:55:29 Post-op/insertion site Right Femoral artery dressed using a 4 x 4 and Tegaderm. 8:55:32 Post-procedure physical assessment completed. ASA score P 3 - A patient with severe systemic disease as per Khoa Yi MD. 8:55:35 Post procedure rhythm: sinus rhythm 8:55:38 Estimated blood loss: 10 ml 8:55:39 Post procedure instruction explained to patient.Patient verbalizes understanding. 8:55:39 Patient needs reinforcement of post procedure teaching. 8:56:06 Procedure type changed to Cath procedure, Diagnostic procedure, C, [facility] w/Coronaries, FFR/IVUS, FFR Initial, Sedation Charges, Moderate Sedation up to 15 minutes 8:57:08 Procedure and supply charges have been captured, reviewed, submitted and are correct. 8:57:12 Procedure Complication : No complications 8:57:14 Vital chart was stopped 8:57:18 [facility] Findings: mild to moderate CAD (<70%) 8:57:19 Operative report dictated upon procedure completion. 8:57:19 See physician's report for complete and final results. 8:57:22 Report given to [facility] II. 8:57:24 Patient transfered to [facility] with Bed. 8:57:27 Procedure ended. 8:57:27 Full Disclosure recording stopped 8:57:30 End room use (Document Last) 9:01:50 End room use (Document Last) 9:02:29 End room use (Document Last) Device Usage Item Name Manufacture Quantity Catalog Hospital Part Current Minima l Lot# / Number Charge Number Stock Stock Serial# Code ACIST Acist 1 57444 508134 993959 323055 20 Syringe Medical (16693) Systems Inc Bag Microtek 1 2001S 583346 50116 121202 5 Decanter Medical Inc. () ACIST Hand Acist 1 38297 196187 566408 119859 5 Control Medical (34992) Systems Inc ACIST Acist 1 91939 000442 275896 031859 5 Manifold Medical (53081) Systems Inc Tegaderm 4 3M 1 1626W 256059 802315 120747 5 x 4 (1626W) Medline Medline 1 [id number] 315848 68852 479109 5 Cath Pack ([id number]) DIAGNOSTIC Cardinal 1 HA6046 461060 96245 057405 30 Multipack Health 5Fr catheter set (DK9357) SHEATH 5FR Terumo 1 FFP644 261056 728866 226621 5 Monroe (EEV174) EMERALD Cardinal 1 502-455 736308 122362 518336 5 Guide Wire Health (502-455) MULTIPACK Cardinal 1 559936 5 Pigtail 5 Health Fr catheter MULTIPACK Cardinal 1 605802 5 JL 4.0 5Fr Health catheter MULTIPACK Cardinal 1 277895 5 3DRC 5Fr Health catheter SHEATH 6FR Terumo 1 QVY540 861311 092306 059592 40 Monroe (UQA611) Moab Moab 1 76917S 385483 308719572 149038 5 Verrata Plus pressure wire (80418U) GUIDE 6FR Cardinal 1 [id number] 930283 655602 558222 3 XBLAD 4.0 Health catheter (41131565) INFLATOR [facility] 1 EO5820 830452 776796 649827 15 [facility] Medical BasixCompak (UL3753) EXOSEAL 6Fr Cardinal 1 EX600 950859 132427 173321 10 (EX600) Health Signature Audit [place] Stage Time Signature Unsigned Intra-Procedure 09/21/2019 Federica Cortez 9:01:50 AM RT(R) Intra-Procedure 09/21/2019 Piper Parikh RN 9:02:29 AM Intra-Procedure 09/21/2019 Khoa Yi 9:03:06 AM [address] [id number] [place] [address]
--- NOTE | ~2019-09-20 | DS ---
PATIENT:KRISTA TITUS JR :66 MEDICAL RECORD: [id number] DISCHARGE SUMMARY ADMISSION DATE: 09/20/19 DISCHARGE DATE: DIAGNOSES: 1. Angina. 2. Coronary artery disease. 3. Hypertension. 4. Hyperlipidemia. HOSPITAL COURSE: Mr. Titus presents with anginal symptomatology; however, cardiac catheterization reveals wide patency of all stents. He was previously on Imdur 30 mg a day. This was increased to 60 mg b.i.d. He will follow up with [facility] in 1 month. TRANSINT:[id number] Voice Confirmation ID: [id number] DOCUMENT ID: [id number] DUC MARTELL MD CC: [id number] DICTATION DATE: 09/21/1957 FOREST MANAGER: 09/21/19921 [place] [id number] [place] [id number]
--- NOTE | ~2019-09-20 | OP ---
PATIENT NAME: KRISTA MENEZES JR MEDICAL RECORD: [id number] :66 LOCATION:D.M2 D.2123 ADMISSION DATE: SURGEON: DUC MARTELL MD DATE OF OPERATION: 09/21/2019 PROCEDURES: 1. Left heart catheterization. 2. Selective coronary angiography. 3. Left ventriculogram. 4. IFR. INDICATION: Angina and coronary artery disease. PROCEDURE IN DETAIL: After informed consent was obtained and after detailed explanation risks, benefits as well as alternative therapies, the patient elected to proceed with angiogram and heart catheterization. The right femoral area was prepped and draped in normal sterile fashion. Right femoral artery was cannulated via modified Seldinger technique with placement of 6-Cymro sheath. All catheters exchanged through this sheath. FINDINGS: Left ventriculogram performed in standard 30-degree GONSALEZ view, reveals good cardiac wall motion throughout all segments. Overall ejection fraction estimated at 50%. SELECTIVE CORONARY ANGIOGRAPHY: 1. Left main is with no significant angiographic disease. 2. Left anterior descending has previously placed stents, these are widely patent with no significant restenosis. There is a questionable stenosis afterwards; however, IFR is normal. 3. Left circumflex has mild irregularities, but no flow-limiting stenosis. 4. Right coronary has mild irregularities, but no flow-limiting stenosis. OVERALL IMPRESSION: Wide patency of all the previously placed stents, no disease elsewise. Continue medical management of the coronary artery disease and cardiac risk factors. TRANSINT:[id number] Voice Confirmation ID: [id number] DOCUMENT ID: [id number] DUC MARTELL MD CC: [id number] DICTATION DATE: 09/21/19 0858 CERTIFIED NURSE AIDE: 09/21/19 09 [facility] [address] [place] [address]
[~2019-09-20 19:22] MED LIST changes: +ALBUTEROL SULF8.5 GM INH
[2019-09-20 19:38] VITALS: BP 131/103
[2019-09-20 19:54] LABS: BASOPHILS 0.5 % (0-2); EOSINOPHILS 3.5 % (0-7); HEMATOCRIT 47.2 % (42.0-54.0); HEMOGLOBIN 16.3 g/dL (13.5-17.5); IMMATURE GRANULOCYTES 0.2 % (0-5); MCH 31.7 pg (26.0-34.0); MCHC 34.5 g/dL (31.0-37.0); MCV 91.8 fL (80.0-100.0); MEAN PLATELET VOLUME 10.4 fL (7.4-10.4); MONOCYTES 7.2 % (2-11); NEUTROPHILS 61.6 % (40-80); PLATELET COUNT 226 10x3/uL (130-400); RBC 5.14 10x6/uL (4.20-6.10); RDW 13.6 % (11.5-14.5); WBC 8.1 10x3/uL (4.8-10.8)
[2019-09-20 20:02] LABS: APTT 31.1 SECONDS (22.8-39.4); INR 0.95 (0.85-1.17); PROTIME 12.6 SECONDS (11.6-15.0)
[2019-09-20 20:07] LABS: CALC OSMOLALITY 278 mosm/kg (275-300); CALCIUM 9.1 mg/dL (8.5-10.1); CARBON DIOXIDE 30.4 mmol/L (21.0-32.0); CHLORIDE - SERUM 105 mmol/L (98-107); CREATININE - SERUM 1.1 mg/dL (0.6-1.3); GLUCOSE 98 mg/dL (74-106); POTASSIUM - SERUM 3.8 mmol/L (3.5-5.1); SODIUM 141 mmol/L (136-145); UREA NITROGEN 7 mg/dL (7-18); eGFR NON AFRICAN AMERICAN 75 mL/min (90-120)
[2019-09-20 20:25] LABS: ALBUMIN 3.7 g/dL (3.4-5.0); ALKALINE PHOSPHATASE 70 U/L (46-116); ALT (SGPT) 27 U/L (10-68); BILIRUBIN - TOTAL 0.32 mg/dL (0.2-1.3); CKMB 1.7 U/L (0.0-3.6); CREATINE KINASE 160 UL (21-232); PROTEIN - SERUM 6.8 g/dL (6.4-8.2); TROPONIN-I < 0.017 ng/mL (0.000-0.060)
--- NOTE | 2019-09-20 22:10 | NUR ---
PT LEFT DEPART AT 2210
[2019-09-21] VITALS: BP 140/81
[2019-09-21 01:19] VITALS: BMI 30.1
[2019-09-21 04:00] VITALS: BP 100/61
[2019-09-21 05:44] LABS: BASOPHILS 0.5 % (0-2); EOSINOPHILS 4.9 % (0-7); HEMATOCRIT 43.8 % (42.0-54.0); HEMOGLOBIN 14.5 g/dL (13.5-17.5); IMMATURE GRANULOCYTES 0.2 % (0-5); MCH 30.8 pg (26.0-34.0); MCHC 33.1 g/dL (31.0-37.0); MEAN PLATELET VOLUME 10.8 fL (7.4-10.4); MONOCYTES 8.1 % (2-11); NEUTROPHILS 51.3 % (40-80); PLATELET COUNT 205 10x3/uL (130-400); RBC 4.71 10x6/uL (4.20-6.10); RDW 13.8 % (11.5-14.5); WBC 6.3 10x3/uL (4.8-10.8)
[2019-09-21 06:08] LABS: ALKALINE PHOSPHATASE 50 U/L (46-116); ALT (SGPT) 23 U/L (10-68); BILIRUBIN - TOTAL 0.33 mg/dL (0.2-1.3); CALCIUM 8.3 mg/dL (8.5-10.1); CARBON DIOXIDE 30.3 mmol/L (21.0-32.0); CHLORIDE - SERUM 106 mmol/L (98-107); CKMB 1.7 U/L (0.0-3.6); CREATINE KINASE 118 UL (21-232); CREATININE - SERUM 1.1 mg/dL (0.6-1.3); GLUCOSE 92 mg/dL (74-106); POTASSIUM - SERUM 3.7 mmol/L (3.5-5.1); PROTEIN - SERUM 5.6 g/dL (6.4-8.2); SODIUM 142 mmol/L (136-145); eGFR NON AFRICAN AMERICAN 75 mL/min (90-120)
[2019-09-21 06:09] LABS: CALC OSMOLALITY 281 mosm/kg (275-300); TROPONIN-I < 0.017 ng/mL (0.000-0.060); UREA NITROGEN 9 mg/dL (7-18)
[2019-09-21 07:14] VITALS: Ht 185.4 cm; Wt 103.6 kg
--- NOTE | 2019-09-21 08:34 | NUR ---
TO CURB MACHINE OPERATOR PER BED
--- NOTE | 2019-09-21 08:58 | NUR ---
ASSESSMENT DONE. DENIES NEEDS
--- NOTE | 2019-09-21 08:59 | HP ---
PATIENT: KRISTA TITUS JR MEDICAL RECORD: [id number] ACCOUNT: [id number] LOCATION:[address] : [birth year] ADMISSION DATE: 09/20/19 PCP: ARCENIO ALVARENGA HISTORY AND PHYSICAL EXAMINATION DIAGNOSES: 1. Unstable angina. 2. Coronary artery disease. 3. Previous multivessel percutaneous transluminal coronary angioplasty and stent. 4. Hypertension. 5. Hyperlipidemia. 6. Smoking. 7. Chronic obstructive pulmonary disease. HISTORY OF PRESENT ILLNESS: Mr. Titus presents with increasing anginal symptomatology since Thursday, just like that of his previous angina it has progressed dramatically, it is a class IV anginal symptomatology. He continues to have episodes of chest pain with rest. He is on optimal medical management with a heart rate in the 60s. Systolic blood pressure 90-100. Hence, there is no room for continued medical management. His pain is just like that of his previous angina. PHYSICAL EXAMINATION: CONSTITUTIONAL/GENERAL APPEARANCE: Well nourished, well developed, appears stated age. EYES: Lids and conjunctivae noninjected. No discharge. No pallor. ENT: Lips within normal limit. No cyanosis. No pallor. NECK: Carotid arteries, bilateral normal upstroke. No bruits. No thrills. No jugular venous pressure or distention. CERVICAL LYMPH NODES: Nontender. Nonenlarged. THYROID: Not enlarged. No nodules. CARDIOVASCULAR: Precordial exam, nondisplaced. No heaves or pericardial thrills. Rate and rhythm, regular. Heart sounds, normal S1, normal S2. No S3, no gallop, no rub. Systolic murmur, not heard. Diastolic murmur, not heard. RESPIRATORY: Respiratory effort, unlabored. Normal curvature. No thoracic deformity. No chest wall tenderness. Percussion, resonant. Auscultation, clear. No wheezes, no rales, no rhonchi. ABDOMEN: Soft, nondistended, nontender. No abdominal pain, no vomiting and normal appetite. MUSCULOSKELETAL: No joint tenderness, normal gait, normal tone. SKIN: Warm and dry. IMPRESSION: Unstable angina, continued angina despite maximal medical therapy. We will proceed with coronary angiography. Further care depends upon findings of the angiography. TRANSINT:[id number] Voice Confirmation ID: [id number] DOCUMENT ID: [id number] HISTORY AND PHYSICAL [id number] KRISTA TITUS JR, JEFFREY MD at 0859 CC: [id number] DICTATION DATE: 09/21/19715 SQL REPORT ANALYST: 09/21/19 0745 [facility] [address] [place] [id number]
[2019-09-21 09:18] VITALS: BP 99/51
--- NOTE | 2019-09-21 09:23 | NUR ---
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 RT CHARMAINE MARIE C/D/I. PULSE PALP.
--- NOTE | 2019-09-21 09:51 | NUR ---
I have reviewed this patient and I concur with the Shift Assessment completed by the Licensed Practical Nurse today this shift.
[2019-09-21] MEDS ORDERED: ISOSORBIDE MONO60 M1 PO (10:36)
[2019-09-21 12:12] VITALS: BP 107/61
--- NOTE | 2019-09-21 12:39 | NUR ---
DC GIVEN TO PT , DC HOME PER PERSONAL CAR
== END 2019-09-21 12:40 | disposition home or self-care (01) ==
LOC: OBSVTIME → D.M2 19:22 → D.ER 19:22 → OBSVTIME 20:52 → D.ER 20:52 → D.M2 20:52 → D.ER 21:02 → EDSTATUS 21:04 → OBSVTIME 21:23 → D.M2 09-21 12:40 → EDSTATUS 09-22 08:00 → D.M2 09-22 13:48
PROVIDERS: Family Medicine; ADMIT Internal Medicine Interventional Cardiology; ATTEND Internal Medicine Interventional Cardiology
DX: I25.110 Atherosclerotic heart disease of native coronary artery with unstable angina pectoris (principal); I10 Essential (primary) hypertension; E78.5 Hyperlipidemia, unspecified; J44.9 Chronic obstructive pulmonary disease, unspecified; F17.200 Nicotine dependence, unspecified, uncomplicated

== ENCOUNTER 2020-01-19 10:05 | Observation (INO) | payer MEDICAID ==
[~2020-01-19] VITALS: Ht 185.4 cm; Wt 104.5 kg
[2020-01-19] VITALS (7 sets, daily range): BP systolic 104–145; BP diastolic 61–91; Ht 185.4 cm; Wt 104.5 kg
--- NOTE | ~2020-01-19 | HEMODYNAMI ---
PATIENT:KRISTA MENEZES JR MEDICAL RECORD: [id number] : 66 LOCATION:[address] [id number] ADMISSION DATE: 01/19/20 Generatedon:01/20/202010:36 Patient name: KRISTA MENEZES Patient #: [id number] SSN: [id number] : 1970 Date of study: 01/20/2020 Page: Of Hemodynamic Procedure Report Patient Data Patient Demographics Procedure consent was obtained First Name: KRISTA Gender: Male Last Name: RIRI Suffix: [facility] Initial: Ruth : 1970 Patient #: [id number] Age: 49 year(s) Race: SSN: [id number] Additional ID: [id number] Contact details Address: [address] [place] [address] State: [place] City: [place] Zip code: [address] Past Medical History History of disease Date Diagnosis Comments CAD Allergies Allergen Reaction Date Comments Reported Other allergy 10/20/2018 Plavix non responder Other allergy 12/05/2018 PLAVIX Other allergy 09/21/2019 PLAVIX Other allergy 01/20/2020 CLOPIDOGREL Admission Admission Data Admission Date: 01/19/2020 Admission Time: 11:32 Room #: [facility] Height (in.): 72.83 BSA: 2.29 (m2) Height (cm.): 185 BMI: 30.68 (kg/m2) Weight (lbs.): 231.49 Weight (kg.): 105 Lab Results Lab Result Date: 01/20/2020 Lab Result Time: 0:00 Biochemistry Name Units Result Min Max BUN mg/dl 10 --(-*--)-- 7 18 Creatinine mg/dl 1.1 --(--*-)-- 0.6 1.3 eGFR ml/min 75 *-(----)-- 90 120 NONAFRICAN CBC Name Units Result Min Max Hematocrit % 49.5 --(--*-)-- 42 54 Hemoglobin g/dl 16.7 --(---*)-- 13.5 17.5 Procedure Procedure Types Cath Procedure Diagnostic Procedure [facility] w/Coronaries Procedure Description Procedure Date Procedure Date: 01/20/2020 Procedure Start Time: 10:21 Procedure End Time: 10:32 Procedure Staff Name Function Matheus Edwards MD Performing Physician Federica Cortez RT Monitor Liana Vega RN Nurse Ayesha Crane RT Scrub Procedure Data Cath Procedure Fluoroscopy Diagnostic fluoroscopy Total fluoroscopy Time: 0.9 time: 0.9 min min Diagnostic fluoroscopy Total fluoroscopy dose: 669 dose: 669 mGy mGy Contrast Material Contrast Material Type Amount (ml) Isovue 300 50 Entry Location Entry Primary Successful Side Size Upsize Upsize Entry Closure Succes sful Closure Location (Fr) 1 (Fr) 2 (Fr) Remarks Device Remarks Femoral Right 5 Fr Exoseal artery Estimated blood loss: 5 ml Diagnostic catheters Device Type Used For End Catheter Placement MULTIPACK JL 4.0 5Fr Procedure catheter MULTIPACK 3DRC 5Fr Procedure catheter MULTIPACK Pigtail 5 Fr Procedure catheter Procedure Complications No complications Procedure Medications Medication Administration Route Dosage 0.9% NaCl I.V. 100 ml/hr Oxygen etCO2 Nasal cannula 2 l/min Lidocaine 2% added to field 20 Heparin Flush Bag added to field 2 bags (1000units/500ml NS) Versed I.V. 2 mg Fentanyl I.V. 50 mcg Effient P.O. 10 mg Fentanyl I.V. 50 mcg Hemodynamics Rest BSA: 2.29 (m2) HGB: 16.7 (g/dl) O2 Consumption: Estimated: 270.52 (ml/min) O2 Co nsumption indexed: Estimated:118.13 (ml/min/m) Heart Rate: 67 (bpm) Pressure Samples Time Site Value (mmHg) Purpose Heart Use Rate(bpm) 10:26 LV 95/24,27 Snapshot 74 10:26 LV 92/13,23 Snapshot 74 10:26 AO 89/62(72) Pullback 75 10:26 LV 71/9,3 Pullback 75 Gradients Valve Time Site 1 Site 2 Mean SEP/DFP Peak To Heart Use (mmHg) (sec/min) Peak Rate (mmHg) (bpm) Aortic 10:26 LV AO 0 75 71/9,3 89/62(72) Calculations Valve P-P Mean Valve Index Valve Source Name Gradient Area Flow (cm2) Aortic 0 0 Snapshots Pre Cath Intra NCS Post Cath Vital Signs Time Heart Resp SPO2 etCO2 NIBP (mmHg) Rhythm Pain Sedation Rate (ipm) (%) (mmHg) Status Level (bpm) 10:03:51 73 17 97 31.4 118/70(102) NSR 0 (11) 10(A) , No pain 10:07:59 69 15 97 36.6 114/72(90) NSR 0 (11) 10(A) , No pain 10:12:07 69 14 97 46.3 117/72(110) NSR 0 (11) 10(A) , No pain 10:16:17 64 14 98 38.8 114/69(88) NSR 0 (11) 10(A) , No pain 10:20:23 67 17 97 35.1 115/74(92) NSR 0 (11) 10(A) , No pain 10:24:30 73 14 97 29.1 104/69(81) NSR 0 (11) 10(A) , No pain 10:28:32 74 28 98 17.9 118/78(103) NSR 0 (11) 10(A) , No pain 10:33:31 68 12 94 18.7 124/79(107) NSR 0 (11) 10(A) , No pain Medications Time Medication Route Dose Verified Delivered Reason Notes E ffectiveness by by 10:03:08 Oxygen etCO2 2 Matheus Liana used for Nasal l/min [facility] Vega procedure cannula MD STEINBERG 10:03:17 Lidocaine 2% added 20ml Matheus Jarvis for local to vial [facility] anesthetic field MD BOTELLO 10:03:25 Heparin Flush added 2 Matheus Matheus used for Bag to bags [facility] John procedure (1000units/500ml field MD BOTELLO NS) 10:03:55 0.9% NaCl I.V. 100 Matheus Liana used for ml/hr [facility] Leonel Vega procedure MD STEINBERG 10:20:32 Versed I.V. 2 mg Matheus Liana used for [facility] Vega procedure MD STEINBERG 10:20:44 Fentanyl I.V. 50 Matheus Liana for sedation mcg [facility] Leonel Vega MD, RN 10:24:07 Fentanyl I.V. 50 Matheus Liana for sedation mcg [facility] Vega MD RN 10:28:50 Effient P.O. 10 mg Matheus Gaines for GraceLeonel Vega antiplatelet RN therapy Procedure Log Time Note 9:30:08 Procedure Status Urgent Heart Cath (IP). 9:30:12 Federica Cortez RT(R) sent for patient. Start room use. 9:58:06 Time tracking: Regular hours (M-F 7:00 - 5:00) 9:58:11 Plan of Care:Hemodynamics will remain stable., Cardiac rhythm will remain stable., Comfort level will be maintained., Respiratory function will remain adequate., Patient/ family verbilizes understanding of procedure., Procedure tolerated without complication., Recovers from procedure without complications.. 9:58:15 H&P Date Dictated: 01/20/2020 ER History on chart.. 9:58:29 Patient allergic to Other allergyCLOPIDOGREL 9:59:55 Lab Result : BUN 10 mg/dl 9:59:55 Lab Result : Creatinine 1.1 mg/dl 9:59:55 Lab Result : eGFR NONAFRICAN 75 ml/min 9:59:55 Lab Result : Hemoglobin 16.7 g/dl 9:59:55 Lab Result : Hematocrit 49.5 % 10:02:37 Lab results completed and on chart. 10:02:45 Patient received from Med II to CCL 2 Alert and oriented. Tansferred to table in Supine position. 10:02:50 Signed procedure consent form obtained from patient. 10:02:51 Warm blankets applied, and lynette hugger turned on for patient comfort. 10:02:52 Correct patient and procedure confirmed by team. 10:02:52 ECG and BP/O2 sat monitors applied to patient. 10:02:52 Vital chart was started 10:02:54 Baseline sample Acquired. 10:02:56 Rhythm: sinus rhythm 10:02:57 Full Disclosure recording started 10:02:57 Pre-procedure instructions explained to patient. 10:02:58 Pre-op teaching completed and patient verbalized understanding. 10:02:59 Family unavailable. 10:03:00 Patient NPO since Midnight. 10:03:02 Is the patient allergic to Iodine/contrast media? No. 10:03:03 Is patient on blood thinner?Yes 10:03:05 ACC The patient was administered the following blood thiners within the last 24 hours: ACCEffient 10:03:07 Patient diabetic? No. 10:03:08 Oxygen 2 l/min etCO2 Nasal cannula was administered by Liana Vega RN; used for procedure; Verbal order read back and verified. 10:03:10 Previous problem with sedation/anesthesia? No ? 10:03:11 Snore? Yes 10:03:13 Sleep apnea? Yes 10:03:14 Deviated septum? No 10:03:14 Opens mouth fully? Yes 10:03:15 Sticks out tongue? Yes 10:03:17 Lidocaine 2% 20ml vial added to field was administered by Matheus Edwards MD; for local anesthetic; Verbal order read back and verified. 10:03:18 Airway obstruction? Yes COPD 10:03:22 Dentures? Yes BOTTOM IN 10:03:25 Heparin Flush Bag (1000units/500ml NS) 2 bags added to field was administered by Matheus Edwards MD; used for procedure; Verbal order read back and verified. 10:03:27 Pre procedure: right dorsailis pedis pulse 1+ Palpable, but thready & weak; easily obliterated 10:03:30 Patient pain scale 0/10 ?. 10:03:45 Stress Test: no; N/A ? 10:03:55 0.9% NaCl 100 ml/hr I.V. was administered by Liana Vega RN; used for procedure; Verbal order read back and verified. 10:03:57 IV patent on arrival in left hand with 0.9% NaCl at [facility]. 10:04:02 Right groin area was prepped with chlora-prep and draped in sterile fashion 10:04:03 Alarms reviewed by R. N. 10:04:03 Sharps counted by scrub and verified by R.N. 10:04:06 Use device set Femoral Dx 10:04:07 ACIST Syringe (34750) opened to sterile field. 10:04:07 Bag Decanter () opened to sterile field. 10:04:09 ACIST Hand Control (28521) opened to sterile field. 10:04:09 ACIST Manifold (50174) opened to sterile field. 10:04:10 Tegaderm 4 x 4 (1626W) opened to sterile field. 10:04:11 Medline Cath Pack ([id number]) opened to sterile field. 10:04:12 DIAGNOSTIC Multipack 5Fr catheter set ([id number]) opened to sterile field. 10:04:12 SHEATH 5FR [place] (CEY021) opened to sterile field. 10:04:13 EMERALD Guide Wire (437-549) opened to sterile field. 10:15:47 Patient Weight : 231.49 lbs 10:16:18 Patient Height : 72.83 inches 10:16:35 Zero performed for pressure channel P1 10:19:38 --------ALL STOP TIME OUT------ 10:19:38 Final Timeout: patient, procedure, and site verified with staff and physician. All members of the team are in agreement. 10:19:39 Right groin site verified by team. 10:19:42 Fire Safety Assessment: A--An alcohol-based skin anteseptic being used preoperatively., C--Open oxygen or nitrous oxide is being used., D--An ESU, laser, or fiber-optic light is being used. 10:19:45 Physical assessment completed. ASA score P 2 - A patient with mild systemic disease as per Matheus Edwards MD. 10:19:50 2) 60-89 Mildly reduced kidney function, and other findings (as for stage 1) point to kidney disease. 10:19:52 Maximum allowable contrast dose (3.7 X eGFR X 0.75)208 ml. 10:19:55 Sedation plan: IV Moderate Sedation Medication:Versed, Fentanyl 10:20:32 Versed 2 mg I.V. was administered by Liana Vega RN; used for procedure; Verbal order read back and verified. 10:20:44 Fentanyl 50 mcg I.V. was administered by Liana Vega RN; for sedation; Verbal order read back and verified. 10:21:10 Procedure started. 10:21:42 Local anesthetic to right femoral artery with Lidocaine 2% by Matheus Edwards MD.INITIAL ACCESS ONLY 10:22:05 A 5 Fr sheath was inserted into the Right Femoral artery 10:22:47 A MULTIPACK JL 4.0 5Fr catheter was advanced over the wire and used for Procedure. 10:24:07 Fentanyl 50 mcg I.V. was administered by Liana Veag RN; for sedation; Verbal order read back and verified. 10:24:08 LCA angiography performed. 10:24:09 Catheter removed. 10:24:17 A MULTIPACK 3DRC 5Fr catheter was advanced over the wire and used for Procedure. 10:25:10 RCA angiography performed. 10:25:16 Catheter removed. 10::46 A MULTIPACK Pigtail 5 Fr catheter was advanced over the wire and used for Procedure. 10::01 LV gram done using GONSALEZ 10::03 Injector settings: Ml/sec: 10, Volume: 20, 10::29 LV hemodynamics recorded. 10::45 EF : 30 % 10::38 Catheter removed. 10:28:11 EXOSEAL 5Fr (EX500) opened to sterile field. 10::22 Sheath removed intact; hemostasis achieved with Exoseal to the Right Femoral artery. 10::24 Procedure ended.(Physican Out) :: Fluoroscopy time 00.90 minutes. 10::42 Fluoroscopy dose: 669 mGy 10:: Flurop Dose total: 669 10::50 Effient 10 mg P.O. was administered by Liana Vega RN; for antiplatelet therapy; Verbal order read back and verified. 10:28:50 Dose Area Product 45166 mGy/cm. 10::57 Contrast amount:Isovue 300 50ml. 10:28:59 Maximum allowable dose exceeded? No. 10::00 Sharps counted by scrub and verified by R.N. 10:29:02 Post-op/insertion site Right Femoral artery dressed using a 4 x 4 and Tegaderm. 10:29:06 Post-procedure physical assessment completed. ASA score P 2 - A patient with mild systemic disease as per Matheus Edwards MD. 10:29:09 Post procedure rhythm: sinus rhythm 10:29:10 Estimated blood loss: 5 ml 10:29:11 Post procedure instruction explained to patient.Patient verbalizes understanding. 10:29:12 Patient needs reinforcement of post procedure teaching. 10::58 Procedure and supply charges have been captured, reviewed, submitted and are correct. 10:30:00 Procedure Complication : No complications 10:30:03 [facility] Findings: mild to moderate CAD (<70%) 10:30:05 Operative report dictated upon procedure completion. 10:30:05 See physician's report for complete and final results. 10:32:03 Report given to [facility]. 10:32:05 Patient transfered to [facility] with Bed. 10:32:06 Vital chart was stopped 10:32:08 Procedure ended. 10:32:08 Full Disclosure recording stopped 10:32:15 End room use (Document Last) 10:35:16 End room use (Document Last) 10:35:40 End room use (Document Last) Device Usage Item Name Manufacture Quantity Catalog Hospital Part Current Minimal L ot# / Number Charge Number Stock Stock Serial# Code ACIST Acist 1 54771 [id number] 884898 284261 20 Syringe Medical (25038) Systems Inc Bag Microtek 1 2001S 712028 59418 592124 5 Decanter Medical Inc. () ACIST Hand Acist 1 46929 485147 772038 398069 5 Control Medical (60162) Systems Inc ACIST Acist 1 03268 717551 734397 115478 5 Manifold Medical (88906) Systems Inc Tegaderm 4 3M 1 1626W 571520 140145 861352 5 x 4 (1626W) Medline Medline 1 [id number] 907813 08578 931120 5 Cath Pack ([id number]) DIAGNOSTIC Cardinal 1 XY7981 342487 23777 827562 30 Multipack Health 5Fr catheter set (HI5626) SHEATH 5FR Terumo 1 SJH534 295514 243053 937498 5 [place] (NWC802) EMERALD Cardinal 1 502-455 752530 781688 606641 5 Guide Wire Health (502-391) MULTIPACK Cardinal 1 403642 5 JL 4.0 5Fr Health catheter MULTIPACK Cardinal 1 302525 5 3DRC 5Fr Health catheter MULTIPACK Cardinal 1 895053 5 Pigtail 5 Health Fr catheter EXOSEAL 5Fr Cardinal 1 EX500 530088 022648 330123 10 (EX500) Health Signature Audit [place] [facility] Stage Time Signature Unsigned Intra-Procedure 01/20/2020 Federica Cortez 10:35:16 AM RT(R) Intra-Procedure 01/20/2020 Liana Vega 10:35:40 AM RN Intra-Procedure 01/20/2020 Matheus Valderrama 10:35:58 AM Leonel BOTELLO Signatures Performing Physician : Signature : Matheus Edwards MD Date : Time : Monitor : Federica Cortez Signature : RT Date : Time : Nurse : Liana Gary RN Signature : Date : Time : [address] [place] [address]
--- NOTE | ~2020-01-19 | OP ---
PATIENT NAME: KRISTA MENEZES JR MEDICAL RECORD: [id number] :66 LOCATION:D.M2 D.2127 ADMISSION DATE:01/19/20 SURGEON: RUPINDER BANG MD DATE OF OPERATION: 01/19/2020 PROCEDURE: Left heart catheterization, selective coronary angiography, right femoral artery approach. CATHETERS: A 5-Canadian sheath, 5/4 left and right Gayla, 5/4 pig. The procedure was well tolerated. The patient was returned to rya. Sheath removed. ExoSeal device placed. FINDINGS: Left ventriculography in 30-degree GONSALEZ view shows anterior apical and apical regions marked hypokinesis, EF appears to be reduced 30% to 35%. CORONARY ANATOMY: LEFT MAIN: Left main is free of disease. LAD: Free of disease in the diagonal system. CIRCUMFLEX: Has a previously stented OM that is totally occluded, fills late via [id number] and bridging collaterals. The true circumflex itself with no evidence of restenosis. No progression of [place] disease. RIGHT CORONARY ARTERY: No progression of disease. IMPRESSION: Ischemic cardiomyopathy, previously unable to re-channel the obtuse marginal. Medical management for cardiomyopathy and coronary artery disease. TRANSINT:[id number] Voice Confirmation ID: [id number] DOCUMENT ID: [id number] RUPINDER BANG MD CC: [id number] DICTATION DATE: 01/20/20 1034 INTAKE CLERK: 01/20/20 1646 DIS IN 01/20/20 [facility] [address] [place] [address]
[~2020-01-19 10:05] MED LIST changes: +ISOSORBIDE MONO60 M1 PO
[2020-01-19] MEDS ORDERED: BUSPAR 15 MG TA15 MG PO (10:29)
[2020-01-19] MEDS ORDERED: COREG25 MG PO (10:30)
[2020-01-19] MEDS ORDERED: CATAPRES0.1 MG PO (10:30)
[2020-01-19] MEDS ORDERED: BREO ELLIPTA 21 EACH (10:31)
[2020-01-19 10:33] LABS: BASOPHILS 0.3 % (0-2); EOSINOPHILS 2.5 % (0-7); HEMATOCRIT 49.5 % (42.0-54.0); HEMOGLOBIN 16.7 g/dL (13.5-17.5); IMMATURE GRANULOCYTES 0.3 % (0-5); LYMPHOCYTES 21.9 % (15-50); MCH 31.2 pg (26.0-34.0); MCHC 33.7 g/dL (31.0-37.0); MCV 92.5 fL (80.0-100.0); MEAN PLATELET VOLUME 10.4 fL (7.4-10.4); MONOCYTES 6.1 % (2-11); NEUTROPHILS 68.9 % (40-80); PLATELET COUNT 210 10x3/uL (130-400); RBC 5.35 10x6/uL (4.20-6.10); RDW 13.7 % (11.5-14.5); WBC 6.9 10x3/uL (4.8-10.8)
[2020-01-19 10:34] LABS: CALC OSMOLALITY 273 mosm/kg (275-300); CALCIUM 9.2 mg/dL (8.5-10.1); CARBON DIOXIDE 28.9 mmol/L (21.0-32.0); CHLORIDE - SERUM 105 mmol/L (98-107); CREATININE - SERUM 1.1 mg/dL (0.6-1.3); GLUCOSE 117 mg/dL (74-106); POTASSIUM - SERUM 3.8 mmol/L (3.5-5.1); SODIUM 137 mmol/L (136-145); UREA NITROGEN 10 mg/dL (7-18); eGFR NON AFRICAN AMERICAN 75 mL/min (90-120)
[2020-01-19 10:35] LABS: APTT 33.4 SECONDS (22.8-39.4); INR 0.95 (0.85-1.17); PROTIME 12.6 SECONDS (11.6-15.0)
[2020-01-19 10:53] LABS: ALBUMIN 3.9 g/dL (3.4-5.0); ALKALINE PHOSPHATASE 61 U/L (30-120); ALT (SGPT) 29 U/L (10-68); BILIRUBIN - TOTAL 0.52 mg/dL (0.2-1.3); CKMB 1.8 U/L (0.0-3.6); CREATINE KINASE 121 UL (21-232); MAGNESIUM - SERUM 1.9 mg/dL (1.8-2.4); PROTEIN - SERUM 7.1 g/dL (6.4-8.2)
[2020-01-19 10:57] LABS: TROPONIN-I < 0.017 ng/mL (0.000-0.060)
--- NOTE | 2020-01-19 12:41 | NUR ---
REPORT TO MARYAN MEAD
--- NOTE | 2020-01-19 12:54 | NUR ---
RECIVED FROM ER PER WC TO ROOM 2127. ADMIT ASSESSMENT PER RN
--- NOTE | 2020-01-19 17:46 | NUR ---
WITHOUT CHANGES OR DISTRESS NOTED AT THIS TIME. DENIES NEEDS
--- NOTE | 2020-01-19 19:25 | NUR ---
ALERT AND OX4 REQUESTING PAIN MED FOR CP BED LOW AND LOCKED NTG HAS NOW BEEN REPLACED TO CHEST WALL
--- NOTE | 2020-01-19 19:32 | NUR ---
PT ON 2L SAT DOWN TO 91
[2020-01-19 19:53] LABS: CKMB 1.4 U/L (0.0-3.6); CREATINE KINASE 94 UL (21-232); TROPONIN-I < 0.017 ng/mL (0.000-0.060)
[2020-01-20] VITALS: BP 123/63
--- NOTE | 2020-01-20 03:44 | NUR ---
I have reviewed this patient and I concur with the Shift Assessment completed by the Licensed Practical Nurse today this shift.
[2020-01-20 04:00] VITALS: BP 93/50
[2020-01-20 08:04] VITALS: BP 99/58
[2020-01-20 09:12] LABS: BASOPHILS 0.3 % (0-2); EOSINOPHILS 3.3 % (0-7); HEMATOCRIT 44.4 % (42.0-54.0); HEMOGLOBIN 14.6 g/dL (13.5-17.5); IMMATURE GRANULOCYTES 0.2 % (0-5); LYMPHOCYTES 13.6 % (15-50); MCH 30.7 pg (26.0-34.0); MCHC 32.9 g/dL (31.0-37.0); MCV 93.3 fL (80.0-100.0); MEAN PLATELET VOLUME 10.6 fL (7.4-10.4); MONOCYTES 6.4 % (2-11); NEUTROPHILS 76.2 % (40-80); PLATELET COUNT 201 10x3/uL (130-400); RBC 4.76 10x6/uL (4.20-6.10); RDW 13.7 % (11.5-14.5)
[2020-01-20 09:28] LABS: WBC 9.2 10x3/uL (4.8-10.8)
[2020-01-20 09:42] LABS: ALBUMIN 3.2 g/dL (3.4-5.0); ALKALINE PHOSPHATASE 51 U/L (30-120); ALT (SGPT) 24 U/L (10-68); BILIRUBIN - TOTAL 0.44 mg/dL (0.2-1.3); CALC OSMOLALITY 281 mosm/kg (275-300); CALCIUM 8.7 mg/dL (8.5-10.1); CHLORIDE - SERUM 104 mmol/L (98-107); CKMB 1.5 U/L (0.0-3.6); CREATINE KINASE 82 UL (21-232); CREATININE - SERUM 1.1 mg/dL (0.6-1.3); GLUCOSE 95 mg/dL (74-106); POTASSIUM - SERUM 4.5 mmol/L (3.5-5.1); SODIUM 141 mmol/L (136-145); TROPONIN-I < 0.017 ng/mL (0.000-0.060); UREA NITROGEN 15 mg/dL (7-18); eGFR NON AFRICAN AMERICAN 75 mL/min (90-120)
[2020-01-20 09:49] LABS: CHOL - HDL RATIO 7.2 ratio (2.3-4.9); LDL-HDL RATIO 5.3 ratio (1.5-3.5)
[2020-01-20 12:49] VITALS: BP 107/74
[2020-01-20] MEDS ORDERED: ALDACTONE25 MG PO (13:36)
--- NOTE | 2020-01-20 15:27 | NUR ---
PT DISCHARGED HOME VIA WHEELCHAIR. PIV REMOVED WITH CATHETER TIP FULLY INTACT. TELEMETRY REMOVED AND RETURNED. PT SIGNED PROPER DISCHARGE INSTRUCTIONS AND REMOVED ALL VALUABLES FROM THE ROOM.
== END 2020-01-20 15:27 | disposition home or self-care (01) ==
LOC: D.ER 10:05 → OBSVTIME 11:32 → D.M2 11:32
PROVIDERS: Family Medicine; Internal Medicine Interventional Cardiology; ADMIT Family Medicine; ATTEND Family Medicine
DX: I25.110 Atherosclerotic heart disease of native coronary artery with unstable angina pectoris (principal); I10 Essential (primary) hypertension; J44.9 Chronic obstructive pulmonary disease, unspecified; E78.5 Hyperlipidemia, unspecified; F17.200 Nicotine dependence, unspecified, uncomplicated; I25.5 Ischemic cardiomyopathy

== ENCOUNTER 2020-02-15 11:29 | Observation (INO) | payer MEDICAID ==
[~2020-02-15] VITALS: Ht 182.9 cm; Wt 104.5 kg
[~2020-02-15 11:29] MED LIST changes: +ALDACTONE25 MG PO; +COREG25 MG PO
[2020-02-15 12:00] VITALS: BP 90/57
[2020-02-15 12:07] LABS: BASOPHILS 0.7 % (0-2); EOSINOPHILS 3.7 % (0-7); HEMATOCRIT 45.4 % (42.0-54.0); HEMOGLOBIN 15.1 g/dL (13.5-17.5); IMMATURE GRANULOCYTES 0.3 % (0-5); LYMPHOCYTES 25.3 % (15-50); MCH 30.8 pg (26.0-34.0); MCHC 33.3 g/dL (31.0-37.0); MCV 92.7 fL (80.0-100.0); MEAN PLATELET VOLUME 10.4 fL (7.4-10.4); MONOCYTES 6.1 % (2-11); NEUTROPHILS 63.9 % (40-80); PLATELET COUNT 215 10x3/uL (130-400); RDW 13.9 % (11.5-14.5); WBC 7.1 10x3/uL (4.8-10.8)
[2020-02-15 12:11] LABS: APTT 27.6 SECONDS (22.8-39.4); CALC OSMOLALITY 277 mosm/kg (275-300); CALCIUM 9.1 mg/dL (8.5-10.1); CARBON DIOXIDE 30.2 mmol/L (21.0-32.0); CHLORIDE - SERUM 107 mmol/L (98-107); CREATININE - SERUM 1.1 mg/dL (0.6-1.3); GLUCOSE 125 mg/dL (74-106); INR 1.01 (0.85-1.17); PROTIME 13.2 SECONDS (11.6-15.0); SODIUM 139 mmol/L (136-145); UREA NITROGEN 10 mg/dL (7-18); eGFR NON AFRICAN AMERICAN 75 mL/min (90-120)
[2020-02-15 12:28] LABS: ALBUMIN 3.3 g/dL (3.4-5.0); ALKALINE PHOSPHATASE 56 U/L (30-120); ALT (SGPT) 23 U/L (10-68); AMYLASE - SERUM 41 U/L (25-115); BILIRUBIN - TOTAL 0.41 mg/dL (0.2-1.3); CKMB 1.4 U/L (0.0-3.6); CREATINE KINASE 97 UL (21-232); LIPASE 77 U/L (73-393); MAGNESIUM - SERUM 1.9 mg/dL (1.8-2.4); TROPONIN-I < 0.017 ng/mL (0.000-0.060)
--- NOTE | 2020-02-15 13:41 | NUR ---
JOY GUAJARDO [phone]
--- NOTE | 2020-02-15 13:41 | NUR ---
EDP DOWNEN AT BEDSIDE UPDATING PATIENT
[2020-02-15 13:53] VITALS: BP 88/45
[2020-02-15 15:03] VITALS: BP 100/64
--- NOTE | 2020-02-15 15:55 | NUR ---
PT LAYING IN BED. NO DISTRESS NOTED. COLOR WNL FOR RACE. RSEPIRATIONS ARE EVEN AND UNLABORED. WILL CONTINUE TO MONITOR.
--- NOTE | 2020-02-15 18:04 | NUR ---
CALLED REPORT TO JUAN C.
--- NOTE | 2020-02-15 18:15 | NUR ---
UNABLE TO TRANSPORT PATIENT AT THIS TIME. AWAITING EVS TO CLEAN ROOM.
--- NOTE | 2020-02-15 18:59 | NUR ---
ROOM CLEAN AT THIS TIME. PT TRANSFERRED.
--- NOTE | 2020-02-15 19:10 | NUR ---
REPORT RECEIVED, WILL CONTINUE POC. PATIENT IS BEING WHEELED TO ROOM 2130 VIA STRETCHER. PATIETN IS AAOX4, LYING IN SUPINE POSITION. CL IN REACH, BED LOCKED AND LOWERED. WILL CTM.
[2020-02-15 20:00] VITALS: BP 104/64
[2020-02-15 20:03] LABS: CKMB 1.6 U/L (0.0-3.6); CREATINE KINASE 82 UL (21-232)
[2020-02-15 20:09] LABS: TROPONIN-I < 0.017 ng/mL (0.000-0.060)
--- NOTE | 2020-02-15 20:30 | NUR ---
QUICK START, MED REC, SRS, FPOC, ADULT HX ALL COMPLETE. VSS. PIV TO RT AC INFUSING NS @ 125ML/HR. SANDWICH BOX AND ICE WATER PROVIDED. TELEMETRY APPLIED. CL IN REACH, BED LOCKED AND LOWERED. WILL CTM.
--- NOTE | 2020-02-15 20:35 | NUR ---
RECEIVED CALL BACK FROM INFECTION CONTROL. PATIENT COVID TEST WAS NEGATIVE. PATIENT TAKEN OFF PRECAUTIONS.
[2020-02-16 03:01] LABS: CKMB 1.1 U/L (0.0-3.6); CREATINE KINASE 75 UL (21-232); TROPONIN-I < 0.017 ng/mL (0.000-0.060)
[2020-02-16 03:20] VITALS: Ht 182.9 cm; Wt 104.5 kg
[2020-02-16 04:00] VITALS: BP 111/72
[2020-02-16 09:26] VITALS: BP 121/77
--- NOTE | 2020-02-16 13:16 | NUR ---
ORTHOSTATICS FOLLOWED: LYING 124/57. SITTING 127/65. STANDING 112/67.
[2020-02-16 15:52] VITALS: BP 105/43
--- NOTE | 2020-02-16 16:10 | NUR ---
PT DISCHARGED HOME VIA WHEELCHAIR WITH FAMILY. PIV REMOVED WITH CATHETER TIP FULLY INTACT. TELEMETRY REMOVED AND RETURNED. PT SIGNED PROPER DISCHARGE INSTRUCTIONS AND REMOVED ALL VALUABLES FROM THE ROOM.
== END 2020-02-16 16:11 | disposition home or self-care (01) ==
LOC: D.ER 11:29 → OBSVTIME 14:00 → D.M2 14:00
PROVIDERS: Family Medicine; ADMIT Family Medicine; ATTEND Family Medicine
DX: R07.9 Chest pain, unspecified (principal); A08.4 Viral intestinal infection, unspecified; I25.10 Atherosclerotic heart disease of native coronary artery without angina pectoris; I10 Essential (primary) hypertension; E78.5 Hyperlipidemia, unspecified; F17.200 Nicotine dependence, unspecified, uncomplicated; I25.5 Ischemic cardiomyopathy; J44.1 Chronic obstructive pulmonary disease with (acute) exacerbation; R42 Dizziness and giddiness; R06.02 Shortness of breath; I95.9 Hypotension, unspecified

== ENCOUNTER 2020-02-24 09:38 | Inpatient (IN) | payer MEDICAID ==
[~2020-02-24] VITALS: Ht 182.9 cm; Wt 110.7 kg
--- NOTE | ~2020-02-24 | HEMODYNAMI ---
PATIENT:KRISTA MENEZES JR MEDICAL RECORD: [id number] : 66 LOCATION:[facility] D.[address]134 [facility]# [id number] ADMISSION DATE: 02/24/20 Generatedon:02/26/202010:29 Patient name: KRISTA MENEZES Patient #: [id number] SSN: [id number] : 1970 Date of study: 02/26/2020 Page: Of Hemodynamic Procedure Report Patient Data Patient Demographics Procedure consent was obtained First Name: KRISTA Gender: Male Last Name: RIRI Suffix: Jr Rojo Initial: Ruth : 1970 Patient #: [id number] Age: 49 year(s) Race: SSN: [id number] Additional ID: [id number] Contact details [address]: [address] [place] [address] State: [place] City: [place] Zip code: [address] Past Medical History History of disease Date Diagnosis Comments CAD Allergies Allergen Reaction Date Comments Reported Other allergy 10/20/2018 Plavix non responder Other allergy 12/05/2018 PLAVIX Other allergy 09/21/2019 PLAVIX Other allergy 01/20/2020 CLOPIDOGREL Other allergy 02/26/2020 plavix Admission Admission Data Admission Date: 02/24/2020 Admission Time: 10:38 Admit Source: Emergency Insurance Payor: Medicaid department [facility] #: [id number] Room #: D.2134 Height (in.): 71.65 BSA: 2.28 (m2) Height (cm.): 182 BMI: 32.3 (kg/m2) Weight (lbs.): 235.9 Weight (kg.): 107 Lab Results Lab Result Date: 02/26/2020 Lab Result Time: 6:20 Biochemistry Name Units Result Min Max BUN mg/dl 10 --(-*--)-- 7 18 Creatinine mg/dl 0.9 --(-*--)-- 0.6 1.3 eGFR ml/min 90 --(*---)-- 90 120 NONAFRICAN CBC Name Units Result Min Max Hematocrit % 49 --(--*-)-- 42 54 Hemoglobin g/dl 16.3 --(--*-)-- 13.5 17.5 Procedure Procedure Types Cath Procedure Diagnostic Procedure Right Heart RHC and LHC w/Coronaries Sedation Charges Moderate Sedation up to 30 minutes Procedure Description Procedure Date Procedure Date: 02/26/2020 Procedure Start Time: 9:51 Procedure End Time: 10:28 Procedure Staff Name Function Ye Thompson MD Performing Physician Edward Edmondson RT Monitor Ayesha Weinberg RT Scrub Piper Parikh RN Nurse Procedure Data Cath Procedure Fluoroscopy Diagnostic fluoroscopy Total fluoroscopy Time: 3.1 time: 3.1 min min Diagnostic fluoroscopy Total fluoroscopy dose: 523 dose: 523 mGy mGy Contrast Material Contrast Material Type Amount (ml) Isovue 300 32 Entry Location Entry Primary Successful Side Size Upsize Upsize Entry Closure Álvarez ccessful Closure Location (Fr) 1 (Fr) 2 (Fr) Remarks Device Remarks Femoral Right 7 Fr Manual vein Short Compression Femoral Right 5 Fr Exoseal artery Estimated blood loss: 5 ml Diagnostic catheters Device Type Used For End Catheter Placement SWAN 7Fr Thermodilution Procedure cather (131F7P) MULTIPACK Pigtail 5 Fr Procedure catheter MULTIPACK JL 4.0 5Fr Procedure catheter MULTIPACK 3DRC 5Fr Procedure catheter Procedure Complications No complications Procedure Medications Medication Administration Route Dosage Oxygen etCO2 Nasal cannula 2 l/min Lidocaine 2% added to field 20 Heparin Flush Bag added to field 2 bags (1000units/500ml NS) 0.9% NaCl I.V. 100 ml/hr Benadryl I.V. 50 mg Versed I.V. 1 mg 0.9% NaCl I.V. bolus 300 ml Versed I.V. 1 mg Hemodynamics Rest BSA: 2.28 (m2) HGB: 16.3 (g/dl) O2 Consumption: Estimated: 270.92 (ml/min) O2 Co nsumption indexed: Estimated:118.82 (ml/min/m) Heart Rate: 69 (bpm) Oxygen Saturations Time Location Saturations Hgb (g/dl) O2 Content Use (%) (ml/L) 10:00 PCW 95.4 10:01 AO 95.9 10:02 PA 72.2 10:06 RA 61.6 Pressure Samples Time Site Value (mmHg) Purpose Heart Use Rate(bpm) 10:00 PCW 9/9(7) Snapshot 72 10:02 PA 25/10(16) Snapshot 72 10:02 PA 22/10(15) Snapshot 63 10:05 RA 7/5(4) Snapshot 70 10:08 LV 121/-11,8 EDP 66 10:09 AO 116/83(99) Pullback 71 Gradients Valve Time Site Site 2 Mean SEP/DFP Peak To Heart Use 1 (mmHg) (sec/min) Peak Rate (mmHg) (bpm) Aortic 10:09 LV AO 71 116/83(99) Thermodilution Cardiac Output Time Cardiac Output (l/min) Use 10:04 4.05 l/m 10:05 3.9 l/m Calculations Vascular Value Indexed CO SV CO CI Resistance (dyne) values (ml/beat) (l/min) (l/(min*m)) TSVR 2228.23 5080.36 Antwon 51.96 3.56 1.6 SVR 2138.34 4875.42 Thermal 55.21 3.98 1.7 Source Qp or Qs Systolic Diastolic Ejection Regurgitation SW SWI Vol. Vol. (%) (%) Shunts (%) Left 62 .67 27.49 Left To 5.25 Source Qp or Qs Right Right To 5.25 147.47 Left Content (ml/l) O2 Difference (ml/l) O2 SA 212.59 SA-MV(AV) 76.04 O2 MV 136.55 PV-PA(VA) Flows (l/min) O2 PA 160.05 PV-MV(VV) Qs 3.56 Qsi 1.56 Qe/Qp 1.17 Snapshots Thermal Samples Pre Cath Intra NCS Post Cath Vital Signs Time Heart Resp SPO2 etCO2 NIBP (mmHg) Rhythm Pain Sedation Rate (ipm) (%) (mmHg) Status Level (bpm) 9:34:07 69 19 94 0 No Cuff NSR 0 (11) 10(A) , No pain 9:36:03 66 17 93 0 138/87(106) NSR 0 (11) 10(A) , No pain 9:40:21 64 19 93 0 143/95(118) NSR 0 (11) 10(A) , No pain 9:44:40 69 15 96 0 137/93(115) NSR 0 (11) 10(A) , No pain 9:48:56 72 18 96 0 137/90(118) NSR 0 (11) 10(A) , No pain 9:53:12 74 19 95 0 139/94(113) NSR 0 (11) 10(A) , No pain 9:57:26 73 18 95 0 118/94(105) NSR 0 (11) 10(A) , No pain 10:01:35 73 18 94 0 137/91(107) NSR 0 (11) 10(A) , No pain 10:05:52 71 18 95 0 130/88(100) NSR 0 (11) 10(A) , No pain 10:10:10 72 19 95 0 131/91(114) NSR 0 (11) 10(A) , No pain 10:14:28 80 15 96 0 133/82(118) NSR 0 (11) 10(A) , No pain 10:18:42 78 21 95 0 135/98(110) NSR 0 (11) 10(A) , No pain 10:22:56 77 20 94 0 128/93(112) NSR 0 (11) 10(A) , No pain 10:27:12 71 18 96 0 141/98(106) NSR 0 (11) 10(A) , No pain Medications Time Medication Route Dose Verified Delivered Reason Notes Effe ctiveness by by 9:33:26 Oxygen etCO2 2 Norred Buffie used for Nasal l/min Jay Parikh RN procedure cannula 9:33:31 Lidocaine 2% added 20ml Norred Buffie used for to vial Jay Parikh RN procedure field 9:33:36 Heparin Flush added 2 Norred Buffie used for Bag to bags Jay Praikh RN procedure (1000units/500ml field NS) 9:33:44 0.9% NaCl I.V. 100 Norred Buffie Per ml/hr Jay Parihk RN physician 9:38:06 Benadryl I.V. 50 mg Norred Buffie used for Jay Parikh refrigeration engineer 9:47:47 Versed I.V. 1 mg Norred Buffie for Jay Parikh RN sedation 10:11:21 0.9% NaCl I.V. 300 Norred Buffie Per bolus ml Jay Parikh RN physician 10:14:40 Versed I.V. 1 mg Norred Buffie for Jay MD Parikh RN sedation Procedure Log Time Note 9:01:29 Informed consent obtained and on chart 9:09:56 Diagnostic Cath Status : Elective 9:10:03 Admit Source: Emergency department 9:10:07 ACC Patient presents with Stable Angina CCS Anginal Class 2--Slight limitation of ordinary activity. 9:10:11 Procedure Status Urgent Heart Cath (IP). 9:10:13 Piper Parikh RN sent for patient. Start room use. 9:10:14 Time tracking: Call back (After hours or weekends) 9:10:23 Plan of Care:Hemodynamics will remain stable., Cardiac rhythm will remain stable., Comfort level will be maintained., Respiratory function will remain adequate., Patient/ family verbilizes understanding of procedure., Procedure tolerated without complication., Recovers from procedure without complications.. 9:10:38 H&P Date Dictated: 02/25/2020 Within 30 days and on chart.. 9:10:41 Patient NPO since Midnight. 9:10:51 Patient allergic to Other allergyplavix 9:11:03 Patient Height : 71.65 inches 9:11:06 Patient Weight : 235.9 lbs 9:11:13 Insurance Payor : Medicaid 9:12:03 Lab Result : BUN 10 mg/dl 9:12:03 Lab Result : Creatinine 0.9 mg/dl 9:12:03 Lab Result : eGFR NONAFRICAN 90 ml/min 9:12:03 Lab Result : Hemoglobin 16.3 g/dl 9:12:03 Lab Result : Hematocrit 49 % 9:12:20 1) 90+ Normal kidney functon but urine findings or structural abnormalities or genetic trait point to kidney disease. 9:12:25 Maximum allowable contrast dose (3.7 X eGFR X 0.75)250 ml. 9:12:43 Risk of Mortality: <.1% 9:12:48 Risk of blood transfusion: 0.2% 9:12:52 Risk of CORAZON: 0.4% 9:22:00 Patient received from Med II to CCL 1 Alert and oriented. Tansferred to table in Supine position. 9:22:01 Warm blankets applied, and lnyette hugger turned on for patient comfort. 9:22:02 Correct patient and procedure confirmed by team. 9:22:02 ECG and BP/O2 sat monitors applied to patient. 9:22:04 Pre-procedure instructions explained to patient. 9:22:05 Pre-op teaching completed and patient verbalized understanding. 9:22:07 Family in patients room. 9:22:15 Is the patient allergic to Iodine/contrast media? No. 9:22:20 Is patient on blood thinner?Yes 9:22:22 Patient diabetic? No. 9:22:24 Previous problem with sedation/anesthesia? No ? 9:22:26 Snore? Yes 9:22:27 Sleep apnea? Yes 9:22:28 Deviated septum? No 9:22:28 Opens mouth fully? Yes 9:22:29 Sticks out tongue? Yes 9:22:34 Airway obstruction? Yes COPD 9:22:35 Dentures? Yes IN TIGHT 9:33:16 Vital chart was started 9:33:26 Oxygen 2 l/min etCO2 Nasal cannula was administered by Piper Parikh RN; used for procedure; Verbal order read back and verified. 9:33:31 Lidocaine 2% 20ml vial added to field was administered by Piper Parikh RN; used for procedure; Verbal order read back and verified. 9:33:36 Heparin Flush Bag (1000units/500ml NS) 2 bags added to field was administered by Piper Parikh RN; used for procedure; Verbal order read back and verified. 9:33:44 0.9% NaCl 100 ml/hr I.V. was administered by Piper Parikh RN; Per physician; Verbal order read back and verified. 9:37:49 Pre procedure: right dorsailis pedis pulse 2+ Normal; easily identifiable; not easily obliterated 9:37:52 Modified Usama's test Ulnar > 7 seconds. 9:37:54 Patient pain scale 2/10 ?. 9:38:05 IV patent on arrival in left hand with 0.9% NaCl at [facility]. 9:38:06 Benadryl 50 mg I.V. was administered by Piper Parikh RN; used for procedure; Verbal order read back and verified. 9:38:11 Lab results completed and on chart. 9:38:15 Right Radial & Right Groin area was prepped with chlora-prep and draped in sterile fashion 9:38:16 Alarms reviewed by RViivana N. 9:38:17 Sharps counted by scrub and verified by R.N. 9:38:21 Use device set Radial Dx or PCI 9:38:22 ACIST Syringe (57419) opened to sterile field. 9:38:23 Medline Cath Pack ([id number]) opened to sterile field. 9:38:23 Bag Decanter (2002) opened to sterile field. 9:38:24 ACIST Hand Control (65861) opened to sterile field. 9:38:24 ACIST Manifold (66244) opened to sterile field. 9:38:26 Tegaderm 4 x 4 (1626W) opened to sterile field. 9:38:32 MBrace Wrist Support ([id number]) opened to sterile field. 9:38:34 EMERALD Guide Wire (177-440) opened to sterile field. 9:38:50 SHEATH 7FR [place] (LMY533) opened to sterile field. 9:39:01 Baseline sample Acquired. 9:39:04 Rhythm: sinus rhythm 9:39:06 Full Disclosure recording started 9:42:07 IV Extension Set opened to sterile field. 9:45:42 Physician arrived 9:45:43 --------ALL STOP TIME OUT------ 9:45:43 Final Timeout: patient, procedure, and site verified with staff and physician. All members of the team are in agreement. 9:45:46 Right Radial & Right Groin site verified by team. 9:45:50 Fire Safety Assessment: A--An alcohol-based skin anteseptic being used preoperatively., C--Open oxygen or nitrous oxide is being used., D--An ESU, laser, or fiber-optic light is being used. 9:45:53 Physical assessment completed. ASA score P 2 - A patient with mild systemic disease as per Ye Thompson MD. 9:45:57 Sedation plan: IV Moderate Sedation Medication:Versed, Fentanyl 9:47:47 Versed 1 mg I.V. was administered by Piper Parikh RN; for sedation; Verbal order read back and verified. 9:48:59 Procedure started. 9:51:03 Local anesthetic to right femoral vein with Lidocaine 2% by Ye Thompson MD.INITIAL ACCESS ONLY 9:52:08 Access obtained with 4Fr micropunture. 9:52:33 Use device set Multipack Set 9:52:36 DIAGNOSTIC Multipack 5Fr catheter set (ES6795) opened to sterile field. 9:52:43 SHEATH 5FR [place] (API271) opened to sterile field. 9:53:19 Zero performed for pressure channel P1 9:53:44 Local anesthetic to right femoral artery with Lidocaine 2% by Ye Thompson MD.ADDITIONAL ACCESS 9:53:54 A 7 Fr Short sheath was inserted into the Right Femoral vein 9:57:23 A 5 Fr sheath was inserted into the Right Femoral artery 9:59:02 A SWAN 7Fr Thermodilution cather (131F7P) was advanced over the wire and used for Procedure. 10:00:40 PCW saturation: 95.4% 10:01:20 AO saturation: 95.9% 10:02:35 PA saturation: 72.2% 10:04:35 Thermodilution performed using a Green 131F7 7.0 Fr 19-22C 10.00 mL. Injectate temperature was 18.53 C, CO: 4.05 L/min, average CO: 3.98 L/min 10:05:09 Thermodilution performed using a Green 131F7 7.0 Fr 19-22C 10.00 mL. Injectate temperature was 18.48 C, CO: 3.90 L/min, average CO: 3.98 L/min 10:06:16 RA saturation: 61.6% 10:07:25 Right heart pressures obtained. 10:07:25 Cardiac outputs were obtained. 10:07:26 Oximetry samples were obtained 10:07:29 [place]-Dariela removed. 10:07:34 A MULTIPACK Pigtail 5 Fr catheter was advanced over the wire and used for Procedure. 10:07:52 LV hemodynamics recorded. 10:07:53 LV gram done using GONSALEZ 10:07:58 Injector settings: Ml/sec: 12, Volume: 8, 10:09:20 EF : 35 % 10:09:23 Catheter exchanged over wire. 10:10:19 A MULTIPACK JL 4.0 5Fr catheter was advanced over the wire and used for Procedure. 10:10:50 LCA angiography performed. 10:11:21 0.9% NaCl 300 ml I.V. bolus was administered by Piper Parikh RN; Per physician; Verbal order read back and verified. 10:13:19 Catheter exchanged over wire. 10:13:25 A MULTIPACK 3DRC 5Fr catheter was advanced over the wire and used for Procedure. 10::40 Versed 1 mg I.V. was administered by Piper Parikh RN; for sedation; Verbal order read back and verified. 10:14:52 RCA angiography performed. 10:17:02 Catheter removed. 10:19:00 EXOSEAL 5Fr (EX500) opened to sterile field. 10:19:10 Sheath removed intact; hemostasis achieved with Exoseal to the Right Femoral artery. 10:19:17 Sheath removed intact; hemostasis achieved with Manual Compression to the Right Femoral vein. 10:20:41 Procedure ended.(Physican Out) 10:22:07 Fluoroscopy time 03.10 minutes. 10:22:21 Flurop Dose total: 523 10:22:21 Fluoroscopy dose: 523 mGy 10:22:28 Dose Area Product 44983 mGy/cm. 10:23:50 Contrast amount:Isovue 300 32ml. 10:23:52 Maximum allowable dose exceeded? No. 10:23:54 Sharps counted by scrub and verified by R.N. 10:23:55 Insertion/operative site no bleeding no hematoma. 10:23:58 Post-op/insertion site Right Femoral artery dressed using a 4 x 4 and Tegaderm. 10:24:01 Post-op/insertion site Right Femoral vein dressed using a 4 x 4 and Tegaderm. 10:24:05 Post right femoral artery:stable, soft, clean and dry 10:24:09 Post right femoral vein:stable, soft, clean and dry 10:24:11 Post Procedure Pulses reassessed and unchanged 10:24:13 Post-procedure physical assessment completed. ASA score P 2 - A patient with mild systemic disease as per Ye Thompson MD. 10:24:15 Post procedure rhythm: unchanged. 10:24:18 Estimated blood loss: 5 ml 10:24:19 Post procedure instruction explained to patient.Patient verbalizes understanding. 10:24:20 Patient needs reinforcement of post procedure teaching. 10:25:12 Procedure type changed to Cath procedure, Diagnostic procedure, Right Heart, RHC and LHC w/Coronaries, Sedation Charges, Moderate Sedation up to 30 minutes 10:28:04 Procedure and supply charges have been captured, reviewed, submitted and are correct. 10:28:05 Procedure Complication : No complications 10:28:08 Vital chart was stopped 10:28:10 LHC Findings: MVD- CABG consult 10:28:25 RHC Findings: no evidence of underlying pulmonary disease 10:28:28 Operative report dictated upon procedure completion. 10:28:28 See physician's report for complete and final results. 10:28:30 Report given to PCU. 10:28:32 Patient transfered to PCU with Stretcher. 10:28:36 Procedure ended. 10:28:36 Full Disclosure recording stopped 10:28:43 End room use (Document Last) Device Usage Item Name Manufacture Quantity Catalog Hospital Part Current Mini mal Lot# / Number Charge Number Stock Stock Serial# Code ACIST Syringe Acist 1 83209 929299 389504 004779 20 (36923) Medical Systems Inc Medline Cath Medline 1 [id number] 867712 00022 155093 5 Pack ([id number]) Bag Decanter Microtek 1 2002S 908327 27646 539581 5 (2001S) Medical Inc. ACIST Hand Acist 1 27507 157084 286219 518225 5 Control Medical (82078) Systems Inc ACIST Manifold Acist 1 17566 268061 538732 067344 5 (11073) Medical Systems Inc Tegaderm 4 x 4 3M 1 1626W 438552 796907 148139 5 (1626W) MBrace Wrist Advanced 1 140-0250-00 018691 56126 968250 5 Support Vascular ([id number]) Dynamics EMERALD Guide Cardinal 1 502-455 133548 318329 750172 5 Wire (502-455) Health SHEATH 7FR Terumo 1 YMD274 286822 254539 174429 5 [place] (EHO026) IV Extension Hospira 1 30131-17 487836 68698 290859 5 Set DIAGNOSTIC Cardinal 1 VL7380 275526 62814 349117 30 Multipack 5Fr Health catheter set (QD4564) SHEATH 5FR Terumo 1 KIU893 129060 479280 576936 5 [place] (TZW275) SWAN 7Fr Green 1 131F7P 607641 32669 633203 3 Thermodilution Lifesciences cather (131F7P) MULTIPACK Cardinal 1 608860 5 Pigtail 5 Fr Health catheter MULTIPACK JL Cardinal 1 298749 5 4.0 5Fr Health catheter MULTIPACK 3DRC Cardinal 1 313157 5 5Fr catheter Health EXOSEAL 5Fr Cardinal 1 EX500 734709 334734 358162 10 (EX500) Health Signature Audit [place] Stage Time Signature Unsigned Intra-Procedure 02/26/2020 Piper Parikh 10:29:12 AM RN; Ye Thompson MD [place] [address] [place] [id number]
--- NOTE | ~2020-02-24 | ST ---
PATIENT:KRISTA MENEZES JR MEDICAL RECORD: [id number] SEX: M LOCATION:D. D.213 ORDER #: ADMISSION DATE: 02/24/20 AGE OF PATIENT: 49 REFERRING PHYSICIAN: INTERPRETING PHYSICIAN: JENS KHAN MD DATE OF SERVICE: 02/26/2020 PROCEDURE: Nuclear ventriculogram. FINDINGS: Ejection fraction is 37%. TRANSINT:[id number] Voice Confirmation ID: [id number] DOCUMENT ID: [id number] JENS KHAN MD CC: [id number] DICTATION DATE: 02/26/20 1247 FRUIT DRYER: 02/26/20 2212 ADM IN [place] [address] [place] [address]
[2020-02-24 10:00] LABS: HEMATOCRIT 45.2 % (42.0-54.0); HEMOGLOBIN 15.3 g/dL (13.5-17.5); LYMPHOCYTES 25.2 % (15-50); MCH 30.8 pg (26.0-34.0); MCHC 33.8 g/dL (31.0-37.0); MCV 90.9 fL (80.0-100.0); MEAN PLATELET VOLUME 10.3 fL (7.4-10.4); PLATELET COUNT 234 10x3/uL (130-400); RBC 4.97 10x6/uL (4.20-6.10); RDW 13.3 % (11.5-14.5); WBC 8.4 10x3/uL (4.8-10.8)
[2020-02-24 10:10] LABS: APTT 24.6 SECONDS (22.8-39.4); CALC OSMOLALITY 276 mosm/kg (275-300); CHLORIDE - SERUM 106 mmol/L (98-107); GLUCOSE 112 mg/dL (74-106); INR 0.96 (0.85-1.17); POTASSIUM - SERUM 4.3 mmol/L (3.5-5.1); PROTIME 12.7 SECONDS (11.6-15.0); SODIUM 138 mmol/L (136-145); UREA NITROGEN 13 mg/dL (7-18); eGFR NON AFRICAN AMERICAN 84 mL/min (90-120)
[2020-02-24 10:28] LABS: ALBUMIN 3.5 g/dL (3.4-5.0); ALKALINE PHOSPHATASE 60 U/L (30-120); ALT (SGPT) 26 U/L (10-68); BILIRUBIN - TOTAL 0.63 mg/dL (0.2-1.3); CKMB 1.9 U/L (0.0-3.6); CREATINE KINASE 170 UL (21-232); PRO BNP 220 pg/mL (0-125); PROTEIN - SERUM 6.4 g/dL (6.4-8.2); TROPONIN-I < 0.017 ng/mL (0.000-0.060)
[2020-02-24] MEDS ORDERED: CRESTOR40 MG PO (11:26)
[2020-02-24] MEDS ORDERED: ACETAMINOPHEN500 M1 PO (11:27)
[2020-02-24 12:25] LABS: ALBUMIN 3.4 g/dL (3.4-5.0); BILIRUBIN - DIRECT 0.2 mg/dL (0.00-0.30); BILIRUBIN - INDIRECT 0.27 mg/dL (0.00-1.00); BILIRUBIN - TOTAL 0.47 mg/dL (0.2-1.3); PROTEIN - SERUM 5.7 g/dL (6.4-8.2)
[2020-02-24 13:41] VITALS: BP 116/59
[2020-02-24 14:07] VITALS: BP 112/63; BMI 30.3
--- NOTE | 2020-02-24 14:13 | NUR ---
PT C/O RIGHT AC 20G IV HURTING. DC'D WITH CATH INTACT. INSERTED LEFT FA 20G IV.
--- NOTE | 2020-02-24 20:15 | NUR ---
REPORT RECEIVED AND ROUNDING COMPLETE. PATIENT SITTING UP IN HIS BED REQUESTING A SMALL CUP OF COFFEE WHICH HE RECEIVED. LEFT FOREARM PIV THAT IS RUNNING FLUIDS AT THIS TIME. USING URINAL TO KEEP TRACK OF I&O. NO DISTRESS NOTED AT THIS TIME. NO OTHER NEEDS. CALL LIGHT WITHIN REACH AND BED IN LOWEST LOCKED POSITION.
[2020-02-24 21:10] VITALS: BP 133/84
[2020-02-25 00:13] VITALS: BP 121/78
[2020-02-25 04:54] VITALS: BP 121/77
[2020-02-25 05:28] LABS: BASOPHILS 0.6 % (0-2); EOSINOPHILS 4.4 % (0-7); HEMATOCRIT 45.9 % (42.0-54.0); HEMOGLOBIN 15.3 g/dL (13.5-17.5); IMMATURE GRANULOCYTES 0.1 % (0-5); LYMPHOCYTES 29.8 % (15-50); MCH 30.7 pg (26.0-34.0); MCHC 33.3 g/dL (31.0-37.0); MCV 92.2 fL (80.0-100.0); MEAN PLATELET VOLUME 10.8 fL (7.4-10.4); MONOCYTES 6.6 % (2-11); NEUTROPHILS 58.5 % (40-80); PLATELET COUNT 216 10x3/uL (130-400); RBC 4.98 10x6/uL (4.20-6.10); RDW 13.7 % (11.5-14.5); WBC 6.8 10x3/uL (4.8-10.8)
[2020-02-25 05:35] LABS: CALC OSMOLALITY 277 mosm/kg (275-300); CALCIUM 8.5 mg/dL (8.5-10.1); CARBON DIOXIDE 32.1 mmol/L (21.0-32.0); CHLORIDE - SERUM 103 mmol/L (98-107); CREATININE - SERUM 1.1 mg/dL (0.6-1.3); GLUCOSE 93 mg/dL (74-106); SODIUM 140 mmol/L (136-145); UREA NITROGEN 11 mg/dL (7-18); eGFR NON AFRICAN AMERICAN 75 mL/min (90-120)
[2020-02-25 05:46] LABS: POTASSIUM - SERUM 3.2 mmol/L (3.5-5.1)
--- NOTE | 2020-02-25 07:20 | EC ---
PATIENT:KRISTA MENEZES JR DATE OF SERVICE: 02/24/20 SEX: M MEDICAL RECORD: [id number] DATE OF : 66 LOCATION:D. D.213 AGE OF PATIENT: 49 ADMISSION DATE: 02/24/20 REFERRING PHYSICIAN: INTERPRETING PHYSICIAN: JENS KHAN MD ECHOCARDIOGRAM REPORT ECHO CHARGES 4 ECHO COMPLETE Date: 02/24/20 CLINICAL DIAGNOSIS: CHF ECHOCARDIOGRAPHIC MEASUREMENTS (adult normal given) AC root (d.<3.7cm) 3.6 cm LV Septum d (<1.2 cm> 0.7 cm Valve Excursion 2.0 cm LV Septum (systole) 0.9 cm Left Atria (s.<4.0cm> 3.8 cm LVPW d(<1.2cm) 1.1 cm RV (d.<2.3cm) 3.3 cm LVPW (sytole) 1.3 cm LV diastole(<5.6CM) 5.9 cm MV E-F(>70mm/sec) cm LV systole 5.0 cm LVOT Diameter 2.2 cm MV exc.(>10mm) cm Est.ejection fraction (50-75%) % DOPPLER: LVIT cm/sec A 49 cm/sec E 55 cm/sec LA cm/sec RVSP 28.7 mmHg LVOT 64 cm/sec AOP1/2T m/s Asc. Ao 112 cm/sec RVOT 48 cm/sec RA cm/sec PA 73 cm/sec AV Gradient Peak 5.0 mmHg AV Mean 2.9 mmHg AV Area 1.9 cm MV Gradient Peak 2.2 mmHg MV Mean 1.0 mmHg MV Area cm COMMENTS: Mobile Plant Operators: Paco KHAN Science Technician: Kiara Khan TAPE# PACS Pericardial Effusion N DATE OF SERVICE: 02/24/2020 PROCEDURE: Transthoracic echocardiogram. FINDINGS: The patient's ejection fraction is 40% to 45%. There is a mild area of anterolateral hypokinesis even a small area of dyskinesis. The patient also has asynchronous wall motion. There was mild enlargement of the left ventricle. Normal inflow characteristics. ECHOCARDIOGRAM REPORT [id number] KRISTA MENEZES JR Left atrium is normal size; function and structure. Aortic valve is normal. Mitral valve is normal. Tricuspid valve is normal with mild tricuspid regurgitation and normal right ventricular systolic pressures. The pericardium has a small pericardial effusion, which does not demonstrate any tamponade features. The right ventricle is mildly enlarged with normal function. The right atrium is normal size; shape, structure, and function. Pulmonic valve is normal. IMPRESSION: Mild ischemic cardiomyopathy. TRANSINT:[id number] Voice Confirmation ID: [id number] DOCUMENT ID: [id number] JENS KHAN MD at 0720 CC: [id number] DICTATION DATE: 02/24/201742 CARTON FOLDER: 02/25/[address] [facility] [address] [place] [id number]
[2020-02-25 08:56] VITALS: BP 148/99
[2020-02-25 13:12] VITALS: BP 136/81
[2020-02-25 13:46] VITALS: BMI 32.0
[2020-02-25 18:31] VITALS: BP 129/85
--- NOTE | 2020-02-25 19:30 | NUR ---
PT IN BED, AAO X 3, RESP EVEN AND UNLABORED, NO DISTRESS NOTED, CL IN REACH, SR UP X 2.
[2020-02-25 20:00] VITALS: BP 138/95
[2020-02-26] VITALS: BP 133/89
--- NOTE | 2020-02-26 02:30 | NUR ---
RESTARTED 20GA IV TO LT HAND WITH ATTEMPTS X1.
--- NOTE | 2020-02-26 04:28 | NUR ---
I have reviewed this patient and I concur with the Shift Assessment completed by the Licensed Practical Nurse today this shift.
[2020-02-26 07:04] LABS: BASOPHILS 0.5 % (0-2); EOSINOPHILS 3.4 % (0-7); HEMOGLOBIN 16.3 g/dL (13.5-17.5); IMMATURE GRANULOCYTES 0.1 % (0-5); LYMPHOCYTES 21.4 % (15-50); MCH 30.4 pg (26.0-34.0); MCHC 33.3 g/dL (31.0-37.0); MCV 91.2 fL (80.0-100.0); MEAN PLATELET VOLUME 10.6 fL (7.4-10.4); NEUTROPHILS 67.6 % (40-80); PLATELET COUNT 222 10x3/uL (130-400); RBC 5.37 10x6/uL (4.20-6.10); RDW 13.4 % (11.5-14.5); WBC 7.3 10x3/uL (4.8-10.8)
--- NOTE | 2020-02-26 07:20 | NUR ---
RECIEVE REPORT. ALERT AND ORIENTED X4. SITTING UP IN BED. DENIES ANY NEEDS. CONTINUE PLAN OF CARE AND SAFETY PRECAUTIONS.
[2020-02-26 07:31] LABS: CALC OSMOLALITY 275 mosm/kg (275-300); CALCIUM 8.9 mg/dL (8.5-10.1); CARBON DIOXIDE 27.9 mmol/L (21.0-32.0); CHLORIDE - SERUM 105 mmol/L (98-107); CREATININE - SERUM 0.9 mg/dL (0.6-1.3); GLUCOSE 89 mg/dL (74-106); POTASSIUM - SERUM 3.6 mmol/L (3.5-5.1); SODIUM 139 mmol/L (136-145); UREA NITROGEN 10 mg/dL (7-18); eGFR NON AFRICAN AMERICAN > 90 mL/min (90-120)
[2020-02-26 09:44] VITALS: BP 124/84
--- NOTE | 2020-02-26 10:48 | NUR ---
ARRIVE BACK TO ROOM VIA BED FROM FINANCIAL ACCOUNTING ANALYST. ALERT AND ORIENTED X4. LAYING FLAT IN BED. RT GROIN CLEAN DRY INTACT. FREE FROM BLEEDING. FREE FROM HEMATOMA. PULSE PALPABLE BILATERALLY. BP-135/80, HR-69, O2-95% WITH 2L NC. SPOUSE AT BEDSIDE. IN ROOM TALKING WITH FAMILY. CONTINUE PLAN OF CARE AND SAFETY PRECAUTIONS.
[2020-02-26 13:38] VITALS: BP 130/88
--- NOTE | 2020-02-26 19:00 | NUR ---
PT ALERT AND AWAKE SEEN TO NEEDS AT THIS TIME BED IS LOW AND LOCKED AND CALL LIGHT IS IN REACH
[2020-02-26 20:00] VITALS: BP 129/81
[2020-02-27] VITALS: BP 130/73
[2020-02-27 04:00] VITALS: BP 116/72
[2020-02-27 06:17] LABS: BASOPHILS 0.6 % (0-2); EOSINOPHILS 4.9 % (0-7); HEMATOCRIT 47.3 % (42.0-54.0); HEMOGLOBIN 15.8 g/dL (13.5-17.5); IMMATURE GRANULOCYTES 0.2 % (0-5); LYMPHOCYTES 23.9 % (15-50); MCH 30.9 pg (26.0-34.0); MCHC 33.4 g/dL (31.0-37.0); MCV 92.6 fL (80.0-100.0); MEAN PLATELET VOLUME 10.5 fL (7.4-10.4); MONOCYTES 9.8 % (2-11); NEUTROPHILS 60.6 % (40-80); PLATELET COUNT 201 10x3/uL (130-400); RBC 5.11 10x6/uL (4.20-6.10); RDW 13.6 % (11.5-14.5)
[2020-02-27 06:21] LABS: WBC 5.3 10x3/uL (4.8-10.8)
[2020-02-27 06:34] LABS: CALC OSMOLALITY 277 mosm/kg (275-300); CALCIUM 8.3 mg/dL (8.5-10.1); CARBON DIOXIDE 27.2 mmol/L (21.0-32.0); CHLORIDE - SERUM 108 mmol/L (98-107); CREATININE - SERUM 0.9 mg/dL (0.6-1.3); GLUCOSE 103 mg/dL (74-106); POTASSIUM - SERUM 4.1 mmol/L (3.5-5.1); SODIUM 140 mmol/L (136-145); UREA NITROGEN 10 mg/dL (7-18); eGFR NON AFRICAN AMERICAN > 90 mL/min (90-120)
--- NOTE | 2020-02-27 07:33 | NUR ---
REPORT RECIEVED. PT SITTING SEMI FOWLERS IN BED. RR EVEN AND UNLABORED ON 2L NC. HE HAS A L HAND PIV INFUSING NS @ 30. BED LOCKED AND IN LOWEST POSITION, CALL LIGHT WITHIN REACH, WILL CTM
[2020-02-27 09:22] VITALS: BP 124/79
[2020-02-27 13:56] VITALS: BP 129/56
[2020-02-27 18:54] VITALS: BP 139/93
--- NOTE | 2020-02-27 19:11 | NUR ---
I have reviewed this patient and I concur with the Shift Assessment completed by the Licensed Practical Nurse today this shift.
[2020-02-27 21:45] VITALS: BP 128/78
[2020-02-28 00:06] VITALS: BP 119/70
[2020-02-28 04:11] VITALS: BP 113/73
[2020-02-28 06:35] LABS: BASOPHILS 0.5 % (0-2); EOSINOPHILS 8.3 % (0-7); HEMATOCRIT 46.9 % (42.0-54.0); HEMOGLOBIN 15.5 g/dL (13.5-17.5); IMMATURE GRANULOCYTES 0.3 % (0-5); LYMPHOCYTES 23.9 % (15-50); MCH 30.5 pg (26.0-34.0); MCV 92.3 fL (80.0-100.0); MEAN PLATELET VOLUME 10.4 fL (7.4-10.4); MONOCYTES 10.9 % (2-11); NEUTROPHILS 56.1 % (40-80); PLATELET COUNT 201 10x3/uL (130-400); RBC 5.08 10x6/uL (4.20-6.10); RDW 13.6 % (11.5-14.5); WBC 5.9 10x3/uL (4.8-10.8)
[2020-02-28 06:48] LABS: CALC OSMOLALITY 277 mosm/kg (275-300); CALCIUM 8.9 mg/dL (8.5-10.1); CARBON DIOXIDE 27.2 mmol/L (21.0-32.0); CHLORIDE - SERUM 108 mmol/L (98-107); CREATININE - SERUM 0.9 mg/dL (0.6-1.3); GLUCOSE 97 mg/dL (74-106); POTASSIUM - SERUM 4.1 mmol/L (3.5-5.1); SODIUM 140 mmol/L (136-145); UREA NITROGEN 9 mg/dL (7-18); eGFR NON AFRICAN AMERICAN > 90 mL/min (90-120)
[2020-02-28] MEDS ORDERED: COREG 3.1253.125 MG PO (07:25)
[2020-02-28] MEDS ORDERED: ENTRESTO 24 MG1 EACH PO (07:25)
[2020-02-28] MEDS ORDERED: PEPCID PO (07:27)
[2020-02-28] MEDS ORDERED: FLORAJEN3 CAPS460 MG PO (07:27)
[2020-02-28] MEDS ORDERED: SINGULAIR10 MG PO (07:27)
[2020-02-28] MEDS ORDERED: MONODOX100 MG PO (07:28)
[2020-02-28 07:41] VITALS: Ht 182.9 cm; Wt 110.7 kg
[2020-02-28 08:00] VITALS: BP 128/84
--- NOTE | 2020-02-28 09:44 | NUR ---
TELMETRY DC'D. PT DC. SL AND COVERED IV SITE AND PT TOOK SHOWER BY SELF.
--- NOTE | 2020-02-28 12:10 | NUR ---
LEFT HAND 20G IV DC'D WITH CATH INTACT. NO TELE. DISCHARGE INSTRUCTIONS GIVEN AND EXPLAINED TO PT.PT HAS NO FURTHER QUESTIONS. CHART COPY SIGNED. PT TAKEN OUT VIA WC BY MINIBUS DRIVER WITH ALL BELONGINGS AND LEFT WITH IN HER PERSONAL VEHICLE.
[2020-02-29 22:06] LABS: IMMUNOGLOBULIN E 511 IU/mL (6-495)
== END 2020-02-28 12:49 | disposition home or self-care (01) | DRG 286 ==
LOC: D.ER 09:38 → D.M2 10:38
PROVIDERS: Family Medicine; Internal Medicine Cardiovascular Disease; Internal Medicine Pulmonary Disease; ADMIT Family Medicine; ATTEND Family Medicine
PROC: 4A023N8 Measurement of Cardiac Sampling and Pressure, Bilateral, Percutaneous Approach (ICD-10-PCS; 2020-02-26)
PROC: B2111ZZ Fluoroscopy of Multiple Coronary Arteries using Low Osmolar Contrast (ICD-10-PCS; principal; 2020-02-26 09:10)
PROC: B2151ZZ Fluoroscopy of Left Heart using Low Osmolar Contrast (ICD-10-PCS; 2020-02-26 09:10)
DX: I25.10 Atherosclerotic heart disease of native coronary artery without angina pectoris (principal); J18.9 Pneumonia, unspecified organism; J44.1 Chronic obstructive pulmonary disease with (acute) exacerbation; J44.0 Chronic obstructive pulmonary disease with (acute) lower respiratory infection; I50.42 Chronic combined systolic (congestive) and diastolic (congestive) heart failure; I95.9 Hypotension, unspecified; I25.5 Ischemic cardiomyopathy; J20.9 Acute bronchitis, unspecified; E78.5 Hyperlipidemia, unspecified; K21.9 Gastro-esophageal reflux disease without esophagitis

== ENCOUNTER 2020-04-26 07:55 | Day surgery (SDC) | payer MEDICAID ==
[~2020-04-26] VITALS: Ht 182.9 cm; Wt 104.7 kg
--- NOTE | ~2020-04-26 | HEMODYNAMI ---
PATIENT:KRISTA MENEZES JR MEDICAL RECORD: [id number] : 66 LOCATION:D.CAT ADMISSION DATE: 04/26/20 Generatedon:04/26/202010:34 Patient name: KRISTA MENEZES Patient #: [id number] SSN: [id number] : 1970 Date of study: 04/26/2020 Page: Of Hemodynamic Procedure Report Patient Data Patient Demographics Procedure consent was obtained First Name: KRISTA Gender: Male Last Name: RIRI Suffix: Jr Rojo Initial: Ruth : 1970 Patient #: [id number] Age: 49 year(s) Race: SSN: [id number] Additional ID: [id number] Contact details Address: [address] [place] [address] State: [facility] Zip code: [address] Past Medical History History of disease Date Diagnosis Comments CAD Allergies Allergen Reaction Date Comments Reported Other allergy 10/20/2018 Plavix non responder Other allergy 12/05/2018 PLAVIX Other allergy 09/21/2019 PLAVIX Other allergy 01/20/2020 CLOPIDOGREL Other allergy 02/26/2020 plavix Other allergy 04/26/2020 PLAVIX Admission Admission Data Admission Date: 04/26/2020 Admission Time: 7:55 Arrival Date: 04/26/2020 Arrival Time: 0:00 Height (in.): 71.65 BSA: 2.26 (m2) Height (cm.): 182 BMI: 31.7 (kg/m2) Weight (lbs.): 231.49 Weight (kg.): 105 Lab Results Lab Result Date: 04/26/2020 Lab Result Time: 0:00 Biochemistry Name Units Result Min Max BUN mg/dl 10 --(-*--)-- 7 18 Creatinine mg/dl 1 --(--*-)-- 0.6 1.3 eGFR ml/min 84 -*(----)-- 90 120 NONAFRICAN CBC Name Units Result Min Max Hematocrit % 46.6 --(-*--)-- 42 54 Hemoglobin g/dl 16.1 --(--*-)-- 13.5 17.5 Procedure Procedure Types Cath Procedure Diagnostic Procedure [facility] w/Coronaries Sedation Charges Moderate Sedation up to 15 minutes Procedure Description Procedure Date Procedure Date: 04/26/2020 Procedure Start Time: 10:17 Procedure End Time: 10:33 Procedure Staff Name Function Damaso Larios MD Performing Physician Trisha Madden RT Monitor Ayesha Crane RT Scrub Liana Vega RN Nurse Procedure Data Cath Procedure Fluoroscopy Diagnostic fluoroscopy Total fluoroscopy Time: 1.8 time: 1.8 min min Diagnostic fluoroscopy Total fluoroscopy dose: 815 dose: 815 mGy mGy Contrast Material Contrast Material Type Amount (ml) Isovue 300 74 Entry Location Entry Primary Successful Side Size Upsize Upsize Entry Closure Succes sful Closure Location (Fr) 1 (Fr) 2 (Fr) Remarks Device Remarks Femoral Right 5 Fr Exoseal artery Estimated blood loss: 5 ml Diagnostic catheters Device Type Used For End Catheter Placement MULTIPACK JL 4.0 5Fr Left Coronary catheter Angiography MULTIPACK 3DRC 5Fr Right Coronary catheter Angiography MULTIPACK Pigtail 5 Fr LV Angiography catheter Procedure Complications No complications Procedure Medications Medication Administration Route Dosage 0.9% NaCl I.V. 100 ml/hr Oxygen etCO2 Nasal cannula 2 l/min Lidocaine 2% added to field 20 Heparin Flush Bag added to field 2 bags (1000units/500ml NS) Versed I.V. 2 mg Fentanyl I.V. 50 mcg Versed I.V. 2 mg Fentanyl I.V. 50 mcg Versed I.V. 2 mg Hemodynamics Rest BSA: 2.26 (m2) HGB: 16.1 (g/dl) O2 Consumption: Estimated: 277.07 (ml/min) O2 Co nsumption indexed: Estimated:122.6 (ml/min/m) Heart Rate: 79 (bpm) Pressure Samples Time Site Value (mmHg) Purpose Heart Use Rate(bpm) 10:27 LV 117/3,14 Snapshot 91 10:27 AO 118/75(97) Pullback 90 10:27 LV 114/-1,7 Pullback 90 Gradients Valve Time Site 1 Site 2 Mean SEP/DFP Peak To Heart Use (mmHg) (sec/min) Peak Rate (mmHg) (bpm) Aortic 10:27 LV AO 0 7 0 90 114/-1,7 118/75(97) Calculations Valve P-P Mean Valve Index Valve Source Name Gradient Area Flow (cm2) Aortic 0 0 0 0 Snapshots Pre Cath Intra NCS Post Cath Vital Signs Time Heart Resp SPO2 etCO2 NIBP (mmHg) Rhythm Pain Sedation Rate (ipm) (%) (mmHg) Status Level (bpm) 9:52:17 68 16 96 44 136/90(105) NSR 0 (11) 10(A) , No pain 9:56:35 67 13 96 36.6 129/87(111) NSR 0 (11) 10(A) , No pain 10:00:47 69 31 95 39.6 125/93(105) NSR 0 (11) 10(A) , No pain 10:05:03 81 19 97 44.8 125/91(115) NSR 0 (11) 10(A) , No pain 10:09:21 72 16 98 50 130/79(110) NSR 0 (11) 10(A) , No pain 10:14:00 88 15 98 41 97/81(94) NSR 0 (11) 10(A) , No pain 10:18:59 78 23 97 41.8 Measuring NSR 0 (11) 10(A) , No pain 10:19:05 75 21 98 50.8 126/79(96) NSR 0 (11) 10(A) , No pain 10:23:25 80 18 98 49.3 134/80(95) NSR 0 (11) 10(A) , No pain 10:27:45 85 23 97 41.1 119/86(96) NSR 0 (11) 10(A) , No pain 10:32:03 77 19 97 41.8 126/78(96) NSR 0 (11) 10(A) , No pain Medications Time Medication Route Dose Verified Delivered Reason Notes Eff ectiveness by by 9:57:31 0.9% NaCl I.V. 100 Damaso Liana used for ml/hr Ric Vega note keeper 9:57:40 Oxygen etCO2 2 Damaso Liana used for Nasal l/min Ric Vega procedure cannula RN 9:57:45 Lidocaine 2% added 20ml Damaso Damaso for local to vial Ric Larios MD anesthetic field 9:57:50 Heparin Flush added 2 Damaso Damaso used for Bag to bags Ric Larios MD procedure (1000units/500ml field NS) 10:17:42 Versed I.V. 2 mg Damaso Liana for Ric Vega sedation RN 10:17:51 Fentanyl I.V. 50 Damaso Liana for mcg Ric Vega sedation RN 10:21:50 Versed I.V. 2 mg Damaso Liana for Ric Vega sedation RN 10:21:58 Fentanyl I.V. 50 Damaso Liana for mcg Ric Vega sedation RN 10:27:45 Versed I.V. 2 mg Damaso Liana for Ric Vega sedation safety and security officer Log Time Note 9:38:12 Informed consent obtained and on chart 9:38:50 Procedure Status Elective Heart Cath (OP). 9:38:53 Liana Vega RN sent for patient. Start room use. 9:38:54 Time tracking: Regular hours (M-F 7:00 - 5:00) 9:38:57 Plan of Care:Hemodynamics will remain stable., Cardiac rhythm will remain stable., Comfort level will be maintained., Respiratory function will remain adequate., Patient/ family verbilizes understanding of procedure., Procedure tolerated without complication., Recovers from procedure without complications.. 9:41:07 H&P Date Dictated: 04/23/2020 Within 30 days and on chart., H&P Addendum completed by physician on day of procedure. (MUST COMPLETE FOR ALL OUTPATIENTS). 9:41:23 Patient allergic to Other allergyPLAVIX 9:42:58 Patient Weight : 231.49 lbs 9:43:00 Patient Height : 71.65 inches 9:43:05 Arrival Date: 04/26/2020 12:00:00 AM 9:46:12 Patient received from Pre/Post Procedure Room to CCL 1 Alert and oriented. Tansferred to table in Supine position. 9:46:14 Warm blankets applied, and lynette hugger turned on for patient comfort. 9:46:14 Correct patient and procedure confirmed by team. 9:46:14 ECG and BP/O2 sat monitors applied to patient. 9:51:08 Vital chart was started 9:51:10 Baseline sample Acquired. 9:51:17 Rhythm: sinus rhythm 9:51:19 Full Disclosure recording started 9:51:20 - 9:51:22 Pre-procedure instructions explained to patient. 9:51:22 Pre-op teaching completed and patient verbalized understanding. 9:51:32 Family in patients room. 9:51:36 Patient NPO since Midnight. 9:51:48 Is the patient allergic to Iodine/contrast media? No. 9:51:54 Was the patient premedicated? Yes 9:51:57 Is patient on blood thinner?Yes 9:52:04 ACC The patient was administered the following blood thiners within the last 24 hours: ACCEffient 9:52:54 Patient diabetic? No. 9:52:56 ----Pre-sedation anethsthesia assessment.---- 9:53:02 Previous problem with sedation/anesthesia? No ? 9:53:04 Snore? Yes 9:53:06 Sleep apnea? No 9:53:09 Deviated septum? Unknown 9:53:12 Opens mouth fully? Yes 9:53:15 Sticks out tongue? Yes 9:53:42 Airway obstruction? Yes copd 9:53:52 Dentures? Yes in tight 9:54:09 Pre procedure: right dorsailis pedis pulse 2+ Normal; easily identifiable; not easily obliterated 9:54:27 IV patent on arrival in right antecubital with 0.9% NaCl at O. 9:55:24 Lab Result : BUN 10 mg/dl 9:55:24 Lab Result : Creatinine 1 mg/dl 9:55:24 Lab Result : Hemoglobin 16.1 g/dl 9:55:24 Lab Result : eGFR NONAFRICAN 84 ml/min 9:55:24 Lab Result : Hematocrit 46.6 % 9:55:31 Lab results completed and on chart. 9:55:41 Right groin area was prepped with chlora-prep and draped in sterile fashion 9:55:46 Alarms reviewed by Corrina Corcoran 9:55:46 Sharps counted by scrub and verified by R.N. 9:55:53 Use device set Femoral Dx 9:55:55 ACIST Syringe (62771) opened to sterile field. 9:55:55 Bag Decanter (2002S) opened to sterile field. 9:55:56 Medline Cath Pack ([id number]) opened to sterile field. 9:55:58 ACIST Hand Control (07373) opened to sterile field. 9:55:58 ACIST Manifold (89215) opened to sterile field. 9:55:59 DIAGNOSTIC Multipack 5Fr catheter set ([id number]) opened to sterile field. 9:56:00 Tegaderm 4 x 4 (1626W) opened to sterile field. 9:56:01 SHEATH 5FR Westlake (XAZ341) opened to sterile field. 9:56:02 EMERALD Guide Wire (502-479) opened to sterile field. 9:57:31 0.9% NaCl 100 ml/hr I.V. was administered by Liana Vega RN; used for procedure; Verbal order read back and verified. 9:57:40 Oxygen 2 l/min etCO2 Nasal cannula was administered by Liana Vega RN ; used for procedure; Verbal order read back and verified. 9:57:45 Lidocaine 2% 20ml vial added to field was administered by Damaso Larios MD ; for local anesthetic; Verbal order read back and verified. 9:57:50 Heparin Flush Bag (1000units/500ml NS) 2 bags added to field was administered by Damaso Larios MD; used for procedure; Verbal order read back and verified. 10:04:51 Stress Test: no; N/A ? 10:04:55 Risk of Mortality: 0.1 10:04:59 Risk of blood transfusion: 0.1 10:05:02 Risk of CORAZON: 0.1 10:08:46 Zero performed for pressure channel P1 10:09:28 Zero performed for pressure channel P1 10:09:55 Zero performed for pressure channel P1 10:16:45 Physician arrived 10:16:45 --------ALL STOP TIME OUT------ 10:16:49 Final Timeout: patient, procedure, and site verified with staff and physician. All members of the team are in agreement. 10:16:51 Right groin site verified by team. 10:16:57 Fire Safety Assessment: A--An alcohol-based skin anteseptic being used preoperatively., C--Open oxygen or nitrous oxide is being used., D--An ESU, laser, or fiber-optic light is being used. 10:17:04 Physical assessment completed. ASA score P 2 - A patient with mild systemic disease as per Damaso Larios MD. 10:17:10 1) 90+ Normal kidney functon but urine findings or structural abnormalities or genetic trait point to kidney disease. 10:17:15 Maximum allowable contrast dose (3.7 X eGFR X 0.75)233 ml. 10:17:21 Sedation plan: IV Moderate Sedation Medication:Versed, Fentanyl 10:17:27 Procedure started. 10:17:32 Local anesthetic to right femoral artery with Lidocaine 2% by Damaso hobbs MD.INITIAL ACCESS ONLY 10:17:42 Versed 2 mg I.V. was administered by Liana Vega RN; for sedation; Verbal order read back and verified. 10:17:48 A 5 Fr sheath was inserted into the Right Femoral artery 10:17:51 Fentanyl 50 mcg I.V. was administered by Liana Vega RN; for sedation ; Verbal order read back and verified. 10:19:29 A MULTIPACK JL 4.0 5Fr catheter was advanced over the wire and used for Left Coronary Angiography. 10:20:21 LCA angiography performed. 10:20:26 Injector settings: Ml/sec: 3, Volume: 6, 10:21:50 Versed 2 mg I.V. was administered by Liana Vega RN; for sedation; Verbal order read back and verified. 10:21:58 Fentanyl 50 mcg I.V. was administered by Liana Vega RN; for sedation ; Verbal order read back and verified. 10:23:23 Catheter removed. 10:24:05 A MULTIPACK 3DRC 5Fr catheter was advanced over the wire and used for Right Coronary Angiography. 10:24:28 Injector settings: Ml/sec: 3, Volume: 6, 10:25:46 Catheter removed. 10:26:01 A MULTIPACK Pigtail 5 Fr catheter was advanced over the wire and used for LV Angiography. 10:26:31 Injector settings: Ml/sec: 5, Volume: 15, 10:27:08 LV gram done using GONSALEZ 10::27 EF : 50 % 10:27:40 LV hemodynamics recorded. 10:27:45 Versed 2 mg I.V. was administered by Liana Vega RN; for sedation; Verbal order read back and verified. 10:28:58 Catheter removed. 10:29:15 EXOSEAL 5Fr (EX500) opened to sterile field. 10:30:11 Sheath removed intact; hemostasis achieved with Exoseal to the Right Femoral artery. 10:30:15 Procedure ended.(Physican Out) 10:30:40 Contrast amount:Isovue 300 74ml. 10:30:44 Maximum allowable dose exceeded? No. 10:30:53 Fluoroscopy time 01.80 minutes. 10:31:00 Flurop Dose total: 815 10:31:00 Fluoroscopy dose: 815 mGy 10:31:09 Dose Area Product 80040 mGy/cm. 10:31:12 Sharps counted by scrub and verified by R.N. 10:31:17 Post-procedure physical assessment completed. ASA score P 2 - A patient with mild systemic disease as per Damaso Larios MD. 10:31:22 Post procedure rhythm: unchanged. 10::27 Estimated blood loss: 5 ml 10:31:30 Post procedure instruction explained to patient.Patient verbalizes understanding. 10:31:31 Patient needs reinforcement of post procedure teaching. 10:32:04 Procedure type changed to Cath procedure, Diagnostic procedure, LHC, C w/Coronaries, Sedation Charges, Moderate Sedation up to 15 minutes 10:32:06 Procedure and supply charges have been captured, reviewed, submitted an d are correct. 10:32:36 Procedure Complication : No complications 10:32:43 Vital chart was stopped 10:32:50 [facility] Findings: MVD- MD will discuss options w/ pt 10:32:53 See physician's report for complete and final results. 10:32:56 Report given to Pre/Post Procedure Room. 10:33:02 Patient transfered to Pre/Post Procedure Room with Stretcher. 10:33:09 Procedure ended. 10:33:09 Full Disclosure recording stopped 10:33:12 End room use (Document Last) Device Usage Item Name Manufacture Quantity Catalog Hospital Part Current Minimal L ot# / Number Charge Number Stock Stock Serial# Code [facility] 34981 314872 643801 617191 20 Syringe Medical (76425) Systems Inc Bag Microtek 1 2001S 722115 90968 696266 5 Decanter Medical Inc. (2001S) Medline Medline 1 [id number] 649768 91075 660185 5 Cath Pack ([id number]) ACIST Hand Acist 1 97620 895585 760652 676629 5 Control Medical (06607) Systems Inc ACIST Acist 1 63139 776438 205444 481900 5 Manifold Medical (56110) Systems Inc DIAGNOSTIC Cardinal 1 [id number] 780088 25627 100925 30 Multipack Health 5Fr catheter set (RT5197) Tegaderm 4 3M 1 1626W 406767 736238 534530 5 x 4 (1626W) SHEATH 5FR Terumo 1 MVW394 811484 872886 740117 5 Westlake (ETB723) EMERALD Cardinal 1 502-455 875566 828778 836607 5 Guide Wire Health (502-455) MULTIPACK Cardinal 1 360556 5 JL 4.0 5Fr Health catheter MULTIPACK Cardinal 1 901546 5 3DRC 5Fr Health catheter MULTIPACK Cardinal 1 328574 5 Pigtail 5 Health Fr catheter EXOSEAL 5Fr Cardinal 1 EX500 160830 616158 113755 10 (EX500) Health Signature Audit [place] Stage Time Signature Unsigned Intra-Procedure 04/26/2020 Trisha 10:33:51 AM [place] RT(R) (CV) Intra-Procedure 04/26/2020 Liana Vega 10:34:20 AM RN Intra-Procedure 04/26/2020 Damaso Larios MD 10:34:56 AM [address] [place] [address]
[~2020-04-26 07:55] MED LIST changes: +ACETAMINOPHEN500 M1 PO; +CRESTOR40 MG PO; +ENTRESTO 24 MG1 EACH PO; +FLORAJEN3 CAPS460 MG PO; +MONODOX100 MG PO; +PEPCID PO; +SINGULAIR10 MG PO
[2020-04-26] MEDS ORDERED: LIPITOR40 MG PO (08:32)
[2020-04-26] MEDS ORDERED: RANEXA1000 MG PO (08:34)
[2020-04-26 08:40] VITALS: BP 120/81; Ht 182.9 cm; Wt 104.7 kg
[2020-04-26 08:58] LABS: BASOPHILS 0.4 % (0-2); EOSINOPHILS 2.6 % (0-7); HEMATOCRIT 46.6 % (42.0-54.0); HEMOGLOBIN 16.1 g/dL (13.5-17.5); IMMATURE GRANULOCYTES 0.1 % (0-5); LYMPHOCYTES 17.5 % (15-50); MCH 31.6 pg (26.0-34.0); MCHC 34.5 g/dL (31.0-37.0); MCV 91.4 fL (80.0-100.0); MEAN PLATELET VOLUME 10.5 fL (7.4-10.4); MONOCYTES 6.1 % (2-11); NEUTROPHILS 73.3 % (40-80); PLATELET COUNT 200 10x3/uL (130-400); RDW 13.4 % (11.5-14.5); WBC 6.9 10x3/uL (4.8-10.8)
[2020-04-26 09:08] LABS: ALT (SGPT) 22 U/L (10-68); CALC OSMOLALITY 276 mosm/kg (275-300); CALCIUM 8.9 mg/dL (8.5-10.1); CARBON DIOXIDE 26.6 mmol/L (21.0-32.0); CHLORIDE - SERUM 106 mmol/L (98-107); CHOL - HDL RATIO 6.6 ratio (2.3-4.9); CHOLESTEROL, TOTAL 211 mg/dL (0-200); GLUCOSE 100 mg/dL (74-106); HDL CHOLESTEROL 32 mg/dL (32-96); LDL CHOLESTEROL 156 mg/dL (0-100); LDL-HDL RATIO 4.9 ratio (1.5-3.5); POTASSIUM - SERUM 4.4 mmol/L (3.5-5.1); SODIUM 139 mmol/L (136-145); TRIGLYCERIDE 118 mg/dL (30-200); UREA NITROGEN 10 mg/dL (7-18); eGFR NON AFRICAN AMERICAN 84 mL/min (90-120)
--- NOTE | 2020-04-26 10:40 | NUR ---
PT RECEIVED VIA STRETCHER FROM TRIMMING INSPECTOR FOR RECOVERY. PT SLEEPING, VERBALLY AROUSABLE. IV PATENT INFUSING VIA ORDERS TO R ARM. PT PLACED ON CARDIAC MONITORS AND O2 VIA NC AT 2L. HR NSR RATE 67, BP 118/86, RR 20, SAT 96. R GROIN W 6FR EXOCELE, DRESSING CDI NO S/S HEMATOMA OR BLEEDING NOTED. LEG PINK AND WARM, PEDAL PULSES PALPALBE. INSTRUCTED ON HIM KEEPING HEAD ON PILLOW AND LEG STRAIGHT. SHE VERBALIZED UNDERSTANDING. CALL LIGHT IN REACH
--- NOTE | 2020-04-26 11:00 | NUR ---
R GROIN SOFT, DRESSING CDI NO S/S HEMATOMA OR BLEEDING NOTED. VSS. DR STEVENSON WAS IN ROOM SPOKE WITH REGARDING PROCEDURE RESULTS AND DISCHARGE PLAN. NO NEW ORDERS RECEIVED. CALL LIGHT IN REACH
--- NOTE | 2020-04-26 11:34 | NUR ---
R GROIN SOFT, NO S/S HEMATOMA. HOB ELEVATED SLIGHTLY. SANDWICH AND DRINK SERVED. CALL LIGHT IN REACH. O2 REMOVED.
--- NOTE | 2020-04-26 12:00 | NUR ---
PT TOLERATED LUNCH W/O DIFFICULITY OR NAUSEA. VOIDED 300 CC VIA URINAL. R GROIN SOFT, DRESSING CDI NO S/S HEMATOMA NOTED. CALL LIGHT IN REACH, AT BS
--- NOTE | 2020-04-26 12:20 | NUR ---
IV REMOVED W CATH INTACT, MONITORS REMOVED. DISCHARGE INSTRUCTIONS REVIEWED W PT AND , BOTH VERBALIZED UNDERSTANDING. GROIN REMAINS FREE OF BLEEDING OR HEMATOMA. PT UP TO DRESS FOR DISCHARGE
--- NOTE | 2020-04-26 12:33 | NUR ---
PT DISCHARGED VIA WC TO WAITING IN PRIVATE VEHICLE. PT HAD ALL BELONGINGS AND DISCHARGE PAPERWORK.
== END 2020-04-26 12:35 | disposition home or self-care (01) ==
LOC: D.CATH 07:55
PROVIDERS: ATTEND Internal Medicine Cardiovascular Disease
DX: I25.110 Atherosclerotic heart disease of native coronary artery with unstable angina pectoris (principal); R07.9 Chest pain, unspecified; R06.00 Dyspnea, unspecified; I10 Essential (primary) hypertension; I25.5 Ischemic cardiomyopathy

== ENCOUNTER 2020-05-08 11:00 | Inpatient (IN) | payer MEDICAID ==
[~2020-05-08] VITALS: Ht 182.9 cm; Wt 102.2 kg
--- NOTE | ~2020-05-08 | TEE ---
PATIENT:KRISTA MENEZES JR MEDICAL RECORD: [id number] LOCATION:[place] [address] AGE OF PATIENT: 50 ADMISSION DATE: 05/11/20 SEX: M REFERRING PHYSICIAN: INTERPRETING PHYSICIAN: RUPINDER BANG MD TRANSESOPHAGEAL ECHOCARDIOGRAM Date: 05/11/20 [place] CHARGE Y INDICATIONS: CABG PREMEDICATIONS: PATIENT'S RESPONSE PROCEDURE DOPPLER MEASUREMENTS: LVIT LA PA RA LVOT RVOT Asc. Ao AV Gradient Peak AV Mean AV Area MV Gradient Peak MV Mean MV Area INTERPRETATION: Doppler: 2-D: COLOR FLOW DOPPLER NORMAL SALINE STUDY: MISCELLANOUS: DIAGNOSIS: PLAN: Video Production Intern:3 Dr. Pedraza Inverted Block Operator: Paco KHAN COMMENTS: DATE OF SERVICE: 05/12/2020 PROCEDURE: Transesophageal intraoperative. Preprocedure, shows normal LV wall motion and normal wall thickening. EF greater than 55%. Aortic valve is tricuspid with good valve excursion. Left atrium appears normal. Mitral valve appears normal. Trivial MR. Postoperatively, good motion wall thickening in all segments and normal EF at 55%. Aortic valve is tricuspid. Good valve excursion. Left atrium appears TRANSESOPHAGEAL ECHOCARDIOGRAM REPORT [id number] KRISTA MENEZES normal. Mitral valve appears normal. Trivial MR. TRANSINT:[id number] Voice Confirmation ID: [id number] DOCUMENT ID: [id number] RUPINDER BANG MD CC: [id number] DICTATION DATE: 05/12/20 1110 PRICING CONSULTANT: 05/12/20 1603 ADM IN [facility] [address] [place] [address]
[2020-05-08 12:27] LABS: BASOPHILS 0.5 % (0-2); EOSINOPHILS 2.4 % (0-7); HEMATOCRIT 47.7 % (42.0-54.0); HEMOGLOBIN 16.1 g/dL (13.5-17.5); IMMATURE GRANULOCYTES 0.1 % (0-5); MCH 30.6 pg (26.0-34.0); MCHC 33.8 g/dL (31.0-37.0); MCV 90.7 fL (80.0-100.0); MEAN PLATELET VOLUME 10.4 fL (7.4-10.4); PLATELET COUNT 221 10x3/uL (130-400); RBC 5.26 10x6/uL (4.20-6.10); RDW 13.5 % (11.5-14.5); WBC 7.8 10x3/uL (4.8-10.8)
[2020-05-08 12:49] LABS: ALBUMIN 3.9 g/dL (3.4-5.0); ALKALINE PHOSPHATASE 64 U/L (30-120); ALT (SGPT) 28 U/L (10-68); BILIRUBIN - TOTAL 0.44 mg/dL (0.2-1.3); CALC OSMOLALITY 275 mosm/kg (275-300); CALCIUM 9.2 mg/dL (8.5-10.1); CARBON DIOXIDE 26.5 mmol/L (21.0-32.0); CHLORIDE - SERUM 104 mmol/L (98-107); CHOLESTEROL, TOTAL 234 mg/dL (0-200); GLUCOSE 97 mg/dL (74-106); PHOSPHOROUS 3.2 mg/dL (2.5-4.9); POTASSIUM - SERUM 3.7 mmol/L (3.5-5.1); PROTEIN - SERUM 6.8 g/dL (6.4-8.2); SODIUM 138 mmol/L (136-145); T4 THYROXIN - FREE 1.25 ng/dL (0.76-1.46); THYROID STIMULATING HORMONE 0.48 uIU/mL (0.36-3.74); UREA NITROGEN 13 mg/dL (7-18); URIC ACID 5.4 mg/dL (2.6-7.2); eGFR NON AFRICAN AMERICAN 83 mL/min (90-120)
[2020-05-08 13:16] LABS: APTT 32.5 SECONDS (22.8-39.4); INR 0.98 (0.85-1.17); PROTIME 12.9 SECONDS (11.6-15.0)
[2020-05-08 13:36] LABS: BILIRUBIN NEGATIVE (NEGATIVE); KETONE NEGATIVE (NEGATIVE); NITRITE NEGATIVE (NEGATIVE); UROBILINOGEN NORMAL (NORMAL)
[2020-05-11] VITALS (31 sets, daily range): BP systolic 94–129; BP diastolic 55–79; BMI 31.6; BMI 31.1
--- NOTE | 2020-05-11 10:32 | NUR ---
FIRST TIME OUT COMPLETED WITH ANESTHESIA FOR ENDOVASCULAR VEIN HARVEST.
--- NOTE | 2020-05-11 14:34 | NUR ---
250ml fluid bolus to infuse in 30min per Dr. Robles's orders.
--- NOTE | 2020-05-11 15:13 | NUR ---
Pt arrived to unit around 1330 via bed from OR. Placed on vent. ETT 8.0 22 lip right side. Current vent settings SIMV R-18/TV630/PS10/FIO2 40%/PEEP5. RIJ cvl with plasmolyte at 100ml/hr, penelope at 0.4mcg/kg/min, and zinacef 12.8ml/hr. Midsternal incision c/d/i. Subternal CT X 2 y'd together, 20cm suction, no air leak noted. Left muna drain in place, TPM wire in place, dressing c/d/i. RLE harvest sites with coban dressing. R-femoral chandler in place. Salazar catheter in place with yellow urine noted. Opens eyes to voice. Wrist restraints in place per order. Will continue to monitor closely.
--- NOTE | 2020-05-11 16:42 | NUR ---
ABG results reported to Dr. Robles. Miguel to extubate. Recheck gases in 1hr.
--- NOTE | 2020-05-11 17:01 | NUR ---
Extubated at 1646. Currently on 4L O2 via nc. Dylan drip has been turned off at this time. Will continue to monitor.
--- NOTE | 2020-05-11 17:50 | NUR ---
ABG results after one hour post extubation reported to Dr. Robles. No new orders at this time. Will continue to monitor.
--- NOTE | 2020-05-11 18:00 | NUR ---
Intructed on how to use insentive spirometer. Pulls between 750-1000.
--- NOTE | 2020-05-11 19:00 | NUR ---
REPORT RECEIVED. PT SITTING UP IN BED, AAOX4. ASSESSMENT COMPLETED, SEE FLOWSHEET. RT IJ CVL INFUSING, SEE FLOWSHEET. RT GROIN A-LINE IN PLACE, GOOD SENSATION, ZERO'D. WILL CONTINUE TO MONITOR.
[2020-05-12] VITALS (27 sets, daily range): BP systolic 109–141; BP diastolic 66–89
[2020-05-12 05:49] LABS: HEMATOCRIT 42.4 % (42.0-54.0); HEMOGLOBIN 13.6 g/dL (13.5-17.5); MCH 30.4 pg (26.0-34.0); MCHC 32.1 g/dL (31.0-37.0); MCV 94.6 fL (80.0-100.0); MEAN PLATELET VOLUME 10.5 fL (7.4-10.4); RBC 4.48 10x6/uL (4.20-6.10); RDW 14.2 % (11.5-14.5); WBC 18.1 10x3/uL (4.8-10.8)
--- NOTE | 2020-05-12 06:00 | NUR ---
A-LINE DCED, CATH TIP INTACT, SITE CDI. PT DANGLED ON SIDE OF BED, REPORTED DIZZINESS. TOLERATED WELL.
[2020-05-12 06:07] LABS: ALKALINE PHOSPHATASE 41 U/L (30-120); ALT (SGPT) 19 U/L (10-68); CALC OSMOLALITY 276 mosm/kg (275-300); CALCIUM 7.9 mg/dL (8.5-10.1); CARBON DIOXIDE 28.6 mmol/L (21.0-32.0); CHLORIDE - SERUM 105 mmol/L (98-107); CREATININE - SERUM 0.8 mg/dL (0.6-1.3); GLUCOSE 128 mg/dL (74-106); POTASSIUM - SERUM 4.4 mmol/L (3.5-5.1); PROTEIN - SERUM 5.3 g/dL (6.4-8.2); SODIUM 138 mmol/L (136-145); UREA NITROGEN 11 mg/dL (7-18); eGFR NON AFRICAN AMERICAN > 90 mL/min (90-120)
--- NOTE | 2020-05-12 10:39 | OP ---
PATIENT NAME: KRISTA MENEZES JR MEDICAL RECORD: [id number] :66 LOCATION:[id number] ADMISSION DATE:05/11/20 SURGEON: WALLACE COUGHLIN MD DATE OF OPERATION: 05/11/2020 SURGEON: Wallace Coughlin MD PROCEDURE PERFORMED: Coronary artery bypass graft times 2 (left internal mammary to LAD, reverse saphenous vein graft from aorta to distal obtuse marginal), endoscopic vein harvest. PREOPERATIVE DIAGNOSES: Chronic angina with occluded obtuse marginal stent. POSTOPERATIVE DIAGNOSES: Chronic angina with occluded obtuse marginal stent. ANESTHESIA: General endotracheal anesthesia. ESTIMATED BLOOD LOSS: Total cardiopulmonary bypass with Cell Saver re-transfusion. COMPLICATIONS: None. SPECIMENS: None. CONDITION: Stable. DISPOSITION: CV ICU. OPERATIVE FINDINGS: 1. Severe distal disease in all vessels, the LAD 1.5 mm with severe disease. 2. Obtuse marginal beyond the stent in the distal vessel 1.5-mm with severe disease. The more distal circumflex posterolateral branch was very small. 3. Small bilateral radial artery by ultrasound, anesthesia unable to place radial artery catheter for blood pressure monitoring in either radial. 4. The patient requests left internal mammary artery with a patent stent aware that this may not have long-term patency. INDICATION: Chronic angina, history of multivessel stenting. DESCRIPTION OF PROCEDURE: The patient was brought to the operating suite. General anesthesia was obtained, the patient was prepped and draped. Endoscopic vein harvest of the right lower extremity was performed. Side braches were divided with electrocautery. Vessel ligated proximally and distally. Side braches were tied. Leg was irrigated and closed in 2 layers. Median sternotomy incision was made. Subcutaneous tissue was divided with electrocautery. Sternum was divided with a saw. Left hemisternum was elevated, both pleural cavities were entered. The lungs were significantly hyperexpanded with history of smoking. Left internal mammary vein was taken as a pedicle graft. Sternal retractor was placed. Pericardium was opened. Heparin was given. Aorta was cannulated. Dual stage venous cannula was inserted. The patient was placed in cardiopulmonary bypass and internal mammary artery made ready for anastomosis. Sites for distal anastomosis was selected. The patient's OPERATIVE REPORT [id number] KRISTA MENEZES JR temperature drifted downwardly. Antegrade cardioplegia cannula was inserted. Crossclamp was placed. Cardioplegia given antegrade and this repeated including down the completed vein graft. Distal anastomosis was performed in standard technique. Proximal anastomosis with single cross-clamp technique. Cross clamp removed. The aortic root de-aired. The patient had no bleeding at the proximal and distal sites, resumed a spontaneous rhythm, fully rewarmed, weaned from cardiopulmonary bypass and was stable. The patient was decannulated. Aortic cannulation site was oversewn. Protamine was given. Thorough irrigation was undertaken. Grafts lay appropriately. Good Doppler signal in the internal mammary artery. Drain was placed in the mediastinum and both pleural cavities. Ventricular pacing wire was placed. Pericardial fat was loosely reapproximated in the midline and left chest was evacuated and irrigated. Internal mammary harvest site inspected for bleeding. Sternum was closed with wires. Fascia was closed. Subcutaneous tissue was closed. Skin was closed. Dermabond was placed. Needle and sponge counts reported correct. The patient was taken to ICU in stable condition. TRANSINT:[id number] Voice Confirmation ID: [id number] DOCUMENT ID: [id number] WALLACE COUGHLIN MD at 1039 CC: RICARDO STEVENSON M.D. and ARCENIO ALVARENGA MD [id number] DICTATION DATE: 05/11/20 1440 CHILD DEVELOPMENT CONSULTANT: 05/11/20 2318 ADM IN [place] [id number] [place] [address]
--- NOTE | 2020-05-12 11:56 | NUR ---
1030 ASSISTED TO BED WITHOUT DIFFICULTY-DR COUGHLIN AT BEDSIDE-MORPHINE 2MG IVP GIVEN DIRECTED PREMED FOR MEDIASTINAL CHEST REMOVAL -SAME DONE BY DR COUGHLIN PER PROTOCOL AND DISPOSED OF CORRECTLY--MEDIASTINAL CHEST WIRE X1-SECURED -PACER DISCONNECTED-DRG DONE -PROCEDURE TOLERATED WELL BY PT-NO CHANGE IN NUERO STATUS 1100-R IJ SALINE LOCKED-ZINACEF AND CORDARONE GTTS COMPLETED-RT RX IN PROGRESS
--- NOTE | 2020-05-12 16:53 | NUR ---
1400-AMBULATED WITH PHYSICAL THERAPY ON OXYGEN-NOTED INCREASED FACIAL PALLOR-RETURNED TO [facility]-PT HOME BIPAP SET UP BY RT-NOTED NO BLEED IN SPOT FOR O2 ATTACHMENT-PT INFORMED NOT ABLE TO USE WHILE ON OXYGEN AT 6L 1600-PT AMBULATED IN RM TO CHAIR-TOLERATED WELL
[2020-05-13] VITALS (19 sets, daily range): BP systolic 105–137; BP diastolic 58–85
[2020-05-13 05:27] LABS: HEMATOCRIT 41.2 % (42.0-54.0); HEMOGLOBIN 13.4 g/dL (13.5-17.5); MCH 30.5 pg (26.0-34.0); MCHC 32.5 g/dL (31.0-37.0); MCV 93.8 fL (80.0-100.0); RBC 4.39 10x6/uL (4.20-6.10); RDW 13.9 % (11.5-14.5)
[2020-05-13 05:40] LABS: ALBUMIN 2.9 g/dL (3.4-5.0); ALKALINE PHOSPHATASE 53 U/L (30-120); ALT (SGPT) 18 U/L (10-68); BILIRUBIN - TOTAL 0.65 mg/dL (0.2-1.3); CALC OSMOLALITY 267 mosm/kg (275-300); CALCIUM 8.7 mg/dL (8.5-10.1); CARBON DIOXIDE 30.7 mmol/L (21.0-32.0); CHLORIDE - SERUM 102 mmol/L (98-107); CREATININE - SERUM 0.9 mg/dL (0.6-1.3); GLUCOSE 115 mg/dL (74-106); POTASSIUM - SERUM 4.6 mmol/L (3.5-5.1); PROTEIN - SERUM 5.8 g/dL (6.4-8.2); SODIUM 134 mmol/L (136-145); UREA NITROGEN 9 mg/dL (7-18); eGFR NON AFRICAN AMERICAN > 90 mL/min (90-120)
--- NOTE | 2020-05-13 09:00 | NUR ---
AWAKE AND ALERT-AMBULATED EASILY TO RESTROOM-NO DISTRESS
[2020-05-14] VITALS (26 sets, daily range): BP systolic 101–134; BP diastolic 64–90; Ht 182.9 cm; Wt 102.2 kg
[2020-05-14 06:55] LABS: HEMOGLOBIN 12.7 g/dL (13.5-17.5); MCHC 32.6 g/dL (31.0-37.0); MCV 92.2 fL (80.0-100.0); MEAN PLATELET VOLUME 10.4 fL (7.4-10.4); RBC 4.23 10x6/uL (4.20-6.10); RDW 13.5 % (11.5-14.5); WBC 10.4 10x3/uL (4.8-10.8)
--- NOTE | 2020-05-14 07:15 | NUR ---
REPORT RECEIVED. PT SITTING UP IN CHAIR. ALERT AND ORIENTED. ON O2 AT 4L. HAS NEVIN DRAIN. INCISION SITES TO MIDSTERNUM, SUBSTERNAL INCISION, AND RIGHT LEG HARVEST SITE. PT IS IN NORMAL SINUS RHYTHM CURRENTLY WITH A HEART RATE AT 88. PT HAS NO NEEDS AT THIS TIME. WILL CONTINUE TO MONITOR.
[2020-05-14 07:24] LABS: ALBUMIN 2.8 g/dL (3.4-5.0); ALKALINE PHOSPHATASE 52 U/L (30-120); ALT (SGPT) 21 U/L (10-68); BILIRUBIN - TOTAL 0.58 mg/dL (0.2-1.3); CALC OSMOLALITY 264 mosm/kg (275-300); CALCIUM 8.7 mg/dL (8.5-10.1); CARBON DIOXIDE 29.8 mmol/L (21.0-32.0); CHLORIDE - SERUM 101 mmol/L (98-107); CREATININE - SERUM 0.8 mg/dL (0.6-1.3); GLUCOSE 106 mg/dL (74-106); PROTEIN - SERUM 6.2 g/dL (6.4-8.2); SODIUM 133 mmol/L (136-145); UREA NITROGEN 11 mg/dL (7-18); eGFR NON AFRICAN AMERICAN > 90 mL/min (90-120)
--- NOTE | 2020-05-14 11:25 | NUR ---
NEVIN DRAIN REMOVED BY DR COUGHLIN. DRESSING APPLIED. RIGHT IJ REMOVED. PRESSURE DRESSING APPLIED. DR COUGHLIN OKAYED NOT PLACING A PIV. PT TOLERATED WELL. WILL CONTINUE TO MONITOR.
--- NOTE | 2020-05-14 18:27 | NUR ---
ORAL CARE DONE WITH PERIDEX
[2020-05-15] VITALS (24 sets, daily range): BP systolic 103–140; BP diastolic 55–92
[2020-05-15 04:51] LABS: HEMATOCRIT 37.3 % (42.0-54.0); HEMOGLOBIN 12.4 g/dL (13.5-17.5); MCH 30.5 pg (26.0-34.0); MCHC 33.2 g/dL (31.0-37.0); MCV 91.6 fL (80.0-100.0); MEAN PLATELET VOLUME 10.5 fL (7.4-10.4); RBC 4.07 10x6/uL (4.20-6.10); RDW 13.3 % (11.5-14.5)
[2020-05-15 05:09] LABS: ALBUMIN 2.6 g/dL (3.4-5.0); ALKALINE PHOSPHATASE 55 U/L (30-120); ALT (SGPT) 23 U/L (10-68); BILIRUBIN - TOTAL 0.52 mg/dL (0.2-1.3); CALC OSMOLALITY 269 mosm/kg (275-300); CALCIUM 8.8 mg/dL (8.5-10.1); CARBON DIOXIDE 30.6 mmol/L (21.0-32.0); CHLORIDE - SERUM 101 mmol/L (98-107); CREATININE - SERUM 0.9 mg/dL (0.6-1.3); GLUCOSE 117 mg/dL (74-106); POTASSIUM - SERUM 3.5 mmol/L (3.5-5.1); PROTEIN - SERUM 6.1 g/dL (6.4-8.2); SODIUM 135 mmol/L (136-145); UREA NITROGEN 10 mg/dL (7-18); eGFR NON AFRICAN AMERICAN > 90 mL/min (90-120)
--- NOTE | 2020-05-15 06:26 | NUR ---
PT SITTING UP DRINKING CUP OF COFFEE. ABLE TO GET UP AND VOID SEVERAL TIMES THROUGH THE NIGHT, WITHOUT DIFFICULTY. NO SIGNS OR SYMPTOMS OF COMPLICATIONS NOTED AT THIS TIME. CALL LIGHT WITHIN REACH, WILL CONTINUE TO MONITOR
--- NOTE | 2020-05-15 07:10 | NUR ---
REPORT RECEIVED. PT UP IN CHAIR. ON O2 AT 2L. AOX4. USING INCENTIVE SPIROMETER. DRESSINGS TO MIDSTERNUM AND SUBSTERNUM C/D/I. RIGHT LEG HARVEST SITE. C/D/I. PT HAS NO COMPLAINTS OR NEEDS AT THIS TIME. WILL CONTINUE TO MONITOR.
--- NOTE | 2020-05-15 09:52 | NUR ---
O2 TURNED OFF ABOUT 0915. 90% ON ROOM AIR. PT ABLE TO WASH HAIR AND CLEAN UP ON HIS OWN.
[2020-05-15] MEDS ORDERED: AMIODARONE HCL200 MG PO (13:43)
--- NOTE | 2020-05-15 20:34 | NUR ---
190 BEDSIDE REPORT RECEIVED, PT SITTING IN THE BED, EYES OPEN. DRESSING COMING OFF MIDSTERNAL INCISION, REPLACED DRESSING PER PT. REQUEST. NO FURTHER COMPLAINTS AT THIS TIME. WILL CONTINUE TO MONITOR
[2020-05-16] VITALS (13 sets, daily range): BP systolic 105–137; BP diastolic 67–93
[2020-05-16 05:00] LABS: HEMATOCRIT 36.1 % (42.0-54.0); MCHC 33.2 g/dL (31.0-37.0); MCV 90.3 fL (80.0-100.0); MEAN PLATELET VOLUME 10.4 fL (7.4-10.4); RDW 13.5 % (11.5-14.5); WBC 7.8 10x3/uL (4.8-10.8)
[2020-05-16 05:48] LABS: ALBUMIN 2.4 g/dL (3.4-5.0); ALKALINE PHOSPHATASE 56 U/L (30-120); BILIRUBIN - TOTAL 0.54 mg/dL (0.2-1.3); CALC OSMOLALITY 275 mosm/kg (275-300); CALCIUM 8.9 mg/dL (8.5-10.1); CARBON DIOXIDE 30.1 mmol/L (21.0-32.0); CHLORIDE - SERUM 103 mmol/L (98-107); CREATININE - SERUM 0.9 mg/dL (0.6-1.3); GLUCOSE 117 mg/dL (74-106); POTASSIUM - SERUM 3.3 mmol/L (3.5-5.1); PROTEIN - SERUM 5.8 g/dL (6.4-8.2); SODIUM 138 mmol/L (136-145); UREA NITROGEN 9 mg/dL (7-18); eGFR NON AFRICAN AMERICAN > 90 mL/min (90-120)
[2020-05-16 05:51] LABS: ALT (SGPT) 31 U/L (10-68)
--- NOTE | 2020-05-16 06:16 | NUR ---
PT UP OUT OF BED CLEANING SELF UP, O2 REMOVED 0530, O2 SAT 96%. COMPLETE LINEN CHANGE DONE. NO COMPLAINTS OR SIGNS/SYMPTOMS OF DISTRESS NOTED. WILL CONTINUE TO MONITOR
--- NOTE | 2020-05-16 06:44 | NUR ---
SITTING UP IN CHAIR ON ROOM AIR, O2 97% RR 14, PT STATES HE IS NOT SOB. WILL CONTINUE TO MONITOR
--- NOTE | 2020-05-16 11:08 | NUR ---
Nutrition Follow-up: POD 5 CABG. Reports eating 100% of breakfast this AM. Denies N/V, chewing/swallowing difficulties. +BM today. Diet: Regular Wt: 224.8# (05/16) Labs noted: K+ 3.3, Glu 117, Alb 2.4 Meds noted: Protonix, Senokot, Colace -RD following.
[2020-05-16] MEDS ORDERED: PERCOCET 10-321 EAC1 PO (12:22)
--- NOTE | 2020-05-16 15:28 | NUR ---
0700. HEAD TO TOE ASSESSMENT COMPLETED. PT SITTING IN CHAIR. DENIES NEEDS. CALL LIGHT IN REACH. 1230- DR COUGHLIN AT BEDSIDE. 1400- DC INSTRUCTIONS PROVIDED. PT UNDERSTOOD TEACHING WITH TEACH BACK. 1430- AT BEDSIDE. WHEELED PT OUT TO CAR.
--- NOTE | 2020-05-18 21:37 | MORECARE ---
CASE MANAGEMENT DISCHARGE SUMMARY PATIENT: KRISTA MENEZES JR UNIT: [id number] ADM DATE: 05/11/20 AGE: 50 : 68 SEX: M ROOM/BED: [facility] AUTHOR: DOMINIQUE CARPIO PHYSICIAN: REFERRING PHYSICIAN: NICOLETTE COUGHLIN MD DATE OF SERVICE: 05/18/20 Discharge Plan Patient Name: KRITSA MENEZES [facility] [facility] 1970 Planned Disposition: Home Anticipated Discharge Date: Discharge Date: 05/16/2020 Expected LOS: Initial Reviewer: [email or web address] Initial Review Date: 05/11/2020 Generated: 05/18/20 10:37 pm DCPIA - Discharge Planning Initial Assessment Updated by [email or web address]: Patricia Palmer on 05/18/20 9:36 pm * Is the patient Alert and Oriented? Yes * How many steps to enter\exit or inside your home? * PCP [facility] * [facility] * Preadmission Environment Home with Family * ADLs Independent * Equipment CPAP * Other Equipment NEBULIZER * List name and contact numbers for known caregivers / representatives who currently or will assist patient after discharge: ODILON GUAJARDO - [phone] * Verbal permission to speak to the caregivers and representatives has been obtained from the patient. Yes * Additional services required to return to the preadmission environment? No * Can the patient safely return to the preadmission environment? Yes * Has this patient been hospitalized within the prior 30 days at any hospital? No Patient Name: KRISTA MENEZES Page [id number] at 2137 All edits/amendments must be made on the electronic document DICTATION DATE: 05/18/202136 BUS AND RAIL OPERATOR: LEANNE 05/18/202136 RPT#: [id number] DC DATE:05/16/20 STATUS: DIS IN [facility] [address] [place] [address] END OF REPORT
--- NOTE | 2020-05-18 21:44 | MORECARE ---
CASE MANAGEMENT DISCHARGE SUMMARY PATIENT: KRISTA MENEZES JR UNIT: [id number] ADM DATE: 05/11/20 AGE: 50 : 66 SEX: M ROOM/BED: [facility] AUTHOR: SHIRIN,DOC PHYSICIAN: REFERRING PHYSICIAN: NICOLETTE COUGHLIN MD DATE OF SERVICE: 05/18/20 Discharge Plan Patient Name: KRISTA MENEZES Facility: [facility]:[place] : 1970 Planned Disposition: Home Anticipated Discharge Date: Discharge Date: 05/16/2020 Expected LOS: Initial Reviewer: [email or web address] Initial Review Date: 05/11/2020 Generated: 05/18/20 10:44 pm Comments DCP- Discharge Planning Updated by [email or web address]: Patricia Palmer on 05/18/20 8:[address] LATE ENTRY - 05/16/20 Patient Name: KRISTA MENEZES Admission Status: Urgent Accout number: [id number] Admission Date: 05-11-2020 : 1970 Admission Diagnosis:ATHSCL HEART DISEASE OF [place] CORONARY ARTERY W/O ANG Attending: NICOLETTE COUGHLIN Current LOS: 5 Anticipated DC Date: Planned Disposition: Home Primary Insurance: MEDICAID [place] Discharge Planning Comments: CM met with patient to complete initial dc planning assessment. CM educated patient on the CM role and verbal consent given by patient to complete assessment. Patient lives at home with family. Patient is independent. At discharge patient plans to return home and feels this is a safe discharge. CM discussed availability of home health, rehab services, and medical equipment. Patient will have family to transport home. Patient denied known discharge needs at this time. CM will continue to follow and will assist as needed with dc plans/needs. Valet Cashier: Patricia Palmer DCPIA - Discharge Planning Initial Assessment Updated by [email or web address]: Patricia Palmer on 05/18/20 9:36 pm * Is the patient Alert and Oriented? Yes * How many steps to enter\exit or inside your home? * PCP [facility] * [facility] * Preadmission Environment Home with Family * ADLs Independent * Equipment CPAP * Other Equipment NEBULIZER * List name and contact numbers for known caregivers / representatives who currently or will assist patient after discharge: ODILON GUAJARDO - [phone] * Verbal permission to speak to the caregivers and representatives has been obtained from the patient. Yes * Additional services required to return to the preadmission environment? No * Can the patient safely return to the preadmission environment? Yes * Has this patient been hospitalized within the prior 30 days at any hospital? No Last DP export: 05/18/20 8:37 p Patient Name: KRISTA MENEZES Page [id number] at 2144 All edits/amendments must be made on the electronic document DICTATION DATE: 05/18/202143 SIZE STAMPER: LEANNE 05/18/202143 RPT#: [id number] DC DATE:05/16/20 STATUS: DIS IN [facility] [address] [place] [address] END OF REPORT
== END 2020-05-16 15:39 | disposition home or self-care (01) | DRG 236 ==
LOC: D.SDCHOLD 11:00 → D.CVICU 05-11 05:20 → D.SDCHOLD 05-11 07:30 → D.CVICU 05-11 13:07 → D.SDCHOLD 05-11 13:30 → D.CVICU 05-16 15:39
PROVIDERS: ADMIT Thoracic Surgery (Cardiothoracic Vascular Surgery); ATTEND Thoracic Surgery (Cardiothoracic Vascular Surgery)
PROC: 021009W Bypass Coronary Artery, One Artery from Aorta with Autologous Venous Tissue, Open Approach (ICD-10-PCS; 2020-05-11)
PROC: 06BP4ZZ Excision of Right Saphenous Vein, Percutaneous Endoscopic Approach (ICD-10-PCS; 2020-05-11)
PROC: 5A1221Z Performance of Cardiac Output, Continuous (ICD-10-PCS; 2020-05-11)
PROC: 02100Z9 Bypass Coronary Artery, One Artery from Left Internal Mammary, Open Approach (ICD-10-PCS; principal; 2020-05-11 07:30)
DX: I25.110 Atherosclerotic heart disease of native coronary artery with unstable angina pectoris (principal); I10 Essential (primary) hypertension; K21.9 Gastro-esophageal reflux disease without esophagitis; J44.9 Chronic obstructive pulmonary disease, unspecified; F17.200 Nicotine dependence, unspecified, uncomplicated; R09.02 Hypoxemia

== ENCOUNTER → 2020-11-08 09:38 | Outpatient (CLI) | payer MEDICAID ==
[2020-05-14 10:59] VITALS: BMI 31.7
[~2020-11-08 09:38] MED LIST changes: +AMIODARONE HCL200 MG PO; +PERCOCET 10-321 EAC1 PO
--- NOTE | 2020-11-12 08:09 | ST ---
PATIENT:KRISTA MENEZES JR MEDICAL RECORD: [id number] SEX: M LOCATION:[facility] ORDER #: ADMISSION DATE: 11/08/20 AGE OF PATIENT: 50 REFERRING PHYSICIAN: INTERPRETING PHYSICIAN: RUPINDER BANG MD DATE OF SERVICE: 11/08/2020 NUCLEAR STRESS TEST. GATED IMAGING: Shows decreased wall motion and thickening in the inferior wall. LV function is reduced 42%. SPECT IMAGING: SPECT imaging shows a fixed defect from the inferior base of the mid inferior wall down to the inferior apex, but with a component of reversibility towards the inferior apex is confirmed in the horizontal axis with a fixed defect from the inferior base, mid inferior wall and inferoapical region, but with reversibility along the inferior apex. Vertical axis shows reversible apical defect. FINAL IMPRESSION: 1. Abnormal gated with abnormal motion and reduced EF 42%. 2. Abnormal SPECT imaging with a mixed defect seen in all 3 views. The defect is a severe defect size and is large. IMPRESSION: This gentleman with a known history of coronary artery disease and ongoing ischemic symptomatology. The scan is concerning for a significant ischemic burden. We will consider diagnostic angiography. TRANSINT:[id number] Voice Confirmation ID: [id number] DOCUMENT ID: [id number] RUPINDER BANG MD at 0809 CC: [id number] DICTATION DATE: 11/09/20 1110 PRESSURE CONTROLLER: 11/10/20 0330 DEP CLI 11/08/20 [place] [id number] [place] [id number]
== END | disposition home or self-care (01) ==
LOC: D.HCCARDIO 09:38
PROVIDERS: ATTEND Internal Medicine Interventional Cardiology
DX: I25.10 Atherosclerotic heart disease of native coronary artery without angina pectoris (principal)

== ENCOUNTER 2020-11-19 12:03 | Day surgery (SDC) | payer MEDICAID ==
[~2020-11-19] VITALS: Ht 185.4 cm; Wt 101.2 kg
--- NOTE | ~2020-11-19 | HEMODYNAMI ---
PATIENT:KRISTA MENEZES JR MEDICAL RECORD: [id number] : 66 LOCATION:D.CAT ADMISSION DATE: 11/19/20 Generatedon:114:38 Patient name: KRISTA MENEZES Patient #: [id number] SSN: [id number] : 1970 Date of study: 11/19/2020 Page: Of Hemodynamic Procedure Report Patient Data Patient Demographics Procedure consent was obtained First Name: KRISTA Gender: Male Last Name: RIRI Suffix: Jr Rojo Initial: Ruth : 1970 Patient #: [id number] Age: 50 year(s) Race: SSN: [id number] Additional ID: [id number] Contact details Address: [address] [place] [address] State: [facility] Zip code: [address] Past Medical History History of disease Date Diagnosis Comments CAD Allergies Allergen Reaction Date Comments Reported Other allergy 10/20/2018 Plavix non responder Other allergy 12/05/2018 PLAVIX Other allergy 09/21/2019 PLAVIX Other allergy 01/20/2020 CLOPIDOGREL Other allergy 02/26/2020 plavix Other allergy 04/26/2020 PLAVIX Other allergy 11/19/2020 PLAVIX Admission Admission Data Admission Date: 11/19/2020 Admission Time: 12:03 Arrival Date: 11/19/2020 Arrival Time: 0:00 Admit Source: Other Insurance Payor: Medicaid [facility] #: [id number] Lab Results Lab Result Date: 11/19/2020 Lab Result Time: 0:00 Biochemistry Name Units Result Min Max BUN mg/dl 11 --(-*--)-- 7 18 Creatinine mg/dl 1 --(--*-)-- 0.6 1.3 eGFR ml/min 82.69660 -*(----)-- 90 120 NONAFRICAN CBC Name Units Result Min Max Hematocrit % 47 --(-*--)-- 42 54 Hemoglobin g/dl 16 --(--*-)-- 13.5 17.5 Procedure Procedure Types Cath Procedure Diagnostic Procedure [facility] w/Coronaries w/Grafts Sedation Charges Moderate Sedation 10-24 minutes Procedure Description Procedure Date Procedure Date: 11/19/2020 Procedure Start Time: 14:17 Procedure End Time: 14:36 Procedure Staff Name Function Damaso Larios MD Performing Physician Cassie Quezada RT Monitor Ayesha Weinberg RT Scrub Yoanna Haywood RN Nurse Procedure Data Cath Procedure Fluoroscopy Diagnostic fluoroscopy Total fluoroscopy Time: 4.4 time: 4.4 min min Diagnostic fluoroscopy Total fluoroscopy dose: 805 dose: 805 mGy mGy Contrast Material Contrast Material Type Amount (ml) Isovue 370 124 Entry Location Entry Primary Successful Side Size Upsize Upsize Entry Closure Succes sful Closure Location (Fr) 1 (Fr) 2 (Fr) Remarks Device Remarks Femoral Right 5 Fr artery Estimated blood loss: 5 ml Diagnostic catheters Device Type Used For End Catheter Placement MULTIPACK JL 4.0 5Fr Procedure catheter DIAGNOSTIC AR1 MOD 5Fr Procedure catheter ([id number]) DIAGNOSTIC LCB 5Fr Procedure catheter ([id number]) DIAGNOSTIC IM 5Fr Procedure catheter ([id number]) MULTIPACK Pigtail 5 Fr Procedure catheter Procedure Complications No complications Procedure Medications Medication Administration Route Dosage Oxygen etCO2 Nasal cannula 2 l/min Heparin Flush Bag added to field 2 bags (1000units/500ml NS) Lidocaine 2% added to field 20 0.9% NaCl I.V. 100 ml/hr Fentanyl I.V. 50 mcg Versed I.V. 1 mg Fentanyl I.V. 50 mcg Versed I.V. 1 mg Versed I.V. 1 mg Versed I.V. 1 mg Hemodynamics Rest HGB: 16 (g/dl) Heart Rate: 80 (bpm) Pressure Samples Time Site Value (mmHg) Purpose Heart Use Rate(bpm) 14:32 LV 131/15,27 Snapshot 83 14:33 AO 127/86(105) Pullback 88 14:33 LV 161/9,95 Pullback 88 Gradients Valve Time Site 1 Site 2 Mean SEP/DFP Peak To Heart Use (mmHg) (sec/min) Peak Rate (mmHg) (bpm) Aortic 14:33 LV AO 15 28 34 88 161/9,95 127/86(105) Calculations Valve P-P Mean Valve Index Valve Source Name Gradient Area Flow (cm2) Aortic 34 15 34 15 Snapshots Pre Cath Intra NCS Post Cath Vital Signs Time Heart Resp SPO2 etCO2 NIBP (mmHg) Rhythm Pain Sedation Rate (ipm) (%) (mmHg) Status Level (bpm) 13:52:31 83 25 98 145/102(112) NSR 0 (11) 10(A) , No pain 13:56:37 81 23 94 140/96(111) NSR 0 (11) 10(A) , No pain 14:00:47 83 17 93 139/95(113) NSR 0 (11) 10(A) , No pain 14:05:03 81 18 97 137/85(110) NSR 0 (11) 10(A) , No pain 14:09:13 82 18 95 148/95(113) NSR 0 (11) 10(A) , No pain 14:13:22 80 18 95 144/92(116) NSR 0 (11) 10(A) , No pain 14:17:31 84 18 95 131/84(101) NSR 0 (11) 9(A) , No pain 14:21:44 76 43 95 121/82(104) NSR 0 (11) 9(A) , No pain 14:25:54 86 18 96 36.7 128/86(107) NSR 0 (11) 9(A) , No pain 14:30:02 82 32 98 41.1 139/87(107) NSR 0 (11) 9(A) , No pain 14:34:12 84 25 93 31.4 129/86(99) NSR 0 (11) 9(A) , No pain Medications Time Medication Route Dose Verified Delivered Reason Notes Eff ectiveness by by 13:53:03 Oxygen etCO2 2 Yoanna Yoanna for low 02 Nasal l/min Chastity Haywood sats cannula RN RN 13:53:38 Heparin Flush added 2 Yoanna Yoanna used for Bag to bags Chastity Haywood procedure (1000units/500ml field RN RN NS) 13:53:48 Lidocaine 2% added 20ml Yoanna Damaso for local to vial Ric Haywood MD anesthetic field RN 13:54:01 0.9% NaCl I.V. 100 Yoanna Yoanna Per ml/hr Chastity Haywood, physician RN RN 14:14:07 Fentanyl I.V. 50 Yoanna Yoanna for mcg Haywood, Haywood, sedation RN RN 14:14:12 Versed I.V. 1 mg Yoanna Yoanna for Haywood, Haywood, sedation RN RN 14:19:21 Fentanyl I.V. 50 Yoanna Yoanna for mcg Haywood, Haywood, sedation RN RN 14:19:24 Versed I.V. 1 mg Yoanna Yoanna for Haywood, Haywood, sedation RN RN 14:22:47 Versed I.V. 1 mg Yoanna Yoanna for Haywood, Haywood, sedation RN RN 14:31:46 Versed I.V. 1 mg Yoanna Yoanna for Haywood, Haywood, sedation RN blending machine feeder Log Time Note 13:05:00 Informed consent obtained and on chart 13:05:11 Diagnostic Cath Status : Elective 13:05:27 Arrival Date: 11/19/2020 12:00:00 AM 13:05:27 Admit Source: Other 13:05:31 Insurance Payor : Medicaid 13:14:50 Lab Result : Hemoglobin 16 g/dl 13:14:51 Lab Result : Hematocrit 47 % 13:14:55 ACC Patient presents with Stable Angina CCS Anginal Class 2--Slight limitation of ordinary activity. 13:14:59 Procedure Status Elective Heart Cath (OP). 13:15:01 Time tracking: Regular hours (M-F 7:00 - 5:00) 13:15:06 Plan of Care:Hemodynamics will remain stable., Cardiac rhythm will remain stable., Comfort level will be maintained., Respiratory function will remain adequate., Patient/ family verbilizes understanding of procedure., Procedure tolerated without complication., Recovers from procedure without complications.. 13:15:17 H&P Date Dictated: 10/31/2020 Within 30 days and on chart.. 13:15:18 Pre-procedure instructions explained to patient. 13:15:19 Pre-op teaching completed and patient verbalized understanding. 13:15:21 Family in waiting room. 13:15:22 Patient NPO since Midnight. 13:15:33 Patient allergic to Other allergyPLAVIX 13:15:41 Lab results completed and on chart, pending. 13:16:37 Stress Test: yes; abnormal INFERIOR, APICAL 13:16:41 Right groin area was prepped with chlora-prep and draped in sterile fashion 13:16:42 Alarms reviewed by R. N. 13:16:42 Sharps counted by scrub and verified by R.N. 13:26:30 Lab Result : eGFR NONAFRICAN 82.22838 ml/min 13:26:30 Lab Result : Creatinine 1 mg/dl 13::30 Lab Result : BUN 11 mg/dl 13:26:36 Risk of Mortality: 0.1 13:26:40 Risk of blood transfusion: 0.1 13::42 Risk of CORAZON: 0.2 13:33:17 Yoanna Haywood RN sent for patient. Start room use. 13:40:50 Patient received from Pre/Post Procedure Room to CCL 2 Alert and oriented. Tansferred to table in Supine position. 13:40:55 Warm blankets applied, and lynette hugger turned on for patient comfort. 13:40:56 Correct patient and procedure confirmed by team. 13:40:56 ECG and BP/O2 sat monitors applied to patient. 13:41:00 Is the patient allergic to Iodine/contrast media? No. 13:41:01 Was the patient premedicated? Yes 13:41:06 Full Disclosure recording started 13:48:23 Is patient on blood thinner?Yes 13:48:28 ACC The patient was administered the following blood thiners within the last 24 hours: ACCEffient 13:50:21 Patient diabetic? No. 13:50:24 If diabetic: On Metformin? N/A 13:50:25 ----Pre-sedation anethsthesia assessment.---- 13:50:28 Previous problem with sedation/anesthesia? No ? 13:50:29 Snore? Yes 13:50:30 Sleep apnea? Unknown 13:50:32 Deviated septum? No 13:50:33 Opens mouth fully? Yes 13:50:35 Sticks out tongue? Yes 13:50:41 Airway obstruction? Yes COPD 13:50:44 Dentures? No ? 13:50:46 Patient pain scale 0/10 ?. 13:50:51 IV patent on arrival in left antecubital with 0.9% NaCl at KVO. 13:50:58 Use device set Femoral Dx 13:50:59 ACIST Syringe (96259) opened to sterile field. 13:51:00 Bag Decanter (2001S) opened to sterile field. 13:51:00 Medline Cath Pack ([id number]) opened to sterile field. 13:51:02 ACIST Hand Control (44259) opened to sterile field. 13:51:02 ACIST Manifold (71089) opened to sterile field. 13:51:03 DIAGNOSTIC Multipack 5Fr catheter set (OO9518) opened to sterile field. 13:51:04 Tegaderm 4 x 4 (1626W) opened to sterile field. 13:51:05 SHEATH 5FR Seward (JDT718) opened to sterile field. 13:51:06 EMERALD Guide Wire (113-353) opened to sterile field. 13:51:31 Vital chart was started 13:51:32 Baseline sample Acquired. 13:51:35 Rhythm: sinus rhythm 13:53:03 Oxygen 2 l/min etCO2 Nasal cannula was administered by Yoanna Haywood RN; for low 02 sats; Verbal order read back and verified. 13:53:38 Heparin Flush Bag (1000units/500ml NS) 2 bags added to field was administered by Yoanna Haywood RN; used for procedure; Verbal order read back and verified. 13:53:48 Lidocaine 2% 20ml vial added to field was administered by Damaso Larios MD; for local anesthetic; Verbal order read back and verified. 13:54:01 0.9% NaCl 100 ml/hr I.V. was administered by Yoanna Haywood RN; Per physician; Verbal order read back and verified. 14:06:24 --------ALL STOP TIME OUT------ 14:06:24 Final Timeout: patient, procedure, and site verified with staff and physician. All members of the team are in agreement. 14:06:26 Right groin site verified by team. 14:06:30 Fire Safety Assessment: A--An alcohol-based skin anteseptic being used preoperatively., C--Open oxygen or nitrous oxide is being used., D--An ESU, laser, or fiber-optic light is being used. 14:06:36 Physical assessment completed. ASA score P 2 - A patient with mild systemic disease as per Damaso Larios MD. 14:06:44 2) 60-89 Mildly reduced kidney function, and other findings (as for stage 1) point to kidney disease. 14:06:47 Maximum allowable contrast dose (3.7 X eGFR X 0.75)230 ml. 14:06:50 Sedation plan: IV Moderate Sedation Medication:Versed, Fentanyl 14:14:07 Fentanyl 50 mcg I.V. was administered by Yoanna Haywood RN; for sedation; Verbal order read back and verified. 14:14:12 Versed 1 mg I.V. was administered by Yoanna Haywood RN; for sedation; Verbal order read back and verified. 14:17:49 Procedure started. 14:17:52 Local anesthetic to right femoral artery with Lidocaine 2% by Damaso Larios MD.INITIAL ACCESS ONLY 14:19:21 Fentanyl 50 mcg I.V. was administered by Yoanna Haywood RN; for sedation; Verbal order read back and verified. 14:19:24 Versed 1 mg I.V. was administered by Yoanna Haywood RN; for sedation; Verbal order read back and verified. 14:19:40 A 5 Fr sheath was inserted into the Right Femoral artery 14:20:45 A MULTIPACK JL 4.0 5Fr catheter was advanced over the wire and used for Procedure. 14:21:19 LCA angiography performed. 14:21:35 Injector settings: Ml/sec: 3, Volume: 6, 14:22:29 Catheter exchanged over wire. 14:22:47 Versed 1 mg I.V. was administered by Yoanna Haywood RN; for sedation; Verbal order read back and verified. 14:23:05 A DIAGNOSTIC AR1 MOD 5Fr catheter ([id number]) was advanced over the wire and used for Procedure. 14:24:00 RCA angiography performed. 14:24:03 Injector settings: Ml/sec: 3, Volume: 6, 14:24:45 Catheter exchanged over wire. 14:25:36 A DIAGNOSTIC LCB 5Fr catheter ([id number]) was advanced over the wire and used for Procedure. 14:26:42 SVG to OM angiography performed. 14:26:46 Injector settings: Ml/sec: 3, Volume: 6, 14:26:54 Catheter exchanged over wire. 14:27:32 A DIAGNOSTIC IM 5Fr catheter ([id number]) was advanced over the wire and used for Procedure. 14:29:24 SVG to LAD angiography performed. 14:29:27 Injector settings: Ml/sec: 4, Volume: 8, 14:31:33 Catheter exchanged over wire. 14::39 A MULTIPACK Pigtail 5 Fr catheter was advanced over the wire and used for Procedure. 14:31:46 Versed 1 mg I.V. was administered by Yoanna Haywood RN; for sedation; Verbal order read back and verified. 14:32:10 LV gram done using GONSALEZ 14:32:39 LV hemodynamics recorded. 14:33:19 Injector settings: Ml/sec: 10, Volume: 20, 14:33:24 EF : 45 % 14:33:34 Catheter removed. 14:34:14 EXOSEAL 5Fr (EX500) opened to sterile field. 14:34:24 Fluoroscopy time 04.40 minutes. 14:34:33 Fluoroscopy dose: 805 mGy 14:34:33 Flurop Dose total: 805 14:34:37 Dose Area Product 69556 mGy/cm. 14:34:52 Contrast amount:Isovue 370 124ml. 14:34:54 Maximum allowable dose exceeded? No. 14:34:55 Sharps counted by scrub and verified by R.N. 14:35:07 Post-op/insertion site Right Femoral artery dressed using a 4 x 4 and Tegaderm. 14:35:12 Post right femoral artery:stable, soft, clean and dry 14:35:13 Post Procedure Pulses reassessed and unchanged 14:35:16 Post procedure: right dorsailis pedis pulse 2+ Normal; easily identifiable; not easily obliterated. 14:35:19 Post-procedure physical assessment completed. ASA score P 2 - A patient with mild systemic disease as per Damaso Larios MD. 14:35:22 Post procedure rhythm: unchanged. 14:35:25 Estimated blood loss: 5 ml 14:35:27 Procedure ended.(Physican Out) 14:35:47 Post procedure instruction explained to patient.Patient verbalizes understanding. 14:35:47 Patient needs reinforcement of post procedure teaching. 14:35:53 Procedure type changed to Cath procedure, Diagnostic procedure, LHC, LHC w/Coronaries w/Grafts, Sedation Charges, Moderate Sedation 10-24 minutes 14:36:11 Procedure and supply charges have been captured, reviewed, submitted and are correct. 14:36:15 Procedure Complication : No complications 14:36:19 [facility] Findings: mild to moderate CAD (<70%) 14:36:21 Operative report dictated upon procedure completion. 14:36:21 See physician's report for complete and final results. 14:36:25 Report given to Pre/Post Procedure Room. 14:36:28 Patient transfered to Pre/Post Procedure Room with Stretcher. 14:36:39 Procedure ended. 14:36:39 Full Disclosure recording stopped 14:36:48 ACC-PCI Only Patient was given prescriptions, or instructed by Damaso Larios MD to start/continue the following medications upon discharge: Effient 14:36:49 End room use (Document Last) 14:38:07 Vital chart was stopped Device Usage Item Name Manufacture Quantity Catalog Hospital Part Current Minimal L ot# / Number Charge Number Stock Stock Serial# Code ACIST Acist 1 51871 687113 551513 485765 20 Syringe Medical (32012) Systems Inc Bag Microtek 1 629965 98495 908510 5 Decanter Medical Inc. () Medline Medline 1 [id number] 649964 88377 858684 5 Cath Pack ([id number]) ACIST Hand Acist 1 93990 462696 229735 381110 5 Control Medical (91315) Systems Inc ACIST Acist 1 24170 230585 221643 768077 5 Manifold Medical (86209) Systems Inc DIAGNOSTIC Cardinal 1 DY9960 340557 95281 679837 30 Multipack Health 5Fr catheter set (DR1950) Tegaderm 4 3M 1 1626W 107598 974466 958089 5 x 4 (1626W) SHEATH 5FR Terumo 1 KUD801 742191 852283 817912 5 Seward (KMV811) EMERALD Cardinal 1 502-455 507986 407362 409223 5 Guide Wire Health (502455) MULTIPACK Cardinal 1 381322 5 JL 4.0 5Fr Health catheter DIAGNOSTIC Cardinal 1 [id number] 268370 211253 221003 15 AR1 MOD 5Fr Health catheter (452413A) DIAGNOSTIC Cardinal 1 [id number] 654399 327515 767200 5 LCB 5Fr Health catheter (612428V) DIAGNOSTIC Cardinal 1 [id number] 089624 118741 417814 5 IM 5Fr Health catheter (661567I) MULTIPACK Cardinal 1 394118 5 Pigtail 5 Health Fr catheter EXOSEAL 5Fr Cardinal 1 EX500 421958 102689 337947 10 (EX500) Health Signature Audit [place] Stage Time Signature Unsigned Intra-Procedure 11/19/2020 Cassie Quezada 2:37:01 PM RT(R) Intra-Procedure 11/19/2020 Cassie Quezada 2:37:20 PM RT(R) Intra-Procedure 11/19/2020 Yoanna Haywood, 2:37:35 PM RN Intra-Procedure 11/19/2020 Damaso Larios MD 2:38:05 PM Signatures Performing Physician : Signature : Damaso Larios MD Date : Time : Monitor : Cassie Quezada Signature : RT Date : Time : Nurse : Yoanna Haywood, Signature : RN Date : Time : [address] [address]
[2020-11-19] MEDS ORDERED: HYDROCODON-ACE1 EAC7 PO (12:43)
[2020-11-19] MEDS ORDERED: RESTORIL15 MG PO (12:44)
[2020-11-19] MEDS ORDERED: COREG6.25 MG PO (12:44)
[2020-11-19] MEDS ORDERED: SPIRIVA18 MCG INH (12:45)
[2020-11-19] MEDS ORDERED: NITROQUICK0.4 MG SL (12:46)
[2020-11-19] MEDS ORDERED: REPATHA SY140 MG/1 M SC (12:47)
[2020-11-19 12:51] VITALS: BP 121/72; Ht 185.4 cm; Wt 101.2 kg
[2020-11-19 13:05] LABS: BASOPHILS 0.3 % (0-2); EOSINOPHILS 3.7 % (0-7); IMMATURE GRANULOCYTES 0.2 % (0-5); LYMPHOCYTE ABS# 1.77 10x3/uL (1.32-3.57); LYMPHOCYTES 27.3 % (15-50); MCH 30.7 pg (26.0-34.0); MCV 90.2 fL (80.0-100.0); MEAN PLATELET VOLUME 10.4 fL (7.4-10.4); MONOCYTES 7.2 % (2-11); NEUTROPHIL ABS# 3.98 10x3/uL (1.78-5.38); NEUTROPHILS 61.3 % (40-80); PLATELET COUNT 231 10x3/uL (130-400); RBC 5.21 10x6/uL (4.20-6.10); WBC 6.5 10x3/uL (4.8-10.8)
[2020-11-19 13:16] LABS: ALT (SGPT) 24 U/L (10-68); CALC OSMOLALITY 274 mosm/kg (275-300); CARBON DIOXIDE 28.5 mmol/L (21.0-32.0); CHLORIDE - SERUM 104 mmol/L (98-107); CHOL - HDL RATIO 5.8 ratio (2.3-4.9); CHOLESTEROL, TOTAL 187 mg/dL (0-200); GLUCOSE 104 mg/dL (74-106); HDL CHOLESTEROL 32 mg/dL (32-96); LDL CHOLESTEROL 128 mg/dL (0-100); POTASSIUM - SERUM 3.8 mmol/L (3.5-5.1); SODIUM 138 mmol/L (136-145); TRIGLYCERIDE 137 mg/dL (30-200); UREA NITROGEN 11 mg/dL (7-18); eGFR NON AFRICAN AMERICAN 83 mL/min (90-120)
--- NOTE | 2020-11-19 14:48 | NUR ---
PT ARRIVED BY STRETCHER. PLACED ON MONITORS. ASSESSMENT COMPLETED. VSS AT THIS TIME. CALL LIGHT WITHIN REACH. FAMILY AT BEDSIDE.
--- NOTE | 2020-11-19 15:03 | NUR ---
RIGHT GROIN DRESSING C/D/I. NO S/S OF HEMATOMA NOTED. PT RESTING COMFORTABLY. VSS. RIGHT PEDAL PULSE PALPABLE. DR. STEVENSON ROUNDED AND SPOKE WITH PT AND PT'S AT BEDSIDE.
--- NOTE | 2020-11-19 15:33 | NUR ---
RIGHT GROIN DRESSING C/D/I. NO S/S OF HEMATOMA NOTED. CALL LIGHT WITHIN REACH. RIGHT PEDAL PULSE PALPABLE. PT RESTING COMFORTABLY. DENIES NAUSEA/PAIN. FAMILY AT BEDSIDE.
--- NOTE | 2020-11-19 16:05 | NUR ---
RIGHT GROIN DRESSING C/D/I. NO S/S OF HEMATOMA NOTED. PT'S HEAD OF BED INC TO 30 DEGREES. TOLERATED WELL. SET UP WITH SANDWICH TRAY AND DRINK. DENIES NAUSEA/PAIN. FAMILY AT BEDSIDE.
--- NOTE | 2020-11-19 16:43 | NUR ---
RIGHT GROIN DRESSING C/D/I. NO S/S OF HEMATOMA NOTED. PIV D/C'D WITH CATH TIP INTACT. TOLERATED WELL. VSS. RIGHT PEDAL PULSE PALPABLE. DISCUSSED DISCHARGE INSTRUCTIONS WITH PT AND PT'S FAMILY. THEY VOICED UNDERSTANDING. PT INSRUCTED TO GET UP AND DRESSED AT THIS TIME. FAMILY AT BEDSIDE TO ASSIST. CALL LIGHT WITHIN REACH.
--- NOTE | 2020-11-19 16:46 | NUR ---
PT AMBULATED TO RESTROOM AND VOIDED WITHOUT DIFFICULTY. STEADY GAIT NOTED.
--- NOTE | 2020-11-19 16:49 | NUR ---
PT TAKEN OUT TO VEHICLE BY WHEELCHAIR. NO S/S OF DISTRESS NOTED. ALL BELONGINGS AND PAPERWORK IN HAND. RIGHT GROIN DRESSING C/D/I. NO S/S OF HEMATOMA NOTED.
== END 2020-11-19 16:49 | disposition home or self-care (01) ==
LOC: D.CATH 12:03
PROVIDERS: ATTEND Internal Medicine Cardiovascular Disease
DX: R94.39 Abnormal result of other cardiovascular function study (principal); I25.119 Atherosclerotic heart disease of native coronary artery with unspecified angina pectoris; R06.00 Dyspnea, unspecified; R07.9 Chest pain, unspecified; Z95.1 Presence of aortocoronary bypass graft; I10 Essential (primary) hypertension; I25.5 Ischemic cardiomyopathy

== ENCOUNTER → 2020-11-26 11:56 | Outpatient (CLI) | payer MEDICAID ==
[2020-11-19 12:51] VITALS: BMI 29.4
[~2020-11-26 11:56] MED LIST changes: +COREG6.25 MG PO; +REPATHA SY140 MG/1 M SC; +RESTORIL15 MG PO; +SPIRIVA18 MCG INH
== END | disposition home or self-care (01) ==
LOC: D.LAB 11:56
PROVIDERS: ATTEND Internal Medicine Pulmonary Disease
DX: Z11.52 Encounter for screening for COVID-19 (principal)

== ENCOUNTER → 2020-11-30 07:47 | Outpatient (CLI) | payer MEDICAID ==
[2020-11-19 12:51] VITALS: BMI 29.4
== END | disposition home or self-care (01) ==
LOC: D.RT 07:47
PROVIDERS: ATTEND Internal Medicine Pulmonary Disease
DX: J44.9 Chronic obstructive pulmonary disease, unspecified (principal); Z11.52 Encounter for screening for COVID-19